=== PATIENT | male | born 1950 | race Caucasian/White ===

== ENCOUNTER 2023-05-30 13:32 | Emergency (ER) | payer MEDICARE, SELFPAY ==
[2023-05-30 14:25] VITALS: BP 114/72; PULSE 69; RESP 17; TEMP 35.6; O2SAT 95; BMI 29.4
--- NOTE | 2023-05-30 14:31 | ED_ITS ---
HPI - General Adult General Chief complaint: General Medical Stated complaint: unsafe at home Time Seen by Provider: 05/30/23 18:16 Source: patient and family (Patient's daughter who is present at bedside) Mode of arrival: ambulatory Limitations: no limitations History of Present Illness HPI narrative: Patient 72-year-old male who presents to the emergency department with his daughter for evaluation. Patient and daughter report a mechanical fall in [place] on 05/16/2023 was found to have a humeral neck fracture. He was evaluated at [facility] 05/17/2023 was given referral to [facility]. He was seen by EAGLE today, with recommendations for use of the sling for 6 weeks, he is taking morphine 15 mg IR every 8 hours as needed for pain, in addition to naproxen 500 mg twice daily as needed for pain. Patient and daughter expressed concerns about his safety at home since the fall. He has been unsteady on his feet, he typically uses either a cane in the right hand or a walker for ambulation. Both of which he has been unable to use successfully due to the fracture. He has been utilizing a cane in the left hand but did not feel this gives him stability. Otherwise he has no acute concerns at this time. Daughter is hoping for physical therapy evaluation and possible short-term rehab. Related Data Home Medications Medication Instructions Recorded Confirmed cetirizine 10 mg tablet (Zyrtec) 10 mg PO DAILY 05/30/23 05/30/23 citalopram 40 mg tablet 40 mg PO DAILY 05/30/23 05/30/23 gabapentin 100 mg capsule 100 mg PO TID 05/30/23 05/30/23 lisinopril 10 mg tablet 10 mg PO BID 05/30/23 05/30/23 melatonin 10 mg tablet 10 mg PO BEDTIME 05/30/23 05/30/23 morphine 15 mg immediate release 15 mg PO TID PRN Pain 05/30/23 05/30/23 tablet naproxen 500 mg tablet 500 mg PO BID 05/30/23 05/30/23 tamsulosin 0.4 mg capsule 0.8 mg PO DAILY 05/30/23 05/30/23 Allergies Allergy/AdvReac Type Severity Reaction Status Date / Time No Known Allergies Allergy Verified 05/30/23 14:40 Review of Systems Review of Systems: Yes all other systems are reviewed and are negative PMFSH Past Medical History Attestation statement: The following information was validated with the patient. Source: old records reviewed Social History Social History Alcohol intake: former Smoked in Last 30 Days: No Use of substances other than those prescribed or required for medical reasons: No Advance Directives: No Advance Directives Information Provided: Yes Physical Exam ED Vital Signs: Vital Signs - 24 hr 05/30/23 18:29 05/30/23 20:28 05/31/23 06:00 Temperature 97.5 F Pulse Rate 101 H 57 60 Respiratory Rate 18 14 17 Blood Pressure 122/75 136/91 H 138/75 Pulse Oximetry 97 95 95 Oxygen Delivery Method Room Air Room Air Room Air 05/31/23 08:00 05/31/23 11:18 Temperature 97.5 F 97.5 F Pulse Rate 66 58 Respiratory Rate 15 14 Blood Pressure 134/88 150/89 H Pulse Oximetry 97 98 Oxygen Delivery Method Room Air Room Air BMI result Body Mass Index 29.4 Appearance: Alert.?Oriented to person, place and time. No acute distress.?Normal affect. Eyes: Pupils equal, round and reactive to light.? ENT: Pharynx normal.?? Neck: Normal inspection.? Neck supple.?? CVS: Heart sounds normal. Normal heart rate and rhythm.? Pulses normal.?? Respiratory: No respiratory distress.? Lung sounds clear to auscultation bilaterally?? Abdomen: Soft and non-tender. Normoactive bowel sounds. Skin: Skin warm and dry.? Normal skin color.? Extremities: No lower extremity edema. 2+ radial pulse bilaterally. Right upper extremity in a sling, CMS intact distally Neuro: Moves all extremities spontaneously. Sensation intact bilaterally. CN II- XII intact. No focal neuro deficits. Ambulates with slow gait, use of assistive devices Course Course Course Narrative: This is an RME: Additional HPI, ROS, PE not included below will be deferred to primary provider. This is a [id number]-male, cervical spine fusion, chronic neuropathy, chronic urinary/bowel incontinence, sciatica, nerve weakness, HTN, here with family to report that patient is unsafe at home. Pt recently had a mechanical fell and broke his humeral neck on May 17. Family concerned given recent fracture and unsteadiness on his feet. These are all chronic problems. Looking for STR, OT/PT evaluation. Plan: basic labs, ua, likely PT/OT case management. Reevaluation(s) Reevaluation #1: 05/31/2023 0700: Physician observation continues. Patient being followed by CM. 05/31/2023 1552: Patient to be discharged to [facility]. Medications Administered Generic Name Dose Route Start Last Admin Trade Name Freq PRN Reason Stop Dose Admin Escitalopram Oxalate 20 mg 05/31/23 09:00 05/31/23 08:22 Escitalopram Oxalate 20 Mg Tablet PO 20 mg DAILY JAVED Administration Gabapentin 100 mg 05/31/23 09:00 05/31/23 08:22 Gabapentin 100 Mg Capsule PO 100 mg TID JAVED Administration Lisinopril 10 mg 05/31/23 09:00 05/31/23 10:00 Lisinopril 10 Mg Tablet PO 10 mg BID JAVED Administration Protocol Loratadine 10 mg 05/31/23 09:00 05/31/23 08:22 Loratadine 10 Mg Tablet PO 10 mg DAILY JAVED Administration Morphine Sulfate 15 mg 05/30/23 21:30 05/30/23 22:01 Morphine Sulfate Immed Release 15 Mg Tablet PO 15 mg TID PRN Administration Pain, Severe (Pain Scale 7-10) Naproxen 500 mg 05/31/23 09:00 05/31/23 08:22 Naproxen 500 Mg Tablet PO 500 mg BID JAVED Administration Tamsulosin HCl 0.8 mg 05/31/23 09:00 05/31/23 08:22 Tamsulosin Hcl 0.4 Mg Capsule PO 0.8 mg DAILY JAVED Administration Medical Decision Making Medical Decision Making MDM Narrative: Patient is a 72-year-old male with past medical history of recent humeral neck fracture, hypertension, BPH presenting to emergency department due to deconditioning, and concern for safety at home. Aside from pain to the right upper extremity with humeral neck fracture and generalized weakness he has no additional physical complaints. The right upper extremity is neurovascularly intact distally. He is overall well-appearing. Conscious alert and oriented x4. Obtain basic labs for medical clearance. Will refer patient to case management/physical therapy for determination as to whether he would be candidate for short-term rehab. He will be placed in physician observation so that physical therapy evaluation can ensue tomorrow. Patient's daughter was present at the time of examination who confirms history. Differential Diagnosis Differential Diagnoses: The differential diagnosis associated with the presentation includes Admission/Observation Consideration of admission/observation: Escalation of care including admission/observation considered (As noted above) Lab Data MDM Lab Attestation statement: I reviewed the patient's lab results. CBC and CMP are overall unremarkable. 05/30/23 14:45 05/30/23 14:45 Labs: Lab Results 05/30/23 05/30/23 05/30/23 Range/Units 14:45 14:45 14:51 WBC 7.5 (4.8-10.8) X10*3/uL RBC 4.80 (4.60-5.80) X10*6/uL Hgb 14.5 (14.0-18.0) g/dl Hct 43.5 (42.0-52.0) % MCV 90.6 (80.0-98.0) fL MCH 30.2 (27.0-33.0) pg MCHC 33.3 (31.0-36.0) g/dl RDW 13.3 (11.0-16.0) % Plt Count 258 (160-400) X10*3/uL MPV 9.7 (9.4-12.4) fL Immature Gran % (Auto) 0.4 (0.0-0.4) % Neut % (Auto) 74.9 H (45-73) % Lymph % (Auto) 12.6 L (20-40) % [place] % (Auto) 9.6 (2-11) % Eos % (Auto) 2.1 (0-4) % Baso % (Auto) 0.4 (0-2) % Lymph # (Auto) 1.0 L (1.2-4.9) X10*3/uL [place] # (Auto) 0.7 (0.1-1.2) X10*3/uL Eos # (Auto) 0.2 (0.0-0.4) X10*3/uL Baso # (Auto) 0.0 (0.0-0.2) X10*3/uL Abs Immat Gran (auto) 0.03 (0.00-0.03) X10*3/uL Absolute Neuts (auto) 5.6 (2.0-8.3) x10*3/uL Absolute Nucleated RBC 0.000 (0.0-0.012) X10*3/uL Nucleated RBC % (auto) 0.0 (0.0-0.2) /100WBC Sodium 138 (135-145) mmol/L Potassium 4.1 (3.3-5.1) mmol/L Chloride 106 (96-108) mmol/L Carbon Dioxide 23 (22-29) mmol/L Anion Gap 13 (12-20) BUN 17 H (9-16) mg/dL Creatinine 0.70 (0.5-1.4) mg/dL Estim Creat Clear Calc 117.6 Estimated GFR > 60 Random Glucose 119 H (60-115) mg/dL Calcium 9.2 (8.4-10.2) mg/dL Total Bilirubin 1.9 H (0.0-1.0) mg/dL Direct Bilirubin 0.6 H (0.0-0.5) mg/dL AST 18 (5-37) U/L ALT 15 (0-40) U/L Alkaline Phosphatase 89 (39-117) U/L Total Protein 6.6 (6.5-8.0) g/dL Albumin 3.6 (3.5-5.0) g/dL Urine Color Yellow Urine Appearance Clear Urine pH 5.5 (5.0-9.0) Ur Specific [place] 1.020 (1.005-1.025) Urine Protein Negative (Neg-Trace) mg/dL Urine Glucose (UA) Negative (Negative) mg/dL Urine Ketones Negative (Negative) mg/dL Urine Blood Small (1+) H (Negative) Urine Nitrite Negative (Negative) Ur Leukocyte Esterase Small (1+) H (Negative) Urine RBC >20 H (0-2) /HPF Urine WBC 11-20 H (0-5) /HPF Ur Squamous Epith Cells 0-2 (0-2) /HPF Urine Bacteria None Seen (None Seen) Hyaline Casts 0-2 (0-2) /LPF COVID-19 (KAMLA) (Negative) COVID-19 Clin Com 05/31/23 Range/Units 09:34 WBC (4.8-10.8) X10*3/uL RBC (4.60-5.80) X10*6/uL Hgb (14.0-18.0) g/dl Hct (42.0-52.0) % MCV (80.0-98.0) fL MCH (27.0-33.0) pg MCHC (31.0-36.0) g/dl RDW (11.0-16.0) % Plt Count (160-400) X10*3/uL MPV (9.4-12.4) fL Immature Gran % (Auto) (0.0-0.4) % Neut % (Auto) (45-73) % Lymph % (Auto) (20-40) % [place] % (Auto) (2-11) % Eos % (Auto) (0-4) % Baso % (Auto) (0-2) % Lymph # (Auto) (1.2-4.9) X10*3/uL [place] # (Auto) (0.1-1.2) X10*3/uL Eos # (Auto) (0.0-0.4) X10*3/uL Baso # (Auto) (0.0-0.2) X10*3/uL Abs Immat Gran (auto) (0.00-0.03) X10*3/uL Absolute Neuts (auto) (2.0-8.3) x10*3/uL Absolute Nucleated RBC (0.0-0.012) X10*3/uL Nucleated RBC % (auto) (0.0-0.2) /100WBC Sodium (135-145) mmol/L Potassium (3.3-5.1) mmol/L Chloride (96-108) mmol/L Carbon Dioxide (22-29) mmol/L Anion Gap (12-20) BUN (9-16) mg/dL Creatinine (0.5-1.4) mg/dL Estim Creat Clear Calc Estimated GFR Random Glucose (60-115) mg/dL Calcium (8.4-10.2) mg/dL Total Bilirubin (0.0-1.0) mg/dL Direct Bilirubin (0.0-0.5) mg/dL AST (5-37) U/L ALT (0-40) U/L Alkaline Phosphatase (39-117) U/L Total Protein (6.5-8.0) g/dL Albumin (3.5-5.0) g/dL Urine Color Urine Appearance Urine pH (5.0-9.0) Ur Specific [place] (1.005-1.025) Urine Protein (Neg-Trace) mg/dL Urine Glucose (UA) (Negative) mg/dL Urine Ketones (Negative) mg/dL Urine Blood (Negative) Urine Nitrite (Negative) Ur Leukocyte Esterase (Negative) Urine RBC (0-2) /HPF Urine WBC (0-5) /HPF Ur Squamous Epith Cells (0-2) /HPF Urine Bacteria (None Seen) Hyaline Casts (0-2) /LPF COVID-19 (KAMLA) Negative (Negative) COVID-19 Clin Com See Note Independent Historian Clinical information obtained from an independent historian. History obtained from or confirmed by: Other (Patient's daughter as noted above) Prescription Management I considered prescription management with: Pain Medication Discharge Plan Discharge Clinical Impression: Fracture, humerus Qualifiers: Encounter type: subsequent encounter Laterality: right Patient Disposition: Still a Patient Prescriptions: No Action citalopram 40 mg tablet 40 mg PO DAILY cetirizine [Zyrtec] 10 mg Tablet 10 mg PO DAILY tamsulosin 0.4 mg capsule 0.8 mg PO DAILY lisinopril 10 mg tablet 10 mg PO BID gabapentin 100 mg capsule 100 mg PO TID morphine 15 mg tablet 15 mg PO TID PRN (Reason: Pain) naproxen 500 mg tablet 500 mg PO BID melatonin 10 mg Tablet 10 mg PO BEDTIME
[2023-05-30 14:50] LABS: MANUAL DIFF FLAG NO
[2023-05-30 14:51] LABS: Basophils Percent Auto 0.4 % (0-2); Eosinophils Absolute Auto 0.2 X10*3/uL (0.0-0.4); Eosinophils Percent Auto 2.1 % (0-4); Hematocrit 43.5 % (42.0-52.0); Hemoglobin 14.5 g/dl (14.0-18.0); Imm Gran Abs Auto 0.03 X10*3/uL (0.00-0.03); Imm Gran Pct Auto 0.4 % (0.0-0.4); Lymphocytes Percent Auto 12.6 % (20-40); Mean Corpuscular HGB Conc 33.3 g/dl (31.0-36.0); Mean Corpuscular Hemoglobin 30.2 pg (27.0-33.0); Mean Corpuscular Volume 90.6 fL (80.0-98.0); Mean Platelet Volume 9.7 fL (9.4-12.4); Monocytes Absolute Auto 0.7 X10*3/uL (0.1-1.2); Monocytes Percent Auto 9.6 % (2-11); Neutrophils Absolute Auto 5.6 x10*3/uL (2.0-8.3); Neutrophils Percent Auto 74.9 % (45-73); Platelet Count 258 X10*3/uL (160-400); Red Cell Distribution Width 13.3 % (11.0-16.0); White Blood Count 7.5 X10*3/uL (4.8-10.8)
[2023-05-30 15:01] LABS: Appearance Urine Clear; Color Urine Yellow; Glucose Urine UA Negative (Negative); Leukocyte Esterase Urine Small (1+) (Negative); Nitrite Urine Negative (Negative); PH 5.5 (5.0-9.0); UMIC TRIGGER UACC YES; Urine Blood Small (1+) (Negative); Urine Ketones Negative (Negative); Urine Protein Negative (Neg-Trace)
[2023-05-30 15:04] LABS: Bacteria Urine None Seen (None Seen); Hyaline Casts Urine 0-2 /LPF (0-2); RBC Urine >20 /HPF (0-2); Squamous Epithelial Cell Urine 0-2 /HPF (0-2); UACC Culture Trigger YES
[2023-05-30 15:05] LABS: Alanine Aminotransferase 15 U/L (0-40); Albumin Level 3.6 g/dL (3.5-5.0); Alkaline Phosphatase 89 U/L (39-117); Anion Gap 13 (12-20); Aspartate Amino Transferase 18 U/L (5-37); Bilirubin Direct 0.6 mg/dL (0.0-0.5); Bilirubin Total 1.9 mg/dL (0.0-1.0); Blood Urea Nitrogen 17 mg/dL (9-16); Calcium 9.2 mg/dL (8.4-10.2); Carbon Dioxide 23 mmol/L (22-29); Chloride 106 mmol/L (96-108); Creatinine Clr Calc Pharmacy 117.6; Estimated Glomerular Filt Rate > 60; Glucose Random 119 mg/dL (60-115); Potassium 4.1 mmol/L (3.3-5.1); Sodium 138 mmol/L (135-145); Total Protein 6.6 g/dL (6.5-8.0)
[2023-05-30 18:29] VITALS: BP 122/75; PULSE 101; RESP 18; O2SAT 97
--- NOTE | 2023-05-30 18:33 | PC.NURSE ---
Alert and oriented, arrived from home stating that he is unsafe at home. Fell 2 weeks ago on may 16. right Humeral neck head fracture. Patient states he needs extensive help at home that his family is unable to provide for him at this time. States is weak and is unsafe at home and is requesting case managements help with finding finding rehab
--- NOTE | 2023-05-30 20:12 | PHA.MEDREC ---
Pharmacy Consult ? Medication Reconciliation Pharmacy has completed the medication reconciliation. Patient's daughter reported medications. Report naproxen is schedule and morphine is prn. Typically patient only wants morphine at night. Irma Espinal, KevinD
--- NOTE | 2023-05-30 20:14 | MHC.EDTECH ---
Patient pull up changed and given a new one
[2023-05-30 20:28] VITALS: BP 136/91; PULSE 57; RESP 14; O2SAT 95
--- NOTE | 2023-05-30 20:41 | PC.NURSE ---
REPORT GIVEN TO OVERFLOW RN
[2023-05-30] MEDS: Morphine Sulfate Immed Release 15 MG TABLET PO (22:01)
--- NOTE | 2023-05-30 22:16 | MHC.CM.ED ---
CM met with patient and daughter. Pt fell on 05/17 and sustained a right humeral head fx. Pt was at [facility] and returned home. PCP at [facility] ordered home PT from [facility]. PT came today and told daughter the patient in inpatient rehab and is not safe at home. Pt has a hx of cervical spine fusion, neuropathy, nerve weakness and incontinence. Pt cannot use his walker secondary to fracture and is very unsteady with his cane. He lives with his daughter and is alone while she works. She is concerned for his safety. PT is pending. HCP reviewed, completed and signed. Uploaded into [employer] and [facility] [employer]. Copies given. HCP/daughter Carolyn Cross ([phone]). Carolyn asked to be called with any discharge planning, as her father can be forgetful at times. Pt retired 3 years ago. He moved in with his daughter when his , Lizz 3 years ago. Pt was vaccinated with Moderna x2 and 2 boosters. Pt is in need of acute rehab. Pt is highly motivated to participate. PT is pending. Acute rehab referrals placed. Pt has Medicare and [employer]. CM following for discharge planning. Contact Card given.
[2023-05-31 06:00] VITALS: BP 138/75; PULSE 60; RESP 17; TEMP 36.4; O2SAT 95
[2023-05-31 08:00] VITALS: BP 134/88; PULSE 66; RESP 15; TEMP 36.4; O2SAT 97
[2023-05-31] MEDS: Gabapentin 100 MG CAPSULE PO ×2 (08:22→16:00)
[2023-05-31] MEDS: Escitalopram Oxalate 20 MG TABLET PO (08:22)
[2023-05-31] MEDS: NaPROXEN 500 MG TABLET PO (08:22)
[2023-05-31] MEDS: Loratadine 10 MG TABLET PO (08:22)
[2023-05-31] MEDS: Tamsulosin HCL 0.4 MG CAPSULE 0.8 MG PO (08:22)
[2023-05-31] MEDS: lisinopriL 10 MG TABLET PO (10:00)
[2023-05-31 10:31] LABS: COVID-19 Test Negative (Negative); IDNOW Serial# 08D9AD1C
[2023-05-31 11:18] VITALS: BP 150/89; PULSE 58; RESP 14; TEMP 36.4; O2SAT 98
--- NOTE | 2023-05-31 16:07 | MHC.CM.ED ---
Insurance auth obtained by [facility]. Nataliia IVY booked for 530pm. Med nec with chart. Patient, daughter Laurie Leon RN and Yary CHA aware. Continue to monitor for d/c needs.
--- NOTE | 2023-05-31 16:30 | PC.NURSE ---
Report given to AMINA Lockwood at [facility]
== END 2023-05-31 17:21 | disposition skilled nursing facility (03) ==
PROVIDERS: Physician Assistant Medical; Emergency Provider Emergency Medicine Emergency Medical Services
DX: S42.301A Unspecified fracture of shaft of humerus, right arm, initial encounter for closed fracture (principal); I10 Essential (primary) hypertension; R26.2 Difficulty in walking, not elsewhere classified; R32 Unspecified urinary incontinence; W01.0XXA Fall on same level from slipping, tripping and stumbling without subsequent striking against object, initial encounter; Y93.9 Activity, unspecified; Y92.9 Unspecified place or not applicable; Y99.9 Unspecified external cause status; Z20.822 Contact with and (suspected) exposure to COVID-19; Z20.828 Contact with and (suspected) exposure to other viral communicable diseases; Z79.899 Other long term (current) drug therapy
CPT/HCPCS: 36415; 80048; 80076; 81001; 81003; 85025; 87086; 87635; 97161; 99284; 99285

== ENCOUNTER 2023-06-11 08:43 | Outpatient (REF) | payer MEDICARE, OTHER, SELFPAY | END 2023-06-11 08:44 | disposition home or self-care (01) | LOC: HO.HOSX 08:43 | PROVIDERS: Visit Provider Physician Assistant | DX: Z13.89 Encounter for screening for other disorder (principal) ==

== ENCOUNTER 2023-06-19 13:19 | Outpatient (AMB) | payer OTHER, SELFPAY ==
--- NOTE | 2023-06-19 13:41 | HO.SPINEOV ---
Intake Intake Visit Reasons: est pt back pain Intake Note: Mr. Cross is here today for f/u back pain. Allergies No Known Allergies Allergy (Verified 05/30/23 14:40) Assessment & Plan Assessment & Plan (1) Lumbar stenosis with neurogenic claudication: Code(s): M48.062 - Spinal stenosis, lumbar region with neurogenic claudication (2) Spondylolisthesis, lumbar region: Code(s): M43.16 - Spondylolisthesis, lumbar region Plan: Prateek greer, On 06/19/2023, I saw for follow-up Micky Cross. We originally saw on for back pain and neurogenic claudications symptoms with the MRI showing an L4-5 spondylolisthesis and associated lumbar stenosis. However, he also displayed symptoms of cervical myelopathy and an MRI indeed confirmed spinal cord compression at C3-4 and to a lesser degree at C4-5. He underwent an anterior diskectomy fusion C3-C4, which improved his hand symptoms but he continues to complain of balance problems, spastic gait and incontinence on top of the low back pain with neurogenic symptoms. We ordered a new MRI of the cervical spine, which was done at [facility] on 01/08/2023, which shows ongoing C3-4 severe spinal stenosis due to a posterior compression and moderate C4-5 spinal cord compression. I reviewed the imaging with the patient and his niece in detail and advised him to undergo a posterior C3-C5 laminectomy. He Is scheduled for 08/07/2023. We we will address his lumbar spondylolisthesis and associated lumbar stenosis 3 weeks later on 08/27/2023 through an L4-5 oblique lumbar interbody fusion. I described procedure and expected postoperative course. I think there is a reasonable chance that he will need postoperative rehab. I discussed the plan by telephone with his daughter. I spent 35 minutes in this consult for preparation discussing plan of care. Cristhian Will MD, PhD Spine Fellowship Trained Neurosurgeon Director, [facility] (3) Cervical spondylosis with myelopathy: Code(s): M47.12 - Other spondylosis with myelopathy, cervical region Orders: Orders XR lumbar spine 4V min Today M43.16 - Spondylolisthesis, lumbar region, M48.062 - Spinal stenosis, lumbar region with neurogenic claudication Coding Level of Care Code Est Pt Level 4 (54383) Diagnoses Lumbar stenosis with neurogenic claudication M48.062 Spondylolisthesis, lumbar region M43.16 Cervical spondylosis with myelopathy M47.12
== END 2023-06-19 14:26 | disposition home or self-care (01) ==
PROVIDERS: Visit Provider Neurological Surgery
DX: M48.062 Spinal stenosis, lumbar region with neurogenic claudication (principal); M43.16 Spondylolisthesis, lumbar region; M47.12 Other spondylosis with myelopathy, cervical region
CPT/HCPCS: 99214

== ENCOUNTER 2023-06-19 13:19 | Outpatient (REF) | payer OTHER, SELFPAY ==
--- NOTE | ~2023-06-19 | XR_ITS ---
EXAMINATION: XR LUMBOSACRAL SPINE WITH FLEXION AND EXTENSION VIEWS CLINICAL INFORMATION: Spondylolisthesis lumbar region. COMPARISON: None available. TECHNIQUE: 4 views of the lumbar spine including lateral flexion and extension views. FINDINGS: The bones are diffusely demineralized. Facet arthritis in the [id number] lumbar spine. Degenerative changes in bilateral sacroiliac joints, moderate. Advanced multilevel lumbar spondylosis with loss of disc space height at L3-L4, L4-L5 and L5-S1. Grade 1 anterolisthesis of L4 on L5. Multiple rounded calcifications project over the left renal interpolar region, with grouped calcifications lower pole, largest 9 mm. Possible right calculi, largest lower pole 9 mm. XR/XR lumbar spine 4V min IMPRESSION: Advanced multilevel degenerative changes with grade 1 anterolisthesis of L4 on L5. Possible bilateral renal calculi. Ultrasound or CT scan recommended for further evaluation.
== END 2023-06-19 13:20 | disposition home or self-care (01) ==
LOC: HO.HOSX 13:19
PROVIDERS: Visit Provider Neurological Surgery
DX: M48.062 Spinal stenosis, lumbar region with neurogenic claudication (principal); M43.16 Spondylolisthesis, lumbar region; M47.12 Other spondylosis with myelopathy, cervical region
CPT/HCPCS: 72110; 99212

== ENCOUNTER 2023-06-25 05:35 | Outpatient (REF) | payer OTHER, SELFPAY | END 2023-06-25 05:36 | disposition home or self-care (01) | LOC: HO.HOSX 05:35 | PROVIDERS: Visit Provider Physician Assistant | DX: Z13.89 Encounter for screening for other disorder (principal) ==

== ENCOUNTER 2023-08-07 08:18 | Day surgery (SDC) | payer OTHER, SELFPAY ==
--- NOTE | 2023-07-24 | ECG_ITS ---
Test Reason : preop Blood Pressure : / mmHG Vent. Rate : 051 BPM Atrial Rate : 051 BPM P-R Int : 228 ms QRS Dur : 088 ms QT Int : 442 ms P-R-T Axes : 059 001 063 degrees QTc Int : 407 ms Sinus bradycardia with 1st degree A-V block Otherwise normal ECG No previous ECGs available Referred By: Carolyn Laguerre Electronically Signed By:MAYCO CASTILLO
[2023-07-24 13:44] VITALS: BP 107/64; PULSE 74; RESP 18; O2SAT 96; BMI 28.7
--- NOTE | 2023-07-24 13:56 | HO.ANESPROP2 ---
HPI - Anesthesia Eval Consult details Narrative: 72yo M for C3-4,C4-5 Ant Cerv Disc w/ Fusion Multi Right humerus fx 04/2023. Pt reports poor healing. F/u with [facility] 08/21/23. Per workload by SEMAJ Parra: No restrictions on arm movement in OR per [facility] documentation. No recent illness No CP/SOB with walking with cane/walker PMFSH Active Problems Active Problems: All Active Problems (Updated 07/24/23 @ 13:15 by Prema Brandon RN) Cervical spondylosis with myelopathy (Acute) Lumbar stenosis with neurogenic claudication (Acute) Spondylolisthesis, lumbar region (Acute) Past Medical History Medical History Elevated cholesterol Fracture of humeral head Urinary incontinence Calculus of kidney Insomnia HTN (hypertension) Anxiety Depression Obesity Internal hemorrhoid Erectile dysfunction BPH associated with nocturia Lumbar radiculopathy Umbilical hernia without obstruction or gangrene Rectus diastasis Ventral hernia without obstruction or gangrene Cervical myelopathy Family History Family history of problems with anesthesia: No Surgical History Surgical History Hx of cervical spine surgery Hx of lithotripsy H/O colonoscopy History of Problems with Anesthesia: No Social History Social History Are you a primary customer care representative to a significant other at home: No Do you presently have visiting nurse or other home services: Yes (PT) Alcohol intake: former Patient Tobacco Use Status: Never used Tobacco Meds Allergies Allergy/AdvReac Type Severity Reaction Status Date / Time Seasonal Allergies Allergy Unknown Verified 07/23/23 10:42 Home Medications Medication Instructions Recorded Confirmed Last Taken Type cetirizine 10 mg tablet (Zyrtec) 10 mg PO BID PRN Allergy Symptoms 05/30/23 07/24/23 05/30/23 History citalopram 40 mg tablet 40 mg PO DAILY 05/30/23 07/24/23 08/07/23 07:00 History gabapentin 100 mg capsule 100 mg PO TID 05/30/23 07/23/23 08/07/23 07:00 History lisinopril 10 mg tablet 10 mg PO BID 0807/24/23 05/30/23 History melatonin 10 mg tablet 10 mg PO BEDTIME PRN Insomnia 05/30/23 07/24/23 05/29/23 History naproxen 500 mg tablet 500 mg PO DAILY PRN Pain 05/30/23 07/24/23 05/30/23 History tamsulosin 0.4 mg capsule 0.4 mg PO BID 05/30/23 07/24/23 08/07/23 07:00 History fluticasone propionate 50 2 spray intranasal DAILY PRN 07/23/23 07/24/23 Unknown History mcg/actuation nasal Allergy Symptoms spray,suspension (Flonase Allergy Relief) Exam Exam Date and Time: July 24, 2023 1356 Height,Weight and Vital Signs: Height 6 ft Weight 96.162 kg Last Vital Signs Pulse 74 07/24/23 13:44 Resp 18 07/24/23 13:44 BP 107/64 07/24/23 13:44 Pulse Ox 96 07/24/23 13:44 O2 Del Method Room Air 07/24/23 13:44 Narrative Narrative: EKG 06/2023 Vent. Rate : 051 BPM Atrial Rate : 051 BPM P-R Int : 228 ms QRS Dur : 088 ms QT Int : 442 ms P-R-T Axes : 059 001 063 degrees QTc Int : 407 ms Sinus bradycardia with 1st degree A-V block Otherwise normal ECG No previous ECGs available Airway Mallampati Class: I TM Dist: >3cm Neck ROM: Limited Loose/Missing/Broken Teeth: Yes (Front left missing #10, molar right lower cap) Heart: RRR Lungs: CTAB Assessment and Plan Assessment Anesthesia Assessment: Anesthesia Plan Discussed and PAT Visit Final Anesthetic Review Family History of Problems with Anesthesia: No History of Problems with Anesthesia: No
[2023-08-07] VITALS (17 sets, daily range): BP systolic 94–129; BP diastolic 54–90; PULSE 62–93; RESP 12–18; TEMP 36.1–36.4; O2SAT 91–97
--- NOTE | ~2023-08-07 | FL_ITS ---
EXAMINATION: XR FLUOROSCOPY WITH IMAGES CLINICAL INFORMATION: C3-C4, C4-C5 laminectomy. COMPARISON: None available. TECHNIQUE: Fluoroscopy Supervised By: Dr. Cristhian Will. Fluoroscopy Time: 0.0 minutes. Cumulative Dose: 0.491 mGy. DAP: 0.134 Gycm2. Images: 1. FINDINGS: ACDF surgical hardware at C3-C4. Limited view inferiorly due to overlying soft tissues. Posterior surgical instrument. FL/FL guidance in OR IMPRESSION: ACDF surgical hardware at C3-C4.
--- NOTE | 2023-08-07 07:02 | MHC.SHP ---
Pre-Procedural Eval Section A Date of Service: 08/07/23 Section B Chief Complaint: Spinal stenosis, cervical region,disease of spinal Allergies: Allergies Allergy/AdvReac Type Severity Reaction Status Date / Time Seasonal Allergies Allergy Unknown Verified 07/23/23 10:42 Review of Systems Sugical H&P ROS: Negative: Constitution, Cardiovascular, Respiratory, Neurological, Psychiatric, Hem-Onc, Allergic/Immunologic, Gastrointestinal, Genitourinary, Musculoskeletal, Integumentary, Endocrine and Eyes/Ears/Nose/Throat Exam Surgical H&P Exam: Not Evaluated: HEENT, Not Evaluated: Heart, Not Evaluated: Lungs, Not Evaluated: Extremities, Not Evaluated: Abdomen, Not Evaluated: Skin and Not Evaluated: Neurological Plan Diagnosis/Plan: Unchanged I have reviewed the history and physical and performed a pertinent physical examination on my patient. No changes have occurred unless specified. Plan remains the same, C3-4 posterior laminectomy Time Spent With Patient Time: Total time managing care of this patient today _10___ minutes.
--- NOTE | 2023-08-07 08:42 | PC.NURSE ---
patient has a right humerus fracture. pain with movement. guarding right arm. md office aware per note
--- NOTE | 2023-08-07 09:11 | PC.NURSE ---
patient took 100mf gabapentin this am. 300mg gabapentin not given.
--- NOTE | 2023-08-07 09:36 | HO.ANESPROP2 ---
[facility] Active Problems Active Problems: All Active Problems (Updated 07/24/23 @ 13:15 by Prema Brandon RN) Cervical spondylosis with myelopathy (Acute) Lumbar stenosis with neurogenic claudication (Acute) Spondylolisthesis, lumbar region (Acute) Past Medical History Medical History Elevated cholesterol Fracture of humeral head Urinary incontinence Calculus of kidney Insomnia HTN (hypertension) Anxiety Depression Obesity Internal hemorrhoid Erectile dysfunction BPH associated with nocturia Lumbar radiculopathy Umbilical hernia without obstruction or gangrene Rectus diastasis Ventral hernia without obstruction or gangrene Cervical myelopathy Functional capacity: independent ambulation Family History Family history of problems with anesthesia: No Surgical History Surgical History Hx of cervical spine surgery Hx of lithotripsy H/O colonoscopy History of Problems with Anesthesia: No Social History Social History Are you a primary pediatric care coordinator to a significant other at home: No Do you presently have visiting nurse or other home services: Yes (PT) Alcohol intake: former Patient Tobacco Use Status: Never used Tobacco Use of substances other than those prescribed or required for medical reasons: No Have you been hit, kicked, punched, or otherwise hurt by someone within the past year? If so, by whom?: No Are you DNR?: No Advance Directives: No Advance Directives Information Provided: Yes Advance Directives on File: No Recently lost weight without trying: No Eating poorly because of decreased appetite: No Nutrition Risks: No Nutritional Risk Poor oral hygiene: No Meds Allergies Allergy/AdvReac Type Severity Reaction Status Date / Time Seasonal Allergies Allergy Unknown Verified 07/23/23 10:42 Active Medications: Current Medications Lactated Ringer's (Lr) 1,000 mls @ 100 mls/hr IVCONT .Q10H JAVED Last Admin: 08/07/23 09:13 Dose: 100 mls/hr Home Medications Medication Instructions Recorded Confirmed Last Taken Type cetirizine 10 mg tablet (Zyrtec) 10 mg PO BID PRN Allergy Symptoms 05/30/23 07/24/23 05/30/23 History citalopram 40 mg tablet 40 mg PO DAILY 05/30/23 07/24/23 08/07/23 07:00 History gabapentin 100 mg capsule 100 mg PO TID 05/30/23 07/23/23 08/07/23 07:00 History lisinopril 10 mg tablet 10 mg PO BID 05/30/23 07/24/23 05/30/23 History melatonin 10 mg tablet 10 mg PO BEDTIME PRN Insomnia 05/30/23 07/24/23 05/29/23 History naproxen 500 mg tablet 500 mg PO DAILY PRN Pain 05/30/23 07/24/23 05/30/23 History tamsulosin 0.4 mg capsule 0.4 mg PO BID 05/30/23 07/24/23 08/07/23 07:00 History fluticasone propionate 50 2 spray intranasal DAILY PRN 07/23/23 07/24/23 Unknown History mcg/actuation nasal Allergy Symptoms spray,suspension (Flonase Allergy Relief) Exam Exam Date and Time: August 07, 2023 0936 Height,Weight and Vital Signs: Height 6 ft Weight 96.162 kg Last Vital Signs Temp 97.5 F 08/07/23 08:59 Pulse 65 08/07/23 08:59 Resp 16 08/07/23 08:59 BP 112/67 08/07/23 08:59 Pulse Ox 96 08/07/23 08:59 O2 Del Method Room Air 08/07/23 08:59 Airway Mallampati Class: II TM Dist: >3cm Neck ROM: Full Heart: RRR Lungs: CTA Assessment and Plan Final Anesthetic Review Family History of Problems with Anesthesia: No History of Problems with Anesthesia: No NPO: Yes ASA Class: III Final Preanesthetic Review: Meds/Allgs Chart Reviewed, Consent Obtained/Reviewed and Anes Risks/Benef Reviewed Patient Risk: Intermediate Procedure Risk: Intermediate Anesthetic Plan Anesthetic Plan: GA Disposition: Standard PACU
--- NOTE | 2023-08-07 12:39 | PM.DS ---
DS: Providers Provider Date of Service: 08/07/23 Primary care physician: Unknown Physician DS: Summary Time Spent with Patient Time attestation: Total time managing care of this patient today ____ minutes. Discharge coordination time: Less than 30 minutes Quality: Safe Use of Opioids Does Pt have an Active Cancer Diagnosis on the Problem List?: No Quality: Stroke Does the patient have a stroke diagnosis?: No Physical Exam Vital Signs: Vital Signs: Last Vital Signs Temp 97.5 F 08/07/23 08:59 Pulse 65 08/07/23 08:59 Resp 16 08/07/23 08:59 BP 112/67 08/07/23 08:59 Pulse Ox 96 08/07/23 08:59 O2 Del Method Room Air 08/07/23 08:59 BMI result Body Mass Index 28.7 DS: Data Data Completed and Pending Labs on day of discharge: Laboratory Results - last 24 hr 08/07/23 09:11 Blood Type B Positive Antibody Screen NEGATIVE Discharge Plan Discharge Patient Disposition: Home, Self-Care Referrals: Physician,Unknown J [Primary Care Provider] - 1 Week Discharge Medications: New sulfamethoxazole-trimethoprim [Bactrim DS] 800-160 mg tablet 1 tab PO BID 3 Days Qty: 6 0RF oxycodone 5 mg tablet 5 mg PO TID PRN (Reason: severe pain (scale score 7-10)) Qty: 30 0RF Rx Instructions: Partial Fill upon patient request. acetaminophen 500 mg tablet 1,000 mg PO Q8H PRN (Reason: mild-moderate pain) Qty: 42 0RF docusate sodium 100 mg capsule 100 mg PO BID Qty: 20 0RF Continued citalopram 40 mg tablet 40 mg PO DAILY cetirizine [Zyrtec] 10 mg Tablet 10 mg PO BID PRN (Reason: Allergy Symptoms) tamsulosin 0.4 mg capsule 0.4 mg PO BID lisinopril 10 mg tablet 10 mg PO BID gabapentin 100 mg capsule 100 mg PO TID naproxen 500 mg tablet 500 mg PO DAILY PRN (Reason: Pain) melatonin 10 mg Tablet 10 mg PO BEDTIME PRN (Reason: Insomnia) fluticasone propionate [Flonase Allergy Relief] 50 mcg/actuation spray,suspension 2 spray intranasal DAILY PRN (Reason: Allergy Symptoms) Discharge Orders: Discharge Order (Routine); Ordered 08/07/23 Ordered By: Peter Guzman Diet: Advance to usual diet Activity on Discharge: As tolerated Activity Restrictions/Additional Instructions: After your spinal surgery we ask you to observe the following restrictions/guidelines: Activity: It is normal to feel some discomfort as you increase your activity, but that will improve with time. We ask you avoid heavy lifting or acitivities that cause pain. As a general rule, 8lbs is a safe limit for lifting right after surgery. Walk as much as you feel comfortable but not to exhaustion. You will feel extra tired the first few days after surgery. Stay well hydrated. It is OK to walk up and down stairs You may return to driving when you are off narcotics (such as vicodin, oxycodone, dilaudid, etc), and you are back to normal functional capacity. If you have any concerns please check with office before driving. Return to work is specific to each patient and each surgery, so please speak with your doctor/PA at first follow up. Please bring paperwork such as FMLA at that time if you need it filled out. Medications: We will give you a short supply of narcotics after surgery (usually one weeks worth). If you need more please call the office but do not use more than prescribed. You will need to give our office 48 hours notice if you need narcotics refilled and we do not fill narcotics on weekends or evenings. If you are on a narcotic, it is a good idea to take a stool softener such as colace or senna to avoid constipation If you take blood thinner such as aspirin, Plavix, Coumadin, Effient, Eliquis etc for conditions such as Afib, DVT, Pulmonary embolus, coronary disease, stents etc please speak with your surgeon about specific details as to when you can resume these medications. You can resume NSAIDs on post op day 1 (eg: Motrin, Naproxen, etc). Follow up: Please call the office, , after surgery to arrange a 3 week follow up for wound check, and to schedule 2 week staple removal. Wound Care: You may remove your dressing on the first day after surgery. You may leave open to air. Please do not remove the madhavi underneath. We will remove them in 2 weeks in our clinic. IT IS NORMAL FOR THE WOUND TO OOZE OR BE BLOODY FOR A FEW DAYS AFTER SURGERY. IF THIS HAPPENS JUST PLACE NEW DRESSING OVER IT TO AVOID STAINING CLOTHES. You may shower on post op day # 1 We ask that you do not let the water soak the wound. If it does get wet, just towel dry lightly. Please do not scrub your incision or place any type of chemical/ointment on the wound. No tub baths, pools or jacuzzis for one month. If you have any leaking or redness from your wound, or fevers, please call the office.
--- NOTE | 2023-08-07 12:42 | W.PM.OPN ---
Operative Note Operative Note Date of Service: 08/07/23 Narrative: Preoperative Diagnosis: cervical myelopathy Operation: C3-C5 laminectomy Consent Informed Consent was obtained for this operation. I have explained the nature, purpose and benefits of the operation. I have discussed the risks and benefit of the operation including possible complications or adverse events with patient/family. Alternative(s) were discussed with the patient with their relative benefits and risks as well as the consequences of not accepting the operation were included in obtaining consent. Surgeon: MEG MARTINEZ MD, PHD Procedure Assisted By: Frank Hoffman Description of Procedure this 72-year-old male with a previous C3-4 anterior diskectomy fusion for cervical myelopathy. He had significant recovery but reached a baseline and repeat MRI still shows some posterior compression at C3-4. He was offered a posterior C3 is [id number] laminectomy to make sure that the spinal cord has the most space for recover. The patient was offered a decompression. The procedure complications were explained. The patient was consented. The patient was brought to the operating room and endotracheally intubated. The patient was turned in prone position on the gel rolls with the head fixated in Mcgovern. Prep and drape was done followed by timeout. a midcervical incision was made. Dissection was carried down the midline to avoid blood loss. The paravertebral muscles were released to expose the C3-C5 laminae in preparation for the laminectomy. a Leksell was used to perform a partial of C3-C5. An x-ray confirmed the correct levels. And 2. And 3 Kerrison were used to complete a C3-C5 laminectomy. The laminectomy was extended laterally near flush with the pedicles. This resulted in good decompression of the spinal cord. Extensive hemostasis was done after which the physician emergency room physician assistant closed the fascia and subcutaneous layer with 2-0 Vicryl. Gala were used to approximate the incision. All sponge and needle counts were correct. The Mcgovern was removed. Patient was extubated and transported in a stable base to the recover room Anesthesia: General Estimated Blood Loss (ml): 30 mL Duration of Surgery: Under 60 Minutes Postoperative Plan: Discharge to home
== END 2023-08-07 15:46 | disposition home or self-care (01) ==
PROVIDERS: Visit Provider Neurological Surgery
PROC: (CPT 63045; principal; 2023-08-07 10:40)
DX: M48.02 Spinal stenosis, cervical region (principal); M47.12 Other spondylosis with myelopathy, cervical region; G95.9 Disease of spinal cord, unspecified; G95.20 Unspecified cord compression
CPT/HCPCS: 63045; 63048; 86850; 86900; 86901; 93005; J0131; J0690; J1100; J1170; J1885; J2250; J2371; J2405; J3010

== ENCOUNTER → 2023-08-07 08:18 | Outpatient (BNV) | payer OTHER, SELFPAY | PROVIDERS: Visit Provider Physician Assistant | DX: M48.02 Spinal stenosis, cervical region (principal); M47.12 Other spondylosis with myelopathy, cervical region | CPT/HCPCS: 63045; 63048; 99499 ==

== ENCOUNTER 2023-08-10 13:32 | Emergency (ER) | payer OTHER, SELFPAY ==
--- NOTE | ~2023-08-10 | XR_ITS ---
EXAMINATION: XR SHOULDER, RIGHT CLINICAL INFORMATION: Right shoulder pain COMPARISON: None available. TECHNIQUE: AP external rotation, Grashey, scapular Y, and axillary views of the right shoulder. FINDINGS: Proximal right humeral subcapital fracture with superior displacement of the proximal aspect of the distal fracture fragment. Humeral head remains in the glenoid. Demineralization and degenerative change acromioclavicular joint. Visualized ribs are intact. Vessel crowding. XR/XR shoulder RT min 2V IMPRESSION: Displaced proximal right humeral fracture.
[2023-08-10 13:52] VITALS: BP 104/67; BP 132/90; PULSE 65; PULSE 70; RESP 16; TEMP 36.7; O2SAT 96; O2SAT 97; BMI 34.0
--- NOTE | 2023-08-10 14:02 | ED.FALL ---
HPI - Fall General Chief Complaint: Fall Stated Complaint: FALL IN BATHTUB Time Seen by Provider: 08/10/23 13:37 Source: patient and EMS Mode of arrival: EMS Limitations: no limitations History of Present Illness HPI Narrative: 72-year-old male presents to emergency department after a fall patient is in the shower and he fell down he called EMS was brought here. Patient on arrival has no complaints he did fracture his humerus back in April he since has followed up at [facility] as well as doing with orthopedics. Patient has been in a sling for 6 weeks has been taking morphine for it as well as naproxen and does not healed well. He has been seen here back 2 months ago as his daughter was concerned for his safety. She is not here currently he typically what is the cane. Patient denies hitting his head denies loss consciousness denies any pain anywhere in his body he denies fevers chills cough or shortness of breath. Related Data Home Medications Medication Instructions Recorded Confirmed cetirizine 10 mg tablet (Zyrtec) 10 mg PO BID PRN Allergy Symptoms 05/30/23 07/24/23 citalopram 40 mg tablet 40 mg PO DAILY 05/30/23 07/24/23 gabapentin 100 mg capsule 100 mg PO TID 05/30/23 07/23/23 lisinopril 10 mg tablet 10 mg PO BID 05/30/23 07/24/23 melatonin 10 mg tablet 10 mg PO BEDTIME PRN Insomnia 05/30/23 07/24/23 naproxen 500 mg tablet 500 mg PO DAILY PRN Pain 05/30/23 07/24/23 tamsulosin 0.4 mg capsule 0.4 mg PO BID 05/30/23 07/24/23 fluticasone propionate 50 2 spray intranasal DAILY PRN 07/23/23 07/24/23 mcg/actuation nasal Allergy Symptoms spray,suspension (Flonase Allergy Relief) Previous Rx's Medication Instructions Recorded acetaminophen 500 mg tablet 1,000 mg (2 x 500 mg) PO Q8H PRN 08/07/23 mild-moderate pain #42 tabs docusate sodium 100 mg capsule 100 mg PO BID #20 caps 08/07/23 oxycodone 5 mg tablet 5 mg PO TID PRN severe pain (scale 08/07/23 score 7-10) #30 tabs sulfamethoxazole 800 1 tab PO BID SURGICAL PROPHYLAXIS 08/07/23 mg-trimethoprim 160 mg tablet 3 days #6 tabs (Bactrim DS) Allergies Allergy/AdvReac Type Severity Reaction Status Date / Time Seasonal Allergies Allergy Unknown Verified 07/23/23 10:42 Review of Systems Review of Systems: Review of systems: General: Patient falldenies any fever chills recent illness Musculoskeletal: Denies back pain or body aches or other injuries HEENT: denies headache, runny nose, ear pain Respiratory: denies shortness of breath, cough Cardiovascular: no chest pain or palpitations : denies dysuria, frequency Abdomen: no nausea vomiting denies abdominal pain Extremities: no swelling, no pain Skin: no diaphoresis Yes all other systems are reviewed and are negative PMFSH Past Medical History Medical History Elevated cholesterol Fracture of humeral head Urinary incontinence Calculus of kidney Insomnia HTN (hypertension) Anxiety Depression Obesity Internal hemorrhoid Erectile dysfunction BPH associated with nocturia Lumbar radiculopathy Umbilical hernia without obstruction or gangrene Rectus diastasis Ventral hernia without obstruction or gangrene Cervical myelopathy Surgical History Hx of cervical spine surgery Hx of lithotripsy H/O colonoscopy Social History Social History Are you a primary neonatal intensive care nurse to a significant other at home: No Do you presently have visiting nurse or other home services: Yes (PT) Alcohol intake: former Patient Tobacco Use Status: Never used Tobacco Advance Directives: Yes Advance Directives on File: Yes Advance Directives Date on File: 08/10/23 Physical Exam Vital Signs: Vital Signs: Last Vital Signs Temp 98.1 F 08/10/23 13:52 Pulse 70 08/10/23 13:52 Resp 16 08/10/23 13:52 BP 104/67 08/10/23 13:52 Pulse Ox 97 08/10/23 13:52 O2 Del Method Room Air 08/10/23 13:52 BMI result Body Mass Index 34.0 Neurological exam: CN II- XII tested. Patient is alert and oriented to person place and time. Patient has no dysphagia or dysarthia, denies good vision in all four vision clements no nystagmus on exam, good strength to upper and lower extremities with normal reflexes to brachioradialis, wrist, patella and achilles. Negative romberg, good finger to nose and heel to rowe. General: Well-appearing well-nourished in no signs of distress HEENT: Normocephalic atraumatic Neck: No signs of JVD, no masses no tenderness or lymphadenopathy Cardiovascular: Regular rate and rhythm Respiratory: Clear to auscultation bilaterally Abdomen: Soft nontender no masses Extremities: Normal pedal pulses no signs of edema Skin: Dry warm no rashes Back: No tenderness full ROM Course Course Course Narrative: XR and labs are all normal I will keep here for PT and case management evaluation. Medical Decision Making Medical Decision Making [facility] Narrative: patient has no signs or symptoms he is in no pain at this time I will hold off getting any labs until I talk with daughter he looks otherwise well see finger hold physical therapy and talk to case management. Differential Diagnosis Differential Diagnoses: The differential diagnosis associated with the presentation includes Fall head injury acute fracture dislocation dehydration dizziness Admission/Observation Consideration of admission/observation: Escalation of care including admission/observation considered Lab Data [facility] Lab Attestation statement: I reviewed the patient's lab results. 08/10/23 14:17 08/10/23 14:17 Labs: Lab Results 08/10/23 08/10/23 Range/Units 14:17 14:23 WBC 9.7 (4.8-10.8) X10*3/uL RBC 4.70 (4.60-5.80) X10*6/uL Hgb 14.4 (14.0-18.0) g/dl Hct 43.3 (42.0-52.0) % MCV 92.1 (80.0-98.0) fL MCH 30.6 (27.0-33.0) pg MCHC 33.3 (31.0-36.0) g/dl RDW 13.3 (11.0-16.0) % Plt Count 178 D (160-400) X10*3/uL MPV 11.5 (9.4-12.4) fL Immature Gran % (Auto) 0.3 (0.0-0.4) % Neut % (Auto) 75.3 H (45-73) % Lymph % (Auto) 10.5 L (20-40) % Woodruff % (Auto) 13.2 H (2-11) % Eos % (Auto) 0.4 (0-4) % Baso % (Auto) 0.3 (0-2) % Lymph # (Auto) 1.0 L (1.2-4.9) X10*3/uL Woodruff # (Auto) 1.3 H (0.1-1.2) X10*3/uL Eos # (Auto) 0.0 (0.0-0.4) X10*3/uL Baso # (Auto) 0.0 (0.0-0.2) X10*3/uL Abs Immat Gran (auto) 0.03 (0.00-0.03) X10*3/uL Absolute Neuts (auto) 7.3 (2.0-8.3) x10*3/uL Absolute Nucleated RBC 0.000 (0.0-0.012) X10*3/uL Nucleated RBC % (auto) 0.0 (0.0-0.2) /100WBC Sodium 135 (135-145) mmol/L Potassium 4.1 (3.3-5.1) mmol/L Chloride 106 (96-108) mmol/L Carbon Dioxide 18 L (22-29) mmol/L Anion Gap 15 (12-20) BUN 10 (9-16) mg/dL Creatinine 0.77 (0.5-1.4) mg/dL Estim Creat Clear Calc 95.2 Estimated GFR > 60 Random Glucose 85 (60-115) mg/dL Calcium 9.2 (8.4-10.2) mg/dL Total Bilirubin 1.9 H (0.0-1.0) mg/dL Direct Bilirubin 0.7 H (0.0-0.5) mg/dL AST 34 (5-37) U/L ALT 17 (0-40) U/L Alkaline Phosphatase 87 (39-117) U/L Total Protein 6.6 (6.5-8.0) g/dL Albumin 3.6 (3.5-5.0) g/dL Lipase 21 (8-78) U/L COVID-19 ([facility]) Negative (Negative) COVID-19 Clin Com See Note Independent Historian Clinical information obtained from an independent historian. History obtained from or confirmed by: Other His daughter did come to the ED she did show me a picture he was walking with his walker and ended up falling into the bathtub he did not hit his head he had no loss of consciousness. Patient is not complaining of any pain still this time she is concerned because he has had multiple falls does not feel like he is safe at home and wants the patient be evaluated by physical therapy. Discharge Plan Discharge Clinical Impression: Fall, Fracture of right shoulder Patient Disposition: Still a Patient Instructions: Arm Fracture in Adults (ED), Fall Prevention (ED) Additional Instructions: See your seen in the emergency department after a fall. Please call follow-up with Dr. If you have any other concerns please do not hesitate to come back to the emergency department. Prescriptions: No Action citalopram 40 mg tablet 40 mg PO DAILY cetirizine [Zyrtec] 10 mg Tablet 10 mg PO BID PRN (Reason: Allergy Symptoms) tamsulosin 0.4 mg capsule 0.4 mg PO BID lisinopril 10 mg tablet 10 mg PO BID gabapentin 100 mg capsule 100 mg PO TID naproxen 500 mg tablet 500 mg PO DAILY PRN (Reason: Pain) melatonin 10 mg Tablet 10 mg PO BEDTIME PRN (Reason: Insomnia) fluticasone propionate [Flonase Allergy Relief] 50 mcg/actuation spray,suspension 2 spray intranasal DAILY PRN (Reason: Allergy Symptoms) sulfamethoxazole-trimethoprim [Bactrim DS] 800-160 mg tablet 1 tab PO BID 3 Days Qty: 6 0RF oxycodone 5 mg tablet 5 mg PO TID PRN (Reason: severe pain (scale score 7-10)) Qty: 30 0RF Rx Instructions: Partial Fill upon patient request. acetaminophen 500 mg tablet 1,000 mg PO Q8H PRN (Reason: mild-moderate pain) Qty: 42 0RF docusate sodium 100 mg capsule 100 mg PO BID Qty: 20 0RF
[2023-08-10 14:27] LABS: MANUAL DIFF FLAG NO
[2023-08-10 14:33] LABS: Basophils Percent Auto 0.3 % (0-2); Eosinophils Percent Auto 0.4 % (0-4); Hematocrit 43.3 % (42.0-52.0); Hemoglobin 14.4 g/dl (14.0-18.0); Imm Gran Abs Auto 0.03 X10*3/uL (0.00-0.03); Imm Gran Pct Auto 0.3 % (0.0-0.4); Lymphocytes Percent Auto 10.5 % (20-40); Mean Corpuscular HGB Conc 33.3 g/dl (31.0-36.0); Mean Corpuscular Hemoglobin 30.6 pg (27.0-33.0); Mean Corpuscular Volume 92.1 fL (80.0-98.0); Mean Platelet Volume 11.5 fL (9.4-12.4); Monocytes Absolute Auto 1.3 X10*3/uL (0.1-1.2); Monocytes Percent Auto 13.2 % (2-11); Neutrophils Absolute Auto 7.3 x10*3/uL (2.0-8.3); Neutrophils Percent Auto 75.3 % (45-73); Platelet Count 178 X10*3/uL (160-400); Red Cell Distribution Width 13.3 % (11.0-16.0); White Blood Count 9.7 X10*3/uL (4.8-10.8)
[2023-08-10 14:44] LABS: COVID-19 Test Negative (Negative); IDNOW Serial# BCCEAD1C
[2023-08-10 15:27] LABS: Alanine Aminotransferase 17 U/L (0-40); Albumin Level 3.6 g/dL (3.5-5.0); Alkaline Phosphatase 87 U/L (39-117); Anion Gap 15 (12-20); Aspartate Amino Transferase 34 U/L (5-37); Bilirubin Direct 0.7 mg/dL (0.0-0.5); Bilirubin Total 1.9 mg/dL (0.0-1.0); Blood Urea Nitrogen 10 mg/dL (9-16); Calcium 9.2 mg/dL (8.4-10.2); Carbon Dioxide 18 mmol/L (22-29); Chloride 106 mmol/L (96-108); Creatinine Clr Calc Pharmacy 95.2; Estimated Glomerular Filt Rate > 60; Glucose Random 85 mg/dL (60-115); Lipase 21 U/L (8-78); Potassium 4.1 mmol/L (3.3-5.1); Sodium 135 mmol/L (135-145); Total Protein 6.6 g/dL (6.5-8.0)
[2023-08-10] MEDS: Acetaminophen 325 MG TABLET 975 MG PO (16:00)
[2023-08-10] MEDS: oxyCODONE HCl Immed Release 5 MG TABLET 10 MG PO (16:00)
--- NOTE | 2023-08-10 16:19 | MHC.CM.ED ---
Received case management consult from Dr Robb. Patient came to the ER after a fall. Patient had back surgery at [facility] on Sunday. Work up is still pending. Physical therapy eval is still pending. Met with patient and daughter, Carolyn. Patient lives with Carolyn. Fell while patient was at work. Both are aware work up and physical therapy eval are pending. Was at [facility] in the past. Requesting referral there if STR is recommended. Referral made via [facility]. Continue to monitor for d/c needs.
--- NOTE | 2023-08-10 16:59 | HO.NEURO.PN ---
Neurosurgery Operative Note Date of Service: 08/10/23 Narrative: Mr. Cross is a 72 y/o M who is known to our service and had a cervical laminectomy completed on 08/07/23. He presents to the ED today after a fall at home. He was found down by his daughter who advised he seek emergency medical services. We saw him in bed in the ED tonight. He reports that he feels neurologically the same as he did before surgery. He has some incisional pain but no new neck pain. No new weakness or numbness reported. He had a similar fall last night and has been falling for the last 6 months due to his spasticity. On exam He was sitting upright, talkative, A&OX4 in NAD. The patient continues to have mild hand and arm weakness as he did pre-operatively, and diffuse hyper-reflexia with a spastic gait which is his baseline. His upper extremity strength remains good, with 4/5 hand director of sports medicine and 5/5 biceps / triceps strength. His R sided shoulder abduction is un-testable due to a chronic R humerus fracture which is not of concern at this time per his [facility] orthopedic surgeon. Wound has some swelling but looks great. Mild ecchymosis, madhavi are in place, no signs of hematoma. 7/1 y/o M with a Hx of cervical myelopathy and a known Hx of frequent falls who is s/p cervical laminectomy that presents to the ED after he fells in his bathtub today. He is neurologically at his baseline. His wound looks fine. He has some incisional pain but that is appropriate for 3 days after surgery. Due to his chronic falls, recommend PT screen for rehab, emergency room is looking into the rest of his care. This was discussed with Dr. Will who understands this assessment and is in agreement with the plan outlined in this note. Plan also reviewed with the ED. Peter Will MD,PhD [facility]
--- NOTE | 2023-08-10 17:42 | PC.NURSE ---
Patient arrived from home accompanied by daughter. Per daughter and patient he has had multiple falls over the last few days. Patient had neck surgery 3 days ago. Patient reports that he ambulates safely however daughter states patient is unsafe at home. Case management notified and in to speak with patient. PT to see patient in AM. Medicated with good effect per mar. Patient incontinent of urine, changed and condom cath placed.
--- NOTE | 2023-08-10 20:18 | PC.NURSE ---
pt transfered from Main ED via [facility]
[2023-08-10 20:35] VITALS: BP 127/74; PULSE 74; RESP 16; TEMP 36.8; O2SAT 98
--- NOTE | 2023-08-10 20:37 | MHC.EDTECH ---
PATIENT JUST CAME TO OVERFLOW FROM MAIN ED ,PT WAS TRANSFER INTO HOSPITAL BED ,PT WAS INCONTINENT OF URINE ,CARE GIVEN ,VITALS TAKEN ,PT WAS HUNGRY ,ATE 2 TURKEY SANDWICHES ,,DRANK BHAKTI BATSHEVA AND HAD PUDDING FOR DISSERT ,PT WAS IN PAIN ON HIS SHOULDER ,ICE PACK APPLIED ,WARM BLANKET GIVEN .
--- NOTE | 2023-08-10 22:41 | MHC.EDTECH ---
PATIENT HAD A [place] CATHETHER ON ,RIP IT OFF ,THIS PCT OFFER PT URINAL ,BUT PATIENT REFUSED AND URINATED IN THE BED ,CARE GIVEN ,NEW [place] CATHETHER IN PLACE ,PT DOES NOT WANT TO DO ANYTHING FOR HIM SELF ,NOT EVEN WANT TO OPERATE TV CONTROL OR BED CONTROLS ,AMINA JUAN AWARE.
[2023-08-11] MEDS: oxyCODONE HCl Immed Release 5 MG TABLET 10 MG PO ×2 (03:16→16:00)
--- NOTE | 2023-08-11 03:18 | PC.NURSE ---
pt c/o severe neck pain, medicated with 10 mg of oxycodone po
--- NOTE | 2023-08-11 04:00 | MHC.EDTECH ---
PATIENT REMOVED [place] CATHETER ,AND HAD URINATED IN THE BED ,NEW [place] CATHETER IN PLACE .
--- NOTE | 2023-08-11 04:25 | PC.NURSE ---
Addendum entered by Traci Irving RN 08/11/23 05:56: pt reassessed for pain, pt sleeping, resting comfortable Original Note: pt posterior neck assessed, surgical incision intact, madhavi intact, no redness or observed or drainage
[2023-08-11 05:49] VITALS: BP 148/80; PULSE 66; RESP 16; TEMP 36.8; O2SAT 98
[2023-08-11] MEDS: oxyCODONE HCl Immed Release 5 MG TABLET PO (10:28)
--- NOTE | 2023-08-11 10:47 | PHA.MEDREC ---
Pharmacy Consult ? Medication Reconciliation Med Rec based on pharmacy claim history . Bactrim DS start date 08/07/23 # 6 tabs for a 3 day supply . Pharmacy has completed the medication reconciliation.
[2023-08-11 11:57] VITALS: BP 148/80; PULSE 66; O2SAT 98
--- NOTE | 2023-08-11 12:27 | MHC.CM.ED ---
Addendum entered by Itzel Cervantes 08/11/23 14:31: [facility] is able to offer a bed and is in the process of obtaining insurance auth. Patient, daughter Cassidy Leon AMINA and Shanthi CHA aware. Original Note: Patient remains in ER overflow. Physical therapy eval completed. Short term rehab is recommended. PT eval sent with additional clinicals to [facility]. Continue to monitor for d/c needs.
[2023-08-11 14:00] VITALS: BP 123/77; PULSE 75; RESP 18; TEMP 37.1; O2SAT 95
--- NOTE | 2023-08-11 18:20 | PC.NURSE ---
Assumed care of patient 0700 A+Ox4, calm and cooperative, alert/awake/eyes open evaluated by physical therapy, recommended STR. Pt awaiting placement 1 assist standby with walker. Pt provided teaching to ring for assistance getting OOB, reinforced. Pt does not always ring. Bed alarm on, high fall precautions in place. Pt ate 100% meals x3
--- NOTE | 2023-08-11 19:28 | PC.NURSE ---
I assumed care of the pt at 1900. Pt is resting comfortably in bed at this time. Pt ia A&Ox4, GCS 15, with warm, dry skin. Pt denies pain, requested water, water given. [facility] called asking if pt will be discharged today or tomorrow. I informed them that pt will likely be with us overnight.
[2023-08-11] MEDS: Gabapentin 100 MG CAPSULE PO (20:10)
[2023-08-11] MEDS: Tamsulosin HCL 0.4 MG CAPSULE PO (20:10)
[2023-08-11] MEDS: lisinopriL 10 MG TABLET PO (20:10)
[2023-08-11 20:34] VITALS: BP 127/73; PULSE 64; RESP 12; TEMP 36.9; O2SAT 95
--- NOTE | 2023-08-11 21:48 | PC.NURSE ---
Pt had an episode of incontinence, pt was cleaned and repositioned with pillows under the right side. Pt was given a glass of water, and comfort was ensured.
[2023-08-12 06:00] VITALS: BP 119/72; PULSE 58; RESP 16; TEMP 36.8; O2SAT 95
--- NOTE | 2023-08-12 09:05 | PC.NURSE ---
PT IS A/O X 4 NO SOB/SIDDHARTHA NOTED SPEAKS IN FULL SENTENCES. C/O R SHOULDER AND POST NECK PAIN. SHANON TO POST NECK ARE INTACT AND SLIGHT MALU AREA AT R SIDE OF SHANON. PT ATE 75% OF BREAKFAST . NO EDEMA NOTED.
[2023-08-12 09:30] VITALS: BP 105/60; PULSE 65; RESP 16; TEMP 36.7; O2SAT 97
[2023-08-12] MEDS: Escitalopram Oxalate 20 MG TABLET PO (09:45)
[2023-08-12] MEDS: Gabapentin 100 MG CAPSULE PO ×3 (09:45→21:25)
[2023-08-12] MEDS: Tamsulosin HCL 0.4 MG CAPSULE PO ×2 (09:45→21:25)
[2023-08-12] MEDS: lisinopriL 10 MG TABLET PO ×2 (09:46→21:25)
[2023-08-12] MEDS: oxyCODONE HCl Immed Release 5 MG TABLET PO (09:47)
--- NOTE | 2023-08-12 10:23 | MHC.EDTECH ---
tech offered to wash and change pt, pt adamantly refused and refused to change todd. PT was annoyed the sheet was changed. Recliner was provided for pt, sheet was placed on chair. tech transferred pt to chair, 2 minutes later pt states this chair sucks this is not what i wanted . Tech explained this is the recliners offered at the hospital, we can get a regular plastic chair, pt adamantly refused another chair. Tech offered once more to change todd, pt refused again.
[2023-08-12 14:23] VITALS: BP 121/68; PULSE 72; RESP 16; TEMP 36.7; O2SAT 98
--- NOTE | 2023-08-12 15:08 | MHC.CM.ED ---
Patient remains in ER. [facility] is in the process of obtaining insurance auth. Anticipate auth will not be able to be obtained until tomorrow, Sunday 08/12. Continue to monitor for d/c needs.
--- NOTE | 2023-08-12 16:35 | PC.NURSE ---
AWAITING MEDS FROM PHARMACY
[2023-08-12] MEDS: oxyCODONE HCl Immed Release 5 MG TABLET 10 MG PO (21:27)
[2023-08-12 22:00] VITALS: BP 107/71; PULSE 74; RESP 18; TEMP 36.3; O2SAT 96
--- NOTE | 2023-08-12 23:23 | PC.NURSE ---
this rn assumed care of pt @ 2300. pt moved to overflow from [facility]
[2023-08-13 06:00] VITALS: BP 112/64; PULSE 87; RESP 16; TEMP 36.6; O2SAT 99
[2023-08-13 07:29] VITALS: BP 105/61; PULSE 55; RESP 16; TEMP 36.7; O2SAT 96
[2023-08-13] MEDS: Tamsulosin HCL 0.4 MG CAPSULE PO ×2 (07:35→20:49)
[2023-08-13] MEDS: Escitalopram Oxalate 20 MG TABLET PO (07:35)
[2023-08-13] MEDS: oxyCODONE HCl Immed Release 5 MG TABLET 10 MG PO (07:35)
[2023-08-13] MEDS: Gabapentin 100 MG CAPSULE PO ×3 (07:36→20:49)
--- NOTE | 2023-08-13 08:58 | MHC.CM.PN ---
Addendum entered by Nimo Mayo 08/13/23 10:14: CM MET WITH PT WHO REPORTS HE IS NOT INTERESTED IN GOING TO AN ALTERNATE STR HE SAYS HE HAS BEEN TO [facility] IN THE PAST AND DID VERY WELL HE STATES HE WANTS TO WAIT UNTIL TOMORROW WHEN THE SNF CAN TAKE HIM CM CALLED PTS DAUGHTER/HCP JILL TO EXPLAIN THE DELAY SHE REPORTS SHE WAS INTERESTED IN [facility] (NOT CONTRACTED WITH [facility]) HOWEVER SINCE THEY ARE NOT AVAILABLE, SHE WOULD ALSO PREFER PT WAIT FOR [facility] HE DID WELL LAST TIME DCP: DC TO [facility] TOMORROW PENDING INSURANCE AUTH VIA BLS Original Note: PT WAS SUPPOSED TO BE DISCHARGING TO [facility] TODAY PENDING INSURANCE AUTH CM [facility], [facility] NO LONGER OWNS THIS BUILDING SO THEY WOULD NEED TO BE CONTACTED DIRECTLY CM CALLED [phone], WHICH IS NOW [facility], [facility] AND WAS INFORMED THERE IS NO ONE THERE TODAY TO MANAGE INTAKE/AUTH AND THIS WOULD NOT HAPPEN BEFORE TOMORROW CM WILL SPEAK TO PT ABOUT INTEREST IN AN ALTERNATE SNF
[2023-08-13 11:02] VITALS: BP 108/65
[2023-08-13] MEDS: lisinopriL 10 MG TABLET PO ×2 (11:05→20:49)
--- NOTE | 2023-08-13 17:38 | MHC.EDTECH ---
Brought patient a pitcher of ice water.
--- NOTE | 2023-08-13 20:01 | PC.NURSE ---
Assumed care at 07:00. Patient A&Ox4, requires assistance with setup for meals, has limited ROM to right arm/hand. Is incontinent of urine, and using tex[place] catheter with effect. Good appetite and fluids. Patient with pain to neck, was administered oxycodone this morning per emar with effect. No further complaints of pain today.
[2023-08-13] MEDS: oxyCODONE HCl Immed Release 5 MG TABLET PO (20:53)
[2023-08-13 21:56] VITALS: BP 115/58; PULSE 60; RESP 16; TEMP 36.9; O2SAT 94
--- NOTE | 2023-08-14 05:49 | PC.NURSE ---
Assumed care of patient at 1900. Patient A&Ox 4. Able to verbalize needs. PRN oxycodone administered for right shoulder and neck pain with good effect. [place] catheter intact for urinary incontinence. Patient rested overnight.
[2023-08-14 06:18] VITALS: BP 123/69; PULSE 71; RESP 16; TEMP 36.1; O2SAT 96
[2023-08-14] MEDS: lisinopriL 10 MG TABLET PO ×2 (07:59→21:05)
[2023-08-14] MEDS: Escitalopram Oxalate 20 MG TABLET PO (07:59)
[2023-08-14] MEDS: Gabapentin 100 MG CAPSULE PO ×3 (07:59→21:05)
[2023-08-14] MEDS: Tamsulosin HCL 0.4 MG CAPSULE PO ×2 (07:59→21:05)
[2023-08-14] MEDS: oxyCODONE HCl Immed Release 5 MG TABLET 10 MG PO ×3 (08:01→21:30)
--- NOTE | 2023-08-14 08:20 | MHC.EDTECH ---
Assisted patient with breakfast set up.
--- NOTE | 2023-08-14 10:15 | MHC.CM.ED ---
Addendum entered by Itzel Cervantes 08/14/23 14:12: Spoke with admissions at [facility]. Clinicals emailed to her at her request. Waiting to hear if they are able to offer a bed. Original Note: Patient remains in ER overflow. [facility] is 1st choice. Facility has new owners. T/W left a voicemail with admissions at [facility] to see if they are able to offer a bed. Continue to monitor for d/c needs.
--- NOTE | 2023-08-14 14:06 | PC.NURSE ---
Pt A/Ox4, pleasant. Reporting right shoulder pain, medicated with oxycodone with some effect. Awaiting rehab placement
--- NOTE | 2023-08-14 15:32 | PC.NURSE ---
this RN resumed care at this time. pt medicated per provider order. pt c/o 04/07 neck pain at this time - requesting pain medication at this time. will medicate PRN per DEC. pt resting in no apparent distress at this time. respirations even and unlabored at this time. call last placed within reach.
--- NOTE | 2023-08-14 15:38 | PC.NURSE ---
pt medicated per provider order. will reassess pain level shortly.
--- NOTE | 2023-08-14 16:02 | PC.NURSE ---
pt requesting information from case management. spoke to AMINA vega to see if there were any updates on [facility] - per case management - [facility] does not have bed available at this time. pt notified and aware.
[2023-08-14 16:05] VITALS: BP 97/60; PULSE 20; RESP 20; TEMP 36.7; O2SAT 96
--- NOTE | 2023-08-14 16:56 | PC.NURSE ---
pt's pain level reassessed - stating medication administration was somewhat effective and now rates pain at a 5/10. pt sitting up eating dinner at this. time.
[2023-08-14 19:38] VITALS: BP 91/51; PULSE 57; RESP 16; TEMP 36.4; O2SAT 96
[2023-08-14 21:00] VITALS: BP 117/62
[2023-08-15 05:55] VITALS: BP 122/74; PULSE 70; RESP 19; TEMP 36.3; O2SAT 96
--- NOTE | 2023-08-15 07:20 | PC.NURSE ---
Resumed care of patient this morning, he is a/ox4. hygiene care provided as texas catheter was leaking. Denies complaints of pain at this time. All neuros intact. Awaiting placement at this time
[2023-08-15] MEDS: Escitalopram Oxalate 20 MG TABLET PO (07:39)
[2023-08-15] MEDS: lisinopriL 10 MG TABLET PO (07:39)
[2023-08-15] MEDS: Gabapentin 100 MG CAPSULE PO (07:39)
[2023-08-15] MEDS: Tamsulosin HCL 0.4 MG CAPSULE PO (07:39)
[2023-08-15] MEDS: oxyCODONE HCl Immed Release 5 MG TABLET 10 MG PO (07:42)
--- NOTE | 2023-08-15 09:17 | MHC.CM.ED ---
Addendum entered by Itzel Cervantes 08/15/23 10:43: Insurance auth has been obtained. [facility] booked for 1pm. Med [facility] with chart. Patient, daughter Radha Leon RN and Sherri CHA aware. Original Note: Patient remains in ER overflow. [facility] is able to offer a bed and has already submitted for insurance auth. Left voicemail for patient's daughter/HCP, Carolyn with this information. Continue to monitor for d/c needs.
== END 2023-08-15 13:27 ==
PROVIDERS: Emergency Provider Student in an Organized Health Care Education/Training Program; PCP Internal Medicine
DX: S42.201A Unspecified fracture of upper end of right humerus, initial encounter for closed fracture (principal); W18.2XXA Fall in (into) shower or empty bathtub, initial encounter; Z11.52 Encounter for screening for COVID-19; Y93.E1 Activity, personal bathing and showering; Y92.002 Bathroom of unspecified non-institutional (private) residence as the place of occurrence of the external cause; Y99.9 Unspecified external cause status
CPT/HCPCS: 36415; 73030; 80048; 80076; 83690; 85025; 87635; 97162; 99285

== ENCOUNTER → 2023-08-10 14:04 | Outpatient (BNV) | payer OTHER, SELFPAY | PROVIDERS: Emergency Provider Student in an Organized Health Care Education/Training Program; PCP Internal Medicine; Visit Provider Physician Assistant | DX: Z48.89 Encounter for other specified surgical aftercare (principal) | CPT/HCPCS: 99024 ==

== ENCOUNTER 2023-08-17 11:08 | Outpatient (AMB) | payer OTHER, SELFPAY ==
--- NOTE | 2023-08-17 11:41 | A.SPINEOV_ITS ---
Intake Intake Visit Reasons: 1st post op/madhavi removal Intake Note: Mr. Cross is here today for his 1st post-vist. Internal Communications Intern Required: No Allergies Seasonal Allergies Allergy (Verified 07/23/23 10:42) Unknown Assessment & Plan Assessment & Plan (1) Cervical spondylosis with myelopathy: Code(s): M47.12 - Other spondylosis with myelopathy, cervical region Plan Procedure: C3-C5 laminectomy Micky comes in today for his 1st postoperative visit. His postoperative course was complicated due to a series of falls which he had both before and after surgery. He did end up in the emergency department as result of one of these falls after surgery which is better explained by the neurosurgery progress note that this conventional mortgage underwriter completed and can be found under provider notes. He reports that his neck now feels better than it did pre-operatively, and that he has no pain in his posterior neck at this time. The patient reports he is up walking around in completing the majority of his ADLs. Thankfully he has been admitted to a long-term facility/rehab center which he will be able to remain at until his back surgery. He reports that he will be able to readmit back to the facility after his back surgery for continued rehabilitation. He states that he has not fallen since we saw him in the emergency department which is great news. Micky ambulates with a cane and does have some difficulty rising from a seated position but is able to complete this task of assisted. Sensation is grossly intact. Posterior neck incision site is closed, well healing, with no signs of drainage. Posterior madhavi were removed. Micky was encouraged to reach back out to our office if he needs to see is again before his next surgery. If not we will see him pre-operatively, then again in the clinic after his back surgery. Peter Will MD,PhD [facility] Coding Level of Care Code Global (12117) Diagnoses Cervical spondylosis with myelopathy M47.12
== END 2023-08-17 12:55 | disposition home or self-care (01) ==
PROVIDERS: Visit Provider Physician Assistant
DX: M47.12 Other spondylosis with myelopathy, cervical region (principal)
CPT/HCPCS: 99024

== ENCOUNTER → 2023-08-17 11:08 | Outpatient (BNVA) | payer OTHER, SELFPAY | PROVIDERS: Visit Provider Physician Assistant ==

== ENCOUNTER 2023-08-27 06:19 | Inpatient (IN) | payer OTHER, SELFPAY ==
[2023-08-17 11:31] VITALS: BMI 28.7
[2023-08-27] VITALS (13 sets, daily range): BP systolic 75–151; BP diastolic 44–66; PULSE 73–87; RESP 15–18; TEMP 36.1–37; O2SAT 94–99
--- NOTE | ~2023-08-27 | FL_ITS ---
EXAMINATION: XR FLUOROSCOPY WITH IMAGES CLINICAL INFORMATION: L4-L5 OLIF. COMPARISON: None available. TECHNIQUE: Fluoroscopy Supervised By: Dr. Cristhian Will. Fluoroscopy Time: 1.4 minutes. Cumulative Dose: 121.1 mGy. DAP: 30.54 Gycm2. Images: 4. FINDINGS: Fluoroscopy guidance posterior hardware with rods and bilateral transpedicular screws and interbody fusion hardware at L4-L5. FL/FL guidance in OR IMPRESSION: Fluoroscopy guidance for lumbar spine surgery.
[2023-08-27] MEDS: methocarbamoL 750 MG TABLET PO (07:00)
--- NOTE | 2023-08-27 07:10 | MHC.SHP ---
Pre-Procedural Eval Section A Date of Service: 08/27/23 The patient is an INPATIENT: No Changes since office visit: No Cold of Flu in the past 2 weeks, No New Medical Problems, No Changes in Medication and No Patient answered all questions The History & Physical has been completed within 30 days and I have reviewed it.: No Section B Chief Complaint: S/P L4-5 OLIF Allergies: Allergies Allergy/AdvReac Type Severity Reaction Status Date / Time Seasonal Allergies Allergy Unknown Verified 07/23/23 10:42 Review of Systems Sugical H&P ROS: Negative: Constitution, Cardiovascular, Respiratory, Neurological, Psychiatric, Hem-Onc, Allergic/Immunologic, Gastrointestinal, Genitourinary, Musculoskeletal, Integumentary, Endocrine and Eyes/Ears/Nose/Throat Exam Surgical H&P Exam: Not Evaluated: HEENT, Not Evaluated: Heart, Not Evaluated: Lungs, Not Evaluated: Extremities, Not Evaluated: Abdomen, Not Evaluated: Skin and Not Evaluated: Neurological Plan Diagnosis/Plan: Unchanged I have reviewed the history and physical and performed a pertinent physical examination on my patient. No changes have occurred unless specified. L4-5 OLIF Time Spent With Patient Time: Total time managing care of this patient today _10___ minutes.
--- NOTE | 2023-08-27 07:16 | HO.ANESPROP2 ---
HPI - Anesthesia Eval Consult details Narrative: 72 M for L4 L5 oblique lumbar interbody fusion [facility] Active Problems Active Problems: All Active Problems (Updated 08/14/23 @ 00:01 by Giovanni Beatty) Cervical spondylosis with myelopathy (Acute) Lumbar stenosis with neurogenic claudication (Acute) Spondylolisthesis, lumbar region (Acute) Past Medical History Medical History Elevated cholesterol Fracture of humeral head Urinary incontinence Calculus of kidney Insomnia HTN (hypertension) Anxiety Depression Obesity Internal hemorrhoid Erectile dysfunction BPH associated with nocturia Lumbar radiculopathy Umbilical hernia without obstruction or gangrene Rectus diastasis Ventral hernia without obstruction or gangrene Cervical myelopathy Family History Family history of problems with anesthesia: No Surgical History Surgical History Hx of cervical spine surgery Hx of lithotripsy H/O colonoscopy History of Problems with Anesthesia: No Social History Household Members: Family Housing: House Are you a primary post acute care registered nurse to a significant other at home: No Do you presently have visiting nurse or other home services: Yes (therapy [employer]) Alcohol intake: former Patient Tobacco Use Status: Never used Tobacco Advance Directives Date on File: 08/10/23 service: No Meds Allergies Allergy/AdvReac Type Severity Reaction Status Date / Time Seasonal Allergies Allergy Unknown Verified 07/23/23 10:42 Home Medications Medication Instructions Recorded Confirmed Last Taken Type citalopram 40 mg tablet 40 mg PO DAILY 05/30/23 08/27/23 08/07/23 07:00 History gabapentin 100 mg capsule 100 mg PO TID 05/30/23 08/27/23 08/07/23 07:00 History tamsulosin 0.4 mg capsule 0.4 mg PO BID 05/30/23 08/27/23 08/07/23 07:00 History acetaminophen 325 mg tablet 650 mg PO Q4H PRN pain.fever 08/27/23 08/27/23 Unknown History bisacodyl 10 mg rectal suppository 10 mg OH DAILY PRN Constipation 08/27/23 08/27/23 Unknown History (Dulcolax (bisacodyl)) bisacodyl 5 mg tablet,delayed 10 mg PO BEDTIME PRN Constipation 08/27/23 08/27/23 Unknown History release docusate sodium 100 mg capsule 100 mg PO BID 08/27/23 08/27/23 Unknown History (Colace) fluticasone propionate 50 2 spray intranasal DAILY PRN 08/27/23 08/27/23 Unknown History mcg/actuation nasal Allergy Symptoms spray,suspension magnesium hydroxide 400 mg/5 mL 30 ml PO BEDTIME PRN Constipation 08/27/23 08/27/23 Unknown History oral suspension (Milk of Magnesia) melatonin 10 mg tablet 10 mg PO BEDTIME PRN Sleep 08/27/23 08/27/23 Unknown History sennosides 8.6 mg tablet (senna) 17.2 mg PO BEDTIME 08/27/23 08/27/23 Unknown History Exam Exam Date and Time: August 27, 2023 0716 Height,Weight and Vital Signs: Height 6 ft Weight 96.1 kg Last Vital Signs Temp 97.1 F 08/27/23 06:39 Pulse 73 08/27/23 06:39 Resp 18 08/27/23 06:39 BP 101/66 08/27/23 06:39 Pulse Ox 95 08/27/23 06:39 O2 Del Method Room Air 08/27/23 06:39 Pertinent Lab Results Pertinent Lab Results: Laboratory Tests 08/27/23 06:24 Blood Type B Positive Antibody Screen NEGATIVE Airway Mallampati Class: III Loose/Missing/Broken Teeth: Yes Assessment and Plan Assessment Anesthesia Assessment: Anesthesia Plan Discussed and Chart Reviewed Final Anesthetic Review Family History of Problems with Anesthesia: No History of Problems with Anesthesia: No NPO: Yes ASA Class: III Final Preanesthetic Review: Meds/Allgs Chart Reviewed, Consent Obtained/Reviewed and Anes Risks/Benef Reviewed Patient Risk: Intermediate Procedure Risk: Intermediate Anesthetic Plan Anesthetic Plan: GA and Agree w/ Assess. and Plan Disposition: Standard PACU
[2023-08-27] MEDS: ceFAZolin Sodium/Dextrose,Iso 2 GM/50 ML PIGGYBACK IV ×3 (08:04→19:52)
--- NOTE | 2023-08-27 09:23 | MHC.CM.PN ---
Attempted to meet with patient in regards to discharge planning. Patient is currently in pre-op. Spoke with patient's daughter/HCP, Carolyn, via telephone at [phone]. Patient typically lives with Carolyn. However, he has been at [facility] for STR. The hope is that patient will return to SNF when medically clear. Referral made via [facility]. HCP verified to be on file. Patient received 4 Covid vaccines. PCP verified. Patient will need BLS transport at d/c. Continue to monitor for d/c needs.
[2023-08-27] MEDS: Acetaminophen 1,000 MG/100 ML PIGGYBACK 400 MG IV ×3 (09:30→21:19)
[2023-08-27] MEDS: Ketorolac Tromethamine 15 MG/ML VIAL IVPUSH ×3 (10:15→21:19)
--- NOTE | 2023-08-27 10:50 | PHA.MEDREC ---
Pharmacy Consult ? Medication Reconciliation Pharmacy has completed the medication reconciliation.Patient from [facility] and Nursing.... med list obtained and entered.
[2023-08-27] MEDS: 0.9 % Sodium Chloride 1,000 ML 75 ML IVCONT (11:09)
[2023-08-27] MEDS: oxyCODONE HCl Immed Release 5 MG TABLET PO (11:17)
[2023-08-27] MEDS: HYDROmorphone HCl 0.5 MG/0.5 ML SYRINGE 0.25 MG IVPUSH ×2 (11:20→11:30)
--- NOTE | 2023-08-27 13:42 | P.OP_ITS ---
Operative Note Operative Note Date of Service: 08/27/23 Narrative: Preop Diagnosis: 1.) L4-5 lumbar spondylolisthesis 2.) neurogenic claudication Procedure: L4-5discectomy, arthrodesis and implantation cage through an anterolateral, retroperitoneal approach; posterior instrumented fusion L4-5; allograft Consent Informed Consent was obtained for this operation. I have explained the nature, purpose and benefits of the operation. I have discussed the risks and benefit of the operation including possible complications or adverse events with patient/family. Alternative(s) were discussed with the patient with their relative benefits and risks as well as the consequences of not accepting the operation were included in obtaining consent. Surgeon: MEG MARTINEZ MD, PHD Procedure Assisted By: Frank CHA Description of Procedure this 72-year-old male suffer from back pain and bilateral leg pain with walking and standing. Imaging reviews a grade 2 L4-5 spondylolisthesis causing spinal stenosis. The patient was offered an oblique lumbar interbody fusion L4-5. The procedure complications were explained. The patient was consented. The patient was brought to the operating room and endotracheally intubated. The patient was turned in a lateral position with the left side up. Prep and drape was done followed by timeout. A small incision was made in the left lower abdominal quadrant. The muscle fascia was opened after which the 3 muscle layer was split to enter the retroperitoneal space. Dilators were docked in the anterior one third of the L4-5 disc space followed by a retractor. The retractor was opened. The L4-5 disc space was exposed. An annulotomy was done after which an elevator Street was used to release the disc material from its endplates and to perforate the contralateral side. A partial discectomy was done. An 8 mm and 10 mm height trial implants were inserted. The discectomy was completed. The endplates were prepared. An 10 x 55 mm with 0 degree lordosis 4 web cage filled with allograft was inserted into the disc space under fluoroscopic guidance. This resulted in reduction of L4-5 spondylolisthesis. The retractor was removed. Hemostasis was done. The incision was closed in 2 layers. Steri- Strips were used to approximate the incision. An OpSite with Tegaderm was used to cover the incision. This marked first part of the procedure. The patient was turned prone on the Roland spine table. 2C arms were installed for fluoroscopy. Prep and drape was done followed by a second timeout. 2 paramedian incisions were made lateral from the L4-5 pedicle. The muscle fascia was opened after which the muscle layer was split bluntly to expose the posterolateral gutter. The following steps were taken. A pediguard tap was used to create a transpedicular trajectory into the vertebral body. A K wire was placed. A specially designed instrument was advanced over the K wire to decorticate the posterolateral gutter in preparation for the posterolateral fusion. A pedicle screw was advanced over the K wire and the K wire was removed. The steps were done for the bilateral L4 and L5 pedicles. A total of 4 screws were placed with a diameter of 6.5 x 45 mm. Pedicle screws were connected with 45 mm marshal bilaterally and locked down with locking caps. The extension towers were removed. The posterolateral gutter was filled with allograft to complete the posterolateral L4-5 fusion Hemostasis was done and the incision was closed in 2 layers. Steri-Strips were used to approximate the incision. An OpSite were taken and was used to cover the incision. All sponge and needle counts were correct. Patient was extubated and transferred in stable is to recovery room. Anesthesia: General Estimated Blood Loss (ml): 20 mL Duration of Surgery: 2 hours Complications: None Postoperative Plan: Admit to inpatient for observation
[2023-08-27] MEDS: Gabapentin 100 MG CAPSULE PO ×2 (14:57→19:52)
[2023-08-27] MEDS: oxyCODONE HCl Immed Release 5 MG TABLET 10 MG PO ×2 (16:08→21:19)
[2023-08-27] MEDS: Docusate Sodium 100 MG CAPSULE PO (19:52)
[2023-08-27] MEDS: Tamsulosin HCL 0.4 MG CAPSULE PO (19:52)
--- NOTE | 2023-08-27 21:32 | PC.NURSE ---
patient bladder scanned for 305ml, really does not want straight cath at this time and states he feels like he could void on his own if given a bit more time. Will pass on to the next shift to bladder scan upon shift start around 11pm.
[2023-08-28] MEDS: 0.9 % Sodium Chloride 1,000 ML 75 ML IVCONT ×2 (00:59→15:11)
[2023-08-28] MEDS: ceFAZolin Sodium/Dextrose,Iso 2 GM/50 ML PIGGYBACK IV (01:01)
[2023-08-28] MEDS: Acetaminophen 1,000 MG/100 ML PIGGYBACK 400 MG IV ×4 (01:57→22:34)
[2023-08-28] MEDS: Ketorolac Tromethamine 15 MG/ML VIAL IVPUSH ×4 (04:37→21:52)
--- NOTE | 2023-08-28 07:50 | HO.NEURO.PN ---
Neurosurgery Operative Note Date of Service: 08/28/23 Narrative: Postop day 1. L4-5 oblique lumbar interbody fusion patient reports he is feeling excellent, he has minimal back pain. He has been tolerating a diet okay. He did have to be straight cathed last night. He has baseline chronic incontinence. This is unchanged. He denies any new symptoms of tingling numbness, weakness etc.. Denies any chest pain shortness of breath, etc Afebrile, vital signs stable, blood pressure 150s over 80s this morning. Physical exam: The patient is lying in bed no acute distress. Bilateral lower extremities have full strength with the exception of some mild iliopsoas weakness. The patient is covered in urine on his Syd and his upper legs. His abdomen is soft nondistended nontender, back dressings of small amount of dry blood but no signs of hematoma. Impression: Postop day 1. L4-5 oblique lumbar interbody fusion, clinically doing well from the standpoint of pain control and strength in his lower extremities. He is tolerating a diet. He was up walking last night and felt pretty good. He is yet to work with physical therapy. He has chronic incontinence and had to be straight cathed last night. This morning when I saw him with Dr. Will, he was covered in urine with Syd and on his legs and back. He tells us that this is more less his baseline at home. I asked the nurses to put a [place] catheterization on him just to avoid chronic wetness of the wound with the urine on his back. Once he can set up and move around he can use the urinal. The plan will be to discharge him back to rehab today. Patient seen at bedside with Dr. Will.
--- NOTE | 2023-08-28 07:54 | PM.DS ---
DS: Providers Provider Date of Service: 08/27/23 Date of admission: 08/27/23 06:19 Date of discharge: 08/28/23 Primary care physician: Gonzalez Gaitan MD Admitting clinician: Cristhian Will DS: Diagnosis Discharge Diagnosis (1) Lumbar stenosis with neurogenic claudication: Status: Acute (2) Spondylolisthesis, lumbar region: Status: Acute DS: Summary Hospital Course Hospital Course: The patient was admitted to the hospital for elective L4-5 lumbar fusion surgery. The patient underwent his procedure without complication. He was brought to the PACU where he recovered from anesthesia. He did have some soft blood pressures in the recovery room down into the 80s. We continued to hold his lisinopril as they were doing at the rehab and his blood pressure rebounded very nicely. His 1st postoperative night was unremarkable. His back was feeling excellent. He was up moving around slowly with a walker. They did have to straight cath him once overnight for 500 cc. He has baseline incontinence which continued throughout the night. I requested the nurse to place a [place] catheterization on him so was wounds would not be covered in urine until he could get more into an upright position and have a better chance that using a urinal. He was tolerating a diet without issues. His pain was very well controlled on oxycodone, anti-inflammatories and Tylenol. The plan will be to discharge him out to rehab today. Patient was seen in the morning with Dr. Will the attending neurosurgeon. The patient's physical exam upon discharge, he is awake alert oriented, no acute distress. He has baseline myelopathic findings in the upper lower extremities including hand weakness and iliopsoas weakness. His distal lower extremity strength is full in the quadriceps, tibialis and gastrocnemius. He is diffusely hyperreflexic. His abdomen is nondistended nontender, he has a left lower quadrant sitting covered with dry sterile dressing. This can be removed as long as the patient's incontinence is not causing him to be wet on his abdomen. Similarly on his lower back there are 2 incisions covered with dry sterile dressing, this can be changed as needed and replaced if the patient continues with incontinence. We have been using a [place] catheterization here at the hospital to avoid chronic wetness as listed above in the discharge summary. Status at Discharge Functional status at discharge: uses cane/walker Overall status at discharge: patient is back to baseline Time Spent with Patient Time attestation: Total time managing care of this patient today __10__ minutes. Discharge coordination time: Less than 30 minutes Quality: Safe Use of Opioids Does Pt have an Active Cancer Diagnosis on the Problem List?: No Quality: Stroke Does the patient have a stroke diagnosis?: No Physical Exam Vital Signs: Vital Signs: Last Vital Signs Temp 96.9 F 08/27/23 20:00 Pulse 87 08/27/23 20:00 Resp 18 08/27/23 20:00 BP 151/64 H 08/27/23 20:00 Pulse Ox 99 08/27/23 20:00 O2 Del Method Room Air 08/27/23 20:00 O2 Flow Rate 2 08/27/23 12:19 BMI result Body Mass Index 30.0 Discharge Plan Discharge Anticipated Discharge Date/Time: 08/28/23 07:58 Patient Disposition: Xfer Inpatient Rehab Fac Discharge Diagnosis: L4-5 spondylolisthesis Referrals: Gonzalez Gaitan MD [Primary Care Provider] - 1 Week Discharge Medications: New oxycodone 5 mg tablet See Rx Instructions .ROUTE .COMPLEX PRN (Reason: pain) Qty: 40 0RF Rx Instructions: 1-2 tabs po q4 hours prn pain Partial Fill upon patient request. Continued citalopram 40 mg tablet 40 mg PO DAILY tamsulosin 0.4 mg capsule 0.4 mg PO BID gabapentin 100 mg capsule 100 mg PO TID sennosides [senna] 8.6 mg Tablet 17.2 mg PO BEDTIME acetaminophen 325 mg Tablet 650 mg PO Q4H PRN (Reason: pain.fever) magnesium hydroxide [Milk of Magnesia] 400 mg/5 mL Suspension 30 ml PO BEDTIME PRN (Reason: Constipation) bisacodyl [Dulcolax (bisacodyl)] 10 mg Suppository 10 mg [place] DAILY PRN (Reason: Constipation) bisacodyl 5 mg Tablet,Delayed Release (Dr/Ec) 10 mg PO BEDTIME PRN (Reason: Constipation) fluticasone propionate [Flonase] 50 mcg/actuation [place],Suspension 2 spray INTRANASAL DAILY PRN (Reason: Allergy Symptoms) Rx Instructions: administer into each nostril melatonin 10 mg Tablet 10 mg PO BEDTIME PRN (Reason: Sleep) Changed naproxen 500 mg Tablet 500 mg PO 2XD PRN (Reason: Pain (Scale Score 4-6)) Qty: 30 0RF Discontinued lisinopril 10 mg tablet 10 mg PO DAILY acetaminophen [Acetaminophen Extra Strength] 500 mg Tablet 1,000 mg PO Q8H PRN (Reason: Pain (Scale Score 4-6)) oxycodone 5 mg tablet 5 mg PO Q8H PRN (Reason: Pain (Scale Score 7-10)) Rx Instructions: Partial Fill upon patient request. No Action docusate sodium [Colace] 100 mg Capsule 100 mg PO BID Discharge Orders: Discharge Order (Routine); Ordered 08/28/23 Ordered By: Frank Hoffman Diet: Advance to usual diet Activity on Discharge: As tolerated Stand Alone Forms: Patient Portal Discharge page Activity Restrictions/Additional Instructions: After your spinal surgery we ask you to observe the following restrictions/guidelines: Activity: It is normal to feel some discomfort as you increase your activity, but that will improve with time. We ask you avoid heavy lifting or acitivities that cause pain. As a general rule, 8lbs is a safe limit for lifting right after surgery. Walk as much as you feel comfortable but not to exhaustion. You will feel extra tired the first few days after surgery. Stay well hydrated. It is OK to walk up and down stairs You may return to driving when you are off narcotics (such as vicodin, oxycodone, dilaudid, etc), and you are back to normal functional capacity. If you have any concerns please check with office before driving. Return to work is specific to each patient and each surgery, so please speak with your doctor/PA at first follow up. Please bring paperwork such as FMLA at that time if you need it filled out. Medications: For optimum pain control, it is best to start with a combination of 500 mg of Tylenol every 4 hours with 600 mg of Motrin every 8 hours, and use narcotics as needed in between for breakthrough pain. We will give you a short supply of narcotics after surgery (usually one weeks worth). If you need more please call the office but do not use more than prescribed. You will need to give our office 48 hours notice if you need narcotics refilled and we do not fill narcotics on weekends or evenings. If you are on a narcotic, it is a good idea to take a stool softener such as colace or senna to avoid constipation If you take blood thinner such as aspirin, Plavix, Coumadin, Effient, Eliquis etc for conditions such as Afib, DVT, Pulmonary embolus, coronary disease, stents etc please speak with your surgeon about specific details as to when you can resume these medications. You can resume NSAIDs on post op day 1 (eg: Motrin, Naproxen, etc). Follow up: Please call the office, , after surgery to arrange a 3 week follow up for wound check. Wound Care: You may remove your dressing on the first day after surgery. You may leave open to air. Please do not remove the steri strips underneath. they will fall off on their own in one week. IT IS NORMAL FOR THE WOUND TO OOZE OR BE BLOODY FOR A FEW DAYS AFTER SURGERY. IF THIS HAPPENS JUST PLACE NEW DRESSING OVER IT TO AVOID STAINING CLOTHES. You may shower on post op day # 1 We ask that you do not let the water soak the wound. If it does get wet, just towel dry lightly. Please do not scrub your incision or place any type of chemical/ointment on the wound. No tub baths, pools or jacuzzis for one month. If you have any leaking or redness from your wound, or fevers, please call office Care Plan Goals: discharge to rehab Health Concerns: none Plan of Treatment: discharge to rehab Assessment: stable
[2023-08-28 07:59] VITALS: BP 104/61; PULSE 66; RESP 17; TEMP 37; O2SAT 95
[2023-08-28] MEDS: Gabapentin 100 MG CAPSULE PO ×3 (08:06→21:50)
[2023-08-28] MEDS: oxyCODONE HCl Immed Release 5 MG TABLET 10 MG PO ×2 (08:06→21:58)
[2023-08-28] MEDS: Loratadine 10 MG TABLET PO (08:06)
[2023-08-28] MEDS: Escitalopram Oxalate 20 MG TABLET PO (08:06)
[2023-08-28] MEDS: Docusate Sodium 100 MG CAPSULE PO ×2 (08:06→21:50)
[2023-08-28] MEDS: Tamsulosin HCL 0.4 MG CAPSULE PO ×2 (08:06→21:50)
[2023-08-28 08:26] VITALS: BP 104/61; PULSE 66; O2SAT 95
[2023-08-28 10:31] VITALS: O2SAT 93
--- NOTE | 2023-08-28 13:30 | HO.POSTANES ---
Post Anesthesia Evaluation Post Anesthesia Evaluation Date of Service: 08/28/23 Vital Signs: Vital Signs Temp Pulse Resp BP Pulse Ox O2 Del Method 08/28/23 10:31 93 Room Air 08/28/23 08:26 66 104/61 95 08/28/23 07:59 98.6 F 66 17 104/61 95 Room Air Anesthesia: General Endotracheal-GETA Mental Status: Awake Pain Control: Satisfactory Nausea/Vomiting: None Hydration: Adequate Anesthesia-Related Issues: No Anes. Related Issues
[2023-08-28 15:21] VITALS: BP 108/56; PULSE 68; RESP 16; TEMP 37.1; O2SAT 94
[2023-08-28 19:28] VITALS: BP 126/65; PULSE 78; RESP 17; TEMP 37.1; O2SAT 95
[2023-08-29 00:01] VITALS: BP 111/59; PULSE 60; RESP 16; TEMP 36.1; O2SAT 93
[2023-08-29 04:00] VITALS: BP 95/56; PULSE 58; RESP 16; TEMP 36.3; O2SAT 93
[2023-08-29] MEDS: Acetaminophen 1,000 MG/100 ML PIGGYBACK 400 MG IV ×2 (04:36→08:25)
[2023-08-29] MEDS: Ketorolac Tromethamine 15 MG/ML VIAL IVPUSH ×2 (04:37→09:13)
[2023-08-29] MEDS: 0.9 % Sodium Chloride 1,000 ML 75 ML IVCONT (04:40)
[2023-08-29 07:48] VITALS: BP 120/71; PULSE 70; RESP 18; TEMP 36.5; O2SAT 94
[2023-08-29 08:03] VITALS: O2SAT 94
[2023-08-29] MEDS: oxyCODONE HCl Immed Release 5 MG TABLET 10 MG PO ×3 (08:24→16:21)
[2023-08-29] MEDS: Gabapentin 100 MG CAPSULE PO ×2 (08:24→14:12)
[2023-08-29] MEDS: Escitalopram Oxalate 20 MG TABLET PO (08:24)
[2023-08-29] MEDS: Tamsulosin HCL 0.4 MG CAPSULE PO (08:24)
[2023-08-29] MEDS: Docusate Sodium 100 MG CAPSULE PO (08:24)
--- NOTE | 2023-08-29 09:10 | HO.NEURO.PN ---
Neurosurgery Operative Note Date of Service: 08/29/23 Narrative: POD: 2 Procedure: L4-5 OLIF Mr. Cross was seen this morning in his room sitting upright in bed eating breakfast. He reports he is up walking around is otherwise doing well. He feels his symptoms are much better than pre-operatively. He still reports mild pain in his low back, with good relief with pain medication. He is voiding well, tolerating diet, and ambulating. He is still using a condom catheter, but reports this is only because he cannot use briefs while inpatient. He will not need to utilize this when he returns to his rehabilitation facility. Afebrile, vital signs stable. Full strength 5/5 UE / LE. Back dressings have some staining without signs of hematoma. No active sanguineous drainage. Area is dry. Plan: Patient meets criteria to be medically discharged to inpatient rehabilitation facility, as stated yesterday in SEMAJ Hoffman's DC summary. Dr. Will is in agreement with this plan. It is recommended he be discharged today.
--- NOTE | 2023-08-29 12:44 | MHC.CM.PN ---
pt being dcd to [facility] at 230 today
== END 2023-08-29 17:43 | DRG 460 ==
LOC: HO.EDOVER 06:23 → HO.S3 10:54
PROVIDERS: Admitting Provider Physician Assistant; PCP Internal Medicine; Visit Provider Neurological Surgery
PROC: 0SG00A0 Fusion of Lumbar Vertebral Joint with Interbody Fusion Device, Anterior Approach, Anterior Column, Open Approach (ICD-10-PCS; principal; 2023-08-27 07:30)
DX: M43.16 Spondylolisthesis, lumbar region (principal); M48.062 Spinal stenosis, lumbar region with neurogenic claudication; Z23 Encounter for immunization; Z79.899 Other long term (current) drug therapy
CPT/HCPCS: 86850; 86900; 86901; 90686; 97162; C1713; J0131; J0690; J1100; J1170; J1885; J2250; J2371; J2405; J3010; L8699

== ENCOUNTER → 2023-08-27 06:19 | Outpatient (BNV) | payer OTHER, SELFPAY | PROVIDERS: Admitting Provider Physician Assistant; PCP Internal Medicine; Visit Provider Neurological Surgery | DX: Z48.89 Encounter for other specified surgical aftercare (principal) | CPT/HCPCS: 20930; 22558; 22612; 22840; 22853; 99024; 99499 ==

== ENCOUNTER 2023-10-09 12:51 | Inpatient (IN) | payer OTHER, SELFPAY ==
[2023-10-09] VITALS (7 sets, daily range): BP systolic 90–125; BP diastolic 48–76; PULSE 73–97; RESP 16–20; TEMP 36.9–39.6; O2SAT 93–99; BMI 27.8
--- NOTE | ~2023-10-09 | FL_ITS ---
EXAMINATION: XR FLUOROSCOPY WITH IMAGES CLINICAL INFORMATION: Left ureteral stone. Left side cystoscopy. COMPARISON: CT of the abdomen and pelvis from the previous day TECHNIQUE: Fluoroscopy Supervised By: Dr. Del Rosario. Fluoroscopy Time: 20.4 seconds. Cumulative Dose: 11.43 mGy. DAP: Not available on this machine. Images: 4. FINDINGS: Images demonstrate a left internal ureteral stent in satisfactory position. There is a high attenuation in the left proximal ureter questionable for a stone. There is high attenuation in the lower pole calyces questionable for stones. There is faint contrast opacification of the left renal collecting system which is dilated. FL/FL guidance in OR IMPRESSION: Fluoroscopy guidance for left internal ureteral stent placement.
--- NOTE | ~2023-10-09 | XR_ITS ---
EXAMINATION: XR CHEST CLINICAL INFORMATION: Cough COMPARISON: None available. TECHNIQUE: Frontal view of the chest was obtained. FINDINGS: Bilateral low lung volumes. Accentuation of pulmonary vasculature. No pneumothorax. Trachea is midline. Cardiac mediastinal silhouette is not enlarged. No large pleural effusion. Degenerative changes thoracolumbar spine. Soft tissues are unremarkable. XR/XR chest 1V IMPRESSION: 1. Bilateral low lung volumes. 2. Accentuation of pulmonary vasculature.
--- NOTE | ~2023-10-09 | CT_ITS ---
EXAMINATION: CT ABDOMEN AND PELVIS WITH CONTRAST CLINICAL INFORMATION: pain, constipation COMPARISON: No pertinent prior studies available for comparison TECHNIQUE: Multidetector volumetric imaging was performed from the superior aspect of the liver through the pubic symphysis following administration of 85 mL Omnipaque 300 intravenous contrast. Sagittal and coronal reformatted images were obtained on the technologist workstation.. This CT examination was performed using dose optimization techniques as appropriate, variously including the following: *Automated exposure control *Adjustment of mA and/or kV according to patient size (this includes techniques or standardized protocols for targeted exams where dose is matched to indication/reason for exam; i.e. extremities or head) *Use of iterative reconstruction technique DLP: 809 mGy-cm FINDINGS: LUNG BASES: The visualized lung bases are unremarkable. Fluid seen within the distal esophagus suggesting a component of esophageal reflux or dysmotility. LIVER, GALLBLADDER, AND BILIARY TREE: The liver is normal in size, shape, and attenuation. No focal hepatic lesion or biliary ductal dilatation is present. The gallbladder is unremarkable with no evidence of radiopaque gallstones, gallbladder wall thickening, or obvious pericholecystic inflammatory changes. PANCREAS: Unremarkable. SPLEEN: Unremarkable. ADRENAL GLANDS: Unremarkable. KIDNEYS AND URETERS: There is left-sided hydronephrosis with significant asymmetric perinephric stranding. The left renal pelvis is dilated up to a 0.9 cm calcification at the ureteropelvic junction. There is a tiny bubble of air adjacent to this calcification. Additional nonobstructing intrarenal calculi are seen otherwise bilaterally. This includes nonobstructing calculi within the contralateral right renal pelvis. No distal ureteric calculi. BLADDER: Decompressed by Storm catheter. There does appear to be calcification along the Storm catheter balloon. GASTROINTESTINAL TRACT: Large amount of stool seen throughout the colon to the rectum. Rectum is distended with dense stool with rectal wall thickening and mild perirectal inflammatory change. Component of underlying stercoral colitis would be favored. No obvious obstructive change. Scattered diverticula. ABDOMINAL WALL: Fat-containing periumbilical hernia. LYMPHOVASCULAR STRUCTURES: Vascular calculation within the aorta iliac system PELVIC VISCERA: Unremarkable. OSSEOUS STRUCTURES: Degenerative and postoperative changes in the spine CT/CT abdomen pelvis w IV con IMPRESSION: 1. Left-sided hydronephrosis and perinephric stranding. There is a 0.9 cm calcification at the left ureteropelvic junction. There is a tiny bubble of air adjacent to this calcification at the left UPJ. Additional nonobstructing intrarenal calculi are seen otherwise. 2. Large amount of stool seen throughout the colon to the rectum. Rectum is distended with dense stool with rectal wall thickening and mild perirectal inflammatory change. Component of stercoral colitis would be favored.
--- NOTE | 2023-10-09 13:46 | PC.NURSE ---
Addendum entered by Ksaey Marte LPN 10/09/23 13:53: 18G Iv in place placed by ems SEWING MACHINIST Original Note: pt brought in by ambulance from home. per EMS/patient he has not had a BM since sunday. pt sts that he has taken OTC bowel medications without relief. pt endorces vomiting, and had an episode of emesis with nurse at bedside. pt was changed over into hospital attire. moderate amount of fecal matter in brief, padilla catheter in place with dark turbid urine draining into bag. pt temp 99.9 rectally, skin pale, warm and dry. call last within reach
--- NOTE | 2023-10-09 14:13 | PC.NURSE ---
pt padilla bag noted to have sediment throughout tubing. this nurse changed padilla bag, and placed stat-lock device on pt left leg. redness, scant amount of blood and white residue noted in in bilateral groin folds.
--- NOTE | 2023-10-09 14:42 | PC.NURSE ---
labs obtained, j-loop changed.
[2023-10-09 14:43] LABS: Basophils Percent Auto 0.1 % (0-2); Hemoglobin 13.8 g/dl (14.0-18.0); Imm Gran Abs Auto 0.07 X10*3/uL (0.00-0.03); Imm Gran Pct Auto 0.5 % (0.0-0.4); Lymphocytes Absolute Auto 0.5 X10*3/uL (1.2-4.9); MANUAL DIFF FLAG SCAN; Mean Corpuscular HGB Conc 32.9 g/dl (31.0-36.0); Mean Corpuscular Hemoglobin 29.6 pg (27.0-33.0); Mean Corpuscular Volume 89.9 fL (80.0-98.0); Mean Platelet Volume 9.6 fL (9.4-12.4); Monocytes Absolute Auto 1.6 X10*3/uL (0.1-1.2); Monocytes Percent Auto 10.6 % (2-11); Neutrophils Absolute Auto 13.2 x10*3/uL (2.0-8.3); Neutrophils Percent Auto 85.8 % (45-73); Platelet Count 290 X10*3/uL (160-400); Red Blood Count 4.67 X10*6/uL (4.60-5.80); Red Cell Distribution Width 13.9 % (11.0-16.0); SCAN SMEAR FLAG 1; White Blood Count 15.3 X10*3/uL (4.8-10.8)
[2023-10-09 14:58] LABS: Alanine Aminotransferase 17 U/L (0-40); Albumin Level 3.6 g/dL (3.5-5.0); Alkaline Phosphatase 145 U/L (39-117); Anion Gap 15 (12-20); Aspartate Amino Transferase 22 U/L (5-37); Bilirubin Direct 0.8 mg/dL (0.0-0.5); Bilirubin Total 1.9 mg/dL (0.0-1.0); Blood Urea Nitrogen 14 mg/dL (9-16); Calcium 9.6 mg/dL (8.4-10.2); Carbon Dioxide 25 mmol/L (22-29); Chloride 105 mmol/L (96-108); Creatinine Clr Calc Pharmacy 73.6; Estimated Glomerular Filt Rate > 60; Glucose Random 135 mg/dL (60-115); Potassium 4.2 mmol/L (3.3-5.1); Sodium 141 mmol/L (135-145); Total Protein 6.8 g/dL (6.5-8.0)
[2023-10-09 15:29] LABS: SLIDE REVIEW VERIFIED
[2023-10-09 16:03] LABS: Appearance Urine Cloudy; Color Urine Dark Yellow; Glucose Urine UA Negative (Negative); Leukocyte Esterase Urine Large (3+) (Negative); Nitrite Urine Positive (Negative); PH 7.5 (5.0-9.0); UMIC TRIGGER UACC YES; Urine Blood Negative (Negative); Urine Ketones Trace mg/dL (Negative); Urine Protein 30 (1+) mg/dL (Neg-Trace)
[2023-10-09 16:31] LABS: Bacteria Urine 4+ (None Seen); Hyaline Casts Urine 0-2 /LPF (0-2); Other Crystals Urine Present; Squamous Epithelial Cell Urine 0-2 /HPF (0-2); UACC Culture Trigger YES; WBC Urine >50 /HPF (0-5)
[2023-10-09] MEDS: iohexoL 350 MG/ML 100 ML INFUS..BTL 85 ML IV (16:32)
--- NOTE | 2023-10-09 16:45 | ED.ABDPAIN ---
HPI - Abdominal Pain General Chief Complaint: Abdominal Pain Stated Complaint: ABD PAIN, CONSTIPATION X1 DAY PER EMS Time Seen by Provider: 10/09/23 16:08 Source: patient and old records reviewed Mode of arrival: EMS Limitations: no limitations History of Present Illness HPI narrative: 72 yo male with PMH of lumbar stenosis, BPH with urinary retention s/p catheter 2 weeks ago here with c/o no bowel movement since Sunday but states he has not had abdominal surgery in the past though he did have abdominal incisions in left lower quadrant from recent back surgery in July with Dr. Will. He has known ventral hernia and diastasis rectii. He also reports starting with abdominal pain and n/v started this AM. He feels weak. MD elicited complaint: abdominal pain Pertinent past history: constipation and other (ventral hernia) Onset (ago): day(s) (2) Pain Consistency: constant Location: diffuse Severity: moderate Quality: aching and fullness Radiation: none Migration to: no migration Exacerbating factors: eating Relieving factors: nothing Context: other (s/p padilla 2 weeks ago) Associated symptoms: nausea, vomiting, chills and constipation Related Data Home Medications Medication Instructions Recorded Confirmed citalopram 40 mg tablet 40 mg PO DAILY 05/30/23 10/09/23 gabapentin 100 mg capsule 100 mg PO TID 05/30/23 10/09/23 tamsulosin 0.4 mg capsule 0.4 mg PO BID 05/30/23 10/09/23 acetaminophen 325 mg tablet 650 mg PO Q4H PRN pain.fever 08/27/23 10/09/23 docusate sodium 100 mg capsule 100 mg PO DAILY 08/27/23 10/09/23 (Colace) fluticasone propionate 50 2 spray intranasal DAILY PRN 08/27/23 10/09/23 mcg/actuation nasal Allergy Symptoms spray,suspension melatonin 10 mg tablet 10 mg PO BEDTIME PRN Sleep 08/27/23 10/09/23 sennosides 8.6 mg tablet (senna) 17.2 mg PO BEDTIME 08/27/23 10/09/23 lisinopril 10 mg tablet 10 mg PO DAILY 10/09/23 10/09/23 naproxen 500 mg tablet 500 mg PO BID PRN Pain (Scale 10/09/23 10/09/23 Score 4-6) Allergies Allergy/AdvReac Type Severity Reaction Status Date / Time Seasonal Allergies Allergy Unknown Verified 10/09/23 13:08 Review of Systems Review of Systems Constitutional : No Weight loss, No Fever, pos Chills ENT/Mouth : No sore throat, No Rhinorrhea Eyes: No Swelling, No Redness Cardiovascular : No Chest Pain, No SOB, NoEdema Respiratory : No Cough, No Sputum, No Wheezing Gastrointestinal : Positive Nausea, Positive Vomiting, positive Diarrhea, positive abdominal Pain, No Hematochezia, No Melena, pos constipation Genitourinary : No Dysuria, No Urinary Frequency, No Hematuria, No Urgency Musculoskeletal : No joint pain, No Myalgias, No Joint Swelling Skin : No Skin Lesions, No rash Neuro : No Weakness, No Numbness, No Dizziness, No Headache Psych : No Anxiety/Panic, No Depression Heme/Lymph: No Bruising, No Lymphadenopathy Endocrine : No Polyuria, No Polydipsia All other systems reviewed and are negative. [facility] Past Medical History Attestation statement: The following information was validated with the patient. Source: old records reviewed Medical History Elevated cholesterol Fracture of humeral head Urinary incontinence Calculus of kidney Insomnia HTN (hypertension) Anxiety Depression Obesity Internal hemorrhoid Erectile dysfunction BPH associated with nocturia Lumbar radiculopathy Umbilical hernia without obstruction or gangrene Rectus diastasis Ventral hernia without obstruction or gangrene Cervical myelopathy Surgical History Hx of cervical spine surgery Hx of lithotripsy H/O colonoscopy Social History Social History Household Members: Family Household Members Other:: daughter Housing: House Are you a primary healthcare corporate account director to a significant other at home: No Alcohol intake: former Patient Tobacco Use Status: Never used Tobacco Smoked in Last 30 Days: No Use of substances other than those prescribed or required for medical reasons: No Have you been hit, kicked, punched, or otherwise hurt by someone within the past year? If so, by whom?: No Do you feel safe in your current relationship?: Yes Is there a partner from a previous relationship who is making you feel unsafe now?: No Are you made to feel afraid or neglected: No Spiritual Healthcare Practices: none Jehovah'S Witness Healthcare Practices: none Cultural Healthcare Practices: none Advance Directives: Yes Advance Directives Information Provided: No Advance Directives on File: Yes Advance Directives Date on File: 08/10/23 Do you have thoughts of harming others: None Do you have a plan to hurt others: No Plan Recently lost weight without trying: No How much weight loss: Not applicable Eating poorly because of decreased appetite: No Nutrition screen score: 0 Nutrition Risks: No Nutritional Risk service: No Physical Exam ED Vital Signs: Vital Signs - 24 hr 10/09/23 13:01 10/09/23 14:12 10/09/23 17:27 Temperature 98.4 F 98.4 F 103.3 F H Pulse Rate 73 92 Respiratory Rate 20 16 Blood Pressure 122/65 123/76 Pulse Oximetry 98 95 Oxygen Delivery Method Room Air Room Air 10/09/23 17:27 Temperature Pulse Rate 85 Respiratory Rate Blood Pressure Pulse Oximetry Oxygen Delivery Method BMI result Body Mass Index 27.8 Appearance: Alert. Oriented X3. No acute distress. Active dry heaving Eyes: Pupils equal, round and reactive to light. ENT: Pharynx dry MM. Neck: Normal inspection. Neck supple. CVS: Normal heart rate and rhythm. Pulses normal. Respiratory: No respiratory distress. Breath sounds normal. Abdomen: Soft but there is some distention I can feel two hernias one umbilicus that is not discolored and soft - no pain with palpation and upper hernia along the midline no discoloration there is no tenderness but it is more distended. Skin: Skin warm and dry. pale skin color. Normal skin turgor. Extremities: No lower extremity edema. No calf ttp Neuro: Oriented X 3. No motor deficit. No sensory deficit. Course Course Course Narrative: added on levofloxacin given CT scan and no prior cultures Reevaluation(s) Reevaluation #1: Dr. Magallanes aware will consult and admit to hospitalists they can contact her with questions. Keep NPO. Medical Decision Making Medical Decision Making [facility] Narrative: 72 yo male with PMH of lumbar stenosis, BPH with urinary retention s/p catheter 2 weeks ago here with c/o abdominal pain n/v and constipation - has distended abdomen did have abdominal approach in recent lumbar procedure at this time will need labs, IVF, CT scan, check UA, IVF and zofran/morphine for pain. Possible UTI, obstruction, constipation. Differential Diagnosis Differential Diagnoses: The differential diagnosis associated with the presentation includes SBO, constipation, acute UTI Admission/Observation Consideration of admission/observation: Escalation of care including admission/observation considered Consult Healthcare Provider Management of the patient was discussed with: Hospitalist and Pool Manager (message sent to Urology ) Lab Data MDM Lab Attestation statement: I reviewed the patient's lab results. 10/09/23 14:38 10/09/23 14:38 Labs: Lab Results 10/09/23 10/09/23 10/09/23 Range/Units 14:38 15:52 16:48 WBC 15.3 H (4.8-10.8) X10*3/uL RBC 4.67 (4.60-5.80) X10*6/uL Hgb 13.8 L (14.0-18.0) g/dl Hct 42.0 (42.0-52.0) % MCV 89.9 (80.0-98.0) fL MCH 29.6 (27.0-33.0) pg MCHC 32.9 (31.0-36.0) g/dl RDW 13.9 (11.0-16.0) % Plt Count 290 D (160-400) X10*3/uL MPV 9.6 (9.4-12.4) fL Immature Gran % (Auto) 0.5 H (0.0-0.4) % Neut % (Auto) 85.8 H (45-73) % Lymph % (Auto) 3.0 L (20-40) % Banner % (Auto) 10.6 (2-11) % Eos % (Auto) 0.0 (0-4) % Baso % (Auto) 0.1 (0-2) % Lymph # (Auto) 0.5 L (1.2-4.9) X10*3/uL Banner # (Auto) 1.6 H (0.1-1.2) X10*3/uL Eos # (Auto) 0.0 (0.0-0.4) X10*3/uL Baso # (Auto) 0.0 (0.0-0.2) X10*3/uL Abs Immat Gran (auto) 0.07 H (0.00-0.03) X10*3/uL Absolute Neuts (auto) 13.2 H (2.0-8.3) x10*3/uL Absolute Nucleated RBC 0.000 (0.0-0.012) X10*3/uL Nucleated RBC % (auto) 0.0 (0.0-0.2) /100WBC Smear Tech's Comments VERIFIED Sodium 141 (135-145) mmol/L Potassium 4.2 (3.3-5.1) mmol/L Chloride 105 (96-108) mmol/L Carbon Dioxide 25 (22-29) mmol/L Anion Gap 15 (12-20) BUN 14 (9-16) mg/dL Creatinine 1.01 (0.5-1.4) mg/dL Estim Creat Clear Calc 73.6 Estimated GFR > 60 Random Glucose 135 H (60-115) mg/dL Lactic Acid 2.1 H* (0.5-2.0) mmol/L Calcium 9.6 (8.4-10.2) mg/dL Total Bilirubin 1.9 H (0.0-1.0) mg/dL Direct Bilirubin 0.8 H (0.0-0.5) mg/dL AST 22 (5-37) U/L ALT 17 (0-40) U/L Alkaline Phosphatase 145 H (39-117) U/L Total Protein 6.8 (6.5-8.0) g/dL Albumin 3.6 (3.5-5.0) g/dL Urine Color Dark Yellow Urine Appearance Cloudy Urine pH 7.5 (5.0-9.0) Ur Specific [place] 1.020 (1.005-1.025) Urine Protein 30 (1+) H (Neg-Trace) mg/dL Urine Glucose (UA) Negative (Negative) mg/dL Urine Ketones Trace (Negative) mg/dL Urine Blood Negative (Negative) Urine Nitrite Positive H (Negative) Ur Leukocyte Esterase Large (3+) H (Negative) Urine RBC 11-20 H (0-2) /HPF Urine WBC >50 H (0-5) /HPF Ur Squamous Epith Cells 0-2 (0-2) /HPF Other Crystals Present Urine Bacteria 4+ (None Seen) Hyaline Casts 0-2 (0-2) /LPF Independent Interpretation I performed an independent interpretation of an: CT Scan Radiology Impression Discussion of test interpretation with radiology: I have reviewed the radiologist's reading. Independent Historian Clinical information obtained from an independent historian. History obtained from or confirmed by: EMS External Record Review External record reviewed: Inpatient record and Office record Medications Administered Generic Name Dose Route Start Last Admin Trade Name Freq PRN Reason Stop Dose Admin Gabapentin 100 mg 10/09/23 21:00 10/09/23 20:54 Gabapentin 100 Mg Capsule PO 100 mg TID JAVED Administration Sodium Chloride 1,000 mls @ 100 mls/hr 10/09/23 18:15 10/09/23 22:40 Ns IVCONT 100 mls/hr .Q10H JAVED Administration Piperacillin Sod/Tazobactam 100 mls @ 200 mls/hr 10/09/23 20:00 10/10/23 02:22 Sod 4.5 gm/ Sodium Chloride IV 200 mls/hr Q6H JAVED Administration Ketorolac Tromethamine 15 mg 10/09/23 20:19 10/09/23 20:54 Ketorolac Tromethamine 15 Mg/Ml Vial IVPUSH 15 mg Q6H PRN Administration Pain, Moderate(Pain Scale 4-6) Melatonin 9 mg 10/09/23 19:08 10/09/23 22:40 Melatonin 3 Mg Tablet PO 9 mg BEDTIME PRN Administration Sleep Polyethylene Glycol 17 gm 10/09/23 19:15 10/09/23 20:54 Polyethylene Glycol 3350 17 Gm Powd.Pack PO 17 gm DAILY JAVED Administration Senna 17.2 mg 10/09/23 21:00 10/09/23 20:54 Sennosides 8.6 Mg Tablet PO 17.2 mg BEDTIME JAVED Administration Tamsulosin HCl 0.4 mg 10/09/23 21:00 10/09/23 20:54 Tamsulosin Hcl 0.4 Mg Capsule PO 0.4 mg BID JAVED Administration Discontinued Medications Generic Name Dose Route Start Last Admin Trade Name Freq PRN Reason Stop Dose Admin Acetaminophen 650 mg 10/09/23 17:29 10/09/23 17:36 Acetaminophen 325 Mg Tablet PO 10/09/23 17:30 650 mg ONCE ONE Administration Ceftriaxone Sodium 1 gm/ 50 mls @ 100 mls/hr 10/09/23 16:10 10/09/23 17:37 Sodium Chloride IV 10/09/23 16:39 Infused ONCE ONE Infusion Sodium Chloride 1,000 mls @ 999 mls/hr 10/09/23 16:30 10/09/23 19:44 Ns IV 10/09/23 17:30 Infused .Q1H1M JAVED Infusion Levofloxacin 750 mg in 150 mls @ 100 mls/hr 10/09/23 17:52 10/09/23 19:45 Levaquin IV 10/09/23 19:21 Infused ONCE ONE Infusion Sodium Chloride 1,000 mls @ 999 mls/hr 10/09/23 19:45 10/09/23 22:45 Ns IV 10/09/23 20:45 Infused .Q1H1M JAVED Infusion Iohexol 85 ml 10/09/23 16:31 10/09/23 16:32 Iohexol 350 Mg/Ml 100 Ml Infus..Btl IV 10/09/23 16:32 85 ml ONCE ONE Administration Morphine Sulfate 4 mg 10/09/23 16:28 10/09/23 17:31 Morphine Sulfate 4 Mg/Ml Cartridge IVPUSH 10/09/23 16:29 Not Given ONCE ONE Protocol Ondansetron HCl 4 mg 10/09/23 16:28 10/09/23 17:23 Ondansetron Hcl 4 Mg/2 Ml Vial IVPUSH 10/09/23 16:29 4 mg ONCE ONE Administration Sodium Biphosphate/Sodium Phosphate 133 ml 10/09/23 17:14 10/09/23 17:23 Sodium Phosphate,Banner-Dibasic 133 Ml Enema CO 10/09/23 17:15 133 ml ONCE ONE Administration Critical Care Time Critical Care Time Critical Care Time: Yes Total Critical Care Time: 60 Attestation: IVF x 2L, medical consult, admission to [facility] and review of records. I attest to this time spent taking care of the patient Discharge Plan Discharge Clinical Impression: Acidosis, lactic, Calculus, ureteral Catheter-associated urinary tract infection Qualifiers: Indwelling urinary catheter type: indwelling urethral catheter Encounter type: initial encounter Qualified Code(s): T83.511A - Infection and inflammatory reaction due to indwelling urethral catheter, initial encounter Elevated WBC count Qualifiers: Leukocytosis type: unspecified Qualified Code(s): D72.829 - Elevated white blood cell count, unspecified Constipation Qualifiers: Constipation type: drug induced constipation Qualified Code(s): K59.03 - Drug induced constipation Patient Disposition: Admitted As Inpatient Interventions: Admission Worksheet (ED) Last Done: 10/09/23 21:02 Discharge Date/Time: 10/09/23 21:30
[2023-10-09] MEDS: 0.9 % Sodium Chloride 1,000 ML 999 ML IV ×2 (17:01→20:55)
[2023-10-09] MEDS: cefTRIAXone sodium 1 GM in 0.9 % Sodium Chloride 50 ML IV (17:03)
[2023-10-09 17:05] LABS: Lactic Acid 2.1 mmol/L (0.5-2.0)
[2023-10-09] MEDS: ondansetron HCL 4 MG/2 ML VIAL IVPUSH (17:23)
[2023-10-09] MEDS: Sodium Phosphate,Mono-Dibasic 133 ML ENEMA PR (17:23)
[2023-10-09] MEDS: Acetaminophen 325 MG TABLET 650 MG PO (17:36)
[2023-10-09] MEDS: levoFLOXacin/D5W 750 MG/150 ML PIGGYBACK 100 MG IV (18:02)
--- NOTE | 2023-10-09 18:16 | PC.NURSE ---
Per MD Ruiz fluid orders adjust d/t pt not being hypotensive, and lactic 2.1 (less than 4). pt rec ceftiaxone , currently rec levofloxacin, and NS as ordered. call last within reach- imaging results pending
--- NOTE | 2023-10-09 18:22 | PHA.MEDREC ---
Pharmacy Consult ? Medication Reconciliation Pharmacy has completed the medication reconciliation. Patient confirmed medications. Lisinopril was recently dc'd on last admission but patient reports still taking it. Patient reported he ran out of gabapentin and needs more. Irma Espinal, PharmD
[2023-10-09 18:52] LABS: Reflex Lactate? Lactic Acid Added
--- NOTE | 2023-10-09 19:05 | P.HPHOSP_ITS ---
History of Present Illness Date of Service: 10/09/23 Attending physician on admission: Alexy Lizama Chief Complaint: abd pain 72-year-old male with history of hypertension, nephrolithiasis, BPH with obstructive uropathy with Storm catheter placement 2 weeks ago, unspecified mood disorder, hyperlipidemia, ventral hernia, cervical myelopathy, and lumbar radiculopathy earlier today for evaluation of left lower quadrant pain. He states that he has not had a bowel movement in over a week and has had a nausea and vomiting. He states he has been able to tolerate small amounts of clear liquids. He denies any fevers or chills. No diarrhea, melena, hematochezia, lightheadedness, headaches, shortness of breath, cough, chest pain. He denies any dysuria, hematuria, increased urinary frequency urgency. Follows in Neurology with Dr. Blackman. On arrival, vitals stable. However did develop fever of 103.3. He has leukocytosis of 15.3 with slight left shift. Renal function and electrolyte levels normal. Lactic acid 2.1. Hepatic function baseline. Urinalysis significant for 3+ leukocytes, positive nitrites, negative blood, positive urinary sediment, 4+ bacteria. CT abdomen/pelvis shows left-sided hydronephrosis with perinephric stranding as well as an obstructing 0.9 cm stone at the left ureteropelvic junction with tiny bubble of air adjacent to the calcification as well as additional nonobstructing intrarenal calculi. There is also noted to be a large amount of stool throughout the colon and rectum and rectum is noted to be distended with dense stool and rectal wall thickening with mild perirectal inflammatory change. In the ED, has been given 650 mg acetaminophen, 750 mg IV Levaquin, 1 L IV NS, 1 g ceftriaxone, and in D insert Dereck. Also given Fleet enema without any bowel movement. ED provider did recommend manual disimpaction but patient refused. Review of Systems 2 Review of Systems: General: No fevers, malaise, unintentional weight loss HEENT: No blurred vision, diplopia. No sore throat, nasal congestion, rhinorrhea, sinus pain, ear pain Cardiovascular: No chest pain, palpitations, or leg edema Respiratory: No shortness of breath, wheezing, cough GI: +abd pain, +constipation, +n/v. No diarrhea, constipation, melena, hematochezia : +urinary retention. No dysuria, hematuria, increased urinary frequency MSK: No myalgia, back pain Neuro: No headaches, weakness, paresthesias Skin: No rashes or lesions [facility] Medical History Elevated cholesterol Fracture of humeral head Urinary incontinence Calculus of kidney Insomnia HTN (hypertension) Anxiety Depression Obesity Internal hemorrhoid Erectile dysfunction BPH associated with nocturia Lumbar radiculopathy Umbilical hernia without obstruction or gangrene Rectus diastasis Ventral hernia without obstruction or gangrene Cervical myelopathy Surgical History Hx of cervical spine surgery Hx of lithotripsy H/O colonoscopy Social History Household Members: Family Household Members Other:: daughter Housing: House Are you a primary healthcare applications analyst to a significant other at home: No Alcohol intake: former Patient Tobacco Use Status: Never used Tobacco Smoked in Last 30 Days: No Use of substances other than those prescribed or required for medical reasons: No Currently Displaying Signs/Symptoms of Drug Intoxication Withdrawal: No Have you been hit, kicked, punched, or otherwise hurt by someone within the past year? If so, by whom?: No Do you feel safe in your current relationship?: Yes Is there a partner from a previous relationship who is making you feel unsafe now?: No Are you made to feel afraid or neglected: No Spiritual Healthcare Practices: none Pentecostalism Healthcare Practices: none Cultural Healthcare Practices: none Advance Directives: Yes Advance Directives Information Provided: No Advance Directives on File: Yes Advance Directives Date on File: 08/10/23 Do you have thoughts of harming others: None Do you have a plan to hurt others: No Plan Recently lost weight without trying: No How much weight loss: Not applicable Eating poorly because of decreased appetite: No Nutrition screen score: 0 Nutrition Risks: No Nutritional Risk service: Yes Meds Allergies Allergy/AdvReac Type Severity Reaction Status Date / Time Seasonal Allergies Allergy Unknown Verified 10/09/23 13:08 Active Medications: Current Medications Acetaminophen (Acetaminophen 325 Mg Tablet) 650 mg PO Q6H PRN PRN Reason: Pain, Mild (Pain Scale 1-3) Levofloxacin (Levaquin) 750 mg in 150 mls @ 100 mls/hr IV ONCE ONE Stop: 10/09/23 19:21 Last Admin: 10/09/23 18:02 Dose: 100 mls/hr Sodium Chloride (Ns) 1,000 mls @ 100 mls/hr IVCONT .Q10H JAVED Piperacillin Sod/Tazobactam (Sod 4.5 gm/ Sodium Chloride) 100 mls @ 200 mls/hr IV Q6H JAVED Ondansetron HCl (Ondansetron Hcl 4 Mg/2 Ml Vial) 4 mg IVPUSH Q8H PRN PRN Reason: Nausea and Vomiting Polyethylene Glycol (Polyethylene Glycol 3350 17 Gm Powd.Pack) 17 gm PO DAILY [facility] Senna (Sennosides 8.6 Mg Tablet) 17.2 mg PO BEDTIME [facility] Home Medications Medication Instructions Recorded Confirmed Last Taken Type citalopram 40 mg tablet 40 mg PO DAILY 05/30/23 10/09/23 10/09/23 History gabapentin 100 mg capsule 100 mg PO TID 05/30/23 10/09/23 10/09/23 History tamsulosin 0.4 mg capsule 0.4 mg PO BID 05/30/23 10/09/23 10/09/23 History acetaminophen 325 mg tablet 650 mg PO Q4H PRN pain.fever 08/27/23 10/09/23 Unknown History docusate sodium 100 mg capsule 100 mg PO DAILY 08/27/23 10/09/23 10/09/23 History (Colace) fluticasone propionate 50 2 spray intranasal DAILY PRN 08/27/23 10/09/23 Unknown History mcg/actuation nasal Allergy Symptoms spray,suspension melatonin 10 mg tablet 10 mg PO BEDTIME PRN Sleep 08/27/23 10/09/23 Unknown History sennosides 8.6 mg tablet (senna) 17.2 mg PO BEDTIME 08/27/23 10/09/23 10/08/23 History lisinopril 10 mg tablet 10 mg PO DAILY 10/09/23 10/09/23 10/09/23 History naproxen 500 mg tablet 500 mg PO BID PRN Pain (Scale 10/09/23 10/09/23 Unknown History Score 4-6) Physical Exam 2 Vital Signs and Narrative: Vital Signs: Last Vital Signs Temp 103.3 F H 10/09/23 17:27 Pulse 85 10/09/23 17:27 Resp 16 10/09/23 14:12 BP 123/76 10/09/23 14:12 Pulse Ox 95 10/09/23 14:12 O2 Del Method Room Air 10/09/23 14:12 BMI result Body Mass Index 27.8 Constitutional - Awake and Alert, No apparent distress Eyes - PERRLA, EOMI Cardiovascular - S1S2, RRR, No edema Respiratory - Normal lung expansion, Normal respiratory effort, No respiratory distress, CTA bilaterally Gastrointestinal - diffuse ttp, greatest in LLQ, ND; +BS; No rebound or guarding - No CVA tenderness Extremities - no calf tenderness bilaterally, no swelling Skin - Warm/Dry Neurological - Alert & oriented x3 Psychological - Appropriate affect Results Labs 10/10/23 07:07 10/10/23 07:07 Labs: Laboratory Results - last 24 hr 10/09/23 10/09/23 10/09/23 14:38 15:52 16:48 MCV 89.9 MCH 29.6 MCHC 32.9 RDW 13.9 Plt Count 290 D MPV 9.6 Immature Gran % (Auto) 0.5 H Neut % (Auto) 85.8 H Lymph % (Auto) 3.0 L [place] % (Auto) 10.6 Eos % (Auto) 0.0 Baso % (Auto) 0.1 Lymph # (Auto) 0.5 L [place] # (Auto) 1.6 H Eos # (Auto) 0.0 Baso # (Auto) 0.0 Abs Immat Gran (auto) 0.07 H Absolute Neuts (auto) 13.2 H Absolute Nucleated RBC 0.000 Nucleated RBC % (auto) 0.0 Smear Tech's Comments VERIFIED Anion Gap 15 Estim Creat Clear Calc 73.6 Estimated GFR > 60 Random Glucose 135 H Lactic Acid 2.1 H* Calcium 9.6 Total Bilirubin 1.9 H Direct Bilirubin 0.8 H AST 22 ALT 17 Alkaline Phosphatase 145 H Total Protein 6.8 Albumin 3.6 Urine Color Dark Yellow Urine Appearance Cloudy Urine pH 7.5 Ur Specific Martin 1.020 Urine Protein 30 (1+) H Urine Glucose (UA) Negative Urine Ketones Trace Urine Blood Negative Urine Nitrite Positive H Ur Leukocyte Esterase Large (3+) H Urine RBC 11-20 H Urine WBC >50 H Ur Squamous Epith Cells 0-2 Other Crystals Present Urine Bacteria 4+ Hyaline Casts 0-2 Imaging Radiologist's Impressions: Impressions Abdomen/Pelvis CT 10/09/23 16:43 IMPRESSION: 1. Left-sided hydronephrosis and perinephric stranding. There is a 0.9 cm calcification at the left ureteropelvic junction. There is a tiny bubble of air adjacent to this calcification at the left UPJ. Additional nonobstructing intrarenal calculi are seen otherwise. 2. Large amount of stool seen throughout the colon to the rectum. Rectum is distended with dense stool with rectal wall thickening and mild perirectal inflammatory change. Component of stercoral colitis would be favored. Assessment and Plan (1) Constipation: Qualifiers: Constipation type: drug induced constipation Qualified Code(s): K59.03 - Drug induced constipation Status: Acute (2) Calculus, ureteral: Status: Acute (3) Severe sepsis: Status: Acute (4) Pyelonephritis of left kidney: Status: Acute (5) Catheter-associated urinary tract infection: Qualifiers: Encounter type: initial encounter Indwelling urinary catheter type: i ndwelling urethral catheter Qualified Code(s): T83.511A - Infection and inflammatory reaction due to indwelling urethral catheter, initial encounter; N39.0 - Urinary tract infection, site not specified Status: Acute Plan 72-year-old male with history of hypertension, nephrolithiasis, BPH with obstructive uropathy with Storm catheter placement 2 weeks ago, unspecified mood disorder, hyperlipidemia, ventral hernia, cervical myelopathy, and lumbar radiculopathy admitted for obstructive uropathy with pyelonephritis and severe sepsis. # acute Storm catheter associated pyelonephritis with severe sepsis -leukocytosis 15.8, febrile to 103.3, acute lactic acidosis 2.1, repeat pending. No other end-organ damage or hypotension. -UA with 3+ leukocytes, positive nitrates, positive urinary sediment, 4+ bacteria -IV Zosyn (initiated 10/09) -urology consult -aggressive IVF -follow CBC, cultures # obstructive uropathy -0.9 cm obstructive calculus in the left UVJ with hydronephrosis -renal function normal -Storm catheter replaced -urology consult -continue Flomax # fecal impaction with stercoral colitis -Fleet enema administered in ED without bowel movement. Patient refused bedside manual disimpaction -senna, MiraLax, docusate -if patient agreeable to bedside manual disimpaction, consider General surgery consult #BPH with LUTS -replace Storm catheter, placed [address] Blackman -continue Flomax # hypertension -continue lisinopril # cervical myelopathy/lumbar radiculopathy -continue gabapentin, hold naproxen # mood disorder -continue home meds DVT prophylaxis-SCPs as pt will likely undergo urology procedure tomorrow Full code Patient with severe sepsis secondary to Storm catheter associated pyelonephritis with obstructive uropathy and hydronephrosis requires admission for at least 2 midnights for IV antibiotics, IV fluids, expert consultation with probable ureteral stent placement as well as very close monitoring of renal function and electrolyte levels and vital signs to monitor for and prevent decompensation 2 severe sepsis/shock. Quality Stroke Does the patient have a stroke diagnosis?: No VTE Prior VTE?: No VTE Risk Level:: Medical - moderate - high VTE Device Contraindication: Treatment Not Indicated VTE Drug Contraindication: N/A - Med Ordered
[2023-10-09 19:34] LABS: ~Lactic Acid-LAB USE ONLY 2.7 mmol/L (0.5-2.0)
[2023-10-09] MEDS: 0.9 % Sodium Chloride 1,000 ML 100 ML IVCONT ×3 (19:48→22:40)
--- NOTE | 2023-10-09 20:35 | MHC.EDTECH ---
Pt incontinent of large amount of stool., Complete bedding change done, pt cleaned, and changed into new gown. Repositioned in bed. RN aware
--- NOTE | 2023-10-09 20:37 | PC.NURSE ---
pt cleaned,linens changed, monitor car operator in place, IV levaquin and IVF infusing per orders
--- NOTE | 2023-10-09 20:40 | PC.NURSE ---
MD Ruiz and SEMAJ Huber aware pt was incontinent of moderate amount of stool
[2023-10-09] MEDS: Gabapentin 100 MG CAPSULE PO (20:54)
[2023-10-09] MEDS: Piperacillin Sodium/Tazobactam 4.5 GM in 0.9 % Sodium Chloride 100 ML IV (20:54)
[2023-10-09] MEDS: Sennosides 8.6 MG TABLET 17.2 MG PO (20:54)
[2023-10-09] MEDS: Tamsulosin HCL 0.4 MG CAPSULE PO (20:54)
[2023-10-09] MEDS: polyethylene glycoL 3350 17 GM POWD.PACK PO (20:54)
[2023-10-09] MEDS: Ketorolac Tromethamine 15 MG/ML VIAL IVPUSH (20:54)
[2023-10-09 21:18] LABS: Reflex Lactate? 2 Y
--- NOTE | 2023-10-09 21:23 | PC.NURSE ---
spoke with pt dtr Carolyn [phone] informed of room assignment. pt fidel carolyn: [phone] pt lacy Gallegos: [phone]
[2023-10-09 22:36] LABS: ~Lactic Acid-LAB USE ONLY 2.4 mmol/L (0.5-2.0)
[2023-10-09] MEDS: Melatonin 3 MG TABLET 9 MG PO (22:40)
[2023-10-10] VITALS (16 sets, daily range): BP systolic 85–114; BP diastolic 45–74; PULSE 74–133; RESP 14–22; TEMP 36.1–37.6; O2SAT 93–98
[2023-10-10] MEDS: Piperacillin Sodium/Tazobactam 4.5 GM in 0.9 % Sodium Chloride 100 ML IV ×4 (02:22→20:51)
[2023-10-10 02:34] LABS: Lactic Acid 0.9 mmol/L (0.5-2.0)
[2023-10-10 07:42] LABS: Basophils Percent Auto 0.2 % (0-2); Hematocrit 36.7 % (42.0-52.0); Hemoglobin 11.9 g/dl (14.0-18.0); Imm Gran Abs Auto 0.75 X10*3/uL (0.00-0.03); Imm Gran Pct Auto 3.1 % (0.0-0.4); Lymphocytes Percent Auto 4.3 % (20-40); MANUAL DIFF FLAG SCAN; Mean Corpuscular HGB Conc 32.4 g/dl (31.0-36.0); Mean Corpuscular Hemoglobin 29.4 pg (27.0-33.0); Mean Corpuscular Volume 90.6 fL (80.0-98.0); Mean Platelet Volume 10.2 fL (9.4-12.4); Monocytes Absolute Auto 1.5 X10*3/uL (0.1-1.2); Monocytes Percent Auto 6.3 % (2-11); Neutrophils Absolute Auto 20.7 x10*3/uL (2.0-8.3); Neutrophils Percent Auto 86.1 % (45-73); Platelet Count 215 X10*3/uL (160-400); Red Blood Count 4.05 X10*6/uL (4.60-5.80); Red Cell Distribution Width 14.1 % (11.0-16.0); SCAN SMEAR FLAG 1; White Blood Count 24.1 X10*3/uL (4.8-10.8)
[2023-10-10 07:56] LABS: Anion Gap 11 (12-20); Blood Urea Nitrogen 22 mg/dL (9-16); Calcium 8.4 mg/dL (8.4-10.2); Carbon Dioxide 21 mmol/L (22-29); Chloride 109 mmol/L (96-108); Creatinine Clr Calc Pharmacy 50.2; Estimated Glomerular Filt Rate 47; Glucose Random 100 mg/dL (60-115); Potassium 3.4 mmol/L (3.3-5.1); Sodium 138 mmol/L (135-145)
[2023-10-10 08:26] LABS: SLIDE REVIEW VERIFIED
--- NOTE | 2023-10-10 08:37 | P.CNUR_ITS ---
History of Present Illness Consult details Consult date: 10/10/23 Narrative: Micky is a 72 year old male who has a chonic padilla in place admitted due to fever and obstructing stone. He is followed by [facility] for BPH, h/o kidney stones. CTAP-KIDNEYS AND URETERS: There is left-sided hydronephrosis with significant asymmetric perinephric stranding. The left renal pelvis is dilated up to a 0.9 cm calcification at the ureteropelvic junction. There is a tiny bubble of air adjacent to this calcification. Additional nonobstructing intrarenal calculi are seen bilaterally. Review of Systems 2 Review of Systems: Yes all other systems are reviewed and are negative Constitutional: Constitutional: Reports no additional constitutional complaints Eyes: Eyes: Reports no additional eye complaints ENT: Reports system reviewed and no additional complaints, except as documented Cardiovascular: Cardiovascular: Denies dyspnea Respiratory: Respiratory: Denies cough and Denies dyspnea Gastrointestinal: Gastrointestinal: Reports no additional gastrointestinal complaints Musculoskeletal: Musculoskeletal: Reports no additional musculoskeletal complaints Integumentary/Breasts: Skin/Breast: Denies rash and Denies unusual bruising Neurologic: Reports system reviewed and no additional complaints, except as documented Psychiatric: Psychiatric: Reports no additional psychiatric complaints Endocrine: Endocrine: Reports no additional endocrine complaints Hematologic/Lymphatic: Hematologic/Lymphatic: Reports no additional hematologic/lymphatic complaints Allergic/Immunologic: Allergic/Immunologic: Reports no additional allergic/immunologic complaints [facility] Past Medical History Medical History Elevated cholesterol Fracture of humeral head Urinary incontinence Calculus of kidney Insomnia HTN (hypertension) Anxiety Depression Obesity Internal hemorrhoid Erectile dysfunction BPH associated with nocturia Lumbar radiculopathy Umbilical hernia without obstruction or gangrene Rectus diastasis Ventral hernia without obstruction or gangrene Cervical myelopathy Surgical History Surgical History Hx of cervical spine surgery Hx of lithotripsy H/O colonoscopy Social History Social History Household Members: Family Household Members Other:: daughter Housing: House Are you a primary inpatient care manager rn to a significant other at home: No Alcohol intake: former Patient Tobacco Use Status: Never used Tobacco Smoked in Last 30 Days: No Use of substances other than those prescribed or required for medical reasons: No Currently Displaying Signs/Symptoms of Drug Intoxication Withdrawal: No Have you been hit, kicked, punched, or otherwise hurt by someone within the past year? If so, by whom?: No Do you feel safe in your current relationship?: Yes Is there a partner from a previous relationship who is making you feel unsafe now?: No Are you made to feel afraid or neglected: No Spiritual Healthcare Practices: none Rastafarian Healthcare Practices: none Cultural Healthcare Practices: none Advance Directives: Yes Advance Directives Information Provided: No Advance Directives on File: Yes Advance Directives Date on File: 08/10/23 Do you have thoughts of harming others: None Do you have a plan to hurt others: No Plan Recently lost weight without trying: No How much weight loss: Not applicable Eating poorly because of decreased appetite: No Nutrition screen score: 0 Nutrition Risks: No Nutritional Risk service: Yes Meds Allergies Allergy/AdvReac Type Severity Reaction Status Date / Time Seasonal Allergies Allergy Unknown Verified 10/09/23 13:08 Active Medications: Current Medications Acetaminophen (Acetaminophen 325 Mg Tablet) 650 mg PO Q6H PRN PRN Reason: Pain, Mild (Pain Scale 1-3) Docusate Sodium (Docusate Sodium 100 Mg Capsule) 100 mg PO DAILY [facility] Escitalopram Oxalate (Escitalopram Oxalate 20 Mg Tablet) 20 mg PO DAILY [facility] Fluticasone Propionate (Fluticasone Propionate Nasal 16 Gm [place]) 2 spray NOSTRIL-B DAILY PRN PRN Reason: Allergy Symptoms Gabapentin (Gabapentin 100 Mg Capsule) 100 mg PO TID [facility] Last Admin: 10/09/23 20:54 Dose: 100 mg Sodium Chloride (Ns) 1,000 mls @ 100 mls/hr IVCONT .Q10H [facility] Last Admin: 10/09/23 22:40 Dose: 100 mls/hr Piperacillin Sod/Tazobactam (Sod 4.5 gm/ Sodium Chloride) 100 mls @ 200 mls/hr IV Q6H [facility] Last Infusion: 10/10/23 03:10 Dose: Infused Melatonin (Melatonin 3 Mg Tablet) 9 mg PO BEDTIME PRN PRN Reason: Sleep Last Admin: 10/09/23 22:40 Dose: 9 mg Ondansetron HCl (Ondansetron Hcl 4 Mg/2 Ml Vial) 4 mg IVPUSH Q8H PRN PRN Reason: Nausea and Vomiting Oxycodone HCl (Oxycodone Hcl Immed Release 5 Mg Tablet) 5 mg PO Q4H PRN PRN Reason: Pain, Mild (Pain Scale 1-3) Polyethylene Glycol (Polyethylene Glycol 3350 17 Gm Powd.Pack) 17 gm PO DAILY [facility] Last Admin: 10/09/23 20:54 Dose: 17 gm Senna (Sennosides 8.6 Mg Tablet) 17.2 mg PO BEDTIME [facility] Last Admin: 10/09/23 20:54 Dose: 17.2 mg Tamsulosin HCl (Tamsulosin Hcl 0.4 Mg Capsule) 0.4 mg PO BID [facility] Last Admin: 10/09/23 20:54 Dose: 0.4 mg Home Medications Medication Instructions Recorded Confirmed Last Taken Type citalopram 40 mg tablet 40 mg PO DAILY 05/30/23 10/09/23 10/09/23 History gabapentin 100 mg capsule 100 mg PO TID 05/30/23 10/09/23 10/09/23 History tamsulosin 0.4 mg capsule 0.4 mg PO BID 05/30/23 10/09/23 10/09/23 History acetaminophen 325 mg tablet 650 mg PO Q4H PRN pain.fever 08/27/23 10/09/23 Unknown History docusate sodium 100 mg capsule 100 mg PO DAILY 08/27/23 10/09/23 10/09/23 History (Colace) fluticasone propionate 50 2 spray intranasal DAILY PRN 08/27/23 10/09/23 Unknown History mcg/actuation nasal Allergy Symptoms spray,suspension melatonin 10 mg tablet 10 mg PO BEDTIME PRN Sleep 08/27/23 10/09/23 Unknown History sennosides 8.6 mg tablet (senna) 17.2 mg PO BEDTIME 08/27/23 10/09/23 10/08/23 History lisinopril 10 mg tablet 10 mg PO DAILY 10/09/23 10/09/23 10/09/23 History naproxen 500 mg tablet 500 mg PO BID PRN Pain (Scale 10/09/23 10/09/23 Unknown History Score 4-6) Physical Exam 2 Vital Signs: Vital Signs: Last Vital Signs Temp 98.0 F 10/10/23 07:26 Pulse 86 10/10/23 07:26 Resp 16 12/13/23 07:26 BP 106/58 L 10/10/23 07:26 Pulse Ox 94 10/10/23 07:26 O2 Del Method Room Air 10/10/23 07:26 BMI result Body Mass Index 27.8 Const: General: no acute distress and well developed O rientation/consciousness: patient oriented x3 HEENT: Head: Yes normocephalic and Yes atraumatic Eyes: Conjunctivae: conjunctivae normal Neck: Neck: Yes normal visual inspection Chest: Chest palpation & inspection: normal inspection of the chest Resp: Effort & Inspection: normal respiratory effort Cardio: Rate: regular rate GI: Inspection: Yes normal to inspection Palpation (GI): Soft to palpation : Other: padilla in place Scrotum: scrotum normal Skin: General skin exam: no rashes or lesions noted Neuro: General: patient oriented x3 Extrem: General: No pedal edema Psych: Appearance: grossly normal Affect: normal affect Results Labs 10/10/23 07:07 10/10/23 07:07 Labs: Abnormal lab results 10/09/23 10/09/23 10/09/23 Range/Units 14:38 15:52 16:48 WBC 15.3 H (4.8-10.8) X10*3/uL RBC (4.60-5.80) X10*6/uL Hgb 13.8 L (14.0-18.0) g/dl Hct (42.0-52.0) % Immature Gran % (Auto) 0.5 H (0.0-0.4) % Neut % (Auto) 85.8 H (45-73) % Lymph % (Auto) 3.0 L (20-40) % Lymph # (Auto) 0.5 L (1.2-4.9) X10*3/uL [place] # (Auto) 1.6 H (0.1-1.2) X10*3/uL Abs Immat Gran (auto) 0.07 H (0.00-0.03) X10*3/uL Absolute Neuts (auto) 13.2 H (2.0-8.3) x10*3/uL Chloride (96-108) mmol/L Carbon Dioxide (22-29) mmol/L Anion Gap (12-20) BUN (9-16) mg/dL Creatinine (0.5-1.4) mg/dL Random Glucose 135 H (60-115) mg/dL Lactic Acid 2.1 H* (0.5-2.0) mmol/L Lactic Acid F/U @ 2Hr (0.5-2.0) mmol/L Lactic Acid F/U @ 4Hr (0.5-2.0) mmol/L Total Bilirubin 1.9 H (0.0-1.0) mg/dL Direct Bilirubin 0.8 H (0.0-0.5) mg/dL Alkaline Phosphatase 145 H (39-117) U/L Urine Protein 30 (1+) H (Neg-Trace) mg/dL Urine Nitrite Positive H (Negative) Ur Leukocyte Esterase Large (3+) H (Negative) Urine RBC 11-20 H (0-2) /HPF Urine WBC >50 H (0-5) /HPF 10/09/23 10/09/23 10/10/23 Range/Units 19:16 22:10 07:07 WBC 24.1 H (4.8-10.8) X10*3/uL RBC 4.05 L (4.60-5.80) X10*6/uL Hgb 11.9 L (14.0-18.0) g/dl Hct 36.7 L (42.0-52.0) % Immature Gran % (Auto) 3.1 H (0.0-0.4) % Neut % (Auto) 86.1 H (45-73) % Lymph % (Auto) 4.3 L (20-40) % Lymph # (Auto) 1.0 L (1.2-4.9) X10*3/uL [place] # (Auto) 1.5 H (0.1-1.2) X10*3/uL Abs Immat Gran (auto) 0.75 H (0.00-0.03) X10*3/uL Absolute Neuts (auto) 20.7 H (2.0-8.3) x10*3/uL Chloride 109 H (96-108) mmol/L Carbon Dioxide 21 L (22-29) mmol/L Anion Gap 11 L (12-20) BUN 22 H (9-16) mg/dL Creatinine 1.48 H (0.5-1.4) mg/dL Random Glucose (60-115) mg/dL Lactic Acid (0.5-2.0) mmol/L Lactic Acid F/U @ 2Hr 2.7 H* (0.5-2.0) mmol/L Lactic Acid F/U @ 4Hr 2.4 H* (0.5-2.0) mmol/L Total Bilirubin (0.0-1.0) mg/dL Direct Bilirubin (0.0-0.5) mg/dL Alkaline Phosphatase (39-117) U/L Urine Protein (Neg-Trace) mg/dL Urine Nitrite (Negative) Ur Leukocyte Esterase (Negative) Urine RBC (0-2) /HPF Urine WBC (0-5) /HPF Short CBC 10/09/23 10/10/23 Range/Units 14:38 07:07 WBC 15.3 H 24.1 H (4.8-10.8) X10*3/uL Hgb 13.8 L 11.9 L (14.0-18.0) g/dl Hct 42.0 36.7 L (42.0-52.0) % Plt Count 290 D 215 D (160-400) X10*3/uL BMP 10/09/23 10/10/23 14:38 07:07 Sodium 141 138 Potassium 4.2 3.4 Chloride 105 109 H Carbon Dioxide 25 21 L BUN 14 22 H Creatinine 1.01 1.48 H Calcium 9.6 8.4 D Liver Function 10/09/23 Range/Units 14:38 Total Bilirubin 1.9 H (0.0-1.0) mg/dL Direct Bilirubin 0.8 H (0.0-0.5) mg/dL AST 22 (5-37) U/L ALT 17 (0-40) U/L Alkaline Phosphatase 145 H (39-117) U/L Albumin 3.6 (3.5-5.0) g/dL Urine 10/09/23 Range/Units 15:52 Urine Color Dark Yellow Urine Appearance Cloudy Urine pH 7.5 (5.0-9.0) Ur Specific [place] 1.020 (1.005-1.025) Urine Protein 30 (1+) H (Neg-Trace) mg/dL Urine Glucose (UA) Negative (Negative) mg/dL Imaging Additional studies: Date of Service: 10/09/23 EXAMINATION: CT ABDOMEN AND PELVIS WITH CONTRAST CLINICAL INFORMATION: pain, constipation COMPARISON: No pertinent prior studies available for comparison TECHNIQUE: Multidetector volumetric imaging was performed from the superior aspect of the liver through the pubic symphysis following administration of 85 mL Omnipaque 300 intravenous contrast. Sagittal and coronal reformatted images were obtained on the technologist workstation.. This CT examination was performed using dose optimization techniques as appropriate, variously including the following: *Automated exposure control *Adjustment of mA and/or kV according to patient size (this includes techniques or standardized protocols for targeted exams where dose is matched to indication/reason for exam; i.e. extremities or head) *Use of iterative reconstruction technique DLP: 809 mGy-cm FINDINGS: LUNG BASES: The visualized lung bases are unremarkable. Fluid seen within the distal esophagus suggesting a component of esophageal reflux or dysmotility. LIVER, GALLBLADDER, AND BILIARY TREE: The liver is normal in size, shape, and attenuation. No focal hepatic lesion or biliary ductal dilatation is present. The gallbladder is unremarkable with no evidence of radiopaque gallstones, gallbladder wall thickening, or obvious pericholecystic inflammatory changes. PANCREAS: Unremarkable. SPLEEN: Unremarkable. ADRENAL GLANDS: Unremarkable. KIDNEYS AND URETERS: There is left-sided hydronephrosis with significant asymmetric perinephric stranding. The left renal pelvis is dilated up to a 0.9 cm calcification at the ureteropelvic junction. There is a tiny bubble of air adjacent to this calcification. Additional nonobstructing intrarenal calculi are seen otherwise bilaterally. This includes nonobstructing calculi within the contralateral right renal pelvis. No distal ureteric calculi. BLADDER: Decompressed by Padilla catheter. There does appear to be calcification along the Padilla catheter balloon. GASTROINTESTINAL TRACT: Large amount of stool seen throughout the colon to the rectum. Rectum is distended with dense stool with rectal wall thickening and mild perirectal inflammatory change. Component of underlying stercoral colitis would be favored. No obvious obstructive change. Scattered diverticula. ABDOMINAL WALL: Fat-containing periumbilical hernia. LYMPHOVASCULAR STRUCTURES: Vascular calculation within the aorta iliac system PELVIC VISCERA: Unremarkable. OSSEOUS STRUCTURES: Degenerative and postoperative changes in the spine IMPRESSION: 1. Left-sided hydronephrosis and perinephric stranding. There is a 0.9 cm calcification at the left ureteropelvic junction. There is a tiny bubble of air adjacent to this calcification at the left UPJ. Additional nonobstructing intrarenal calculi are seen otherwise. 2. Large amount of stool seen throughout the colon to the rectum. Rectum is distended with dense stool with rectal wall thickening and mild perirectal inflammatory change. Component of stercoral colitis would be favored. Assessment and Plan (1) Pyelonephritis of left kidney: Status: Acute (2) Calculus, ureteral: Status: Acute (3) Severe sepsis: Status: Acute Plan Cont NPO Pt added on to OR schedule for cysto left ureteral stent Procedures Date of Service Date of Service: 10/10/23
[2023-10-10] MEDS: Tamsulosin HCL 0.4 MG CAPSULE PO ×2 (08:45→22:26)
[2023-10-10] MEDS: Gabapentin 100 MG CAPSULE PO ×2 (08:45→22:26)
[2023-10-10] MEDS: Docusate Sodium 100 MG CAPSULE PO (08:45)
[2023-10-10] MEDS: Escitalopram Oxalate 20 MG TABLET PO (08:45)
[2023-10-10] MEDS: polyethylene glycoL 3350 17 GM POWD.PACK PO (08:45)
[2023-10-10] MEDS: ondansetron HCL 4 MG/2 ML VIAL IVPUSH (09:34)
[2023-10-10] MEDS: 0.9 % Sodium Chloride 1,000 ML 100 ML IVCONT ×2 (11:03→22:41)
--- NOTE | 2023-10-10 11:46 | MHC.CM.PN ---
Message from form given to Pt, copy signed and in chart. 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 He has med equip in the home of: rollator, walker, cane, raised toilet seat, bed rail, shower chair. He has been to STR in the past at [facility] (now [facility]) and he said he would go back there if needed. He said that he is looking to change to an [facility] in [place], CM gave him brochure with PCP info on it. He has transport home when DC. CM will follow and assist with DC planning.
--- NOTE | 2023-10-10 12:09 | MHC.CM.PN ---
HCP on file,pt.'s Carolyn montero.
--- NOTE | 2023-10-10 16:06 | P.PNIM_ITS ---
Subjective Subjective Date of Service: 10/10/23 Interval History: pyelonephritis with severe sepsis,obstructive uropathy Review of Systems abd pain somewhat improving ,has cough passed 2 bm's no nausea or vomiting Physical Exam 2 Vital Signs: Vital Signs: Last Vital Signs Temp 98.9 F 10/10/23 15:55 Pulse 122 H 10/10/23 15:55 Resp 20 10/10/23 15:55 BP 108/74 10/10/23 15:55 Pulse Ox 93 10/10/23 15:55 O2 Del Method Room Air 10/10/23 15:55 BMI result Body Mass Index 27.8 Constitutional - Awake and Alert, No apparent distress Cardiovascular - S1S2, rrr. Respiratory - air entry fair , no rales or wheezing. Gastrointestinal -soft ,some soarness LLQ, ND; +BS; No rebound or guarding Extremities - no calf tenderness bilaterally, no swelling Skin - Warm/Dry Neurological - Alert & oriented x3 Psychological - Appropriate affect Objective Data Active Medications Acetaminophen (Acetaminophen 325 Mg Tablet) 650 mg PO Q6H PRN PRN Reason: Pain, Mild (Pain Scale 1-3) Docusate Sodium (Docusate Sodium 100 Mg Capsule) 100 mg PO DAILY [facility] Last Admin: 10/10/23 08:45 Dose: 100 mg Documented By: CRISTINO Escitalopram Oxalate (Escitalopram Oxalate 20 Mg Tablet) 20 mg PO DAILY [facility] Last Admin: 10/10/23 08:45 Dose: 20 mg Documented By: CRISTINO Fluticasone Propionate (Fluticasone Propionate Nasal 16 Gm [place]) 2 spray NOSTRIL-B DAILY PRN PRN Reason: Allergy Symptoms Gabapentin (Gabapentin 100 Mg Capsule) 100 mg PO TID [facility] Last Admin: 10/10/23 14:27 Dose: Not Given Documented By: CRISTINO Non-Admin Reason: NPO Sodium Chloride (Ns) 1,000 mls @ 100 mls/hr IVCONT .Q10H [facility] Last Admin: 10/10/23 11:03 Dose: 100 mls/hr Documented By: CRISTINO Piperacillin Sod/Tazobactam (Sod 4.5 gm/ Sodium Chloride) 100 mls @ 200 mls/hr IV Q6H [facility] Last Infusion: 10/10/23 15:50 Dose: Infused Documented By: CRISITNO Melatonin (Melatonin 3 Mg Tablet) 9 mg PO BEDTIME PRN PRN Reason: Sleep Last Admin: 10/09/23 22:40 Dose: 9 mg Documented By: BIJU Ondansetron HCl (Ondansetron Hcl 4 Mg/2 Ml Vial) 4 mg IVPUSH Q8H PRN PRN Reason: Nausea and Vomiting Last Admin: 10/10/23 09:34 Dose: 4 mg Documented By: CRISTINO Oxycodone HCl (Oxycodone Hcl Immed Release 5 Mg Tablet) 5 mg PO Q4H PRN PRN Reason: Pain, Mild (Pain Scale 1-3) Polyethylene Glycol (Polyethylene Glycol 3350 17 Gm Powd.Pack) 17 gm PO DAILY [facility] Last Admin: 10/10/23 08:45 Dose: 17 gm Documented By: CRISTINO Senna (Sennosides 8.6 Mg Tablet) 17.2 mg PO BEDTIME [facility] Last Admin: 10/09/23 20:54 Dose: 17.2 mg Documented By: BEST Tamsulosin HCl (Tamsulosin Hcl 0.4 Mg Capsule) 0.4 mg PO BID [facility] Last Admin: 10/10/23 08:45 Dose: 0.4 mg Documented By: CRISTINO Labs 10/10/23 07:07 10/10/23 07:07 Labs: Laboratory Results - last 24 hr 10/09/23 10/09/23 10/09/23 14:38 15:52 16:48 MCV MCH MCHC RDW Plt Count MPV Immature Gran % (Auto) Neut % (Auto) Lymph % (Auto) [place] % (Auto) Eos % (Auto) Baso % (Auto) Lymph # (Auto) [place] # (Auto) Eos # (Auto) Baso # (Auto) Abs Immat Gran (auto) Absolute Neuts (auto) Absolute Nucleated RBC Nucleated RBC % (auto) Smear Tech's Comments VERIFIED Anion Gap Estim Creat Clear Calc Estimated GFR Random Glucose Lactic Acid 2.1 H* Lactic Acid F/U @ 2Hr Lactic Acid F/U @ 4Hr Calcium Urine Color Dark Yellow Urine Appearance Cloudy Urine pH 7.5 Ur Specific [place] 1.020 Urine Protein 30 (1+) H Urine Glucose (UA) Negative Urine Ketones Trace Urine Blood Negative Urine Nitrite Positive H Ur Leukocyte Esterase Large (3+) H Urine RBC 11-20 H Urine WBC >50 H Ur Squamous Epith Cells 0-2 Other Crystals Present Urine Bacteria 4+ Hyaline Casts 0-2 10/09/23 10/09/23 10/10/23 19:16 22:10 02:18 MCV MCH MCHC RDW Plt Count MPV Immature Gran % (Auto) Neut % (Auto) Lymph % (Auto) [place] % (Auto) Eos % (Auto) Baso % (Auto) Lymph # (Auto) [place] # (Auto) Eos # (Auto) Baso # (Auto) Abs Immat Gran (auto) Absolute Neuts (auto) Absolute Nucleated RBC Nucleated RBC % (auto) Smear Tech's Comments Anion Gap Estim Creat Clear Calc Estimated GFR Random Glucose Lactic Acid 0.9 Lactic Acid F/U @ 2Hr 2.7 H* Lactic Acid F/U @ 4Hr 2.4 H* Calcium Urine Color Urine Appearance Urine pH Ur Specific [place] Urine Protein Urine Glucose (UA) Urine Ketones Urine Blood Urine Nitrite Ur Leukocyte Esterase Urine RBC Urine WBC Ur Squamous Epith Cells Other Crystals Urine Bacteria Hyaline Casts 10/10/23 07:07 MCV 90.6 MCH 29.4 MCHC 32.4 RDW 14.1 Plt Count 215 D MPV 10.2 Immature Gran % (Auto) 3.1 H Neut % (Auto) 86.1 H Lymph % (Auto) 4.3 L [place] % (Auto) 6.3 Eos % (Auto) 0.0 Baso % (Auto) 0.2 Lymph # (Auto) 1.0 L [place] # (Auto) 1.5 H Eos # (Auto) 0.0 Baso # (Auto) 0.0 Abs Immat Gran (auto) 0.75 H Absolute Neuts (auto) 20.7 H Absolute Nucleated RBC 0.000 Nucleated RBC % (auto) 0.0 Smear Tech's Comments VERIFIED Anion Gap 11 L Estim Creat Clear Calc 50.2 Estimated GFR 47 Random Glucose 100 Lactic Acid Lactic Acid F/U @ 2Hr Lactic Acid F/U @ 4Hr Calcium 8.4 D Urine Color Urine Appearance Urine pH Ur Specific [place] Urine Protein Urine Glucose (UA) Urine Ketones Urine Blood Urine Nitrite Ur Leukocyte Esterase Urine RBC Urine WBC Ur Squamous Epith Cells Other Crystals Urine Bacteria Hyaline Casts Microbiology Microbiology Results: Microbiology 10/09/23 Unknown Urine Culture - Preliminary Urine clean catch - Urine boone top Gram negative marshal 10/09/23 16:48 Blood Culture - Preliminary Blood - Venous Prelim: GNR Gram Stain only 10/09/23 16:48 Blood Culture - Preliminary Blood - Venous Prelim: GNR Gram Stain only Assessment and Plan (1) Pyelonephritis of left kidney: Status: Acute (2) Severe sepsis: Status: Acute (3) Constipation: Status: Acute Plan 72-year-old male with history of hypertension, nephrolithiasis, BPH with obstructive uropathy with Storm catheter placement 2 weeks ago, unspecified mood disorder, hyperlipidemia, ventral hernia, cervical myelopathy, and lumbar radiculopathy admitted for obstructive uropathy with pyelonephritis and sepsis. acute Storm catheter associated pyelonephritis with sepsis -leukocytosis 15.8, febrile to 103.3, acute lactic acidosis 2.1, repeat pending. No other end-organ damage or hypotension. -UA with 3+ leukocytes, positive nitrates, positive urinary sediment, 4+ bacteria blood /urine culture -gram neg rods. -IV Zosyn (initiated 10/09),aggressive IVF urology consult-possible urology procedure today,keep npo. obstructive uropathy has rell -0.9 cm obstructive calculus in the left UVJ with hydronephrosis -renal function normal -Storm catheter replaced,continue Flomax,ivf. fecal impaction with stercoral colitis -Fleet enema administered in ED without bowel movement. Patient refused bedside manual disimpaction -senna, MiraLax, docusate Patient passed 2 BMs , continue bowel regimen BPH with LUTS -replace Storm catheter, placed [address] Blackman -continue Flomax cough: added robitussin/cxr added hypertension hold lisinopril due to rell/boderline bp. cervical myelopathy/lumbar radiculopathy -continue gabapentin, hold naproxen mood disorder -continue home meds DVT prophylaxis-SCPs as pt will likely undergo urology procedure tomorrow Full code Ongoing hospitalization need: Obstructive uropathy, sepsis secondary to pyelonephritis, RELL-continue IV hydration, and IV antibiotics, urology expert input and possible urological procedure for consideration of obstructive uropathy and left obstructive calculus with hydronephrosis. Quality Stroke Does the patient have a stroke diagnosis?: No VTE Prior VTE?: No VTE Risk Level:: Medical - moderate - high VTE Device Contraindication: Treatment Not Indicated VTE Drug Contraindication: N/A - Med Ordered
--- NOTE | 2023-10-10 16:20 | HO.ANESPROP2 ---
HPI - Anesthesia Eval Consult details Narrative: 72 yo M admitted with sepsis and left obstructive ureteral stone. [facility] Active Problems Active Problems: All Active Problems (Updated 10/09/23 @ 19:31 by SEMAJ Fong) Pyelonephritis of left kidney (Acute) Severe sepsis (Acute) Constipation (Acute) Calculus, ureteral (Acute) Acidosis, lactic (Acute) Elevated WBC count (Acute) Catheter-associated urinary tract infection (Acute) Cervical spondylosis with myelopathy (Acute) Lumbar stenosis with neurogenic claudication (Acute) Spondylolisthesis, lumbar region (Acute) Past Medical History Medical History Elevated cholesterol Fracture of humeral head Urinary incontinence Calculus of kidney Insomnia HTN (hypertension) Anxiety Depression Obesity Internal hemorrhoid Erectile dysfunction BPH associated with nocturia Lumbar radiculopathy Umbilical hernia without obstruction or gangrene Rectus diastasis Ventral hernia without obstruction or gangrene Cervical myelopathy Family History Family history of problems with anesthesia: No Surgical History Surgical History Hx of cervical spine surgery Hx of lithotripsy H/O colonoscopy History of Problems with Anesthesia: No Social History Social History Household Members: Family Household Members Other:: daughter Housing: House Are you a primary adult care provider to a significant other at home: No Alcohol intake: former Patient Tobacco Use Status: Never used Tobacco Smoked in Last 30 Days: No Use of substances other than those prescribed or required for medical reasons: No Currently Displaying Signs/Symptoms of Drug Intoxication Withdrawal: No Have you been hit, kicked, punched, or otherwise hurt by someone within the past year? If so, by whom?: No Do you feel safe in your current relationship?: Yes Is there a partner from a previous relationship who is making you feel unsafe now?: No Are you made to feel afraid or neglected: No Spiritual Healthcare Practices: none Confucianism Healthcare Practices: none Cultural Healthcare Practices: none Advance Directives: Yes Advance Directives Information Provided: No Advance Directives on File: Yes Advance Directives Date on File: 08/10/23 Do you have thoughts of harming others: None Do you have a plan to hurt others: No Plan Recently lost weight without trying: No How much weight loss: Not applicable Eating poorly because of decreased appetite: No Nutrition screen score: 0 Nutrition Risks: No Nutritional Risk service: Yes Meds Allergies Allergy/AdvReac Type Severity Reaction Status Date / Time Seasonal Allergies Allergy Unknown Verified 10/09/23 13:08 Active Medications: Current Medications Acetaminophen (Acetaminophen 325 Mg Tablet) 650 mg PO Q6H PRN PRN Reason: Pain, Mild (Pain Scale 1-3) Docusate Sodium (Docusate Sodium 100 Mg Capsule) 100 mg PO DAILY [facility] Last Admin: 10/10/23 08:45 Dose: 100 mg Escitalopram Oxalate (Escitalopram Oxalate 20 Mg Tablet) 20 mg PO DAILY [facility] Last Admin: 10/10/23 08:45 Dose: 20 mg Fluticasone Propionate (Fluticasone Propionate Nasal 16 Gm [place]) 2 spray NOSTRIL-B DAILY PRN PRN Reason: Allergy Symptoms Gabapentin (Gabapentin 100 Mg Capsule) 100 mg PO TID [facility] Last Admin: 10/10/23 14:27 Dose: Not Given Guaifenesin (Guaifenesin 100 Mg/5 Ml Liquid) 5 ml PO Q6H PRN PRN Reason: Cough Sodium Chloride (Ns) 1,000 mls @ 100 mls/hr IVCONT .Q10H [facility] Last Admin: 10/10/23 11:03 Dose: 100 mls/hr Piperacillin Sod/Tazobactam (Sod 4.5 gm/ Sodium Chloride) 100 mls @ 200 mls/hr IV Q6H [facility] Last Infusion: 10/10/23 15:50 Dose: Infused Melatonin (Melatonin 3 Mg Tablet) 9 mg PO BEDTIME PRN PRN Reason: Sleep Last Admin: 10/09/23 22:40 Dose: 9 mg Ondansetron HCl (Ondansetron Hcl 4 Mg/2 Ml Vial) 4 mg IVPUSH Q8H PRN PRN Reason: Nausea and Vomiting Last Admin: 10/10/23 09:34 Dose: 4 mg Oxycodone HCl (Oxycodone Hcl Immed Release 5 Mg Tablet) 5 mg PO Q4H PRN PRN Reason: Pain, Mild (Pain Scale 1-3) Polyethylene Glycol (Polyethylene Glycol 3350 17 Gm Powd.Pack) 17 gm PO DAILY [facility] Last Admin: 10/10/23 08:45 Dose: 17 gm Senna (Sennosides 8.6 Mg Tablet) 17.2 mg PO BEDTIME [facility] Last Admin: 10/09/23 20:54 Dose: 17.2 mg Tamsulosin HCl (Tamsulosin Hcl 0.4 Mg Capsule) 0.4 mg PO BID [facility] Last Admin: 10/10/23 08:45 Dose: 0.4 mg Home Medications Medication Instructions Recorded Confirmed Last Taken Type citalopram 40 mg tablet 40 mg PO DAILY 05/30/23 10/09/23 10/09/23 History gabapentin 100 mg capsule 100 mg PO TID 05/30/23 10/09/23 10/09/23 History tamsulosin 0.4 mg capsule 0.4 mg PO BID 05/30/23 10/09/23 10/09/23 History acetaminophen 325 mg tablet 650 mg PO Q4H PRN pain.fever 08/27/23 10/09/23 Unknown History docusate sodium 100 mg capsule 100 mg PO DAILY 08/27/23 10/09/23 10/09/23 History (Colace) fluticasone propionate 50 2 spray intranasal DAILY PRN 08/27/23 10/09/23 Unknown History mcg/actuation nasal Allergy Symptoms spray,suspension melatonin 10 mg tablet 10 mg PO BEDTIME PRN Sleep 08/27/23 10/09/23 Unknown History sennosides 8.6 mg tablet (senna) 17.2 mg PO BEDTIME 08/27/23 10/09/23 10/08/23 History lisinopril 10 mg tablet 10 mg PO DAILY 10/09/23 10/09/23 10/09/23 History naproxen 500 mg tablet 500 mg PO BID PRN Pain (Scale 10/09/23 10/09/23 Unknown History Score 4-6) Exam Exam Date and Time: October 10, 2023 1620 Height,Weight and Vital Signs: Height 6 ft Weight 93 kg Last Vital Signs Temp 98.9 F 10/10/23 15:55 Pulse 82 10/10/23 16:07 Resp 22 H 10/10/23 16:07 BP 108/74 10/10/23 15:55 Pulse Ox 97 10/10/23 16:07 O2 Del Method Nasal Cannula 10/10/23 16:07 O2 Flow Rate 2 10/10/23 16:07 Pertinent Lab Results Pertinent Lab Results: Laboratory Tests 10/09/23 10/09/23 10/09/23 14:38 15:52 16:48 WBC 15.3 H RBC 4.67 Hgb 13.8 L Hct 42.0 MCV 89.9 MCH 29.6 MCHC 32.9 RDW 13.9 Plt Count 290 D MPV 9.6 Immature Gran % (Auto) 0.5 H Neut % (Auto) 85.8 H Lymph % (Auto) 3.0 L [place] % (Auto) 10.6 Eos % (Auto) 0.0 Baso % (Auto) 0.1 Lymph # (Auto) 0.5 L [place] # (Auto) 1.6 H Eos # (Auto) 0.0 Baso # (Auto) 0.0 Abs Immat Gran (auto) 0.07 H Absolute Neuts (auto) 13.2 H Absolute Nucleated RBC 0.000 Nucleated RBC % (auto) 0.0 Smear Tech's Comments VERIFIED Sodium 141 Potassium 4.2 Chloride 105 Carbon Dioxide 25 Anion Gap 15 BUN 14 Creatinine 1.01 Estim Creat Clear Calc 73.6 Estimated GFR > 60 Random Glucose 135 H Lactic Acid 2.1 H* Lactic Acid F/U @ 2Hr Lactic Acid F/U @ 4Hr Calcium 9.6 Total Bilirubin 1.9 H Direct Bilirubin 0.8 H AST 22 ALT 17 Alkaline Phosphatase 145 H Total Protein 6.8 Albumin 3.6 Urine Color Dark Yellow Urine Appearance Cloudy Urine pH 7.5 Ur Specific [place] 1.020 Urine Protein 30 (1+) H Urine Glucose (UA) Negative Urine Ketones Trace Urine Blood Negative Urine Nitrite Positive H Ur Leukocyte Esterase Large (3+) H Urine RBC 11-20 H Urine WBC >50 H Ur Squamous Epith Cells 0-2 Other Crystals Present Urine Bacteria 4+ Hyaline Casts 0-2 10/09/23 10/09/23 10/10/23 19:16 22:10 02:18 WBC RBC Hgb Hct MCV MCH MCHC RDW Plt Count MPV Immature Gran % (Auto) Neut % (Auto) Lymph % (Auto) [place] % (Auto) Eos % (Auto) Baso % (Auto) Lymph # (Auto) [place] # (Auto) Eos # (Auto) Baso # (Auto) Abs Immat Gran (auto) Absolute Neuts (auto) Absolute Nucleated RBC Nucleated RBC % (auto) Smear Tech's Comments Sodium Potassium Chloride Carbon Dioxide Anion Gap BUN Creatinine Estim Creat Clear Calc Estimated GFR Random Glucose Lactic Acid 0.9 Lactic Acid F/U @ 2Hr 2.7 H* Lactic Acid F/U @ 4Hr 2.4 H* Calcium Total Bilirubin Direct Bilirubin AST ALT Alkaline Phosphatase Total Protein Albumin Urine Color Urine Appearance Urine pH Ur Specific [place] Urine Protein Urine Glucose (UA) Urine Ketones Urine Blood Urine Nitrite Ur Leukocyte Esterase Urine RBC Urine WBC Ur Squamous Epith Cells Other Crystals Urine Bacteria Hyaline Casts 10/10/23 07:07 WBC 24.1 H RBC 4.05 L Hgb 11.9 L Hct 36.7 L MCV 90.6 MCH 29.4 MCHC 32.4 RDW 14.1 Plt Count 215 D MPV 10.2 Immature Gran % (Auto) 3.1 H Neut % (Auto) 86.1 H Lymph % (Auto) 4.3 L [place] % (Auto) 6.3 Eos % (Auto) 0.0 Baso % (Auto) 0.2 Lymph # (Auto) 1.0 L [place] # (Auto) 1.5 H Eos # (Auto) 0.0 Baso # (Auto) 0.0 Abs Immat Gran (auto) 0.75 H Absolute Neuts (auto) 20.7 H Absolute Nucleated RBC 0.000 Nucleated RBC % (auto) 0.0 Smear Tech's Comments VERIFIED Sodium 138 Potassium 3.4 Chloride 109 H Carbon Dioxide 21 L Anion Gap 11 L BUN 22 H Creatinine 1.48 H Estim Creat Clear Calc 50.2 Estimated GFR 47 Random Glucose 100 Lactic Acid Lactic Acid F/U @ 2Hr Lactic Acid F/U @ 4Hr Calcium 8.4 D Total Bilirubin Direct Bilirubin AST ALT Alkaline Phosphatase Total Protein Albumin Urine Color Urine Appearance Urine pH Ur Specific [place] Urine Protein Urine Glucose (UA) Urine Ketones Urine Blood Urine Nitrite Ur Leukocyte Esterase Urine RBC Urine WBC Ur Squamous Epith Cells Other Crystals Urine Bacteria Hyaline Casts Airway Mallampati Class: II TM Dist: <=3cm Neck ROM: Limited Loose/Missing/Broken Teeth: Yes (multiple missing teeth) Heart: S1S2 Lungs: CTAB Assessment and Plan Assessment Anesthesia Assessment: Anesthesia Plan Discussed and Chart Reviewed Final Anesthetic Review Family History of Problems with Anesthesia: No History of Problems with Anesthesia: No NPO: Yes ASA Class: III and Emergency Final Preanesthetic Review: No Changes in Pt Med Stat, Meds/Allgs Chart Reviewed, Consent Obtained/Reviewed and Anes Risks/Benef Reviewed Patient Risk: Intermediate Procedure Risk: Low Anesthetic Plan Anesthetic Plan: GA and Agree w/ Assess. and Plan Disposition: Standard PACU
--- NOTE | 2023-10-10 16:33 | P.CNUR_ITS ---
History of Present Illness Consult details Consult date: 10/10/23 Narrative: Continue antibiotics Will review in morning for possible stent placement Keep NPO after midnight Review of Systems 2 Constitutional: Constitutional: Reports as per HPI and Reports no additional constitutional complaints Cardiovascular: Cardiovascular: Reports as per HPI and Reports no additional cardiovascular complaints Respiratory: Respiratory: Reports as per HPI and Reports no additional respiratory complaints Gastrointestinal: Gastrointestinal: Reports as per HPI and Reports no additional gastrointestinal complaints Genitourinary: Genitourinary: Reports as per HPI Musculoskeletal: Musculoskeletal: Reports no additional musculoskeletal complaints and Reports as per HPI Neurologic: Reports system reviewed and no additional complaints, except as documented and Reports as per HPI PMF Past Medical History Medical History (Updated 11/19/23 @ 16:09 by Hermilo Charles LPN) Atrial tachycardia Constipation Elevated cholesterol Fracture of humeral head Urinary incontinence Calculus of kidney Insomnia HTN (hypertension) Anxiety Depression Obesity Internal hemorrhoid Erectile dysfunction BPH associated with nocturia Lumbar radiculopathy Umbilical hernia without obstruction or gangrene Rectus diastasis Ventral hernia without obstruction or gangrene Cervical myelopathy Surgical History Surgical History Hx of cervical spine surgery Hx of lithotripsy H/O colonoscopy Social History Social History Household Members: Family Household Members Other:: daughter Housing: House Are you a primary childcare attendant to a significant other at home: No Alcohol intake: former Patient Tobacco Use Status: Never used Tobacco Smoked in Last 30 Days: No Use of substances other than those prescribed or required for medical reasons: No Advance Directives: Yes Advance Directives on File: Yes Advance Directives Date on File: 08/10/23 service: Yes Meds Allergies Allergy/AdvReac Type Severity Reaction Status Date / Time Seasonal Allergies Allergy Unknown Verified 11/12/23 19:57 Active Medications: Current Medications Acetaminophen (Acetaminophen 325 Mg Tablet) 650 mg PO Q6H PRN PRN Reason: Pain, Mild (Pain Scale 1-3) Docusate Sodium (Docusate Sodium 100 Mg Capsule) 100 mg PO DAILY [facility] Last Admin: 10/10/23 08:45 Dose: 100 mg Escitalopram Oxalate (Escitalopram Oxalate 20 Mg Tablet) 20 mg PO DAILY [facility] Last Admin: 10/10/23 08:45 Dose: 20 mg Fentanyl (Fentanyl Citrate/Pf 100 Mcg/2 Ml Vial) 50 mcg IVPUSH Q5M PRN; Protocol PRN Reason: Pain, Severe (Pain Scale 7-10) Fluticasone Propionate (Fluticasone Propionate Nasal 16 Gm [place]) 2 spray NOSTRIL-B DAILY PRN PRN Reason: Allergy Symptoms Gabapentin (Gabapentin 100 Mg Capsule) 100 mg PO TID [facility] Last Admin: 10/10/23 14:27 Dose: Not Given Guaifenesin (Guaifenesin 100 Mg/5 Ml Liquid) 5 ml PO Q6H PRN PRN Reason: Cough Sodium Chloride (Ns) 1,000 mls @ 100 mls/hr IVCONT .Q10H [facility] Last Admin: 10/10/23 11:03 Dose: 100 mls/hr Piperacillin Sod/Tazobactam (Sod 4.5 gm/ Sodium Chloride) 100 mls @ 200 mls/hr IV Q6H [facility] Last Infusion: 10/10/23 15:50 Dose: Infused Promethazine HCl 12.5 mg/ (Sodium Chloride) 50.5 mls @ 202 mls/hr IV ONCE PRN PRN Reason: Nausea and Vomiting Melatonin (Melatonin 3 Mg Tablet) 9 mg PO BEDTIME PRN PRN Reason: Sleep Last Admin: 10/09/23 22:40 Dose: 9 mg Ondansetron HCl (Ondansetron Hcl 4 Mg/2 Ml Vial) 4 mg IVPUSH Q8H PRN PRN Reason: Nausea and Vomiting Last Admin: 10/10/23 09:34 Dose: 4 mg Oxycodone HCl (Oxycodone Hcl Immed Release 5 Mg Tablet) 5 mg PO Q4H PRN PRN Reason: Pain, Mild (Pain Scale 1-3) Oxycodone HCl (Oxycodone Hcl Immed Release 5 Mg Tablet) 10 mg PO ONCE PRN PRN Reason: Pain, Severe (Pain Scale 7-10) Polyethylene Glycol (Polyethylene Glycol 3350 17 Gm Powd.Pack) 17 gm PO DAILY [facility] Last Admin: 10/10/23 08:45 Dose: 17 gm Senna (Sennosides 8.6 Mg Tablet) 17.2 mg PO BEDTIME [facility] Last Admin: 10/09/23 20:54 Dose: 17.2 mg Tamsulosin HCl (Tamsulosin Hcl 0.4 Mg Capsule) 0.4 mg PO BID [facility] Last Admin: 10/10/23 08:45 Dose: 0.4 mg Home Medications Medication Instructions Recorded Confirmed Last Taken Type citalopram 40 mg tablet 40 mg PO DAILY 05/30/23 10/09/23 10/09/23 History gabapentin 100 mg capsule 100 mg PO TID 05/30/23 10/09/23 10/09/23 History tamsulosin 0.4 mg capsule 0.4 mg PO BID 05/30/23 10/09/23 10/09/23 History acetaminophen 325 mg tablet 650 mg PO Q4H PRN pain.fever 08/27/23 10/09/23 Unknown History docusate sodium 100 mg capsule 100 mg PO DAILY 08/27/23 10/09/23 10/09/23 History (Colace) fluticasone propionate 50 2 spray intranasal DAILY PRN 08/27/23 10/09/23 Unknown History mcg/actuation nasal Allergy Symptoms spray,suspension melatonin 10 mg tablet 10 mg PO BEDTIME PRN Sleep 08/27/23 10/09/23 Unknown History sennosides 8.6 mg tablet (senna) 17.2 mg PO BEDTIME 08/27/23 10/09/23 10/08/23 History lisinopril 10 mg tablet 10 mg PO DAILY 10/09/23 10/09/23 10/09/23 History Physical Exam 2 Vital Signs: Vital Signs: Last Vital Signs Temp 98.9 F 10/10/23 15:55 Pulse 82 10/10/23 16:07 Resp 22 H 10/10/23 16:07 BP 108/74 10/10/23 15:55 Pulse Ox 97 10/10/23 16:07 O2 Del Method Nasal Cannula 10/10/23 16:07 O2 Flow Rate 2 10/10/23 16:07 BMI result Body Mass Index 27.8 Const: General: cooperative, healthy appearing, comfortable and no acute distress Orientation/consciousness: patient oriented x3 HEENT: Face and sinus: Yes normal facial exam Mouth: moist mucous membranes Neck: Neck: Yes normal visual inspection, Yes full ROM and Yes trachea midline Chest: Chest palpation & inspection: normal inspection of the chest Resp: Effort & Inspection: normal respiratory effort, able to speak in complete sentences and no respiratory distress GI: Inspection: Yes normal to inspection Back/Spine/Pelvis: Cervical Spine: normal cervical lordosis Thoracic/Lumbar Spine: thoracic and lumbar spine normal to inspection Skin: General skin exam: no rashes or lesions noted Neuro: General: patient oriented x3, tone normal and moves all extremities Extrem: General: Yes normal to inspection and Yes capillary refill normal Results Labs 10/18/23 16:35 10/18/23 16:35 Labs: Abnormal lab results 10/09/23 10/09/23 10/09/23 Range/Units 15:52 16:48 19:16 WBC (4.8-10.8) X10*3/uL RBC (4.60-5.80) X10*6/uL Hgb (14.0-18.0) g/dl Hct (42.0-52.0) % Immature Gran % (Auto) (0.0-0.4) % Neut % (Auto) (45-73) % Lymph % (Auto) (20-40) % Lymph # (Auto) (1.2-4.9) X10*3/uL [place] # (Auto) (0.1-1.2) X10*3/uL Abs Immat Gran (auto) (0.00-0.03) X10*3/uL Absolute Neuts (auto) (2.0-8.3) x10*3/uL Chloride (96-108) mmol/L Carbon Dioxide (22-29) mmol/L Anion Gap (12-20) BUN (9-16) mg/dL Creatinine (0.5-1.4) mg/dL Lactic Acid 2.1 H* (0.5-2.0) mmol/L Lactic Acid F/U @ 2Hr 2.7 H* (0.5-2.0) mmol/L Lactic Acid F/U @ 4Hr (0.5-2.0) mmol/L Urine Protein 30 (1+) H (Neg-Trace) mg/dL Urine Nitrite Positive H (Negative) Ur Leukocyte Esterase Large (3+) H (Negative) Urine RBC 11-20 H (0-2) /HPF Urine WBC >50 H (0-5) /HPF 10/09/23 10/10/23 Range/Units 22:10 07:07 WBC 24.1 H (4.8-10.8) X10*3/uL RBC 4.05 L (4.60-5.80) X10*6/uL Hgb 11.9 L (14.0-18.0) g/dl Hct 36.7 L (42.0-52.0) % Immature Gran % (Auto) 3.1 H (0.0-0.4) % Neut % (Auto) 86.1 H (45-73) % Lymph % (Auto) 4.3 L (20-40) % Lymph # (Auto) 1.0 L (1.2-4.9) X10*3/uL [place] # (Auto) 1.5 H (0.1-1.2) X10*3/uL Abs Immat Gran (auto) 0.75 H (0.00-0.03) X10*3/uL Absolute Neuts (auto) 20.7 H (2.0-8.3) x10*3/uL Chloride 109 H (96-108) mmol/L Carbon Dioxide 21 L (22-29) mmol/L Anion Gap 11 L (12-20) BUN 22 H (9-16) mg/dL Creatinine 1.48 H (0.5-1.4) mg/dL Lactic Acid (0.5-2.0) mmol/L Lactic Acid F/U @ 2Hr (0.5-2.0) mmol/L Lactic Acid F/U @ 4Hr 2.4 H* (0.5-2.0) mmol/L Urine Protein (Neg-Trace) mg/dL Urine Nitrite (Negative) Ur Leukocyte Esterase (Negative) Urine RBC (0-2) /HPF Urine WBC (0-5) /HPF Short CBC 10/10/23 Range/Units 07:07 WBC 24.1 H (4.8-10.8) X10*3/uL Hgb 11.9 L (14.0-18.0) g/dl Hct 36.7 L (42.0-52.0) % Plt Count 215 D (160-400) X10*3/uL BMP 10/10/23 07:07 Sodium 138 Potassium 3.4 Chloride 109 H Carbon Dioxide 21 L BUN 22 H Creatinine 1.48 H Calcium 8.4 D Urine 10/09/23 Range/Units 15:52 Urine Color Dark Yellow Urine Appearance Cloudy Urine pH 7.5 (5.0-9.0) Ur Specific [place] 1.020 (1.005-1.025) Urine Protein 30 (1+) H (Neg-Trace) mg/dL Urine Glucose (UA) Negative (Negative) mg/dL All other labs normal. Assessment and Plan (1) Calculus of kidney: Status: Acute (2) Pyelonephritis of left kidney: Status: Acute Plan possible stent tomorrow if fails to improve Procedures Date of Service Date of Service: 11/25/23
--- NOTE | 2023-10-10 16:42 | MHC.SHP ---
Pre-Procedural Eval Section A Date of Service: 10/10/23 The patient is an INPATIENT: Yes Section B Chief Complaint: Acute pyelonephritis,sepsis,obstructive uropathy Allergies: Allergies Allergy/AdvReac Type Severity Reaction Status Date / Time Seasonal Allergies Allergy Unknown Verified 10/09/23 13:08 Plan Diagnosis/Plan: Unchanged I have reviewed the history and physical and performed a pertinent physical examination on my patient. No changes have occurred unless specified. Cystoscopy, left ureteral stent, retrograde Time Spent With Patient Time: Total time managing care of this patient today ____ minutes.
--- NOTE | 2023-10-10 17:29 | P.OP_ITS ---
Operative Note Operative Note Date of Service: 10/10/23 Narrative: PreOperative Diagnosis:?? Left pyelonephritis, Hydronephrosis, UPJ stone Post Operative Diagnosis:?? ?Left pyelonephritis, Hydronephrosis, UPJ stone, Coronal hypospadias Procedure: - cystoscopy, - left stent insertion, size 6fr by multi-length Surgeon:?Dr Matt Del Rosario Anesthesia:? General Indications for procedure: UTI sepsis, obstructive uropathy Procedure: After informed consent was verified the patient was brought to the operating pl aced on the OR table in supine position.? General Anesthesia was administered per protocol.? The patient was placed in lithotomy position, padilla catheter removed. Coronal Hypospadias noted. The patient was prepped and draped in the usual sterile fashion.? Safety pause time-out and side of surgery confirmed.? Antibiotics confirmed. A 22 [place] cystoscope was inserted transurethrally, the bulbous urethra was within normal limits. The prostatic urethra was obstructive. The bladder was visualized.? There was calcifed debris in the bladder. Both ureteric orifices were in normal position. The? left ureteric orifice was cannulated? and A hydrophilic guidewire was placed up to the level of the renal pelvis under fluoroscopy. The ureteric catheter was passed into the renal pelvis, causing the UPJ stone to migrate into the kidney, urine was sent for culture. The guide wire was replaced into the renal pelvis and a 6 fr by multilength cm ureteral stent was passed over the guide wire under fluoroscopic guidance. The guide wire was removed. The bladder was emptied.? The rigid cystoscope was removed. ?A 16 fr coude padilla was placed. The patient tolerated the procedure well and was brought to the recovery room in stable condition. Complications: None Drains: Ureteral stent as dictated above, 16 fr coude catheter
--- NOTE | 2023-10-10 18:12 | ECG_ITS ---
Test Reason : Change in HR/ Tachycardia Blood Pressure : / mmHG Vent. Rate : 126 BPM Atrial Rate : 000 BPM P-R Int : 000 ms QRS Dur : 096 ms QT Int : 338 ms P-R-T Axes : 000 -36 025 degrees QTc Int : 489 ms Atrial tachycardia Left axis deviation Nonspecific ST and T wave abnormality Abnormal ECG When compared to the previous EKG of Atrial tachycardia Present Referred By: Franky Lee Electronically Signed By:Baljinder Ascencio
--- NOTE | 2023-10-10 18:26 | PC.NURSE ---
PATIENT WITH NOTED RHYTHM CHANGE, DR. SHAH CALLED TO BEDSIDE STAT EKG COMPLETED SHOWING ACCELERATED JUNCTIONAL RHYTHM. M.D. ATTEMPT CAROTID MASSAGE WITH LITTLE AFFECT. PATIENT PRESENTS ASYMPTOMATIC, NO DIZZINESS, SOB, CP. DR. TOLBERT NOTIFIED OF RHYTHYM CHANGE AND ACCELERATED HR UP TO 130S. EKG MESSAGED TO HOSPITALIST SERVICE. ? CARDIOLOGY CONSULT. PER M.D. TO GIVE IVF AND M.D. [place] [facility] [place] [facility].
--- NOTE | 2023-10-10 18:54 | PM.EVENT ---
Event Note Date of Service: 10/10/23 Event Note: I was contacted by PACU as the patient was noticed to have low BP along with junctional rhythm on EKG. I went to evaluate the patient. he was resting comfortable with HR 115-125, junctional on monitor with BP of 90s/60s and dark colored urine. Started on IV fluid bolus, check electrolytes as vagal maneuvers did not affect the heart rate. Follow labs, monitor BP and give extra fluids if needed will hold on BB or CCB given low BP Time Spent With Patient Time: Total time managing care of this patient today ____ minutes.
[2023-10-10 19:46] LABS: Anion Gap 12 (12-20); Blood Urea Nitrogen 24 mg/dL (9-16); Calcium 8.2 mg/dL (8.4-10.2); Carbon Dioxide 19 mmol/L (22-29); Chloride 110 mmol/L (96-108); Creatinine Clr Calc Pharmacy 51.2; Estimated Glomerular Filt Rate 48; Glucose Random 117 mg/dL (60-115); Magnesium 1.7 mg/dL (1.6-2.6); Potassium 2.9 mmol/L (3.3-5.1); Sodium 138 mmol/L (135-145)
[2023-10-10 20:39] LABS: Glucose, Whole Blood 140 mg/dL (60-115)
[2023-10-10] MEDS: 0.9 % Sodium Chloride 1,000 ML 999 ML IV (21:30)
[2023-10-10] MEDS: Acetaminophen 325 MG TABLET 650 MG PO (22:25)
[2023-10-10] MEDS: Melatonin 3 MG TABLET 9 MG PO (22:26)
[2023-10-11] VITALS (8 sets, daily range): BP systolic 91–129; BP diastolic 50–63; PULSE 58–89; RESP 17–20; TEMP 36.1–37.2; O2SAT 92–97
--- NOTE | 2023-10-11 | ECG_ITS ---
Test Reason : junctional rhythm Blood Pressure : / mmHG Vent. Rate : 069 BPM Atrial Rate : 069 BPM P-R Int : 194 ms QRS Dur : 094 ms QT Int : 416 ms P-R-T Axes : 048 -03 047 degrees QTc Int : 445 ms Sinus rhythm with Premature atrial complexes Otherwise normal ECG When compared with ECG of 10-OCT-2023 18:10, Sinus rhythm has replaced atrial tachycardia Vent. rate has decreased BY [address] no longer depressed in Inferior leads ST no longer depressed in Anterolateral leads Referred By: Alexy Lizama Electronically Signed By:Baljinder Ascencio
[2023-10-11] MEDS: Piperacillin Sodium/Tazobactam 4.5 GM in 0.9 % Sodium Chloride 100 ML IV ×2 (01:33→08:36)
[2023-10-11] MEDS: Escitalopram Oxalate 20 MG TABLET PO (08:30)
[2023-10-11] MEDS: Gabapentin 100 MG CAPSULE PO ×3 (08:30→21:46)
[2023-10-11] MEDS: Tamsulosin HCL 0.4 MG CAPSULE PO ×2 (08:31→21:47)
[2023-10-11] MEDS: Potassium Chloride Packet 20 MEQ PACKET 40 MEQ PO (08:42)
[2023-10-11] MEDS: 0.9 % Sodium Chloride 1,000 ML 100 ML IVCONT (08:46)
--- NOTE | 2023-10-11 10:37 | PM.CNCAR ---
History of Present Illness History of Present Illness Date of Service: 10/11/23 Requesting physician: Alexy Lizama Chief complaint: Acute pyelonephritis,sepsis, Atrial tachycardia Narrative: 72-year-old gentleman who is admitted the hospital with severe sepsis due to pyelonephritis. He has a chronic Storm catheter in place due to fever and obstructing stone. He had left kidney hydronephrosis. He had cystoscopy and left ureteral stent was placed. Apparently was tachycardic in the PACU and EKG was performed which showed supraventricular tachycardia which I think is either atrial tachycardia or junctional tachycardia. He was given IV fluids and over time he broke out of it and is in sinus rhythm. He did not have any symptoms at that time and is denying any palpitations. He said he was feeling quite sick but overall is feeling better today. Blood pressures are borderline. [facility] Past Medical History Medical History Elevated cholesterol Fracture of humeral head Urinary incontinence Calculus of kidney Insomnia HTN (hypertension) Anxiety Depression Obesity Internal hemorrhoid Erectile dysfunction BPH associated with nocturia Lumbar radiculopathy Umbilical hernia without obstruction or gangrene Rectus diastasis Ventral hernia without obstruction or gangrene Cervical myelopathy Surgical History Surgical History Hx of cervical spine surgery Hx of lithotripsy H/O colonoscopy Social History Social History Household Members: Family Household Members Other:: daughter Housing: House Are you a primary housekeeper caregiver to a significant other at home: No Alcohol intake: former Patient Tobacco Use Status: Never used Tobacco Smoked in Last 30 Days: No Use of substances other than those prescribed or required for medical reasons: No Currently Displaying Signs/Symptoms of Drug Intoxication Withdrawal: No Have you been hit, kicked, punched, or otherwise hurt by someone within the past year? If so, by whom?: No Do you feel safe in your current relationship?: Yes Is there a partner from a previous relationship who is making you feel unsafe now?: No Are you made to feel afraid or neglected: No Spiritual Healthcare Practices: none Yazidi Healthcare Practices: none Cultural Healthcare Practices: none Advance Directives: Yes Advance Directives Information Provided: No Advance Directives on File: Yes Advance Directives Date on File: 08/10/23 Do you have thoughts of harming others: None Do you have a plan to hurt others: No Plan Recently lost weight without trying: No How much weight loss: Not applicable Eating poorly because of decreased appetite: No Nutrition screen score: 0 Nutrition Risks: No Nutritional Risk service: Yes Meds Allergies Allergy/AdvReac Type Severity Reaction Status Date / Time Seasonal Allergies Allergy Unknown Verified 10/09/23 13:08 Active Medications: Current Medications Acetaminophen (Acetaminophen 325 Mg Tablet) 650 mg PO Q6H PRN PRN Reason: Pain, Mild (Pain Scale 1-3) Last Admin: 10/10/23 22:25 Dose: 650 mg Docusate Sodium (Docusate Sodium 100 Mg Capsule) 100 mg PO DAILY [facility] Last Admin: 10/11/23 08:33 Dose: Not Given Escitalopram Oxalate (Escitalopram Oxalate 20 Mg Tablet) 20 mg PO DAILY [facility] Last Admin: 10/11/23 08:30 Dose: 20 mg Fentanyl (Fentanyl Citrate/Pf 100 Mcg/2 Ml Vial) 50 mcg IVPUSH Q5M PRN; Protocol PRN Reason: Pain, Severe (Pain Scale 7-10) Fluticasone Propionate (Fluticasone Propionate Nasal 16 Gm [place]) 2 spray NOSTRIL-B DAILY PRN PRN Reason: Allergy Symptoms Gabapentin (Gabapentin 100 Mg Capsule) 100 mg PO TID [facility] Last Admin: 10/11/23 08:30 Dose: 100 mg Guaifenesin (Guaifenesin 100 Mg/5 Ml Liquid) 5 ml PO Q6H PRN PRN Reason: Cough Sodium Chloride (Ns) 1,000 mls @ 100 mls/hr IVCONT .Q10H [facility] Last Admin: 10/11/23 08:46 Dose: 100 mls/hr Promethazine HCl 12.5 mg/ (Sodium Chloride) 50.5 mls @ 202 mls/hr IV ONCE PRN PRN Reason: Nausea and Vomiting Meropenem 1 gm/ Sodium (Chloride) 100 mls @ 200 mls/hr IV Q8H [facility] Last Infusion: 10/11/23 10:31 Dose: Infused Melatonin (Melatonin 3 Mg Tablet) 9 mg PO BEDTIME PRN PRN Reason: Sleep Last Admin: 10/10/23 22:26 Dose: 9 mg Ondansetron HCl (Ondansetron Hcl 4 Mg/2 Ml Vial) 4 mg IVPUSH Q8H PRN PRN Reason: Nausea and Vomiting Last Admin: 10/10/23 09:34 Dose: 4 mg Oxycodone HCl (Oxycodone Hcl Immed Release 5 Mg Tablet) 5 mg PO Q4H PRN PRN Reason: Pain, Mild (Pain Scale 1-3) Oxycodone HCl (Oxycodone Hcl Immed Release 5 Mg Tablet) 10 mg PO ONCE PRN PRN Reason: Pain, Severe (Pain Scale 7-10) Polyethylene Glycol (Polyethylene Glycol 3350 17 Gm Powd.Pack) 17 gm PO DAILY [facility] Last Admin: 10/11/23 08:33 Dose: Not Given Senna (Sennosides 8.6 Mg Tablet) 17.2 mg PO BEDTIME [facility] Last Admin: 10/10/23 22:22 Dose: Not Given Tamsulosin HCl (Tamsulosin Hcl 0.4 Mg Capsule) 0.4 mg PO BID [facility] Last Admin: 10/11/23 08:31 Dose: 0.4 mg Home Medications Medication Instructions Recorded Confirmed Last Taken Type citalopram 40 mg tablet 40 mg PO DAILY 05/30/23 10/09/23 10/09/23 History gabapentin 100 mg capsule 100 mg PO TID 05/30/23 10/09/23 10/09/23 History tamsulosin 0.4 mg capsule 0.4 mg PO BID 05/30/23 10/09/23 10/09/23 History acetaminophen 325 mg tablet 650 mg PO Q4H PRN pain.fever 08/27/23 10/09/23 Unknown History docusate sodium 100 mg capsule 100 mg PO DAILY 08/27/23 10/09/23 10/09/23 History (Colace) fluticasone propionate 50 2 spray intranasal DAILY PRN 08/27/23 10/09/23 Unknown History mcg/actuation nasal Allergy Symptoms spray,suspension melatonin 10 mg tablet 10 mg PO BEDTIME PRN Sleep 08/27/23 10/09/23 Unknown History sennosides 8.6 mg tablet (senna) 17.2 mg PO BEDTIME 08/27/23 10/09/23 10/08/23 History lisinopril 10 mg tablet 10 mg PO DAILY 12/10/2010/09/23 10/09/23 History naproxen 500 mg tablet 500 mg PO BID PRN Pain (Scale 10/09/23 10/09/23 Unknown History Score 4-6) Physical Exam Vital Signs: Vital Signs: Last Vital Signs Temp 97.8 F 10/11/23 07:21 Pulse 58 10/11/23 07:21 Resp 18 10/11/23 07:21 BP 101/56 L 10/11/23 07:21 Pulse Ox 94 10/11/23 07:21 O2 Del Method Room Air 10/11/23 07:21 O2 Flow Rate 3 10/10/23 18:05 BMI result Body Mass Index 27.8 GENERAL APPEARANCE: in no acute distress, pleasant. NECK: no carotid bruit, no jugular venous distention. SKIN: no suspicious lesions, warm and dry. HEART: no murmurs, regular rate and rhythm. LUNGS: clear to auscultation bilaterally. ABDOMEN: soft, nontender. EXTREMITIES: no edema. PERIPHERAL PULSES: equal. NEUROLOGIC: No gross deficits, AAO X 3 Objective Labs and Meds 10/10/23 07:07 10/10/23 19:15 Lab results: Laboratory Results - last 24 hr 10/10/23 10/10/23 19:15 20:36 Sodium 138 Potassium 2.9 L Chloride 110 H Carbon Dioxide 19 L Anion Gap 12 BUN 24 H Creatinine 1.45 H Estim Creat Clear Calc 51.2 Estimated GFR 48 POC Glucose 140 H Random Glucose 117 H Calcium 8.2 L Magnesium 1.7 Imaging Radiologist's impression: Impressions Chest X-Ray 10/10/23 19:30 IMPRESSION: 1. Bilateral low lung volumes. 2. Accentuation of pulmonary vasculature. Assessment and Plan (1) Atrial tachycardia: Status: Acute (2) Pyelonephritis of left kidney: Status: Acute Plan 72-year-old gentleman with sepsis due to obstructive uropathy and left pyelonephritis. He had urological procedure with left ureteral stent placement yesterday. He was noticed to be tachycardic afterwards and it appears he had atrial tachycardia. I reviewed his telemetry and tachycardia starts with a premature atrial complex and ends with P-waves. He has been hypokalemic and is getting potassium supplements. Currently blood pressure is too low to add beta-ayala but as he improves and blood pressure has some room I would consider giving low-dose metoprolol. Supportive care for now. Thank you for allowing me to participate in the care of your patient. Please feel free to contact me if you have any questions. Procedures Date of Service Date of Service: 10/11/23
[2023-10-11] MEDS: Magnesium Sulfate/D5W 1 GM/100 ML PIGGYBACK IV (11:01)
--- NOTE | 2023-10-11 14:37 | P.CDIM_ITS ---
PROVIDER RESPONSE TEXT: To clarify, the appropriate diagnosis supported by the clinical indicators: Hypokalemia QUERY TEXT: PHYSICIAN'S DOCUMENTATION REQUEST Date of Query: 10/11/2023 07:42 AM EST Patient Name: Micky Cross Admit Date: 10/09/2023 Dear Alexy Lizama, A review of the medical record indicates additional documentation may be needed. Please review below and update the documentation accordingly. Clinical Indicators: LAB FINDINGS: potassium 2.9 L Based on the above, is there a diagnosis that correlates with these lab findings: Hypokalemia Labs indicate a diagnosis of (please specify) Other (explain) Clinically unable to determine (explain) Thank you, Vane Ramsay, CCS, CDIS Use of terms such as suspected, likely, concern for, or probable (associated with a specific diagnosi s that is being evaluated, monitored, or treated as if it exists) are acceptable and can be coded in the inpatient se tting, when documented at the time of discharge. Please use your independent medical judgment in providing your response. THIS QUERY IS PART OF THE PERMANENT MEDICAL RECORD
--- NOTE | 2023-10-11 14:50 | HO.POSTANES ---
Post Anesthesia Evaluation Post Anesthesia Evaluation Date of Service: 10/11/23 Vital Signs: Vital Signs Temp Pulse Resp BP Pulse Ox O2 Del Method 10/11/23 11:25 98.6 F 75 18 91/54 L 97 Room Air 10/11/23 07:21 97.8 F 58 18 101/56 L 94 Room Air 10/11/23 03:25 97.3 F 60 18 100/55 L 93 Room Air Anesthesia: General Mental Status: Awake Pain Control: Satisfactory Nausea/Vomiting: None Hydration: Adequate Anesthesia-Related Issues: No Anes. Related Issues
--- NOTE | 2023-10-11 16:15 | HO.PM.IMPN ---
Subjective Subjective Date of Service: 10/11/23 Interval History: RELL, nephrolithiasis Review of Systems Abdominal pain seems to be improved significantly, Denies any shortness of breath or chest pain or fever or chills. Has dry cough. Physical Exam Vital Signs: Vital Signs: Last Vital Signs Temp 98.5 F 10/11/23 15:08 Pulse 81 10/11/23 15:08 Resp 17 10/11/23 15:08 BP 102/50 L 10/11/23 15:08 Pulse Ox 94 10/11/23 15:08 O2 Del Method Room Air 10/11/23 15:08 O2 Flow Rate 3 10/10/23 18:05 BMI result Body Mass Index 27.8 Appearance: Alert.? Oriented X3.? . cvs: rrr, [id number] , no murmur res: clear to auscultation ,no rhonchii or wheezing abd: no rebound or guarding ,left flank soarness , bs present. ext pulses present , no cyanosis ,. neuro: axo3 , nonfocal. Objective Data Active Medications Acetaminophen (Acetaminophen 325 Mg Tablet) 650 mg PO Q6H PRN PRN Reason: Pain, Mild (Pain Scale 1-3) Last Admin: 10/10/23 22:25 Dose: 650 mg Documented By: ROHINI Docusate Sodium (Docusate Sodium 100 Mg Capsule) 100 mg PO DAILY [facility] Last Admin: 10/11/23 08:33 Dose: Not Given Documented By: GEOFFREY Non-Admin Reason: Patient Refused Escitalopram Oxalate (Escitalopram Oxalate 20 Mg Tablet) 20 mg PO DAILY [facility] Last Admin: 10/11/23 08:30 Dose: 20 mg Documented By: GEOFFREY Fentanyl (Fentanyl Citrate/Pf 100 Mcg/2 Ml Vial) 50 mcg IVPUSH Q5M PRN; Protocol PRN Reason: Pain, Severe (Pain Scale 7-10) Fluticasone Propionate (Fluticasone Propionate Nasal 16 Gm [place]) 2 spray NOSTRIL-B DAILY PRN PRN Reason: Allergy Symptoms Gabapentin (Gabapentin 100 Mg Capsule) 100 mg PO TID [facility] Last Admin: 10/11/23 15:08 Dose: 100 mg Documented By: GEOFFREY Guaifenesin (Guaifenesin 100 Mg/5 Ml Liquid) 5 ml PO Q6H PRN PRN Reason: Cough Sodium Chloride (Ns) 1,000 mls @ 100 mls/hr IVCONT .Q10H [facility] Last Admin: 10/11/23 08:46 Dose: 100 mls/hr Documented By: GEOFFREY Promethazine HCl 12.5 mg/ (Sodium Chloride) 50.5 mls @ 202 mls/hr IV ONCE PRN PRN Reason: Nausea and Vomiting Meropenem 1 gm/ Sodium (Chloride) 100 mls @ 200 mls/hr IV Q8H [facility] Last Infusion: 10/11/23 10:31 Dose: Infused Documented By: GEOFFREY Melatonin (Melatonin 3 Mg Tablet) 9 mg PO BEDTIME PRN PRN Reason: Sleep Last Admin: 10/10/23 22:26 Dose: 9 mg Documented By: ROHINI Ondansetron HCl (Ondansetron Hcl 4 Mg/2 Ml Vial) 4 mg IVPUSH Q8H PRN PRN Reason: Nausea and Vomiting Last Admin: 10/10/23 09:34 Dose: 4 mg Documented By: CRISTINO Oxycodone HCl (Oxycodone Hcl Immed Release 5 Mg Tablet) 5 mg PO Q4H PRN PRN Reason: Pain, Mild (Pain Scale 1-3) Oxycodone HCl (Oxycodone Hcl Immed Release 5 Mg Tablet) 10 mg PO ONCE PRN PRN Reason: Pain, Severe (Pain Scale 7-10) Polyethylene Glycol (Polyethylene Glycol 3350 17 Gm Powd.Pack) 17 gm PO DAILY [facility] Last Admin: 10/11/23 08:33 Dose: Not Given Documented By: GEOFFREY Non-Admin Reason: Patient Refused Senna (Sennosides 8.6 Mg Tablet) 17.2 mg PO BEDTIME [facility] Last Admin: 10/10/23 22:22 Dose: Not Given Documented By: ROHINI Non-Admin Reason: Patient Refused Tamsulosin HCl (Tamsulosin Hcl 0.4 Mg Capsule) 0.4 mg PO BID [facility] Last Admin: 10/11/23 08:31 Dose: 0.4 mg Documented By: GEOFFREY Labs 10/10/23 07:07 10/10/23 19:15 Labs: Laboratory Results - last 24 hr 10/10/23 10/10/23 19:15 20:36 Anion Gap 12 Estim Creat Clear Calc 51.2 Estimated GFR 48 POC Glucose 140 H Random Glucose 117 H Calcium 8.2 L Magnesium 1.7 Microbiology Microbiology Results: Microbiology 10/10/23 17:13 Urine Culture - Preliminary Urine Other - Kidney Left Culture in progress. 10/09/23 16:48 Blood Culture - Preliminary Blood - Venous Gram negative marshal 10/09/23 16:48 Blood Culture - Preliminary Blood - Venous Gram negative marshal 10/09/23 Unknown Urine Culture - Preliminary Urine clean catch - Urine boone top Klebsiella pneumoniae Assessment and Plan (1) Pyelonephritis of left kidney: Status: Acute (2) Severe sepsis: Status: Acute (3) Constipation: Status: Acute Plan 72-year-old male with history of hypertension, nephrolithiasis, BPH with obstructive uropathy with Storm catheter placement 2 weeks ago, unspecified mood disorder, hyperlipidemia, ventral hernia, cervical myelopathy, and lumbar radiculopathy admitted for obstructive uropathy with pyelonephritis and sepsis. acute Storm catheter associated pyelonephritis with sepsis -leukocytosis 15.8, febrile to 103.3, acute lactic acidosis 2.1, repeat pending. No other end-organ damage or hypotension. -UA with 3+ leukocytes, positive nitrates, positive urinary sediment, 4+ bacteria urine culture(klebseilla) blood culture-gram neg rods. Antibiotic changed to meropenem according to Klebsiella sensitivity, blood culture still pending, continue IV hydration urology consult-status post cystoscopy and stent placement. obstructive uropathy has rell -0.9 cm obstructive calculus in the left UVJ with hydronephrosis -renal function normal -Storm catheter replaced,continue Flomax,ivf. fecal impaction with stercoral colitis -senna, MiraLax, docusate Passing bowels. BPH with LUTS -replace Strom catheter, placed [address] Blackman -continue Flomax cough: added robitussin/cxr noted seems fine. hypertension hold lisinopril due to rell/boderline bp. cervical myelopathy/lumbar radiculopathy -continue gabapentin, hold naproxen mood disorder -continue home meds DVT prophylaxis-SCPs as pt will likely undergo urology procedure tomorrow Full code Ongoing hospitalization need: Obstructive uropathy, sepsis secondary to pyelonephritis, RELL-continue IV hydration, and IV antibiotics, urology expert input and possible urological procedure for consideration of obstructive uropathy and left obstructive calculus with hydronephrosis. Quality Stroke Does the patient have a stroke diagnosis?: No VTE Prior VTE?: No VTE Risk Level:: Medical - moderate - high VTE Device Contraindication: Treatment Not Indicated VTE Drug Contraindication: N/A - Med Ordered
[2023-10-11] MEDS: Melatonin 3 MG TABLET 9 MG PO (21:46)
--- NOTE | 2023-10-11 22:35 | W.PM.IDCN ---
History of Present Illness Data of Consult Service Date: 10/11/23 Requesting physician: Alexy Lizama Primary Care Provider: Gonzalez Gaitan MD HPI Reason for consult: Klebsiella urine,likely bacteremia as well He presents with nausea and vomiting for a day. He has BPH with retention cath two weeks ago. He sees Dr Blackman Review of Systems Review of Systems: Yes all other systems are reviewed and are negative PMFSH Past Medical History Medical History Elevated cholesterol Fracture of humeral head Urinary incontinence Calculus of kidney Insomnia HTN (hypertension) Anxiety Depression Obesity Internal hemorrhoid Erectile dysfunction BPH associated with nocturia Lumbar radiculopathy Umbilical hernia without obstruction or gangrene Rectus diastasis Ventral hernia without obstruction or gangrene Cervical myelopathy Family History Family history: reviewed and not pertinent Surgical History Surgical History Hx of cervical spine surgery Hx of lithotripsy H/O colonoscopy Social History Social History Household Members: Family Household Members Other:: daughter Housing: House Are you a primary youth career specialist to a significant other at home: No Alcohol intake: former Patient Tobacco Use Status: Never used Tobacco Smoked in Last 30 Days: No Use of substances other than those prescribed or required for medical reasons: No Currently Displaying Signs/Symptoms of Drug Intoxication Withdrawal: No Have you been hit, kicked, punched, or otherwise hurt by someone within the past year? If so, by whom?: No Do you feel safe in your current relationship?: Yes Is there a partner from a previous relationship who is making you feel unsafe now?: No Are you made to feel afraid or neglected: No Spiritual Healthcare Practices: none Orthodoxy Healthcare Practices: none Cultural Healthcare Practices: none Advance Directives: Yes Advance Directives Information Provided: No Advance Directives on File: Yes Advance Directives Date on File: 08/10/23 Do you have thoughts of harming others: None Do you have a plan to hurt others: No Plan Recently lost weight without trying: No How much weight loss: Not applicable Eating poorly because of decreased appetite: No Nutrition screen score: 0 Nutrition Risks: No Nutritional Risk service: Yes Meds Allergies Allergy/AdvReac Type Severity Reaction Status Date / Time Seasonal Allergies Allergy Unknown Verified 10/09/23 13:08 Active Medications: Current Medications Acetaminophen (Acetaminophen 325 Mg Tablet) 650 mg PO Q6H PRN PRN Reason: Pain, Mild (Pain Scale 1-3) Last Admin: 10/10/23 22:25 Dose: 650 mg Docusate Sodium (Docusate Sodium 100 Mg Capsule) 100 mg PO DAILY [facility] Last Admin: 10/11/23 08:33 Dose: Not Given Escitalopram Oxalate (Escitalopram Oxalate 20 Mg Tablet) 20 mg PO DAILY [facility] Last Admin: 10/11/23 08:30 Dose: 20 mg Fentanyl (Fentanyl Citrate/Pf 100 Mcg/2 Ml Vial) 50 mcg IVPUSH Q5M PRN; Protocol PRN Reason: Pain, Severe (Pain Scale 7-10) Fluticasone Propionate (Fluticasone Propionate Nasal 16 Gm [place]) 2 spray NOSTRIL-B DAILY PRN PRN Reason: Allergy Symptoms Gabapentin (Gabapentin 100 Mg Capsule) 100 mg PO TID [facility] Last Admin: 10/11/23 21:46 Dose: 100 mg Guaifenesin (Guaifenesin 100 Mg/5 Ml Liquid) 5 ml PO Q6H PRN PRN Reason: Cough Sodium Chloride (Ns) 1,000 mls @ 100 mls/hr IVCONT .Q10H [facility] Last Admin: 10/11/23 08:46 Dose: 100 mls/hr Promethazine HCl 12.5 mg/ (Sodium Chloride) 50.5 mls @ 202 mls/hr IV ONCE PRN PRN Reason: Nausea and Vomiting Meropenem 1 gm/ Sodium (Chloride) 100 mls @ 200 mls/hr IV Q8H [facility] Last Infusion: 10/11/23 17:18 Dose: Infused Melatonin (Melatonin 3 Mg Tablet) 9 mg PO BEDTIME PRN PRN Reason: Sleep Last Admin: 10/11/23 21:46 Dose: 9 mg Ondansetron HCl (Ondansetron Hcl 4 Mg/2 Ml Vial) 4 mg IVPUSH Q8H PRN PRN Reason: Nausea and Vomiting Last Admin: 10/10/23 09:34 Dose: 4 mg Oxycodone HCl (Oxycodone Hcl Immed Release 5 Mg Tablet) 5 mg PO Q4H PRN PRN Reason: Pain, Mild (Pain Scale 1-3) Oxycodone HCl (Oxycodone Hcl Immed Release 5 Mg Tablet) 10 mg PO ONCE PRN PRN Reason: Pain, Severe (Pain Scale 7-10) Polyethylene Glycol (Polyethylene Glycol 3350 17 Gm Powd.Pack) 17 gm PO DAILY [facility] Last Admin: 10/11/23 08:33 Dose: Not Given Senna (Sennosides 8.6 Mg Tablet) 17.2 mg PO BEDTIME [facility] Last Admin: 10/10/23 22:22 Dose: Not Given Tamsulosin HCl (Tamsulosin Hcl 0.4 Mg Capsule) 0.4 mg PO BID [facility] Last Admin: 10/11/23 21:47 Dose: 0.4 mg Home Medications Medication Instructions Recorded Confirmed Last Taken Type citalopram 40 mg tablet 40 mg PO DAILY 05/30/23 10/09/23 10/09/23 History gabapentin 100 mg capsule 100 mg PO TID 05/30/23 10/09/23 10/09/23 History tamsulosin 0.4 mg capsule 0.4 mg PO BID 05/30/23 10/09/23 10/09/23 History acetaminophen 325 mg tablet 650 mg PO Q4H PRN pain.fever 08/27/23 10/09/23 Unknown History docusate sodium 100 mg capsule 100 mg PO DAILY 08/27/23 10/09/23 10/09/23 History (Colace) fluticasone propionate 50 2 spray intranasal DAILY PRN 08/27/23 10/09/23 Unknown History mcg/actuation nasal Allergy Symptoms spray,suspension melatonin 10 mg tablet 10 mg PO BEDTIME PRN Sleep 08/27/23 10/09/23 Unknown History sennosides 8.6 mg tablet (senna) 17.2 mg PO BEDTIME 08/27/23 10/09/23 10/08/23 History lisinopril 10 mg tablet 10 mg PO DAILY 10/09/23 10/09/23 10/09/23 History naproxen 500 mg tablet 500 mg PO BID PRN Pain (Scale 10/09/23 10/09/23 Unknown History Score 4-6) Physical Exam Vital Signs: Vital Signs: Last Vital Signs Temp 98.5 F 10/11/23 19:02 Pulse 89 10/11/23 19:02 Resp 17 10/11/23 19:02 BP 129/63 10/11/23 19:02 Pulse Ox 95 10/11/23 19:02 O2 Del Method Room Air 10/11/23 19:02 O2 Flow Rate 3 10/10/23 18:05 BMI result Body Mass Index 27.8 Const: General: cooperative HEENT: Head: Yes normal to inspection Face and sinus: Yes normal facial exam Mouth: Normal oral and palatal mucosa present Teeth and gingiva: dentition normal Eyes: General: appearance normal, both eyes and all related structures Pupils: Equal, round and reactive pupils present Resp: Effort & Inspection: normal respiratory effort Cardio: Rate: regular rate Rhythm: regular rhythm GI: Palpation (GI): Soft to palpation and nontender : General: Yes no CVA tenderness Back/Spine/Pelvis: Back: no CVA tenderness Skin: General skin exam: no rashes or lesions noted Neuro: General: moves all extremities Cranial nerves: Yes Equal, round and reactive pupils present Extrem: General: Yes normal to inspection Psych: Appearance: grossly normal Results Labs 10/10/23 07:07 10/10/23 19:15 Microbiology Microbiology Results: Microbiology 10/10/23 17:13 Urine Other - Kidney Left Urine Culture - Preliminary Culture in progress. 10/09/23 16:48 Blood - Venous Blood Culture - Preliminary Gram negative marshal 10/09/23 16:48 Blood - Venous Blood Culture - Preliminary Gram negative marshal 10/09/23 Unknown Urine clean catch - Urine boone top Urine Culture - Preliminary Klebsiella pneumoniae Assessment and Plan (1) Pyelonephritis of left kidney: Status: Acute (2) Severe sepsis: Status: Acute Plan He has Klebsiella ,may be ESBL Await urine culture Continue Merem for now See Dr Blackman Probable two weeks IV Ertapenem. Repeat blood cultures.
[2023-10-12] VITALS (7 sets, daily range): BP systolic 105–134; BP diastolic 56–76; PULSE 68–94; RESP 18–20; TEMP 36.2–37.9; O2SAT 92–97
[2023-10-12] MEDS: 0.9 % Sodium Chloride 1,000 ML 100 ML IVCONT (01:55)
[2023-10-12] MEDS: Acetaminophen 325 MG TABLET 650 MG PO ×2 (03:14→22:43)
[2023-10-12 07:53] LABS: Anion Gap 9 (12-20); Blood Urea Nitrogen 22 mg/dL (9-16); Calcium 8.1 mg/dL (8.4-10.2); Carbon Dioxide 21 mmol/L (22-29); Chloride 109 mmol/L (96-108); Creatinine Clr Calc Pharmacy 73.6; Estimated Glomerular Filt Rate > 60; Glucose Random 84 mg/dL (60-115); Potassium 3.6 mmol/L (3.3-5.1); Sodium 135 mmol/L (135-145)
[2023-10-12] MEDS: Escitalopram Oxalate 20 MG TABLET PO (08:50)
[2023-10-12] MEDS: Gabapentin 100 MG CAPSULE PO ×3 (08:50→22:33)
[2023-10-12] MEDS: Tamsulosin HCL 0.4 MG CAPSULE PO ×2 (08:50→22:33)
--- NOTE | 2023-10-12 09:47 | PC.NURSE ---
Attempted to contact daughter for an update. Pt stated it is ok to give info to daughter Carolyn. Informed md pt's padilla was leaking and pt has severe incont dermatitis to groin. Padilla was only inflated by 12cc. padilla stated 30cc. 30cc was placed
[2023-10-12 10:03] LABS: Hematocrit 35.5 % (42.0-52.0); Hemoglobin 11.8 g/dl (14.0-18.0); Mean Corpuscular HGB Conc 33.2 g/dl (31.0-36.0); Mean Corpuscular Volume 90.3 fL (80.0-98.0); Mean Platelet Volume 10.9 fL (9.4-12.4); Platelet Count 155 X10*3/uL (160-400); Red Blood Count 3.93 X10*6/uL (4.60-5.80); Red Cell Distribution Width 14.5 % (11.0-16.0)
[2023-10-12] MEDS: Nystatin Powder 15 GM BOTTLE 1 APPL TOPICAL ×3 (11:12→22:44)
--- NOTE | 2023-10-12 12:41 | MHC.CM.PN ---
PT rec pt go to [facility], pt and family in agreement and requested referral put into [facility], referral was submitted. Pt will be receiving IV ABX. CM will follow and continue to assist with DC planning.
--- NOTE | 2023-10-12 14:25 | HO.PM.IMPN ---
Subjective Subjective Date of Service: 10/12/23 Interval History: RELL, nephrolithiasis Review of Systems Abdominal pain seems to be improved, dry cough. Denies any shortness of breath or chest pain or fever or chills. Physical Exam Vital Signs: Vital Signs: Last Vital Signs Temp 97.1 F 10/12/23 12:00 Pulse 68 10/12/23 12:00 Resp 18 10/12/23 12:00 BP 119/76 10/12/23 12:00 Pulse Ox 96 10/12/23 12:00 O2 Del Method Room Air 10/12/23 12:00 O2 Flow Rate 1 10/12/23 08:00 BMI result Body Mass Index 27.8 Appearance: Alert.? Oriented X3.? . cvs: [id number], [id number] , no murmur res: clear to auscultation ,no rhonchii or wheezing abd: no rebound or guarding ,left flank soarness , bs present. ext pulses present , no cyanosis ,. neuro: axo3 , nonfocal. Objective Data Active Medications Acetaminophen (Acetaminophen 325 Mg Tablet) 650 mg PO Q6H PRN PRN Reason: Pain, Mild (Pain Scale 1-3) Last Admin: 10/12/23 03:14 Dose: 650 mg Documented By: ROHINI Docusate Sodium (Docusate Sodium 100 Mg Capsule) 100 mg PO DAILY [facility] Last Admin: 10/12/23 08:50 Dose: Not Given Documented By: SHAJI Non-Admin Reason: Patient Refused Escitalopram Oxalate (Escitalopram Oxalate 20 Mg Tablet) 20 mg PO DAILY [facility] Last Admin: 10/12/23 08:50 Dose: 20 mg Documented By: SHAJI Fentanyl (Fentanyl Citrate/Pf 100 Mcg/2 Ml Vial) 50 mcg IVPUSH Q5M PRN; Protocol PRN Reason: Pain, Severe (Pain Scale 7-10) Fluticasone Propionate (Fluticasone Propionate Nasal 16 Gm [place]) 2 spray NOSTRIL-B DAILY PRN PRN Reason: Allergy Symptoms Gabapentin (Gabapentin 100 Mg Capsule) 100 mg PO TID [facility] Last Admin: 10/12/23 14:23 Dose: 100 mg Documented By: SHAJI Guaifenesin (Guaifenesin 100 Mg/5 Ml Liquid) 5 ml PO Q6H PRN PRN Reason: Cough Promethazine HCl 12.5 mg/ (Sodium Chloride) 50.5 mls @ 202 mls/hr IV ONCE PRN PRN Reason: Nausea and Vomiting Meropenem 1 gm/ Sodium (Chloride) 100 mls @ 200 mls/hr IV Q8H [facility] Last Infusion: 10/12/23 09:27 Dose: Infused Documented By: SHAJI Melatonin (Melatonin 3 Mg Tablet) 9 mg PO BEDTIME PRN PRN Reason: Sleep Last Admin: 10/11/23 21:46 Dose: 9 mg Documented By: ROHINI Nystatin (Nystatin Powder 15 Gm Bottle) 1 appl TOPICAL TID [facility]; Protocol Last Admin: 10/12/23 14:24 Dose: 1 appl Documented By: SHAJI Ondansetron HCl (Ondansetron Hcl 4 Mg/2 Ml Vial) 4 mg IVPUSH Q8H PRN PRN Reason: Nausea and Vomiting Last Admin: 10/10/23 09:34 Dose: 4 mg Documented By: CRISTINO Oxycodone HCl (Oxycodone Hcl Immed Release 5 Mg Tablet) 5 mg PO Q4H PRN PRN Reason: Pain, Mild (Pain Scale 1-3) Oxycodone HCl (Oxycodone Hcl Immed Release 5 Mg Tablet) 10 mg PO ONCE PRN PRN Reason: Pain, Severe (Pain Scale 7-10) Polyethylene Glycol (Polyethylene Glycol 3350 17 Gm Powd.Pack) 17 gm PO DAILY [facility] Last Admin: 10/12/23 08:50 Dose: Not Given Documented By: SHAJI Non-Admin Reason: Patient Refused Senna (Sennosides 8.6 Mg Tablet) 17.2 mg PO BEDTIME [facility] Last Admin: 10/11/23 21:03 Dose: Not Given Documented By: ROHINI Non-Admin Reason: Patient Refused Tamsulosin HCl (Tamsulosin Hcl 0.4 Mg Capsule) 0.4 mg PO BID [facility] Last Admin: 10/12/23 08:50 Dose: 0.4 mg Documented By: SHAJI Labs 10/12/23 09:46 10/12/23 06:28 Labs: Laboratory Results - last 24 hr 10/12/23 10/12/23 06:28 09:46 MCV 90.3 MCH 30.0 MCHC 33.2 RDW 14.5 Plt Count 155 L D MPV 10.9 Absolute Nucleated RBC 0.000 Nucleated RBC % (auto) 0.0 Hold Purple Top SEE NOTE Anion Gap 9 L Estim Creat Clear Calc 73.6 Estimated GFR > 60 Random Glucose 84 Calcium 8.1 L Microbiology Microbiology Results: Microbiology 10/10/23 17:13 Urine Culture - Preliminary Urine Other - Kidney Left Gram negative marshal 10/09/23 16:48 Blood Culture - Final Blood - Venous Klebsiella pneumoniae 10/09/23 16:48 Blood Culture - Final Blood - Venous Klebsiella pneumoniae 10/09/23 Unknown Urine Culture - Final Urine clean catch - Urine boone top Klebsiella pneumoniae Assessment and Plan (1) Pyelonephritis of left kidney: Status: Acute (2) Severe sepsis: Status: Acute (3) Constipation: Status: Acute Plan 72-year-old male with history of hypertension, nephrolithiasis, BPH with obstructive uropathy with Storm catheter placement 2 weeks ago, unspecified mood disorder, hyperlipidemia, ventral hernia, cervical myelopathy, and lumbar radiculopathy admitted for obstructive uropathy with pyelonephritis and sepsis. acute Storm catheter associated pyelonephritis with sepsis -leukocytosis 15.8, febrile to 103.3, acute lactic acidosis 2.1, repeat pending. No other end-organ damage or hypotension. -UA with 3+ leukocytes, positive nitrates, positive urinary sediment, 4+ bacteria urine culture(klebseilla) blood culture-gram neg rods. Antibiotic changed to meropenem according to Klebsiella sensitivity, blood culture still pending, continue IV hydration urology consult-status post cystoscopy and stent placement. obstructive uropathy has rell -0.9 cm obstructive calculus in the left UVJ with hydronephrosis -renal function normal -Storm catheter replaced,continue Flomax,ivf. fecal impaction with stercoral colitis -senna, MiraLax, docusate Passing bowels. BPH with LUTS -replace Storm catheter, placed [address] Blackman -continue Flomax cough: added robitussin/cxr noted seems fine. hypertension hold lisinopril due to rell/boderline bp. cervical myelopathy/lumbar radiculopathy -continue gabapentin, hold naproxen mood disorder -continue home meds DVT prophylaxis-SCPs as pt will likely undergo urology procedure tomorrow Full code Ongoing hospitalization need: Obstructive uropathy, sepsis secondary to pyelonephritis, RELL-continue IV hydration, and IV antibiotics, urology expert input and possible urological procedure for consideration of obstructive uropathy and left obstructive calculus with hydronephrosis. Quality Stroke Does the patient have a stroke diagnosis?: No VTE Prior VTE?: No VTE Risk Level:: Medical - moderate - high VTE Device Contraindication: Treatment Not Indicated VTE Drug Contraindication: N/A - Med Ordered
--- NOTE | 2023-10-12 16:20 | HO.MIDLINE ---
Midline Insertion MIDLINE INSERTION Diagnosis: Bacteremia, Pyelonephritis Indication: penitentiary antibiotics needed Pertinent Labs: reviewed Technique: Using sterile technique including cap and mask, glove and drape, the left arm was prepped and draped in the usual sterile fashion of full barrier technique with CHG. Using ultrasound guidance, left basilic vein access was obtained on first attempt. A 20 G X 8 CM non-PASV Midline catheter was positioned. The procedure was performed in S272. Ultrasound was used to document vein patency and for needle entry. A formal ultrasound picture was recorded. Vascular Clinical Resource Coordinator has released the line for use and it is currently dressed with a StatLock, Tegaderm, and CHG disc. Verification has been performed for blood return and line patency. Arm Circumference: 28.5 CM Equipment: BARD PowerGlide ST Midline catheter Catheter Type: 20G X 8CM non-PASV Midline Lot #: [id number]
[2023-10-12] MEDS: Melatonin 3 MG TABLET 9 MG PO (22:43)
[2023-10-12] MEDS: guaiFENesin 100 MG/5 ML LIQUID PO (22:43)
[2023-10-13] VITALS (8 sets, daily range): BP systolic 113–157; BP diastolic 67–90; PULSE 66–84; RESP 17–20; TEMP 36.4–37.6; O2SAT 93–97
[2023-10-13] MEDS: guaiFENesin 100 MG/5 ML LIQUID PO ×2 (05:43→22:53)
[2023-10-13] MEDS: polyethylene glycoL 3350 17 GM POWD.PACK PO (10:14)
[2023-10-13] MEDS: Metoprolol Tartrate 12.5 MG HALFTAB PO ×2 (10:14→22:52)
[2023-10-13] MEDS: Escitalopram Oxalate 20 MG TABLET PO (10:15)
[2023-10-13] MEDS: Tamsulosin HCL 0.4 MG CAPSULE PO ×2 (10:15→22:54)
[2023-10-13] MEDS: Acetaminophen 325 MG TABLET 650 MG PO ×2 (10:15→22:53)
[2023-10-13] MEDS: Docusate Sodium 100 MG CAPSULE PO (10:15)
[2023-10-13] MEDS: Gabapentin 100 MG CAPSULE PO ×3 (10:15→22:52)
[2023-10-13] MEDS: Nystatin Powder 15 GM BOTTLE 1 APPL TOPICAL ×2 (10:30→16:41)
[2023-10-13 10:41] LABS: Anion Gap 11 (12-20); Blood Urea Nitrogen 17 mg/dL (9-16); Calcium 8.6 mg/dL (8.4-10.2); Carbon Dioxide 24 mmol/L (22-29); Chloride 108 mmol/L (96-108); Creatinine Clr Calc Pharmacy 90.6; Estimated Glomerular Filt Rate > 60; Glucose Random 132 mg/dL (60-115); Potassium 3.7 mmol/L (3.3-5.1); Sodium 139 mmol/L (135-145)
--- NOTE | 2023-10-13 15:52 | P.PNIM_ITS ---
Subjective Subjective Date of Service: 10/13/23 Interval History: RELL, nephrolithiasis, uti ,bacteremia, 9 beat nsvt Review of Systems Abdominal pain seems to be improved, dry cough. Denies any shortness of breath or chest pain or fever or chills Physical Exam 2 Vital Signs: Vital Signs: Last Vital Signs Temp 97.9 F 10/13/23 15:46 Pulse 66 10/13/23 15:46 Resp 18 10/13/23 15:46 BP 125/71 10/13/23 15:46 Pulse Ox 94 10/13/23 15:46 O2 Del Method Room Air 10/13/23 15:46 O2 Flow Rate 1 10/12/23 08:00 BMI result Body Mass Index 27.8 Appearance: Alert.? Oriented X3.? . cvs: rrr, [id number] , no murmur res: clear to auscultation ,no rhonchii or wheezing abd: no rebound or guarding ,left flank soarness , bs present. ext pulses present , no cyanosis ,. neuro: axo3 , nonfocal. Objective Data Active Medications Acetaminophen (Acetaminophen 325 Mg Tablet) 650 mg PO Q6H PRN PRN Reason: Pain, Mild (Pain Scale 1-3) Last Admin: 10/13/23 10:15 Dose: 650 mg Documented By: RADHA Heparin Sodium (Porcine) 50 (units/ Sodium Chloride 5 ml) 0 units IVFLUSH TID [facility] Docusate Sodium (Docusate Sodium 100 Mg Capsule) 100 mg PO DAILY [facility] Last Admin: 10/13/23 10:15 Dose: 100 mg Documented By: RADHA Escitalopram Oxalate (Escitalopram Oxalate 20 Mg Tablet) 20 mg PO DAILY [facility] Last Admin: 10/13/23 10:15 Dose: 20 mg Documented By: RADHA Fentanyl (Fentanyl Citrate/Pf 100 Mcg/2 Ml Vial) 50 mcg IVPUSH Q5M PRN; Protocol PRN Reason: Pain, Severe (Pain Scale 7-10) Fluticasone Propionate (Fluticasone Propionate Nasal 16 Gm [place]) 2 spray NOSTRIL-B DAILY PRN PRN Reason: Allergy Symptoms Gabapentin (Gabapentin 100 Mg Capsule) 100 mg PO TID [facility] Last Admin: 10/13/23 10:15 Dose: 100 mg Documented By: RADHA Guaifenesin (Guaifenesin 100 Mg/5 Ml Liquid) 5 ml PO Q6H PRN PRN Reason: Cough Last Admin: 10/13/23 05:43 Dose: 5 ml Documented By: JYOTI Promethazine HCl 12.5 mg/ (Sodium Chloride) 50.5 mls @ 202 mls/hr IV ONCE PRN PRN Reason: Nausea and Vomiting Meropenem 1 gm/ Sodium (Chloride) 100 mls @ 200 mls/hr IV Q8H [facility] Last Infusion: 10/13/23 10:44 Dose: Infused Documented By: RADHA Melatonin (Melatonin 3 Mg Tablet) 9 mg PO BEDTIME PRN PRN Reason: Sleep Last Admin: 10/12/23 22:43 Dose: 9 mg Documented By: JYOTI Metoprolol Tartrate (Metoprolol Tartrate 12.5 Mg Halftab) 12.5 mg PO BID [facility]; Protocol Last Admin: 10/13/23 10:14 Dose: 12.5 mg Documented By: RADHA Nystatin (Nystatin Powder 15 Gm Bottle) 1 appl TOPICAL TID [facility]; Protocol Last Admin: 10/13/23 10:30 Dose: 1 appl Documented By: RADHA Ondansetron HCl (Ondansetron Hcl 4 Mg/2 Ml Vial) 4 mg IVPUSH Q8H PRN PRN Reason: Nausea and Vomiting Last Admin: 10/10/23 09:34 Dose: 4 mg Documented By: CRISTINO Oxycodone HCl (Oxycodone Hcl Immed Release 5 Mg Tablet) 5 mg PO Q4H PRN PRN Reason: Pain, Mild (Pain Scale 1-3) Oxycodone HCl (Oxycodone Hcl Immed Release 5 Mg Tablet) 10 mg PO ONCE PRN PRN Reason: Pain, Severe (Pain Scale 7-10) Polyethylene Glycol (Polyethylene Glycol 3350 17 Gm Powd.Pack) 17 gm PO DAILY [facility] Last Admin: 10/13/23 10:14 Dose: 17 gm Documented By: RADHA Senna (Sennosides 8.6 Mg Tablet) 17.2 mg PO BEDTIME [facility] Last Admin: 10/12/23 22:44 Dose: Not Given Documented By: JYOTI Non-Admin Reason: Patient Refused Tamsulosin HCl (Tamsulosin Hcl 0.4 Mg Capsule) 0.4 mg PO BID [facility] Last Admin: 10/13/23 10:15 Dose: 0.4 mg Documented By: RADHA Labs 10/12/23 09:46 10/13/23 10:18 Labs: Laboratory Results - last 24 hr 10/13/23 10:18 Hold Purple Top SEE NOTE Anion Gap 11 L Estim Creat Clear Calc 90.6 Estimated GFR > 60 Random Glucose 132 H Calcium 8.6 D Microbiology Microbiology Results: Microbiology 10/10/23 17:13 Urine Culture - Final Urine Other - Kidney Left Klebsiella pneumoniae Assessment and Plan (1) Pyelonephritis of left kidney: Status: Acute (2) Severe sepsis: Status: Acute (3) Constipation: Status: Acute Plan 72-year-old male with history of hypertension, nephrolithiasis, BPH with obstructive uropathy with Storm catheter placement 2 weeks ago, unspecified mood disorder, hyperlipidemia, ventral hernia, cervical myelopathy, and lumbar radiculopathy admitted for obstructive uropathy with pyelonephritis and sepsis. acute Storm catheter associated pyelonephritis with sepsis -leukocytosis 15.8, febrile to 103.3, acute lactic acidosis 2.1, repeat pending. No other end-organ damage or hypotension. -UA with 3+ leukocytes, positive nitrates, positive urinary sediment, 4+ bacteria urine culture blood culture-Klebsiella -esbl Antibiotic changed to meropenem ,midline placed. urology consult-status post cystoscopy and stent placement. obstructive uropathy has rell -0.9 cm obstructive calculus in the left UVJ with hydronephrosis -renal function normal -Storm catheter replaced,continue Flomax,ivf. fecal impaction with stercoral colitis -senna, MiraLax, docusate Passing bowels. BPH with LUTS -replace Storm catheter, placed [address] Blackman -continue Flomax cough: added robitussin/cxr noted seems fine. hypertension hold lisinopril due to rell/boderline bp. cervical myelopathy/lumbar radiculopathy -continue gabapentin, hold naproxen nsvt episode: bmp reviewed -electrolytes seems fine Discussed with Cardiology added metoprolol. mood disorder -continue home meds DVT prophylaxis- Full code Ongoing hospitalization need: Obstructive uropathy, sepsis secondary to pyelonephritis, RELL-continue IV hydration, and IV antibiotics, urology expert input and possible urological procedure for consideration of obstructive uropathy and left obstructive calculus with hydronephrosis. Quality Stroke Does the patient have a stroke diagnosis?: No VTE Prior VTE?: No VTE Risk Level:: Medical - moderate - high VTE Device Contraindication: Treatment Not Indicated VTE Drug Contraindication: N/A - Med Ordered
[2023-10-13] MEDS: Heparin Sodium,Porcine Flush 50 UNITS, 0.9 % Sodium Chloride Flush 5 ML IVFLUSH ×2 (16:39→22:54)
[2023-10-13] MEDS: Enoxaparin Sodium 40 MG/0.4 ML SYRINGE SUBCUT (16:40)
[2023-10-13] MEDS: Potassium Chloride Packet 20 MEQ PACKET PO (16:40)
[2023-10-13] MEDS: Melatonin 3 MG TABLET 9 MG PO (22:52)
[2023-10-14] VITALS (7 sets, daily range): BP systolic 108–157; BP diastolic 59–79; PULSE 57–87; RESP 18–20; TEMP 36.2–37.7; O2SAT 92–98
[2023-10-14] MEDS: Nystatin Powder 15 GM BOTTLE 1 APPL TOPICAL ×4 (01:00→21:18)
[2023-10-14] MEDS: Metoprolol Tartrate 12.5 MG HALFTAB PO ×2 (10:12→21:14)
[2023-10-14] MEDS: Heparin Sodium,Porcine Flush 50 UNITS, 0.9 % Sodium Chloride Flush 5 ML IVFLUSH ×3 (10:12→21:14)
[2023-10-14] MEDS: Magnesium Oxide 400 MG TABLET PO ×2 (10:12→16:31)
[2023-10-14] MEDS: Gabapentin 100 MG CAPSULE PO ×3 (10:12→21:14)
[2023-10-14] MEDS: Tamsulosin HCL 0.4 MG CAPSULE PO ×2 (10:12→21:14)
[2023-10-14] MEDS: Escitalopram Oxalate 20 MG TABLET PO (10:12)
--- NOTE | 2023-10-14 11:51 | P.PNIM_ITS ---
Subjective Subjective Date of Service: 10/15/23 Interval History: RELL, nephrolithiasis, uti ,bacteremia, Review of Systems no new c/o seems improving Physical Exam 2 Vital Signs: Vital Signs: Last Vital Signs Temp 97.2 F 10/14/23 11:02 Pulse 57 10/14/23 11:02 Resp 18 10/14/23 11:02 BP 130/75 10/14/23 11:02 Pulse Ox 95 10/14/23 11:02 O2 Del Method Room Air 10/14/23 11:02 O2 Flow Rate 1 10/12/23 08:00 BMI result Body Mass Index 27.8 Appearance: Alert.? Oriented X3.? . cvs: rrr, [id number] , no murmur res: clear to auscultation ,no rhonchii or wheezing abd: no rebound or guarding ,left flank soarness , bs present. ext pulses present , no cyanosis ,. neuro: axo3 , nonfocal. Objective Data Active Medications Acetaminophen (Acetaminophen 325 Mg Tablet) 650 mg PO Q6H PRN PRN Reason: Pain, Mild (Pain Scale 1-3) Last Admin: 10/13/23 22:53 Dose: 650 mg Documented By: ISAAC Heparin Sodium (Porcine) 50 (units/ Sodium Chloride 5 ml) 0 units IVFLUSH TID [facility] Last Admin: 10/14/23 10:12 Dose: 50 unit Documented By: RADHA Docusate Sodium (Docusate Sodium 100 Mg Capsule) 100 mg PO DAILY [facility] Last Admin: 10/14/23 10:06 Dose: Not Given Documented By: RADHA Non-Admin Reason: Hold dose per Dr Lizama Enoxaparin Sodium (Enoxaparin Sodium 40 Mg/0.4 Ml Syringe) 40 mg SUBCUT Q24H [facility] Last Admin: 10/13/23 16:40 Dose: 40 mg Documented By: RADHA Escitalopram Oxalate (Escitalopram Oxalate 20 Mg Tablet) 20 mg PO DAILY [facility] Last Admin: 10/14/23 10:12 Dose: 20 mg Documented By: RADHA Fentanyl (Fentanyl Citrate/Pf 100 Mcg/2 Ml Vial) 50 mcg IVPUSH Q5M PRN; Protocol PRN Reason: Pain, Severe (Pain Scale 7-10) Fluticasone Propionate (Fluticasone Propionate Nasal 16 Gm [place]) 2 spray NOSTRIL-B DAILY PRN PRN Reason: Allergy Symptoms Gabapentin (Gabapentin 100 Mg Capsule) 100 mg PO TID [facility] Last Admin: 10/14/23 10:12 Dose: 100 mg Documented By: RADHA Guaifenesin (Guaifenesin 100 Mg/5 Ml Liquid) 5 ml PO Q6H PRN PRN Reason: Cough Last Admin: 10/13/23 22:53 Dose: 5 ml Documented By: ISAAC Promethazine HCl 12.5 mg/ (Sodium Chloride) 50.5 mls @ 202 mls/hr IV ONCE PRN PRN Reason: Nausea and Vomiting Meropenem 1 gm/ Sodium (Chloride) 100 mls @ 200 mls/hr IV Q8H [facility] Last Infusion: 10/14/23 10:41 Dose: Infused Documented By: RADHA [facility] Last Admin: 10/14/23 10:12 Dose: 400 mg Documented By: RADHA Melatonin (Melatonin 3 Mg Tablet) 9 mg PO BEDTIME PRN PRN Reason: Sleep Last Admin: 10/13/23 22:52 Dose: 9 mg Documented By: ISAAC Metoprolol Tartrate (Metoprolol Tartrate 12.5 Mg Halftab) 12.5 mg PO BID [facility]; Protocol Last Admin: 10/14/23 10:12 Dose: 12.5 mg Documented By: RADHA Nystatin (Nystatin Powder 15 Gm Bottle) 1 appl TOPICAL TID [facility]; Protocol Last Admin: 10/14/23 10:13 Dose: 1 appl Documented By: RADHA Ondansetron HCl (Ondansetron Hcl 4 Mg/2 Ml Vial) 4 mg IVPUSH Q8H PRN PRN Reason: Nausea and Vomiting Last Admin: 10/10/23 09:34 Dose: 4 mg Documented By: CRISTINO Oxycodone HCl (Oxycodone Hcl Immed Release 5 Mg Tablet) 5 mg PO Q4H PRN PRN Reason: Pain, Mild (Pain Scale 1-3) Oxycodone HCl (Oxycodone Hcl Immed Release 5 Mg Tablet) 10 mg PO ONCE PRN PRN Reason: Pain, Severe (Pain Scale 7-10) Polyethylene Glycol (Polyethylene Glycol 3350 17 Gm Powd.Pack) 17 gm PO DAILY [facility] Last Admin: 10/14/23 10:07 Dose: Not Given Documented By: RADHA Non-Admin Reason: Hold dose per Dr. Dl Keller (Sennosides 8.6 Mg Tablet) 17.2 mg PO BEDTIME [facility] Last Admin: 10/13/23 22:55 Dose: Not Given Documented By: ISAAC Non-Admin Reason: Patient Refused Tamsulosin HCl (Tamsulosin Hcl 0.4 Mg Capsule) 0.4 mg PO BID [facility] Last Admin: 10/14/23 10:12 Dose: 0.4 mg Documented By: RADHA Labs 10/12/23 09:46 10/13/23 10:18 Microbiology Microbiology Results: Microbiology 10/10/23 17:13 Urine Culture - Final Urine Other - Kidney Left Klebsiella pneumoniae Assessment and Plan (1) Atrial tachycardia: Status: Acute (2) Pyelonephritis of left kidney: Status: Acute (3) Severe sepsis: Status: Acute Plan 72-year-old male with history of hypertension, nephrolithiasis, BPH with obstructive uropathy with Storm catheter placement 2 weeks ago, unspecified mood disorder, hyperlipidemia, ventral hernia, cervical myelopathy, and lumbar radiculopathy admitted for obstructive uropathy with pyelonephritis and sepsis. acute Storm catheter associated pyelonephritis with sepsis -leukocytosis 15.8, febrile to 103.3, acute lactic acidosis -UA with 3+ leukocytes, positive nitrates, positive urinary sediment, 4+ bacteria urine culture blood culture-Klebsiella -esbl Antibiotic changed to meropenem ,midline placed. urology consult-status post cystoscopy and stent placement. obstructive uropathy has rell -0.9 cm obstructive calculus in the left UVJ with hydronephrosis -renal function normal -Storm catheter replaced,continue Flomax. fecal impaction with stercoral colitis -senna, MiraLax, docusate Passing bowels. BPH with LUTS -replace Storm catheter, placed [address] Blackman -continue Flomax cough: added robitussin/cxr noted seems fine. hypertension hold lisinopril due to rell/boderline bp. cervical myelopathy/lumbar radiculopathy -continue gabapentin, hold naproxen nsvt episode: bmp reviewed -electrolytes seems fine Discussed with Cardiology added metoprolol. mood disorder -continue home meds DVT prophylaxis- Full code Ongoing hospitalization need: Obstructive uropathy, sepsis secondary to pyelonephritis, RELL-continue IV hydration, and IV antibiotics, urology expert input and possible urological procedure for consideration of obstructive uropathy and left obstructive calculus with hydronephrosis. Quality Stroke Does the patient have a stroke diagnosis?: No VTE Prior VTE?: No VTE Risk Level:: Medical - moderate - high VTE Device Contraindication: Treatment Not Indicated VTE Drug Contraindication: N/A - Med Ordered
[2023-10-14] MEDS: Enoxaparin Sodium 40 MG/0.4 ML SYRINGE SUBCUT (16:31)
[2023-10-14] MEDS: Melatonin 3 MG TABLET 9 MG PO (21:26)
[2023-10-15] VITALS: BP 137/67; PULSE 88; RESP 20; TEMP 36.7; O2SAT 94
[2023-10-15 04:00] VITALS: BP 146/70; PULSE 63; RESP 20; TEMP 37.1; O2SAT 93
[2023-10-15 07:10] VITALS: BP 151/73; PULSE 62; RESP 20; TEMP 36.8; O2SAT 94
[2023-10-15] MEDS: Escitalopram Oxalate 20 MG TABLET PO (07:59)
[2023-10-15] MEDS: Tamsulosin HCL 0.4 MG CAPSULE PO ×2 (07:59→20:51)
[2023-10-15] MEDS: Gabapentin 100 MG CAPSULE PO ×3 (07:59→20:50)
[2023-10-15] MEDS: Metoprolol Tartrate 12.5 MG HALFTAB PO ×2 (07:59→20:51)
[2023-10-15] MEDS: Heparin Sodium,Porcine Flush 50 UNITS, 0.9 % Sodium Chloride Flush 5 ML IVFLUSH ×3 (08:01→20:51)
[2023-10-15] MEDS: Magnesium Oxide 400 MG TABLET PO ×2 (08:01→16:04)
[2023-10-15] MEDS: Nystatin Powder 15 GM BOTTLE 1 APPL TOPICAL ×3 (08:02→20:52)
[2023-10-15] MEDS: Loperamide HCl 2 MG CAPSULE PO (10:45)
[2023-10-15] MEDS: lisinopriL 10 MG TABLET PO (12:31)
[2023-10-15] MEDS: LORazepam 1 MG TABLET PO (12:31)
[2023-10-15 12:32] VITALS: BP 134/64; PULSE 66
--- NOTE | 2023-10-15 13:56 | MHC.CM.PN ---
Pt has been accepted at [facility] for STR, and is awaiting insurance auth. CM spoke with him and his DTR today (she was at bedside). They were both anxious about his expected DC. CM discussed their concerns, and let provider know. Anticipate DC on 10/11/23 to [facility]. CM to follow and assist with DC plan.
[2023-10-15 14:04] LABS: Adenovirus F 40/41 Not Detected (Not Detect.); Astrovirus Not Detected (Not Detect.); Campylobacter Not Detected (Not Detect.); Cryptosporidium Not Detected (Not Detect.); Cyclospora cayetanensis Not Detected (Not Detect.); E. coli EAEC Not Detected (Not Detect.); E. coli EPEC Not Detected (Not Detect.); E. coli ETEC Not Detected (Not Detect.); E. coli STEC Not Detected (Not Detect.); Entamoeba histolytica Not Detected (Not Detect.); Giardia lamblia Not Detected (Not Detect.); Norovirus GI/GII Not Detected (Not Detect.); Plesiomonas shigelloides Not Detected (Not Detect.); Rotavirus A Not Detected (Not Detect.); Salmonella Not Detected (Not Detect.); Sapovirus Not Detected (Not Detect.); Shigella sp./EIEC Not Detected (Not Detect.); Vibrio Not Detected (Not Detect.); Vibrio Cholerae Not Detected (Not Detect.); Yersinia enterocolitica Not Detected (Not Detect.)
[2023-10-15 15:19] VITALS: BP 135/68; PULSE 75; RESP 20; TEMP 36.7; O2SAT 95
[2023-10-15] MEDS: Enoxaparin Sodium 40 MG/0.4 ML SYRINGE SUBCUT (16:04)
--- NOTE | 2023-10-15 16:09 | HO.WOUND ---
Wound Consult: Initial 72yr old male admitted to [facility] on?10/09/23 18:58 - See progress notes and H&P for detailed history. Wound consult placed for buttocks, and scrotum assessment - Arrival to bedside pt was agreeable to assessment. he reports baseline incontinence and reports he is not aware when he goes to the bathroom do is often soiled. Todays assessment revealed incontinence of soft paste stool - adherent to buttocks and posterior thighs. Gently cleansing completed but pt reports significant tenderness pain and itching while cleanings. Of note there does not appear to be fungal dermatitis at this time in addition to MASD -IAD (Moisture Associated Skin Damage -Incontinence Associated Dermatitis) Buttock, scrotum and perineal tissue Etiology: MASD -IAD (Moisture Associated Skin Damage -Incontinence Associated Dermatitis) Wound Bed: Red pink pigmented tissue intact - no open wounds noted - tissue remains blanchable throughout Drainage / Odor: None Edges: ? Mirrored Zita wound: No Induration, Fluctuance noted Pain: Extreme tenderness noted when attempting to clean - cleansing pasty stool took a great deal of time and effort as the patient had difficulty tolerating. Pt educated to benefits of allowing complete incontinence care. Goals of Treatment: ? Barrier cream to protect from moisture and friction Recommendations: 1. Turn and Reposition every 2 hours and as needed for patient comfort. 2. Off Load all bony prominences with use of pillows and heel boots if needed.? Apply Preventative foams where needed. ? 3. Monitor for incontinence and moisture control, use barrier creams when needed for prevention and treatment. 4. Provide adequate and supplemental nutrition. 5. Order or Continue low air loss mattress. 6. Maintain blood glucose levels per Providers orders. 7. Buttocks, Scrotum and Perineal - Cleanse with PH balance spray or wipes, pat dry. ?Apply thin layer of Triad to wound bed - only pat and dab no scrub and rub when soiling occurs. Reapply thin layer PRN after each episode of incontinence. Re-consult wound care Nurse for wound deterioration or wound changes.
--- NOTE | 2023-10-15 16:32 | HO.PM.IMPN ---
Subjective Subjective Date of Service: 10/15/23 Interval History: uti Review of Systems somewhat anxious no new c/o diarrahe improivng Physical Exam Vital Signs: Vital Signs: Last Vital Signs Temp 98.0 F 10/15/23 15:19 Pulse 75 10/15/23 15:19 Resp 20 10/15/23 15:19 BP 135/68 10/15/23 15:19 Pulse Ox 95 10/15/23 15:19 O2 Del Method Room Air 10/15/23 15:19 O2 Flow Rate 1 10/12/23 08:00 BMI result Body Mass Index 27.8 Appearance: Alert.? Oriented X3.? . cvs: rrr, [id number] , no murmur res: clear to auscultation ,no rhonchii or wheezing abd: no rebound or guarding ,left flank soarness , bs present. ext pulses present , no cyanosis ,. neuro: axo3 , nonfocal. Objective Data Active Medications Acetaminophen (Acetaminophen 325 Mg Tablet) 650 mg PO Q6H PRN PRN Reason: Pain, Mild (Pain Scale 1-3) Last Admin: 10/13/23 22:53 Dose: 650 mg Documented By: ISAAC Heparin Sodium (Porcine) 50 (units/ Sodium Chloride 5 ml) 0 units IVFLUSH TID [facility] Last Admin: 10/15/23 16:04 Dose: 50 unit Documented By: NICHOLE Enoxaparin Sodium (Enoxaparin Sodium 40 Mg/0.4 Ml Syringe) 40 mg SUBCUT Q24H [facility] Last Admin: 10/15/23 16:04 Dose: 40 mg Documented By: NICHOLE Escitalopram Oxalate (Escitalopram Oxalate 20 Mg Tablet) 20 mg PO DAILY [facility] Last Admin: 10/15/23 07:59 Dose: 20 mg Documented By: NICHOLE Fluticasone Propionate (Fluticasone Propionate Nasal 16 Gm [place]) 2 spray NOSTRIL-B DAILY PRN PRN Reason: Allergy Symptoms Gabapentin (Gabapentin 100 Mg Capsule) 100 mg PO TID [facility] Last Admin: 10/15/23 16:04 Dose: 100 mg Documented By: NICHOLE Guaifenesin (Guaifenesin 100 Mg/5 Ml Liquid) 5 ml PO Q6H PRN PRN Reason: Cough Last Admin: 10/13/23 22:53 Dose: 5 ml Documented By: ISAAC Meropenem 1 gm/ Sodium (Chloride) 100 mls @ 200 mls/hr IV Q8H [facility] Last Admin: 10/15/23 16:05 Dose: 200 mls/hr Documented By: NICHOLE Magnesium Oxide (Magnesium Oxide 400 Mg Tablet) 400 mg PO BIDPC [facility] Last Admin: 10/15/23 16:04 Dose: 400 mg Documented By: NICHOLE Melatonin (Melatonin 3 Mg Tablet) 9 mg PO BEDTIME PRN PRN Reason: Sleep Last Admin: 10/14/23 21:26 Dose: 9 mg Documented By: JAYDONLAMJoanna Metoprolol Tartrate (Metoprolol Tartrate 12.5 Mg Halftab) 12.5 mg PO BID [facility]; Protocol Last Admin: 10/15/23 07:59 Dose: 12.5 mg Documented By: NICHOLE Nystatin (Nystatin Powder 15 Gm Bottle) 1 appl TOPICAL TID [facility]; Protocol Last Admin: 10/15/23 16:05 Dose: 1 appl Documented By: NICHOLE Ondansetron HCl (Ondansetron Hcl 4 Mg/2 Ml Vial) 4 mg IVPUSH Q8H PRN PRN Reason: Nausea and Vomiting Last Admin: 10/10/23 09:34 Dose: 4 mg Documented By: CRISTINO Tamsulosin HCl (Tamsulosin Hcl 0.4 Mg Capsule) 0.4 mg PO BID [facility] Last Admin: 10/15/23 07:59 Dose: 0.4 mg Documented By: NICHOLE Labs 10/12/23 09:46 10/13/23 10:18 Labs: Laboratory Results - last 24 hr 10/14/23 15:00 Stl C. cayetanensis PCR Not Detected Stool Rotavirus A PCR Not Detected Stl Adenov F 40/41 PCR Not Detected Stool Astrovirus (PCR) Not Detected Stool Campylobacter PCR Not Detected Stool Cryptosporidium PCR Not Detected Stl Sh Tox Pr E STEC PCR Not Detected Stool E coli O157 PCR Not applicable Stl Enterotoxigenic E PCR Not Detected Stool EPEC (PCR) Not Detected Stool EAEC (PCR) Not Detected Stl E. histolytica PCR Not Detected Stool Giardia Lamblia PCR Not Detected Stl P. shigelloides PCR Not Detected Stool Salmonella PCR Not Detected Stool Sapovirus (PCR) Not Detected Stl Shigella/EIEC PCR Not Detected St Y.enterocolitica PCR Not Detected Stool Vibrio (PCR) Not Detected Stl Vibrio cholerae PCR Not Detected Stl Norovirus GI/GII PCR Not Detected Assessment and Plan (1) Pyelonephritis of left kidney: Status: Acute (2) Severe sepsis: Status: Acute Plan 72-year-old male with history of hypertension, nephrolithiasis, BPH with obstructive uropathy with Storm catheter placement 2 weeks ago, unspecified mood disorder, hyperlipidemia, ventral hernia, cervical myelopathy, and lumbar radiculopathy admitted for obstructive uropathy with pyelonephritis and sepsis. acute Storm catheter associated pyelonephritis with sepsis -leukocytosis 15.8, febrile to 103.3, acute lactic acidosis -UA with 3+ leukocytes, positive nitrates, positive urinary sediment, 4+ bacteria urine culture blood culture-Klebsiella -esbl Antibiotic changed to meropenem ,midline placed. urology consult-status post cystoscopy and stent placement. obstructive uropathy has veronica -0.9 cm obstructive calculus in the left UVJ with hydronephrosis -renal function normal -Storm catheter replaced,continue Flomax. fecal impaction with stercoral colitis -senna, MiraLax, docusate Passing bowels. BPH with LUTS -replace Storm catheter, placed [address] Blackman -continue Flomax cough: added robitussin/cxr noted seems fine. hypertension uncontrolled: added lisinopril .moniter bp cervical myelopathy/lumbar radiculopathy -continue gabapentin, hold naproxen nsvt episode: bmp reviewed -electrolytes seems fine Discussed with Cardiology added metoprolol. mood disorder -continue home meds DVT prophylaxis-lovenox Full code Ongoing hospitalization need: awaiting placement,also need bp control . Quality Stroke Does the patient have a stroke diagnosis?: No VTE Prior VTE?: No VTE Risk Level:: Medical - moderate - high VTE Device Contraindication: Treatment Not Indicated VTE Drug Contraindication: N/A - Med Ordered
[2023-10-15 20:00] VITALS: BP 142/81; PULSE 87; RESP 19; TEMP 39.3; O2SAT 92
[2023-10-16 00:16] VITALS: BP 136/66; PULSE 63; RESP 17; TEMP 37.1; O2SAT 92
[2023-10-16 04:00] VITALS: BP 140/79; PULSE 78; RESP 18; TEMP 36.7; O2SAT 94
[2023-10-16 07:16] VITALS: BP 144/73; PULSE 74; RESP 16; TEMP 36.8; O2SAT 92
[2023-10-16 08:47] VITALS: BP 144/73; PULSE 74; O2SAT 92
[2023-10-16] MEDS: Metoprolol Tartrate 12.5 MG HALFTAB PO ×2 (08:53→22:43)
[2023-10-16] MEDS: Nystatin Powder 15 GM BOTTLE 1 APPL TOPICAL ×3 (08:54→22:38)
[2023-10-16] MEDS: Gabapentin 100 MG CAPSULE PO ×3 (08:54→22:38)
[2023-10-16] MEDS: Heparin Sodium,Porcine Flush 50 UNITS, 0.9 % Sodium Chloride Flush 5 ML IVFLUSH ×3 (08:54→22:43)
[2023-10-16] MEDS: Escitalopram Oxalate 20 MG TABLET PO (08:54)
[2023-10-16] MEDS: Magnesium Oxide 400 MG TABLET PO ×2 (08:54→15:44)
[2023-10-16] MEDS: Tamsulosin HCL 0.4 MG CAPSULE PO ×2 (08:54→22:38)
--- NOTE | 2023-10-16 09:42 | MHC.CM.PN ---
[facility] PT WILL DC LATER TODAY TO STR AT [facility] PENDING INSURANCE [place] [place] FOR BLS TRANSPORT
--- NOTE | 2023-10-16 13:39 | P.PNIM_ITS ---
Subjective Subjective Date of Service: 10/16/23 Interval History: uti Review of Systems no new c/o ,one episode of fever last night Physical Exam 2 Vital Signs: Vital Signs: Last Vital Signs Temp 98.2 F 10/16/23 07:16 Pulse 74 10/16/23 08:47 Resp 16 10/16/23 07:16 BP 144/73 H 10/16/23 08:47 Pulse Ox 92 10/16/23 08:47 O2 Del Method Room Air 10/16/23 07:16 O2 Flow Rate 1 10/12/23 08:00 BMI result Body Mass Index 27.8 Appearance: Alert.? Oriented X3.? . cvs: rrr, [id number] , no murmur res: clear to auscultation ,no rhonchii or wheezing abd: no rebound or guarding ,left flank soarness , bs present. ext pulses present , no cyanosis ,. neuro: axo3 , nonfocal Objective Data Active Medications Acetaminophen (Acetaminophen 325 Mg Tablet) 650 mg PO Q6H PRN PRN Reason: Pain, Mild (Pain Scale 1-3) Last Admin: 10/13/23 22:53 Dose: 650 mg Documented By: ISAAC Heparin Sodium (Porcine) 50 (units/ Sodium Chloride 5 ml) 0 units IVFLUSH TID [facility] Last Admin: 10/16/23 08:54 Dose: 50 unit Documented By: NICHOLE Enoxaparin Sodium (Enoxaparin Sodium 40 Mg/0.4 Ml Syringe) 40 mg SUBCUT Q24H [facility] Last Admin: 10/15/23 16:04 Dose: 40 mg Documented By: NICHOLE Escitalopram Oxalate (Escitalopram Oxalate 20 Mg Tablet) 20 mg PO DAILY [facility] Last Admin: 10/16/23 08:54 Dose: 20 mg Documented By: NICHOLE Fluticasone Propionate (Fluticasone Propionate Nasal 16 Gm [place]) 2 spray NOSTRIL-B DAILY PRN PRN Reason: Allergy Symptoms Gabapentin (Gabapentin 100 Mg Capsule) 100 mg PO TID [facility] Last Admin: 10/16/23 08:54 Dose: 100 mg Documented By: NICHOLE Guaifenesin (Guaifenesin 100 Mg/5 Ml Liquid) 5 ml PO Q6H PRN PRN Reason: Cough Last Admin: 10/13/23 22:53 Dose: 5 ml Documented By: ISAAC Meropenem 1 gm/ Sodium (Chloride) 100 mls @ 200 mls/hr IV Q8H [facility] Last Infusion: 10/16/23 09:25 Dose: Infused Documented By: NICHOLE Magnesium Oxide (Magnesium Oxide 400 Mg Tablet) 400 mg PO BIDPC [facility] Last Admin: 10/16/23 08:54 Dose: 400 mg Documented By: NICHOLE Melatonin (Melatonin 3 Mg Tablet) 9 mg PO BEDTIME PRN PRN Reason: Sleep Last Admin: 10/14/23 21:26 Dose: 9 mg Documented By: LAFLAMJoanna Metoprolol Tartrate (Metoprolol Tartrate 12.5 Mg Halftab) 12.5 mg PO BID [facility]; Protocol Last Admin: 10/16/23 08:53 Dose: 12.5 mg Documented By: NICHOLE Nystatin (Nystatin Powder 15 Gm Bottle) 1 appl TOPICAL TID [facility]; Protocol Last Admin: 10/16/23 08:54 Dose: 1 appl Documented By: NICHOLE Ondansetron HCl (Ondansetron Hcl 4 Mg/2 Ml Vial) 4 mg IVPUSH Q8H PRN PRN Reason: Nausea and Vomiting Last Admin: 10/10/23 09:34 Dose: 4 mg Documented By: CRISTINO Tamsulosin HCl (Tamsulosin Hcl 0.4 Mg Capsule) 0.4 mg PO BID [facility] Last Admin: 10/16/23 08:54 Dose: 0.4 mg Documented By: NICHOLE Labs 10/12/23 09:46 10/13/23 10:18 Labs: Laboratory Results - last 24 hr 10/14/23 15:00 Stl C. cayetanensis PCR Not Detected Stool Rotavirus A PCR Not Detected Stl Adenov F 40/41 PCR Not Detected Stool Astrovirus (PCR) Not Detected Stool Campylobacter PCR Not Detected Stool Cryptosporidium PCR Not Detected Stl Sh Tox Pr E STEC PCR Not Detected Stool E coli O157 PCR Not applicable Stl Enterotoxigenic E PCR Not Detected Stool EPEC (PCR) Not Detected Stool EAEC (PCR) Not Detected Stl E. histolytica PCR Not Detected Stool Giardia Lamblia PCR Not Detected Stl P. shigelloides PCR Not Detected Stool Salmonella PCR Not Detected Stool Sapovirus (PCR) Not Detected Stl Shigella/EIEC PCR Not Detected St Y.enterocolitica PCR Not Detected Stool Vibrio (PCR) Not Detected Stl Vibrio cholerae PCR Not Detected Stl Norovirus GI/GII PCR Not Detected Assessment and Plan (1) Pyelonephritis of left kidney: Status: Acute (2) Severe sepsis: Status: Acute Plan 72-year-old male with history of hypertension, nephrolithiasis, BPH with obstructive uropathy with Storm catheter placement 2 weeks ago, unspecified mood disorder, hyperlipidemia, ventral hernia, cervical myelopathy, and lumbar radiculopathy admitted for obstructive uropathy with pyelonephritis and sepsis. acute Storm catheter associated pyelonephritis with sepsis -leukocytosis 15.8, febrile to 103.3, acute lactic acidosis -UA with 3+ leukocytes, positive nitrates, positive urinary sediment, 4+ bacteria urine culture blood culture-Klebsiella -esbl Antibiotic changed to meropenem ,midline placed. urology consult-status post cystoscopy and stent placement. obstructive uropathy has veronica -0.9 cm obstructive calculus in the left UVJ with hydronephrosis -renal function normal -Storm catheter replaced,continue Flomax. fecal impaction with stercoral colitis -senna, MiraLax, docusate Passing bowels. BPH with LUTS -replace Storm catheter, placed [address] Blackman -continue Flomax cough: added robitussin/cxr noted seems fine. hypertension uncontrolled: added lisinopril .moniter bp cervical myelopathy/lumbar radiculopathy -continue gabapentin, hold naproxen nsvt episode: bmp reviewed -electrolytes seems fine Discussed with Cardiology added metoprolol. mood disorder -continue home meds DVT prophylaxis-lovenox Full code Ongoing hospitalization need: awaiting placement,also need bp control . Quality Stroke Does the patient have a stroke diagnosis?: No VTE Prior VTE?: No VTE Risk Level:: Medical - moderate - high VTE Device Contraindication: Treatment Not Indicated VTE Drug Contraindication: N/A - Med Ordered
[2023-10-16 15:01] VITALS: BP 149/74; PULSE 97; RESP 16; TEMP 37.1; O2SAT 95
[2023-10-16] MEDS: Enoxaparin Sodium 40 MG/0.4 ML SYRINGE SUBCUT (15:46)
[2023-10-16 19:28] VITALS: BP 137/72; PULSE 80; RESP 20; TEMP 36.7; O2SAT 94
[2023-10-16] MEDS: Acetaminophen 325 MG TABLET 650 MG PO (22:37)
[2023-10-16] MEDS: Melatonin 3 MG TABLET 9 MG PO (22:38)
[2023-10-17 03:32] VITALS: BP 140/77; PULSE 59; TEMP 36.6; O2SAT 95
[2023-10-17 07:31] VITALS: BP 128/60; PULSE 60; RESP 17; TEMP 36.4; O2SAT 93
[2023-10-17] MEDS: Acetaminophen 325 MG TABLET 650 MG PO ×2 (09:52→22:02)
[2023-10-17] MEDS: Escitalopram Oxalate 20 MG TABLET PO (09:53)
[2023-10-17] MEDS: Magnesium Oxide 400 MG TABLET PO ×2 (09:53→16:08)
[2023-10-17] MEDS: Tamsulosin HCL 0.4 MG CAPSULE PO ×2 (09:53→21:48)
[2023-10-17] MEDS: Gabapentin 100 MG CAPSULE PO ×3 (09:53→21:48)
[2023-10-17] MEDS: Metoprolol Tartrate 12.5 MG HALFTAB PO ×2 (09:54→21:48)
[2023-10-17] MEDS: Nystatin Powder 15 GM BOTTLE 1 APPL TOPICAL ×3 (09:55→21:48)
--- NOTE | 2023-10-17 10:39 | MHC.CM.PN ---
EMR REVIEWED, PER [facility] AUTH STILL PENDING, CM MET W/PT AND PT'S DTR AT BEDSIDE TO UPDATE AND DISCUSS FMLA PAPERWORK, DTR IS AWARE [facility] UNABLE TO COMPLETE FMLA PAPERWORK PER POLICY, DTR REPORTS SHE UNDERSTANDS, CM WILL CONT TO FOLLOW.
[2023-10-17] MEDS: Heparin Sodium,Porcine Flush 50 UNITS, 0.9 % Sodium Chloride Flush 5 ML IVFLUSH ×3 (10:55→21:49)
[2023-10-17 11:09] VITALS: BP 128/60; PULSE 60; O2SAT 93
[2023-10-17 15:15] VITALS: BP 128/69; PULSE 67; RESP 18; TEMP 36.7; O2SAT 95
[2023-10-17] MEDS: Enoxaparin Sodium 40 MG/0.4 ML SYRINGE SUBCUT (16:04)
--- NOTE | 2023-10-17 18:49 | P.PNIM_ITS ---
Subjective Subjective Date of Service: 10/17/23 Interval History: No new issues, waiting on insurance authorization for discharge Physical Exam 2 Vital Signs: Vital Signs: Last Vital Signs Temp 98.0 F 10/17/23 15:15 Pulse 67 10/17/23 15:15 Resp 18 10/17/23 15:15 BP 128/69 10/17/23 15:15 Pulse Ox 95 10/17/23 15:15 O2 Del Method Room Air 10/17/23 15:15 O2 Flow Rate 1 10/12/23 08:00 BMI result Body Mass Index 27.8 Const: Other: General: AO X 3, no acute distress Resp: CTA bilateral CVS: S1,S2,RRR GI: +BS, NT, no distention Skin: No rash Neuro: motor grossly intact Psych: appropriate affect Objective Data Active Medications Acetaminophen (Acetaminophen 325 Mg Tablet) 650 mg PO Q6H PRN PRN Reason: Pain, Mild (Pain Scale 1-3) Last Admin: 10/17/23 09:52 Dose: 650 mg Documented By: DARYL Heparin Sodium (Porcine) 50 (units/ Sodium Chloride 5 ml) 0 units IVFLUSH TID [facility] Last Admin: 10/17/23 16:03 Dose: 50 unit Documented By: RADHA Enoxaparin Sodium (Enoxaparin Sodium 40 Mg/0.4 Ml Syringe) 40 mg SUBCUT Q24H [facility] Last Admin: 10/17/23 16:04 Dose: 40 mg Documented By: RADHA Escitalopram Oxalate (Escitalopram Oxalate 20 Mg Tablet) 20 mg PO DAILY [facility] Last Admin: 10/17/23 09:53 Dose: 20 mg Documented By: DARYL Fluticasone Propionate (Fluticasone Propionate Nasal 16 Gm [place]) 2 spray NOSTRIL-B DAILY PRN PRN Reason: Allergy Symptoms Gabapentin (Gabapentin 100 Mg Capsule) 100 mg PO TID [facility] Last Admin: 10/17/23 16:04 Dose: 100 mg Documented By: RADHA Guaifenesin (Guaifenesin 100 Mg/5 Ml Liquid) 5 ml PO Q6H PRN PRN Reason: Cough Last Admin: 10/13/23 22:53 Dose: 5 ml Documented By: ISAAC Meropenem 1 gm/ Sodium (Chloride) 100 mls @ 200 mls/hr IV Q8H [facility] Last Infusion: 10/17/23 16:41 Dose: Infused Documented By: RADHA Magnesium Oxide (Magnesium Oxide 400 Mg Tablet) 400 mg PO BIDPC [facility] Last Admin: 10/17/23 16:08 Dose: 400 mg Documented By: RADHA Melatonin (Melatonin 3 Mg Tablet) 9 mg PO BEDTIME PRN PRN Reason: Sleep Last Admin: 10/16/23 22:38 Dose: 9 mg Documented By: ORHINI Metoprolol Tartrate (Metoprolol Tartrate 12.5 Mg Halftab) 12.5 mg PO BID [facility]; Protocol Last Admin: 10/17/23 09:54 Dose: 12.5 mg Documented By: DARYL Nystatin (Nystatin Powder 15 Gm Bottle) 1 appl TOPICAL TID [facility]; Protocol Last Admin: 10/17/23 16:05 Dose: 1 appl Documented By: RADHA Ondansetron HCl (Ondansetron Hcl 4 Mg/2 Ml Vial) 4 mg IVPUSH Q8H PRN PRN Reason: Nausea and Vomiting Last Admin: 10/10/23 09:34 Dose: 4 mg Documented By: CRISTINO Tamsulosin HCl (Tamsulosin Hcl 0.4 Mg Capsule) 0.4 mg PO BID [facility] Last Admin: 10/17/23 09:53 Dose: 0.4 mg Documented By: DARYL Labs 10/12/23 09:46 10/13/23 10:18 Assessment and Plan (1) Pyelonephritis of left kidney: Status: Acute Plan 72-year-old male with history of hypertension, nephrolithiasis, BPH with obstructive uropathy with Padilla catheter placement 2 weeks ago, unspecified mood disorder, hyperlipidemia, ventral hernia, cervical myelopathy, and lumbar radiculopathy admitted for obstructive uropathy with pyelonephritis and sepsis. acute Padilla catheter associated pyelonephritis with sepsis--present on admission. culturre = ESBL Klebsiela. -continue Meropenem, Invanz at [facility] obstructive uropathy has veronica -0.9 cm obstructive calculus in the left UVJ with hydronephrosis -s/p stent -continue padilla, fecal impaction with stercoral colitis -senna, MiraLax, docusate Passing bowels. BPH with LUTS -replace Padilla catheter, placed [address] Blackman -continue Flomax hypertension uncontrolled: continue lisinopril cervical myelopathy/lumbar radiculopathy -continue gabapentin, hold naproxen nsvt episode:, continue metoprolol mood disorder -continue home meds DVT prophylaxis-lovenox Full code Ongoing hospitalization need: awaiting placement,also need bp control . Quality Stroke Does the patient have a stroke diagnosis?: No VTE Prior VTE?: No VTE Risk Level:: Medical - moderate - high VTE Device Contraindication: Treatment Not Indicated VTE Drug Contraindication: N/A - Med Ordered
[2023-10-17 20:00] VITALS: BP 148/71; PULSE 71; RESP 18; TEMP 37.2; O2SAT 96
[2023-10-17] MEDS: Melatonin 3 MG TABLET 9 MG PO (22:02)
[2023-10-18 00:24] VITALS: BP 118/59; PULSE 59; RESP 18; TEMP 36.3; O2SAT 95
[2023-10-18 04:00] VITALS: BP 138/72; PULSE 67; RESP 18; TEMP 37; O2SAT 93
[2023-10-18 07:59] VITALS: BP 136/76; PULSE 64; RESP 16; TEMP 37; O2SAT 95
--- NOTE | 2023-10-18 08:50 | MHC.CM.PN ---
[facility] STILL AWAITING INSURANCE AUTH, CM WILL CONT TO FOLLOW
[2023-10-18] MEDS: Escitalopram Oxalate 20 MG TABLET PO (10:35)
[2023-10-18] MEDS: Magnesium Oxide 400 MG TABLET PO ×2 (10:35→18:17)
[2023-10-18] MEDS: Tamsulosin HCL 0.4 MG CAPSULE PO (10:35)
[2023-10-18] MEDS: Metoprolol Tartrate 12.5 MG HALFTAB PO (10:35)
[2023-10-18] MEDS: Gabapentin 100 MG CAPSULE PO ×2 (10:35→14:39)
[2023-10-18] MEDS: Heparin Sodium,Porcine Flush 50 UNITS, 0.9 % Sodium Chloride Flush 5 ML IVFLUSH ×2 (10:38→14:39)
[2023-10-18] MEDS: Nystatin Powder 15 GM BOTTLE 1 APPL TOPICAL ×2 (10:39→14:39)
[2023-10-18 11:27] VITALS: BP 120/65; PULSE 59; RESP 17; TEMP 36.3; O2SAT 96
--- NOTE | 2023-10-18 12:31 | HO.PM.IMPN ---
Subjective Subjective Date of Service: 10/18/23 Interval History: No new issues, waiting on insurance authorization for discharge Physical Exam Vital Signs: Vital Signs: Last Vital Signs Temp 97.4 F 10/18/23 11:27 Pulse 59 10/18/23 11:27 Resp 17 10/18/23 11:27 BP 120/65 10/18/23 11:27 Pulse Ox 96 10/18/23 11:27 O2 Del Method Room Air 10/18/23 11:27 O2 Flow Rate 1 10/12/23 08:00 BMI result Body Mass Index 27.8 Const: Other: General: AO X 3, no acute distress Resp: CTA bilateral CVS: S1,S2,RRR GI: +BS, NT, no distention Skin: No rash Neuro: motor grossly intact Psych: appropriate affect Objective Data Active Medications Acetaminophen (Acetaminophen 325 Mg Tablet) 650 mg PO Q6H PRN PRN Reason: Pain, Mild (Pain Scale 1-3) Last Admin: 10/17/23 22:02 Dose: 650 mg Documented By: MARCELL Heparin Sodium (Porcine) 50 (units/ Sodium Chloride 5 ml) 0 units IVFLUSH TID [facility] Last Admin: 10/18/23 10:38 Dose: 5 unit Documented By: ISIDRA Enoxaparin Sodium (Enoxaparin Sodium 40 Mg/0.4 Ml Syringe) 40 mg SUBCUT Q24H [facility] Last Admin: 10/17/23 16:04 Dose: 40 mg Documented By: RADHA Escitalopram Oxalate (Escitalopram Oxalate 20 Mg Tablet) 20 mg PO DAILY [facility] Last Admin: 10/18/23 10:35 Dose: 20 mg Documented By: ISIDRA Fluticasone Propionate (Fluticasone Propionate Nasal 16 Gm [place]) 2 spray NOSTRIL-B DAILY PRN PRN Reason: Allergy Symptoms Gabapentin (Gabapentin 100 Mg Capsule) 100 mg PO TID [facility] Last Admin: 10/18/23 10:35 Dose: 100 mg Documented By: ISIDRA Guaifenesin (Guaifenesin 100 Mg/5 Ml Liquid) 5 ml PO Q6H PRN PRN Reason: Cough Last Admin: 10/13/23 22:53 Dose: 5 ml Documented By: ISAAC Meropenem 1 gm/ Sodium (Chloride) 100 mls @ 200 mls/hr IV Q8H [facility] Last Infusion: 10/18/23 11:17 Dose: Infused Documented By: ISIDRA Magnesium Oxide (Magnesium Oxide 400 Mg Tablet) 400 mg PO BIDPC [facility] Last Admin: 10/18/23 10:35 Dose: 400 mg Documented By: ISIDRA Melatonin (Melatonin 3 Mg Tablet) 9 mg PO BEDTIME PRN PRN Reason: Sleep Last Admin: 10/17/23 22:02 Dose: 9 mg Documented By: MARCELL Metoprolol Tartrate (Metoprolol Tartrate 12.5 Mg Halftab) 12.5 mg PO BID [facility]; Protocol Last Admin: 10/18/23 10:35 Dose: 12.5 mg Documented By: ISIDRA Nystatin (Nystatin Powder 15 Gm Bottle) 1 appl TOPICAL TID [facility]; Protocol Last Admin: 10/18/23 10:39 Dose: 1 appl Documented By: ISIDRA Ondansetron HCl (Ondansetron Hcl 4 Mg/2 Ml Vial) 4 mg IVPUSH Q8H PRN PRN Reason: Nausea and Vomiting Last Admin: 10/10/23 09:34 Dose: 4 mg Documented By: CRISTINO Tamsulosin HCl (Tamsulosin Hcl 0.4 Mg Capsule) 0.4 mg PO BID [facility] Last Admin: 10/18/23 10:35 Dose: 0.4 mg Documented By: ISIDRA Labs 10/12/23 09:46 10/13/23 10:18 Assessment and Plan (1) Pyelonephritis of left kidney: Status: Acute Plan 72-year-old male with history of hypertension, nephrolithiasis, BPH with obstructive uropathy with Padilla catheter placement 2 weeks ago, unspecified mood disorder, hyperlipidemia, ventral hernia, cervical myelopathy, and lumbar radiculopathy admitted for obstructive uropathy with pyelonephritis and sepsis. Acute Padilla catheter associated pyelonephritis with sepsis--present on admission. culturre = ESBL Klebsiela. -[facility] Meropenem[facility] Obstructive uropathy with RELL -0.9 cm obstructive calculus in the left UVJ with hydronephrosis -s/p stent, renal function has returned to normal -continue padilla, fecal impaction with stercoral colitis -senna, MiraLax, docusate Passing bowels. BPH with LUTS -replaced Padilla catheter, -continue Flomax hypertension now controlled, continue lisinopril cervical myelopathy/lumbar radiculopathy -continue gabapentin, hold naproxen nsvt episode:, continue metoprolol mood disorder -continue home meds DVT prophylaxis-lovenox Full code Ongoing hospitalization need: awaiting placement,also need bp control. Quality Stroke Does the patient have a stroke diagnosis?: No VTE Prior VTE?: No VTE Risk Level:: Medical - moderate - high VTE Device Contraindication: Treatment Not Indicated VTE Drug Contraindication: N/A - Med Ordered
[2023-10-18 15:36] VITALS: BP 150/72; PULSE 60; RESP 18; TEMP 36.8; O2SAT 96
--- NOTE | 2023-10-18 15:42 | PM.DS ---
DS: Providers Provider Date of Service: 10/18/23 Date of admission: 10/09/23 18:58 Primary care physician: Gonzalez Gaitan MD Consults: 10/09/23 19:09 Consult to Urology Routine Consulting Provider: Matt Del Rosario Reason for consultation: obstructive uropathy, pyelonephritis 10/11/23 08:34 Consult to Cardiology Routine Consulting Provider: [facility] Reason for consultation: junctional rythem 10/11/23 10:38 Consult to Infectious Diseases Routine Consulting Provider: [facility] [place] Infectious Disease Reason for consultation: Bacteremia 10/14/23 11:49 Consult to Wound Care Routine Reason for consultation: Redness to buttocks/ groin/ scrotum r/t stool incontinence Has provider been notified: Yes DS: Diagnosis Discharge Diagnosis (1) Pyelonephritis of left kidney: Status: Acute DS: Summary Hospital Course Hospital Course: Admission HPI Chief Complaint: abd pain 72-year-old male with history of hypertension, nephrolithiasis, BPH with obstructive uropathy with Padilla catheter placement 2 weeks ago, unspecified mood disorder, hyperlipidemia, ventral hernia, cervical myelopathy, and lumbar radiculopathy earlier today for evaluation of left lower quadrant pain. He states that he has not had a bowel movement in over a week and has had a nausea and vomiting. He states he has been able to tolerate small amounts of clear liquids. He denies any fevers or chills. No diarrhea, melena, hematochezia, lightheadedness, headaches, shortness of breath, cough, chest pain. He denies any dysuria, hematuria, increased urinary frequency urgency. Follows in Neurology with Dr. Blackman. On arrival, vitals stable. However did develop fever of 103.3. He has leukocytosis of 15.3 with slight left shift. Renal function and electrolyte levels normal. Lactic acid 2.1. Hepatic function baseline. Urinalysis significant for 3+ leukocytes, positive nitrites, negative blood, positive urinary sediment, 4+ bacteria. CT abdomen/pelvis shows left-sided hydronephrosis with perinephric stranding as well as an obstructing 0.9 cm stone at the left ureteropelvic junction with tiny bubble of air adjacent to the calcification as well as additional nonobstructing intrarenal calculi. There is also noted to be a large amount of stool throughout the colon and rectum and rectum is noted to be distended with dense stool and rectal wall thickening with mild perirectal inflammatory change. In the ED, has been given 650 mg acetaminophen, 750 mg IV Levaquin, 1 L IV NS, 1 g ceftriaxone, and in D insert Dereck. Also given Fleet enema without any bowel movement. ED provider did recommend manual disimpaction but patient refused. Hospitalist: The patient was admitted due to sepsis caused by pyelonephritis linked to an obstructive kidney stone, resulting in acute renal failure and hydronephrosis. Immediate IV antibiotic treatment was initiated following cultures. A urologist performed a Cystoscopy and placed a left Ureteral Stent on 10/10/23, which effectively resolved the acute kidney injury, restoring renal function to normal. Both urine and blood cultures showed growth of ESBL Klebsiella, prompting Infectious Disease consultation recommending a two-week treatment plan. Given the ESBL Klebsiella's resistant nature, a Midline was inserted, and Meropenem was administered for six days during hospitalization. The plan includes transitioning to Invanz 1 gram daily for an additional eight days, totaling 14 days of treatment. The patient is afebrile, and WBC levels have shown a decreasing trend. A previous Padilla catheter has been replaced, and follow-up with Urology is necessary for stent reassessment. Fecal impaction with stercoral colitis--resolved, having bowel movement, continue Senna, Miralax and Docusate BPH --continue Flomax hypertension--controlled, continue present meds cervical myelopathy/lumbar radiculopathy -continue gabapentin, Stop Naproxen nsvt episode:continue metoprolol mood disorder--continue meds Patient will be going to short term rehab for less than 30 days Time Attestation Discharge coordination time: Greater than 30 minutes Quality: Safe Use of Opioids Does Pt have an Active Cancer Diagnosis on the Problem List?: No Quality: Stroke Does the patient have a stroke diagnosis?: No Physical Exam Vital Signs: Vital Signs: Last Vital Signs Temp 98.2 F 10/18/23 15:36 Pulse 60 10/18/23 15:36 Resp 18 10/18/23 15:36 BP 150/72 H 10/18/23 15:36 Pulse Ox 96 10/18/23 15:36 O2 Del Method Room Air 10/18/23 15:36 O2 Flow Rate 1 10/12/23 08:00 BMI result Body Mass Index 27.8 DS: Data Data Completed and Pending Completed studies during hospitalization [Text1]: Procedures Excision of Lumbar Vertebral Disc, Open Approach (08/27/23) Fusion of Lumbar Vertebral Joint with Interbody Fusion Device, Anterior Approach, Anterior Column, Open Approach (08/27/23) Insertion of Interspinous Process Spinal Stabilization Device into Lumbar Vertebral Joint, Open Approach (08/27/23) Discharge Plan Discharge Anticipated Discharge Date/Time: 10/18/23 15:31 Patient Disposition: Xfer SNF Discharge Diagnosis: Acute pyelonephritis, obstructive uropathy, Hydronephrosis, sepsis Referrals: [facility] [Outside] - 1 Day ([facility], SHORT TERM REHAB) Matt Del Rosario MD [Physician] - 2 Weeks Gonzalez Gaitan MD [Primary Care Provider] - 1 Week Discharge Medications: New ertapenem 1 gram recon soln 1 g IV DAILY Qty: 8 0RF Rx Instructions: starting tomorrow Continued citalopram 40 mg tablet 40 mg PO DAILY tamsulosin 0.4 mg capsule 0.4 mg PO BID gabapentin 100 mg capsule 100 mg PO TID sennosides [senna] 8.6 mg Tablet 17.2 mg PO BEDTIME acetaminophen 325 mg Tablet 650 mg PO Q4H PRN (Reason: pain.fever) docusate sodium [Colace] 100 mg Capsule 100 mg PO DAILY fluticasone propionate 50 mcg/actuation [place],Suspension 2 spray INTRANASAL DAILY PRN (Reason: Allergy Symptoms) Rx Instructions: administer into each nostril melatonin 10 mg Tablet 10 mg PO BEDTIME PRN (Reason: Sleep) lisinopril 10 mg tablet 10 mg PO DAILY Discontinued naproxen 500 mg tablet 500 mg PO BID PRN (Reason: Pain (Scale Score 4-6)) Discharge Orders: Discharge Order (Routine); Ordered 10/18/23 Ordered By: Sumanth Castro Diet: Advance to usual diet Activity on Discharge: As tolerated Stand Alone Forms: Patient Portal Discharge page Care Plan Goals: Full recovery from Pyelonephritis , sepsis from obstructive uropathy, and renal failure Health Concerns: same as above Plan of Treatment: Take Invanz (Ertapenem) as recommended and follow up with your PCP and Urologist, continue use of padilla cath To short term rehab for less than 30 days Assessment: See above Discharge Date/Time: 10/18/23 18:30
--- NOTE | 2023-10-18 15:56 | MHC.CM.PN ---
CM RECEIVED CALL FROM [facility] REPORTING DON/ADMIN SAID TO GO AHEAD AND SEND PT EVEN THOUGH THEY HAD NOT RECEIVED AUTH, YET, CM MET W/PT TO DISCUSS AND PT WAS WORRIED ABOUT GOING W/OUT AUTH AND REQUESTED CM CONTACT [facility]. CM CONTACTED [facility] [phone], CM WAS TRANSFERRED AND SPOKE TO 3 DIFFERENT PEOPLE WHO SAID PT'S AUTH WAS PENDING HOWEVER D/T IT BEING 4 DAYS SINCE AUTH SUBMITTED AND FINALLY WAS TRANSFERRED TO [facility] [phone] WHO DOES AUTHS [facility] REPORTED PT WAS GIVEN AUTH ON 10/15 PLAN AUTH [id number] AND [facility] #[id number], INFO SENT TO FACILITY AND PT WILL BE SET UP FOR DC TO SNF. PT MEDICALLY CLEARED FOR DC TO [facility]IA [facility] AT 1730 PER REQUEST OF HOSPITALIST.
[2023-10-18 16:42] LABS: Hematocrit 33.5 % (42.0-52.0); Hemoglobin 10.8 g/dl (14.0-18.0); Mean Corpuscular HGB Conc 32.2 g/dl (31.0-36.0); Mean Corpuscular Hemoglobin 29.3 pg (27.0-33.0); Mean Corpuscular Volume 90.8 fL (80.0-98.0); Mean Platelet Volume 10.2 fL (9.4-12.4); Platelet Count 402 X10*3/uL (160-400); Red Blood Count 3.69 X10*6/uL (4.60-5.80); White Blood Count 12.4 X10*3/uL (4.8-10.8)
[2023-10-18 17:05] LABS: Anion Gap 10 (12-20); Blood Urea Nitrogen 14 mg/dL (9-16); Calcium 8.3 mg/dL (8.4-10.2); Carbon Dioxide 27 mmol/L (22-29); Chloride 104 mmol/L (96-108); Creatinine Clr Calc Pharmacy 97.8; Estimated Glomerular Filt Rate > 60; Glucose Random 106 mg/dL (60-115); Potassium 4.2 mmol/L (3.3-5.1); Sodium 137 mmol/L (135-145)
[2023-10-18] MEDS: Ertapenem Sodium 1 GM in 0.9 % Sodium Chloride 50 ML IV (18:15)
[2023-10-18] MEDS: Enoxaparin Sodium 40 MG/0.4 ML SYRINGE SUBCUT (18:17)
== END 2023-10-18 18:30 | disposition skilled nursing facility (03) | DRG 660 ==
LOC: HO.ED 18:06 → HO.EDOVER 20:34 → HO.IMC 20:51
PROVIDERS: Internal Medicine; Student in an Organized Health Care Education/Training Program; Urology; Admitting Provider Physician Assistant; Emergency Provider Emergency Medicine; PCP Internal Medicine; Visit Provider Internal Medicine
PROC: 0T778DZ Dilation of Left Ureter with Intraluminal Device, Via Natural or Artificial Opening Endoscopic (ICD-10-PCS; principal; 2023-10-10 16:30)
DX: T83.511A Infection and inflammatory reaction due to indwelling urethral catheter, initial encounter (principal); I47.19 Other supraventricular tachycardia; N13.6 Pyonephrosis; M47.12 Other spondylosis with myelopathy, cervical region; N17.9 Acute kidney failure, unspecified; Z16.12 Extended spectrum beta lactamase (ESBL) resistance; M54.16 Radiculopathy, lumbar region; E87.6 Hypokalemia; I10 Essential (primary) hypertension; R05.9 Cough, unspecified; B96.1 Klebsiella pneumoniae [K. pneumoniae] as the cause of diseases classified elsewhere; F39 Unspecified mood [affective] disorder; Q54.0 Hypospadias, balanic; Y73.8 Miscellaneous gastroenterology and urology devices associated with adverse incidents, not elsewhere classified; N40.1 Benign prostatic hyperplasia with lower urinary tract symptoms; R33.8 Other retention of urine; K56.41 Fecal impaction; K52.89 Other specified noninfective gastroenteritis and colitis; Z79.899 Other long term (current) drug therapy
CPT/HCPCS: 36410; 36415; 71045; 74177; 80048; 80053; 81001; 81003; 82248; 82947; 83605; 83735; 85025; 85027; 87040; 87077; 87086; 87088; 87186; 87205; 87507; 93005; 97116; 97162; 97535; 99285; C1751; C1758; C1769; C2617; J0131; J0690; J0696; J1100; J1335; J1642; J1650; J1885; J1956; J2185; J2371; J2405; J2543; J2704; J3010; J3475; Q9967

== ENCOUNTER 2023-10-09 18:58 | Outpatient (BNV) | payer OTHER, SELFPAY | END 2023-10-11 08:38 | PROVIDERS: Admitting Provider Physician Assistant; Emergency Provider Emergency Medicine; PCP Internal Medicine; Visit Provider Internal Medicine Cardiovascular Disease | DX: I49.1 Atrial premature depolarization (principal) | CPT/HCPCS: 93010 ==

== ENCOUNTER 2023-10-09 18:58 | Outpatient (BNV) | payer OTHER, SELFPAY | END 2023-10-10 18:12 | PROVIDERS: Admitting Provider Physician Assistant; Emergency Provider Emergency Medicine; PCP Internal Medicine; Visit Provider Internal Medicine Cardiovascular Disease | DX: R00.0 Tachycardia, unspecified (principal); R94.31 Abnormal electrocardiogram [ECG] [EKG] | CPT/HCPCS: 93010 ==

== ENCOUNTER → 2023-10-09 18:58 | Outpatient (BNV) | payer OTHER, SELFPAY | PROVIDERS: Admitting Provider Physician Assistant; Emergency Provider Emergency Medicine; PCP Internal Medicine; Visit Provider Internal Medicine Cardiovascular Disease | DX: I47.19 Other supraventricular tachycardia (principal); N12 Tubulo-interstitial nephritis, not specified as acute or chronic | CPT/HCPCS: 99222 ==

== ENCOUNTER → 2023-10-09 18:58 | Outpatient (BNV) | payer OTHER, SELFPAY | PROVIDERS: Admitting Provider Physician Assistant; Emergency Provider Emergency Medicine; PCP Internal Medicine; Visit Provider Physician Assistant | DX: N12 Tubulo-interstitial nephritis, not specified as acute or chronic (principal) | CPT/HCPCS: 99223; 99231; 99232; 99239; 99499 ==

== ENCOUNTER → 2023-10-09 18:58 | Outpatient (BNV) | payer OTHER, SELFPAY | PROVIDERS: Admitting Provider Physician Assistant; Emergency Provider Emergency Medicine; PCP Internal Medicine; Visit Provider Urology | DX: N12 Tubulo-interstitial nephritis, not specified as acute or chronic (principal); N20.1 Calculus of ureter; A41.9 Sepsis, unspecified organism; R65.20 Severe sepsis without septic shock | CPT/HCPCS: 52332; 99222 ==

== ENCOUNTER → 2023-10-09 18:58 | Outpatient (BNV) | payer OTHER, SELFPAY | PROVIDERS: Admitting Provider Physician Assistant; Emergency Provider Emergency Medicine; PCP Internal Medicine; Visit Provider Internal Medicine | DX: N12 Tubulo-interstitial nephritis, not specified as acute or chronic (principal); A41.9 Sepsis, unspecified organism; R65.20 Severe sepsis without septic shock | CPT/HCPCS: 99222 ==

== ENCOUNTER 2023-11-12 19:48 | Emergency (ER) | payer MEDICARE, SELFPAY ==
[2023-11-12 19:51] VITALS: BP 143/90; PULSE 70; O2SAT 99
[2023-11-12 19:55] VITALS: BMI 26.5
[2023-11-12 20:00] VITALS: BP 127/75; PULSE 66; RESP 16; TEMP 36.8; O2SAT 97
--- NOTE | 2023-11-12 20:07 | ED_ITS ---
HPI - Male Genitourinary General Chief complaint: Urogenital-Male Stated complaint: Pt from snf needs midline Time Seen by Provider: 11/12/23 20:07 History of Present Illness HPI Narrative: The patient is a 72-year-old male who is currently staying at a local nursing facility. The patient had been hospitalized here last month in September 2023 for a urinary tract infection associated with the left ureteral stone. The patient says that he was septic during that hospitalization. He had a stent placed in his left ureter and was discharged to the nursing facility with an indwelling urinary catheter as well. Additionally he had been given a midline to receive ongoing IV antibiotics. His urinary culture had grown Klebsiella pneumoniae ESBL species. He was discharged on meropenem. Last week at the nursing facility the patient had his urinary catheter changed. A urine sample was sent from the new catheter for urinalysis and culture. Two days ago the patient was started on ciprofloxacin 250 mg b.i.d.. The patient has taken 3 doses of this. Today the urine cultures came back growing 2 organisms. The patient is again growing Klebsiella pneumoniae ESBL species. The patient is also growing a Pseudomonas aeruginosa species resistant to quinolones. The patient was sent to the emergency room I believe because of these positive urine cultures. The patient says he was sent here to have a midline placed so that he could receive additional IV antibiotics at his nursing facility. The patient says that he has not felt ill in any way. He has had no fever, sweats, chills. No nausea or vomiting. No flank pain. The patient acknowledges that he still has a left ureteral stent in place. He has urology follow-up in a few weeks. Related Data Home Medications Medication Instructions Recorded Confirmed citalopram 40 mg tablet 40 mg PO DAILY 05/30/23 10/09/23 gabapentin 100 mg capsule 100 mg PO TID 05/30/23 10/09/23 tamsulosin 0.4 mg capsule 0.4 mg PO BID 05/30/23 10/09/23 acetaminophen 325 mg tablet 650 mg PO Q4H PRN pain.fever 08/27/23 10/09/23 docusate sodium 100 mg capsule 100 mg PO DAILY 08/27/23 10/09/23 (Colace) fluticasone propionate 50 2 spray intranasal DAILY PRN 08/27/23 10/09/23 mcg/actuation nasal Allergy Symptoms spray,suspension melatonin 10 mg tablet 10 mg PO BEDTIME PRN Sleep 08/27/23 10/09/23 sennosides 8.6 mg tablet (senna) 17.2 mg PO BEDTIME 08/27/23 10/09/23 lisinopril 10 mg tablet 10 mg PO DAILY 10/09/23 10/09/23 Previous Rx's Medication Instructions Recorded ertapenem 1 gram solution for 1 g IV DAILY #8 ea 10/18/23 injection Allergies Allergy/AdvReac Type Severity Reaction Status Date / Time Seasonal Allergies Allergy Unknown Verified 11/12/23 19:57 Review of Systems 2 Review of Systems: Yes all other systems are reviewed and are negative PMFSH Past Medical History Onset Date is defined in the Problem List Problems that require an onset date and time if occurred within 24 hrs of arrival to the ED Aortic Dissection and Rupture; Neurologic impairment; Cardiopulmonary Arrest; Endotracheal Intubation; Insertion or Replacement of Mechanical Circulatory Assist Device Medical History Elevated cholesterol Fracture of humeral head Urinary incontinence Calculus of kidney Insomnia HTN (hypertension) Anxiety Depression Obesity Internal hemorrhoid Erectile dysfunction BPH associated with nocturia Lumbar radiculopathy Umbilical hernia without obstruction or gangrene Rectus diastasis Ventral hernia without obstruction or gangrene Cervical myelopathy Surgical History Hx of cervical spine surgery Hx of lithotripsy H/O colonoscopy Social History Social History Household Members: Family Household Members Other:: daughter Housing: House Are you a primary transitions rn care coordinator to a significant other at home: No Alcohol intake: former Patient Tobacco Use Status: Never used Tobacco Smoked in Last 30 Days: No Use of substances other than those prescribed or required for medical reasons: No Advance Directives: Yes Advance Directives on File: Yes Advance Directives Date on File: 08/10/23 service: Yes Physical Exam 2 Vital Signs: Vital Signs: Last Vital Signs Temp 98.6 F 11/13/23 00:19 Pulse 68 11/13/23 00:19 Resp 18 11/13/23 00:19 BP 113/60 11/13/23 00:19 Pulse Ox 96 11/13/23 00:19 O2 Del Method Room Air 11/13/23 00:19 BMI result Body Mass Index 26.5 Const: Other: The patient is awake and alert. He does not appear in distress. He does not appear ill. HEENT: Other: The face is symmetrical. ?Mucous membranes moist. Eyes: Other: Pupils are round equal, conjunctivae are clear, extraocular movements intact Neck: Other: No neck swelling. No JVD. Resp: Effort & Inspection: normal respiratory effort Auscultation: clear to auscultation bilaterally Cardio: Other: No murmur Rate: regular rate Rhythm: regular rhythm Heart sounds: S1 normal heart sound present and S2 normal heart sound present GI: Other: Abdomen is flat, soft, nontender. : General: Yes no CVA tenderness Back/Spine/Pelvis: Back: no CVA tenderness Skin: Other: Skin is dry and unremarkable. Neuro: Other: The patient is awake and alert. GCS is 15. Face is symmetrical. Speech is clear. Moves his extremities symmetrically. Seems grossly neurologically intact. Extrem: Other: No peripheral edema Medical Decision Making Medical Decision Making MDM Narrative: The patient arrived by ambulance from his nursing facility requesting placement of a midline for IV access. He said that he wanted to get a midline placed and then returned to his nursing facility. Paperwork from the nursing facility included a recent urinalysis and urine cultures from a urine sample obtained 3 days ago. The cultures indicated a Klebsiella pneumoniae ESBL and a Pseudomonas aeruginosa species resistant to ofloxacin. The patient does not look or seem ill in any way. His vital signs are normal with a heart rate in the 60s. He does not have any history of fevers, pain, or nausea. A urinalysis today obtained from his urinary catheter shows 3+ leukocyte esterase and more than 50 white cells but no blood. Patient's white blood count is normal at 10.3. The differential of his white count shows 67% neutrophils, 18 % monocytes. I discussed the case with Dr. Delarosa of Infectious Disease. We agreed that given the absence of any symptoms of illness, the absence of fever or other vital sign abnormalities in the absence of leukocytosis or left shift that the patient does not seem to be obviously infected. It seems much more likely that given the presence of an indwelling urinary catheter that his urine culture represents a colonization of his bladder rather than an acute infection. We agreed that appropriate management of this case would not use antibiotics. This was especially true as there was no present on urinalysis today. I explained this to the patient I also spoke on the phone with the patient's daughter. I also contacted a nurse at the patient's facility to see if I might be able to talk to a provider at the facility but I was not able to do so. Ultimately the patient was returned to his facility by ambulance. I anticipate that sample obtained today here at the hospital will probably also grew the same Klebsiella pneumoniae ESBL species and the same Pseudomonas species. Again, in the absence of any symptoms of illness I believe the patient should not be started on antibiotics. Lab Data 11/12/23 20:55 11/12/23 20:55 Labs: Lab Results 11/12/23 11/12/23 Range/Units 20:55 21:35 WBC 10.3 (4.8-10.8) X10*3/uL RBC 3.78 L (4.60-5.80) X10*6/uL Hgb 10.5 L (14.0-18.0) g/dl Hct 33.0 L (42.0-52.0) % MCV 87.3 (80.0-98.0) fL MCH 27.8 (27.0-33.0) pg MCHC 31.8 (31.0-36.0) g/dl RDW 14.2 (11.0-16.0) % Plt Count 386 (160-400) X10*3/uL MPV 9.5 (9.4-12.4) fL Immature Gran % (Auto) 0.8 H (0.0-0.4) % Neut % (Auto) 67.0 (45-73) % Lymph % (Auto) 17.6 L (20-40) % [place] % (Auto) 12.0 H (2-11) % Eos % (Auto) 2.3 (0-4) % Baso % (Auto) 0.3 (0-2) % Lymph # (Auto) 1.8 (1.2-4.9) X10*3/uL [place] # (Auto) 1.2 (0.1-1.2) X10*3/uL Eos # (Auto) 0.2 (0.0-0.4) X10*3/uL Baso # (Auto) 0.0 (0.0-0.2) X10*3/uL Abs Immat Gran (auto) 0.08 H (0.00-0.03) X10*3/uL Absolute Neuts (auto) 6.9 (2.0-8.3) x10*3/uL Absolute Nucleated RBC 0.000 (0.0-0.012) X10*3/uL Nucleated RBC % (auto) 0.0 (0.0-0.2) /100WBC Sodium 138 (135-145) mmol/L Potassium 4.0 (3.3-5.1) mmol/L Chloride 103 (96-108) mmol/L Carbon Dioxide 27 (22-29) mmol/L Anion Gap 12 (12-20) BUN 16 (9-16) mg/dL Creatinine 1.04 (0.5-1.4) mg/dL Estim Creat Clear Calc 71.5 Estimated GFR > 60 Random Glucose 98 (60-115) mg/dL Calcium 9.0 D (8.4-10.2) mg/dL Magnesium 2.0 (1.6-2.6) mg/dL Total Bilirubin 0.6 (0.0-1.0) mg/dL Direct Bilirubin 0.3 (0.0-0.5) mg/dL AST 31 (5-37) U/L ALT 38 (0-40) U/L Alkaline Phosphatase 164 H (39-117) U/L C-Reactive Protein 4.26 H (< or = 0.50) mg/dL Total Protein 7.1 (6.5-8.0) g/dL Albumin 3.3 L (3.5-5.0) g/dL Urine Color Yellow Urine Appearance Turbid Urine pH 8.0 (5.0-9.0) Ur Specific [place] 1.015 (1.005-1.025) Urine Protein 30 (1+) H (Neg-Trace) mg/dL Urine Glucose (UA) Negative (Negative) mg/dL Urine Ketones Negative (Negative) mg/dL Urine Blood Negative (Negative) Urine Nitrite Negative (Negative) Ur Leukocyte Esterase Large (3+) H (Negative) Urine RBC 0-2 (0-2) /HPF Urine WBC >50 H (0-5) /HPF Ur Squamous Epith Cells 0-2 (0-2) /HPF Urine Bacteria 1+ (None Seen) Hyaline Casts 3-5 (0-2) /LPF Discharge Plan Discharge Clinical Impression: Positive urine culture, Indwelling urethral catheter present Patient Disposition: Xfer [facility] Additional Instructions: At this point it seems much more likely that you are colonized with Klebsiella pneumoniae and Pseudomonas than acutely infected with these organisms. The recommendation from our infectious disease service is to not treat with antibiotics in the absence of signs of acute illness. Please follow-up soon with urology regarding your stent and your indwelling urinary catheter. Return to the emergency room if fevers or vomiting or significantly worse otherwise Prescriptions: No Action citalopram 40 mg tablet 40 mg PO DAILY tamsulosin 0.4 mg capsule 0.4 mg PO BID gabapentin 100 mg capsule 100 mg PO TID sennosides [senna] 8.6 mg Tablet 17.2 mg PO BEDTIME acetaminophen 325 mg Tablet 650 mg PO Q4H PRN (Reason: pain.fever) docusate sodium [Colace] 100 mg Capsule 100 mg PO DAILY fluticasone propionate 50 mcg/actuation [place],Suspension 2 spray INTRANASAL DAILY PRN (Reason: Allergy Symptoms) Rx Instructions: administer into each nostril melatonin 10 mg Tablet 10 mg PO BEDTIME PRN (Reason: Sleep) lisinopril 10 mg tablet 10 mg PO DAILY ertapenem 1 gram recon soln 1 g IV DAILY Qty: 8 0RF Rx Instructions: starting tomorrow
[2023-11-12 21:01] LABS: MANUAL DIFF FLAG NO
[2023-11-12 21:02] LABS: Basophils Percent Auto 0.3 % (0-2); Eosinophils Absolute Auto 0.2 X10*3/uL (0.0-0.4); Eosinophils Percent Auto 2.3 % (0-4); Hemoglobin 10.5 g/dl (14.0-18.0); Imm Gran Abs Auto 0.08 X10*3/uL (0.00-0.03); Imm Gran Pct Auto 0.8 % (0.0-0.4); Lymphocytes Absolute Auto 1.8 X10*3/uL (1.2-4.9); Lymphocytes Percent Auto 17.6 % (20-40); Mean Corpuscular HGB Conc 31.8 g/dl (31.0-36.0); Mean Corpuscular Hemoglobin 27.8 pg (27.0-33.0); Mean Corpuscular Volume 87.3 fL (80.0-98.0); Mean Platelet Volume 9.5 fL (9.4-12.4); Monocytes Absolute Auto 1.2 X10*3/uL (0.1-1.2); Neutrophils Absolute Auto 6.9 x10*3/uL (2.0-8.3); Platelet Count 386 X10*3/uL (160-400); Red Blood Count 3.78 X10*6/uL (4.60-5.80); Red Cell Distribution Width 14.2 % (11.0-16.0); White Blood Count 10.3 X10*3/uL (4.8-10.8)
[2023-11-12 21:16] LABS: Alanine Aminotransferase 38 U/L (0-40); Albumin Level 3.3 g/dL (3.5-5.0); Alkaline Phosphatase 164 U/L (39-117); Anion Gap 12 (12-20); Aspartate Amino Transferase 31 U/L (5-37); Bilirubin Direct 0.3 mg/dL (0.0-0.5); Bilirubin Total 0.6 mg/dL (0.0-1.0); Blood Urea Nitrogen 16 mg/dL (9-16); C Reactive Protein 4.26 mg/dL (< or = 0.50); Carbon Dioxide 27 mmol/L (22-29); Chloride 103 mmol/L (96-108); Creatinine Clr Calc Pharmacy 71.5; Estimated Glomerular Filt Rate > 60; Glucose Random 98 mg/dL (60-115); Sodium 138 mmol/L (135-145); Total Protein 7.1 g/dL (6.5-8.0)
[2023-11-12 21:42] LABS: Appearance Urine Turbid; Color Urine Yellow; Glucose Urine UA Negative (Negative); Leukocyte Esterase Urine Large (3+) (Negative); Nitrite Urine Negative (Negative); Specific Gravity - Urine 1.015 (1.005-1.025); UMIC TRIGGER UACC YES; Urine Blood Negative (Negative); Urine Ketones Negative (Negative); Urine Protein 30 (1+) mg/dL (Neg-Trace)
[2023-11-12 21:51] LABS: Bacteria Urine 1+ (None Seen); RBC Urine 0-2 /HPF (0-2); Squamous Epithelial Cell Urine 0-2 /HPF (0-2); UACC Culture Trigger YES; WBC Urine >50 /HPF (0-5)
[2023-11-12 23:06] VITALS: BP 125/64; PULSE 67; RESP 16; TEMP 36.7; O2SAT 96
[2023-11-13 00:19] VITALS: BP 113/60; PULSE 68; RESP 18; TEMP 37; O2SAT 96
== END 2023-11-13 00:34 | disposition skilled nursing facility (03) ==
PROVIDERS: Emergency Provider Emergency Medicine
DX: N39.0 Urinary tract infection, site not specified (principal); Z79.899 Other long term (current) drug therapy
CPT/HCPCS: 36415; 80048; 80076; 81001; 83735; 85025; 86140; 87040; 87086; 87088; 87186; 99283; 99284

== ENCOUNTER 2023-12-10 11:50 | Outpatient (REF) | payer MEDICARE, SELFPAY ==
--- NOTE | ~2023-12-10 | XR_ITS ---
EXAMINATION: XR ABDOMEN KUB CLINICAL INDICATION: Calculus of kidney COMPARISON: None available. TECHNIQUE: AP view of the abdomen. FINDINGS: The bowel gas pattern is normal with no evidence of ileus or obstruction. There are multiple stones projected over the upper pole, mid and lower pole of the left kidney. There are several stones projected over the lower pole of the right kidney. A left double-J ureteral catheter projects over the upper pole of the left kidney and terminates in the region of the bladder. Fusion hardware is seen at L4-L5. XR/XR KUB IMPRESSION: 1. Multiple right and left renal stones. 2. Left double-J ureteral catheter in place.
== END 2023-12-10 11:51 | disposition home or self-care (01) ==
LOC: HO.XRAY 11:50
PROVIDERS: PCP Internal Medicine; Visit Provider Urology
DX: N20.0 Calculus of kidney (principal); Q54.9 Hypospadias, unspecified; N31.9 Neuromuscular dysfunction of bladder, unspecified; R33.9 Retention of urine, unspecified
CPT/HCPCS: 51701; 74018

== ENCOUNTER 2023-12-10 12:42 | Outpatient (AMB) | payer MEDICARE, OTHER, SELFPAY ==
--- NOTE | 2023-12-10 12:53 | A.OFFVIS_ITS ---
Intake Intake Visit Reasons: hospital d/c f/u. Kidney stone, stent in place Intake Note: NEW Patient presents today to established treatment for Kidney Stone & Stent in Place: Meds- Tamsulosin Allergies to Antibiotic- No Known Allergies Blood Thinner- None Transformer Maker Required: No Accompanied by: Self / Same As Patient Allergies Seasonal Allergies Allergy (Verified 12/10/23 12:56) Unknown HPI HPI Comments History of Present Illness Details Micky is a 72 year old male who has a chonic padilla in place was initially evaluated as an inpatient, he was admitted due to fever and obstructing stone. He is s/p left ureteral stent, 10/10/23. He was followed by [facility] for BPH, h/o kidney stones. He requested follow up with [facility]. I have reviewed recent KUB, noting left ureteral stent in position, multiple stones in the left kidney also right nephrolithiasis. His daughter Carolyn was present and stated the patient had back surgery and since than required a padilla and has failed several voiding trials. Today I have changed the padilla with a 16 fr coude catheter. Exam is noteable for an iatrogenic hypospadias to the scrotum. The padilla passed easily. Review of chart: 10/09/23--CTAP-KIDNEYS AND URETERS: Ther e is left-sided hydronephrosis with significant asymmetric perinephric stranding. The left renal pelvis is dilated up to a 0.9 cm calcification at the ureteropelvic junction. There is a tiny bubble of air adjacent to this calcification. Additional nonobstructing intrarenal calculi are seen bilaterally. Plan: Discussed SP tube insertion in the future Left ESWL,, Will continue stent until follow up post ESWL to facilitate passage of stone fragments VNA to change padilla with 16 fr catheter q 4 weeks and prn if not draining adequately, irrigate prn with normal saline for blockage, PFSH Medical History Atrial tachycardia Constipation Elevated cholesterol Fracture of humeral head Urinary incontinence Calculus of kidney Insomnia HTN (hypertension) Anxiety Depression Obesity Internal hemorrhoid Erectile dysfunction BPH associated with nocturia Lumbar radiculopathy Umbilical hernia without obstruction or gangrene Rectus diastasis Ventral hernia without obstruction or gangrene Cervical myelopathy Surgical History Hx of cervical spine surgery Hx of lithotripsy H/O colonoscopy Social History Household Members: Family Household Members Other:: daughter Housing: House Are you a primary health care marketing manager to a significant other at home: No Alcohol intake: former Patient Tobacco Use Status: Never used Tobacco Advance Directives Date on File: 08/10/23 service: Yes Review of Systems Const All systems reviewed & are unremarkable except as noted in HPI and below Reports no additional complaints Eyes Reports no additional complaints ENT Reports no additional complaints Card Denies dyspnea Resp Denies cough and Denies dyspnea GI Reports no additional complaints Musc Reports no additional complaints Skin/Breast Denies rash and Denies unusual bruising Neuro Reports no additional complaints Psych Reports no additional complaints Endo Reports no additional complaints Lefty/Lymph Reports no additional complaints Aller/Immun Reports no additional complaints Physical Exam Const General: no acute distress and well developed Orientation/consciousness: patient oriented x3 HEENT Head: Yes normocephalic and Yes atraumatic Eyes Conjunctivae: conjunctivae normal Neck Neck: Yes normal visual inspection Chest Chest palpation & inspection: normal inspection of the chest Resp Effort & Inspection: normal respiratory effort Cardio Rate: regular rate GI Inspection: Yes normal to inspection Palpation (GI): Soft to palpation Other: penile hypospadias, padilla in place Neuro General: patient oriented x3 Psych Appearance: grossly normal Affect: normal affect Results Reviewed Results Reviewed: Date of Service: 12/10/23 EXAMINATION: XR ABDOMEN KUB CLINICAL INDICATION: Calculus of kidney COMPARISON: None available. TECHNIQUE: AP view of the abdomen. FINDINGS: The bowel gas pattern is normal with no evidence of ileus or obstruction. There are multiple stones projected over the upper pole, mid and lower pole of the left kidney. There are several stones projected over the lower pole of the right kidney. A left double-J ureteral catheter projects over the upper pole of the left kidney and terminates in the region of the bladder. Fusion hardware is seen at L4-L5. IMPRESSION: 1. Multiple right and left renal stones. 2. Left double-J ureteral catheter in place. Assessment & Plan Assessment & Plan (1) Hypospadias: Code(s): Q54.9 - Hypospadias, unspecified (2) Neurogenic bladder: Code(s): N31.9 - Neuromuscular dysfunction of bladder, unspecified (3) Urinary retention: Code(s): R33.9 - Retention of urine, unspecified (4) Bilateral kidney stones: Code(s): N20.0 - Calculus of kidney (5) Chronic indwelling Padilla catheter: Code(s): Z97.8 - Presence of other specified devices (6) Lumbar stenosis with neurogenic claudication: Code(s): M48.062 - Spinal stenosis, lumbar region with neurogenic claudication Plan Plan: Discussed SP tube insertion in the future Left ESWL,, Will continue stent until follow up post ESWL to facilitate passage of stone fragments VNA to change padilla with 16 fr catheter q 4 weeks and prn if not draining adequately, irrigate prn with normal saline for blockage, Orders: Orders AMB Urinalysis Automated 12/10/23 Z13.9 - Encounter for screening, unspecified Medications: New nitrofurantoin monohyd/m-cryst 100 mg (Macrobid) 1 tab on days of cath changes orally; must administer with a meal/food 30 caps 0RF UTI suppression Z96.0 - Presence of urogenital implants Patient Instructions: The patient had an opportunity to ask questions regarding treatment plan. All questions were answered. Imaging, Laboratory studies and physical exam results were discussed and reviewed in detail. No major barriers to understanding were identified. The patient expressed understanding and agreement with the above treatment plan. The patient is aware they should contact our office by phone for worsening of their current condition or the appearance of new symptoms. Compliance is encouraged with any medications and followup testing that is ordered. It is a privilege to be allowed the opportunity to participate in the urologic care of your patient. If you have any questions or concerns regarding treatment for the above conditions please do not hesitate to contact me. The office telephone contact is [phone]. This note is constructed in part using voice recognition software. While every effort has been made to ensure accuracy clean rice grader and reel tender errors may have been included. Yours sincerely, Matt Del Rosario MD Coding Level of Care Code Est Pt Level 4 (62108) Diagnoses Hypospadias Q54.9 Neurogenic bladder N31.9 Urinary retention R33.9 Bilateral kidney stones N20.0 Chronic indwelling Padilla catheter Z97.8 Lumbar stenosis with neurogenic claudication M48.062 CPT Codes Bladder/Catheter Procedure - CPT: 01764-Kkbwuq Bladder Catheter ([id number]) Bladder/Catheter Procedure Details: Under sterile technique a 16 Armenian coude catheter was passed transurethrally, attached to gravity bag dispensed from the office [id number] Bladder Catheter Procedure code (CPT) selection complete
== END 2023-12-10 14:37 | disposition home or self-care (01) ==
PROVIDERS: PCP Internal Medicine; Visit Provider Urology
DX: Q54.9 Hypospadias, unspecified (principal); N31.9 Neuromuscular dysfunction of bladder, unspecified; R33.9 Retention of urine, unspecified; N20.0 Calculus of kidney; Z97.8 Presence of other specified devices; M48.062 Spinal stenosis, lumbar region with neurogenic claudication
CPT/HCPCS: 51701; 99214

== ENCOUNTER 2024-01-30 09:56 | Day surgery (SDC) | payer MEDICARE, OTHER, SELFPAY ==
--- NOTE | 2024-01-29 09:41 | P.CONAN_ITS ---
Documented by User: Carolyn Laguerre NP 01/29/24 09:44 HPI - Anesthesia Eval Consult details Narrative: 73yo M for Left Lithotripsy ESW C admit 09/2023 with urosepsis, obstructive uropathy. s/p cysto, stent 09/2023 with GA-LMA 5 PMFSH Active Problems Active Problems: All Active Problems (Updated 12/11/23 @ 15:54 by Matt Del Rosario MD) Chronic indwelling Storm catheter (Acute) Bilateral kidney stones (Acute) Urinary retention (Acute) Neurogenic bladder (Acute) Hypospadias (Acute) Calculus of kidney (Acute) Pyelonephritis of left kidney (Acute) Catheter-associated urinary tract infection (Acute) Cervical spondylosis with myelopathy (Acute) Lumbar stenosis with neurogenic claudication (Acute) Spondylolisthesis, lumbar region (Acute) Past Medical History Medical History Atrial tachycardia Constipation Elevated cholesterol Fracture of humeral head Urinary incontinence Calculus of kidney Insomnia HTN (hypertension) Anxiety Depression Obesity Internal hemorrhoid Erectile dysfunction BPH associated with nocturia Lumbar radiculopathy Umbilical hernia without obstruction or gangrene Rectus diastasis Ventral hernia without obstruction or gangrene Cervical myelopathy Family History Family history of problems with anesthesia: No Surgical History Surgical History Hx of cystoscopy Hx of cervical spine surgery Hx of lithotripsy H/O colonoscopy History of Problems with Anesthesia: No Social History Social History Household Members: Family Household Members Other:: daughter Housing: House Are you a primary human services care specialist to a significant other at home: No Alcohol intake: former Patient Tobacco Use Status: Never used Tobacco Are you DNR?: No Advance Directives: No Advance Directives Information Provided: Yes Advance Directives Date on File: 08/10/23 Recently lost weight without trying: No Nutrition Risks: No Nutritional Risk service: Yes Meds Allergies Allergy/AdvReac Type Severity Reaction Status Date / Time Seasonal Allergies Allergy Unknown Verified 12/10/23 12:56 Home Medications Medication Instructions Recorded Confirmed Last Taken Type citalopram 40 mg tablet 40 mg PO DAILY 05/30/23 10/09/23 10/09/23 History gabapentin 100 mg capsule 100 mg PO TID 05/30/23 10/09/23 01/30/24 History tamsulosin 0.4 mg capsule 0.4 mg PO BID 05/30/23 10/09/23 10/09/23 History docusate sodium 100 mg capsule 100 mg PO DAILY 08/27/23 10/09/23 10/09/23 History (Colace) fluticasone propionate 50 2 spray intranasal DAILY PRN 08/27/23 10/09/23 Unknown History mcg/actuation nasal Allergy Symptoms spray,suspension melatonin 10 mg tablet 10 mg PO BEDTIME PRN Sleep 08/27/23 10/09/23 Unknown History sennosides 8.6 mg tablet (senna) 17.2 mg PO BEDTIME 08/27/23 10/09/23 10/08/23 History Exam Pertinent Lab Results Pertinent Lab Results: Laboratory Tests 11/12/23 20:55 WBC 10.3 Hgb 10.5 L Hct 33.0 L Plt Count 386 Sodium 138 Potassium 4.0 Chloride 103 Carbon Dioxide 27 BUN 16 Creatinine 1.04 Narrative Narrative: EKG 09/2023 Vent. Rate : 069 BPM Atrial Rate : 069 BPM P-R Int : 194 ms QRS Dur : 094 ms QT Int : 416 ms P-R-T Axes : 048 -03 047 degrees QTc Int : 445 ms Sinus rhythm with Premature atrial complexes Otherwise normal ECG When compared with ECG of 10-OCT-2023 18:10, Sinus rhythm has replaced atrial tachycardia Vent. rate has decreased BY [address] no longer depressed in Inferior leads ST no longer depressed in Anterolateral leads Assessment and Plan Assessment Anesthesia Assessment: Chart Reviewed Final Anesthetic Review Family History of Problems with Anesthesia: No History of Problems with Anesthesia: No Documented by User: Marjorie Nunes MD 01/30/24 11:12 [facility] Past Medical History Medical History Atrial tachycardia Constipation Elevated cholesterol Fracture of humeral head Urinary incontinence Calculus of kidney Insomnia HTN (hypertension) Anxiety Depression Obesity Internal hemorrhoid Erectile dysfunction BPH associated with nocturia Lumbar radiculopathy Umbilical hernia without obstruction or gangrene Rectus diastasis Ventral hernia without obstruction or gangrene Cervical myelopathy Surgical History Surgical History Hx of cystoscopy Hx of cervical spine surgery Hx of lithotripsy H/O colonoscopy Social History Social History Household Members: Family Household Members Other:: daughter Housing: House Are you a primary human services care specialist to a significant other at home: No Alcohol intake: former Patient Tobacco Use Status: Never used Tobacco Are you DNR?: No Advance Directives: No Advance Directives Information Provided: Yes Advance Directives Date on File: 08/10/23 Recently lost weight without trying: No Nutrition Risks: No Nutritional Risk service: Yes Meds Allergies Allergy/AdvReac Type Severity Reaction Status Date / Time Seasonal Allergies Allergy Unknown Verified 12/10/23 12:56 Home Medications Medication Instructions Recorded Confirmed Last Taken Type citalopram 40 mg tablet 40 mg PO DAILY 05/30/23 10/09/23 10/09/23 History gabapentin 100 mg capsule 100 mg PO TID 05/30/23 10/09/23 01/30/24 History tamsulosin 0.4 mg capsule 0.4 mg PO BID 05/30/23 10/09/23 10/09/23 History docusate sodium 100 mg capsule 100 mg PO DAILY 08/27/23 10/09/23 10/09/23 History (Colace) fluticasone propionate 50 2 spray intranasal DAILY PRN 08/27/23 10/09/23 Unknown History mcg/actuation nasal Allergy Symptoms spray,suspension melatonin 10 mg tablet 10 mg PO BEDTIME PRN Sleep 08/27/23 10/09/23 Unknown History sennosides 8.6 mg tablet (senna) 17.2 mg PO BEDTIME 08/27/23 10/09/23 10/08/23 History Exam Airway Mallampati Class: III TM Dist: >3cm Neck ROM: Limited Loose/Missing/Broken Teeth: Yes, Upper and Lower Heart: RRR Lungs: CTA Assessment and Plan Assessment Anesthesia Assessment: Anesthesia Plan Discussed Final Anesthetic Review NPO: Yes ASA Class: II Final Preanesthetic Review: Meds/Allgs Chart Reviewed, Consent Obtained/Reviewed and Anes Risks/Benef Reviewed Patient Risk: Low Procedure Risk: Low Anesthetic Plan Anesthetic Plan: MAC: Disposition: Standard PACU
[2024-01-30] VITALS (9 sets, daily range): BP systolic 96–130; BP diastolic 59–77; PULSE 50–73; RESP 16–20; TEMP 36.1–36.8; O2SAT 95–98; BMI 28.6
--- NOTE | ~2024-01-30 | XR_ITS ---
EXAMINATION: XR ABDOMEN KUB CLINICAL INDICATION: Left kidney stone COMPARISON: Abdominal KUB December 10, [address] abdomen pelvis October 09, 2023 TECHNIQUE: Single view, two film KUB of the abdomen was obtained. Overlying stool limits sensitivity for small renal calculi. FINDINGS: Stable orientation of left ureteral stent. Numerous calcifications again noted projecting over the left renal shadow, relatively similar in size and prominence. No definitive calcifications project over the expected course of the left ureter. Several right-sided renal calculi are again noted. No definitive calcifications project over the expected course of the right ureter. Prominent right pelvic calcification is similar and was previously noted to be prostatic in origin. Nonobstructive bowel gas pattern. Moderate stool burden throughout the majority the colon. No acute osseous abnormality. Postsurgical changes of the lower lumbar spine. XR/XR KUB IMPRESSION: 1. Stable orientation of left ureteral stent. 2. Numerous bilateral renal calculi again noted. No definitive calcifications project over the expected course of the left ureter.
[2024-01-30] MEDS: Lactated Ringers 1,000 ML 100 ML IVCONT (10:39)
[2024-01-30] MEDS: Acetaminophen 1,000 MG/100 ML PIGGYBACK 400 MG IV (10:40)
--- NOTE | 2024-01-30 11:27 | MHC.SHP ---
Pre-Procedural Eval Section A - 24 Hr Update-Section A only Date of Service: 01/30/24 The patient is an INPATIENT: No The patient has been examined within 24 hours of the surgical procedure. The History & Physical has been completed within 30 days and I have reviewed it.: Yes Section B - Complete if H&P > 30 days Chief Complaint: Calculus of kidney, left ureteral stent present Allergies: Allergies Allergy/AdvReac Type Severity Reaction Status Date / Time Seasonal Allergies Allergy Unknown Verified 12/10/23 12:56 Exam Surgical H&P Exam: Normal: HEENT, Normal: Heart, Normal: Lungs and Normal: Neurological Plan Diagnosis/Plan: Unchanged I have reviewed the history and physical and performed a pertinent physical examination on my patient. No changes have occurred unless specified. Left ESWL. Discussed risks to include but not limited to, blood in the urine, bruising to the skin, kidney hematoma, possible need for another procedure if a stone fragment obstructs the ureter while passing, possible need to repeat procedure if stone is not completely fragmented. Time Spent With Patient Time: Total time managing care of this patient today ____ minutes.
--- NOTE | 2024-01-30 12:32 | P.OP_ITS ---
Operative Note Operative Note Date of Service: 01/30/24 Narrative: PreOperative Diagnosis:? ? Left Renal stone s/p left ureteral stent Post Operative Diagnosis:?Left Renal stone s/p left ureteral stent Procedure:?Left? ESWL Surgeon:?Dr Matt Del Rosario Anesthesia:? MAC Indications for procedure: The patient understands there is a risk of bruising or hematoma to the kidney, infection, and stone migration following the procedure and subsequent intervention may be required.? - Imaging Cluster stones in region of upper curl of ureteral stent 1.7 x 7 mm stone Procedure: After informed consent was verified the patient was brought to the operating room and placed in a supine position.? Monitored sedation was performed per protocol. Safety pause time-out was performed. Imaging was displayed in the room and laterality confirmed. ESWL was performed.?The stone was visualized on both fluoroscopy and ultrasound .? Shockwave lithotripsy was performed, with a maximum rate of 120 hertz. After the first 300 shocks a pause for 3 minutes was completed.? A total of 2500 shocks to a maximum of power of 18 with a maximum rate of 120 hertz.? Fragmentation of the stone was appreciated. The patient tolerated the procedure well and was transferred to the recovery area upon completion. Complications: None
== END 2024-01-30 15:25 | disposition home or self-care (01) ==
PROVIDERS: Visit Provider Urology
PROC: (CPT 50590; principal; 2024-01-30 11:45)
DX: N20.1 Calculus of ureter (principal); I10 Essential (primary) hypertension; Z96.0 Presence of urogenital implants
CPT/HCPCS: 50590; 74018; J0131; J0690; J1940; J2250; J2704; J3010; J3371

== ENCOUNTER → 2024-01-30 09:56 | Outpatient (BNV) | payer MEDICARE, SELFPAY | PROVIDERS: Visit Provider Urology | DX: N20.0 Calculus of kidney (principal) | CPT/HCPCS: 50590 ==

== ENCOUNTER 2024-02-19 06:04 | Day surgery (SDC) | payer MEDICARE, OTHER, SELFPAY ==
[2024-02-15 09:22] VITALS: BMI 28.6
--- NOTE | 2024-02-18 10:35 | P.CONAN_ITS ---
Documented by User: Carolyn Laguerre NP 02/18/24 10:36 HPI - Anesthesia Eval Consult details Narrative: 73yo M for Insertion Suprapubic Tube,with Left urethral stent removal s/p ESWL 01/2024 with [facility] admit 09/2023 with urosepsis, obstructive uropathy. s/p cysto, stent 09/2023 with GA-LMA 5 PMFSH Active Problems Active Problems: All Active Problems Chronic indwelling Storm catheter (Acute) Bilateral kidney stones (Acute) Urinary retention (Acute) Neurogenic bladder (Acute) Hypospadias (Acute) Pyelonephritis of left kidney (Acute) Catheter-associated urinary tract infection (Acute) Cervical spondylosis with myelopathy (Acute) Lumbar stenosis with neurogenic claudication (Acute) Spondylolisthesis, lumbar region (Acute) Calculus of kidney (Acute) Past Medical History Medical History Atrial tachycardia Constipation Elevated cholesterol Fracture of humeral head Urinary incontinence Calculus of kidney Insomnia HTN (hypertension) Anxiety Depression Obesity Internal hemorrhoid Erectile dysfunction BPH associated with nocturia Lumbar radiculopathy Umbilical hernia without obstruction or gangrene Rectus diastasis Ventral hernia without obstruction or gangrene Cervical myelopathy Family History Family history of problems with anesthesia: No Surgical History Surgical History (Updated 02/15/24 @ 09:17 by Didi Marcus RN) History of lumbar fusion Hx of cystoscopy Hx of cervical spine surgery Hx of lithotripsy H/O colonoscopy History of Problems with Anesthesia: No Social History Social History Household Members: Family Household Members Other:: daughter Housing: House Are you a primary health care technician to a significant other at home: No Alcohol intake: former Patient Tobacco Use Status: Never used Tobacco Are you DNR?: No Advance Directives: No Advance Directives Information Provided: Yes Advance Directives Date on File: 08/10/23 service: Yes Meds Allergies Allergy/AdvReac Type Severity Reaction Status Date / Time Seasonal Allergies Allergy Unknown Verified 12/10/23 12:56 Home Medications ?Medication ?Instructions ?Recorded ?Confirmed ?Last Taken ?Type citalopram 40 mg tablet 40 mg PO DAILY 05/30/23 02/15/24 02/19/24 History gabapentin 100 mg capsule 100 mg PO TID 05/30/23 02/15/24 02/19/24 History tamsulosin 0.4 mg capsule 0.4 mg PO BID 05/30/23 02/15/24 10/09/23 History docusate sodium 100 mg capsule 100 mg PO DAILY 08/27/23 02/15/24 10/09/23 History (Colace) fluticasone propionate 50 2 spray intranasal DAILY PRN 08/27/23 02/15/24 Unknown History mcg/actuation nasal Allergy Symptoms spray,suspension melatonin 10 mg tablet 10 mg PO BEDTIME PRN Sleep 08/27/23 02/15/24 Unknown History sennosides 8.6 mg tablet (senna) 17.2 mg PO BEDTIME 08/27/23 02/15/24 10/08/23 History midodrine 2.5 mg tablet 2.5 mg PO BID 02/19/24 02/19/24 Unknown History midodrine 2.5 mg tablet 2.5 mg PO TID 02/19/24 02/19/24 Unknown History midodrine 2.5 mg tablet 2.5 mg PO TID 02/19/24 02/19/24 Unknown History midodrine 2.5 mg tablet 2.5 mg PO TID 02/19/24 02/19/24 Unknown History Exam Height,Weight and Vital Signs: Height 6 ft Weight 95.799 kg Pertinent Lab Results Pertinent Lab Results: Laboratory Tests 11/12/23 20:55 WBC 10.3 Hgb 10.5 L Hct 33.0 L Plt Count 386 Sodium 138 Potassium 4.0 Chloride 103 Carbon Dioxide 27 BUN 16 Creatinine 1.04 Narrative Narrative: EKG 09/2023 Vent. Rate : 069 BPM Atrial Rate : 069 BPM P-R Int : 194 ms QRS Dur : 094 ms QT Int : 416 ms P-R-T Axes : 048 -03 047 degrees QTc Int : 445 ms Sinus rhythm with Premature atrial complexes Otherwise normal ECG When compared with ECG of 10-OCT-2023 18:10, Sinus rhythm has replaced atrial tachycardia Vent. rate has decreased BY [address] no longer depressed in Inferior leads ST no longer depressed in Anterolateral leads Assessment and Plan Assessment Anesthesia Assessment: Chart Reviewed Final Anesthetic Review Family History of Problems with Anesthesia: No History of Problems with Anesthesia: No Documented by User: Jg Guaman MD 02/19/24 07:18 [facility] Past Medical History Medical History Atrial tachycardia Constipation Elevated cholesterol Fracture of humeral head Urinary incontinence Calculus of kidney Insomnia HTN (hypertension) Anxiety Depression Obesity Internal hemorrhoid Erectile dysfunction BPH associated with nocturia Lumbar radiculopathy Umbilical hernia without obstruction or gangrene Rectus diastasis Ventral hernia without obstruction or gangrene Cervical myelopathy Surgical History Surgical History (Updated 02/15/24 @ 09:17 by Didi Marcus RN) History of lumbar fusion Hx of cystoscopy Hx of cervical spine surgery Hx of lithotripsy H/O colonoscopy Social History Social History Household Members: Family Household Members Other:: daughter Housing: House Are you a primary health care technician to a significant other at home: No Alcohol intake: former Patient Tobacco Use Status: Never used Tobacco Are you DNR?: No Advance Directives: No Advance Directives Information Provided: Yes Advance Directives Date on File: 08/10/23 service: Yes Meds Allergies Allergy/AdvReac Type Severity Reaction Status Date / Time Seasonal Allergies Allergy Unknown Verified 12/10/23 12:56 Home Medications ?Medication ?Instructions ?Recorded ?Confirmed ?Last Taken ?Type citalopram 40 mg tablet 40 mg PO DAILY 05/30/23 02/15/24 02/19/24 History gabapentin 100 mg capsule 100 mg PO TID 05/30/23 02/15/24 02/19/24 History tamsulosin 0.4 mg capsule 0.4 mg PO BID 05/30/23 02/15/24 10/09/23 History docusate sodium 100 mg capsule 100 mg PO DAILY 08/27/23 02/15/24 10/09/23 History (Colace) fluticasone propionate 50 2 spray intranasal DAILY PRN 08/27/23 02/15/24 Unknown History mcg/actuation nasal Allergy Symptoms spray,suspension melatonin 10 mg tablet 10 mg PO BEDTIME PRN Sleep 08/27/23 02/15/24 Unknown History sennosides 8.6 mg tablet (senna) 17.2 mg PO BEDTIME 08/27/23 02/15/24 10/08/23 History midodrine 2.5 mg tablet 2.5 mg PO BID 02/19/24 02/19/24 Unknown History midodrine 2.5 mg tablet 2.5 mg PO TID 02/19/24 02/19/24 Unknown History midodrine 2.5 mg tablet 2.5 mg PO TID 02/19/24 02/19/24 Unknown History midodrine 2.5 mg tablet 2.5 mg PO TID 02/19/24 02/19/24 Unknown History Exam Airway Mallampati Class: IV TM Dist: >3cm Neck ROM: Limited Loose/Missing/Broken Teeth: No (protuberant 8,9) Heart: rrr Lungs: cta b/l Assessment and Plan Assessment Anesthesia Assessment: Anesthesia Plan Discussed Final Anesthetic Review NPO: Yes ASA Class: II Final Preanesthetic Review: No Changes in Pt Med Stat, Meds/Allgs Chart Reviewed, Consent Obtained/Reviewed and Anes Risks/Benef Reviewed Patient Risk: Intermediate Procedure Risk: Intermediate Anesthetic Plan Anesthetic Plan: GA Disposition: Standard PACU
[2024-02-19] VITALS (7 sets, daily range): BP systolic 110–128; BP diastolic 63–72; PULSE 63–83; RESP 16–18; TEMP 36.6–36.8; O2SAT 90–98; BMI 26.9
--- NOTE | ~2024-02-19 | XR_ITS ---
EXAMINATION: XR ABDOMEN KUB CLINICAL INDICATION: Left renal stone. COMPARISON: None available. TECHNIQUE: AP view of the abdomen. FINDINGS: Left ureteral stent is in place. Multiple left renal calculi are identified in the upper/mid and lower pole, largest in the lower pole measures 1.3 cm. Multiple right renal calculi are identified, largest measuring 1.1 cm appears to have migrated medially and may be at the UPJ level. Potential large calculi also identified superior to the right sacrum, largest in the range of 2.2 cm stone of this size has not been appreciated on previous studies. Likely inferior urinary bladder calculus. Nonspecific bowel pattern. Lumbar spine surgical hardware. XR/XR KUB IMPRESSION: Left ureteral stent. Bilateral renal calculi with possible migration of 1.1 cm to the right UPJ. Possible large right mid/distal ureteral calculi. Bladder calculus. Depending on the clinical scenario, consider follow-up ultrasound and/or CT.
--- NOTE | ~2024-02-19 | FL_ITS ---
EXAMINATION: XR FLUOROSCOPY WITH IMAGES CLINICAL INFORMATION: Stent removal COMPARISON: KUB 02/19/2024 TECHNIQUE: Fluoroscopy Supervised By: Dr. Del Rosario. Fluoroscopy Time: 10.9 seconds. Cumulative Dose: 4.05 mGy. DAP: n/a Gycm2. Images: 2. FINDINGS: 2 fluoroscopic images over the region of the left kidney are demonstrated. A pigtail stent projected over the left kidney is seen on one image and no stent and a guidewire is seen on the other image. Please see Dr. Oswaldo Magallanes's procedure note for full details. FL/FL guidance in OR IMPRESSION: Fluoroscopic guidance provided for stent removal.
[2024-02-19] MEDS: Lactated Ringers 1,000 ML 100 ML IVCONT (06:47)
--- NOTE | 2024-02-19 07:13 | MHC.SHP ---
Pre-Procedural Eval Section A - 24 Hr Update-Section A only Date of Service: 02/19/24 The patient is an INPATIENT: No The patient has been examined within 24 hours of the surgical procedure. The History & Physical has been completed within 30 days and I have reviewed it.: Yes Section B - Complete if H&P > 30 days Chief Complaint: Neurogenic bladder, kidney stones, s/p L. stent Allergies: Allergies Allergy/AdvReac Type Severity Reaction Status Date / Time Seasonal Allergies Allergy Unknown Verified 12/10/23 12:56 Plan Diagnosis/Plan: Unchanged I have reviewed the history and physical and performed a pertinent physical examination on my patient. No changes have occurred unless specified. Cystoscopy, Suprapubic tube insertion, possible Left ureteral stent removal Time Spent With Patient Time: Total time managing care of this patient today ____ minutes.
--- NOTE | 2024-02-19 09:28 | P.OP_ITS ---
Operative Note Operative Note Date of Service: 02/19/24 Narrative: PreOperative Diagnosis:??Neurogenic bladder, left kidney stones, s/p left ureteral stent Post Operative Diagnosis:?? Neurogenic bladder, left kidney stones, s/p left ureteral stent Procedure: Cystoscopy, left stent exchange, size 6 fr by multilength 22-32 Cystotomy, suprapubic tube insertion Surgeon:?Dr Matt Del Rosario Anesthesia:? General Indications for procedure: Neurogenic bladder, left kidney stones Procedure: After informed consent was verified the patient was brought to the operating placed on the OR table in supine position.? General Anesthesia was administered per protocol.? The patient was placed in lithotomy position, prepped and draped in the usual sterile fashion.? Safety pause time-out and side of surgery confirmed.? Antibiotics confirmed. A 22 Russian cystoscope was inserted transurethrally, the bulbous urethra was within normal limits. The prostatic urethra was nonobstructive. The bladder was visualized.? The distal end of the left ureteral stent was visualized. A guidewire was passed along side the stent into the kidney. On fluoroscopy there was noted to be a density along the proximal portion of the stent suggestive of a stone fragment. With the guidewire in place the stent was removed. A stent was then placed over the guidewire 6 Russian by multi length cm. Attention was taken to the abdomen. Palpation 1 finger breath in the midline above the pubic bone. An incision was made. Electrocautery was used to incise the subcu tissue. Finger palpation of the fascia was done. A Lowsley retractor was placed transurethrally into the bladder. The tip of the Lowsley was palpated through the incision in the midline. An incision was made over the Lowsley which allowed the Lowsley to be seen throught the suprapubic incision and a 20 Russian Storm was placed into the Lowsley retractor and brought into the bladder and out of the urethra. The Lowsley was removed. The catheter was brought into position into the bladder 15 cc was placed into the balloon. The subcu tissue was closed with 3-0 chromic. The Storm was secured to the skin with 2-0 nylon. The Storm catheter was irrigated for a few clots that were removed. The catheter was placed to drainage bag. The bladder was emptied.? The rigid cystoscope was removed. ? The patient tolerated the procedure well and was brought to the recovery room in stable condition. Complications: None Drains: Ureteral stent, and 20 Russian Storm as dictated above
[2024-03-04 23:02] LABS: Stone Source LEFT KIDNEY STONE
== END 2024-02-19 10:46 | disposition home or self-care (01) ==
PROVIDERS: Visit Provider Urology
PROC: (CPT 51102; principal; 2024-02-19 07:30)
DX: N31.9 Neuromuscular dysfunction of bladder, unspecified (principal); N39.498 Other specified urinary incontinence; Z97.8 Presence of other specified devices; Z96.0 Presence of urogenital implants; N20.0 Calculus of kidney; Q54.9 Hypospadias, unspecified; N40.1 Benign prostatic hyperplasia with lower urinary tract symptoms; R35.1 Nocturia; N52.9 Male erectile dysfunction, unspecified; I10 Essential (primary) hypertension; E78.00 Pure hypercholesterolemia, unspecified; Z79.899 Other long term (current) drug therapy; J30.2 Other seasonal allergic rhinitis; Z98.890 Other specified postprocedural states
CPT/HCPCS: 51040; 52332; 74018; 82365; 88300; C1758; C1769; J0690; J1580; J2250; J2704; J2795; J3010; Q9967

== ENCOUNTER → 2024-02-19 06:04 | Outpatient (BNV) | payer MEDICARE, SELFPAY | PROVIDERS: Visit Provider Urology | DX: N20.0 Calculus of kidney (principal); N31.9 Neuromuscular dysfunction of bladder, unspecified | CPT/HCPCS: 51102; 52332 ==

== ENCOUNTER 2024-03-07 11:02 | Outpatient (REF) | payer MEDICARE, SELFPAY ==
--- NOTE | ~2024-03-07 | US_ITS ---
EXAMINATION: US RETROPERITONEAL LIMITED (RENAL ONLY) CLINICAL INFORMATION: Calculus of kidney. COMPARISON: X-ray KUB 02/19/2024 and 01/30/2024. CT abdomen and pelvis 10/09/2023. TECHNIQUE: Real-time imaging of the kidneys. FINDINGS: RIGHT KIDNEY: 11.1 x 6.8 x 5.4 cm (SAG x AP x TRV). The kidney is normal in size, contour, and echogenicity. Renal cortical thickness is normal. A few nonobstructing calculi are noted within the right kidney, largest measuring 6 mm. No hydronephrosis. LEFT KIDNEY: 11.0 x 6.4 x 6.4 cm (SAG x AP x TRV). The kidney is normal in size, contour, and echogenicity. Renal cortical thickness is normal. A few nonobstructing calculi are noted within the left kidney, largest measuring 7 mm. No hydronephrosis. Also appreciated is a 2.5 cm simple appearing upper pole cyst for which no follow-up imaging is usually warranted. US/US renal BI IMPRESSION: Bilateral nonobstructing renal calculi. No hydronephrosis of either kidney.
== END 2024-03-07 11:03 | disposition home or self-care (01) ==
LOC: HO.US 11:02
PROVIDERS: Visit Provider Urology
DX: N20.0 Calculus of kidney (principal)
CPT/HCPCS: 76775

== ENCOUNTER 2024-04-21 15:07 | Outpatient (AMB) | payer MEDICARE, SELFPAY ==
--- NOTE | 2024-04-21 15:48 | A.OFFVIS_ITS ---
Intake Visit Reasons: SPT change (first) / ESWL follow up/US Intake Note: Patient is Present for SPT First Change/ESWL Follow Up Urology Medication:Tamsulosin Antibiotic Allergies: None Blood Thinners:None Allergies Seasonal Allergies Allergy (Verified 04/30/24 19:03) Unknown Medication List - Last Reconciled 04/21/24 by Matt Del Rosario MD citalopram 40 mg PO DAILY docusate sodium (Colace) 100 mg PO DAILY fluticasone propionate 50 mcg/actuation 2 sprays intranasal DAILY PRN gabapentin 100 mg PO TID melatonin 10 mg PO BEDTIME PRN midodrine 2.5 mg PO TID midodrine 2.5 mg PO TID midodrine 2.5 mg PO TID midodrine 2.5 mg PO BID nitrofurantoin monohyd/m-cryst 100 mg (Macrobid) 1 tab on days of cath changes orally; must administer with a meal/food nitrofurantoin monohyd/m-cryst 100 mg (Macrobid) 100 mg PO BID 10 days oxycodone-acetaminophen 5-325 mg (Percocet) 1 tab PO Q6H PRN sennosides (senna) 17.2 mg PO BEDTIME tamsulosin 0.4 mg PO BID HPI Comments Details: 04/21/2024--SP tube change 20 Upper Sorbian placed erythematous changes around the SP tube OR 02/19/24--cystoscopy left ureteral stent Exchange SP tube insertion 01/30/2024 status post left ESWL Reviewed KUB left renal stones in place possible stone fragments along the stent mid to distal ureter Renal ultrasound no hydronephrosis bilateral renal calculi Schedule cystoscopy left ureteroscopy possible laser stent exchange versus stent removal Macrobid b.i.d. times 10 days Review of chart: 12/10/2023-- Micky is a 72 year old male who has a chonic padilla in place was initially evaluated as an inpatient, he was admitted due to fever and obstruc ting stone. He is s/p left ureteral stent, 10/10/23. He was followed by [facility] for BPH, h/o kidney stones. He requested follow up with [facility]. I have reviewed recent KUB, noting left ureteral stent in position, multiple stones in the left kidney also right nephrolithiasis. His daughter Carolyn was present and stated the patient had back surgery and since than required a padilla and has failed several voiding trials. Today I have changed the padilla with a 16 fr coude catheter. Exam is noteable for an iatrogenic hypospadias to the scrotum. The padilla passed easily. 10/09/23--CTAP-KIDNEYS AND URETERS: There is left-sided hydronephrosis with significant asymmetric perinephric stranding. The left renal pelvis is dilated up to a 0.9 cm calcification at the ureteropelvic junction. There is a tiny bubble of air adjacent to this calcification. Additional nonobstructing intrarenal calculi are seen bilaterally. Plan: Discussed SP tube insertion in the future Left ESWL,, Will continue stent until follow up post ESWL to facilitate passage of stone fragments VNA to change padilla with 16 fr catheter q 4 weeks and prn if not draining adequately, irrigate prn with normal saline for blockage, PFSH Medical History (Updated 05/07/24 @ 17:26 by Shell Espitia APRN) Recurrent major depression Atrial tachycardia Constipation Elevated cholesterol Fracture of humeral head Urinary incontinence Calculus of kidney Insomnia HTN (hypertension) Anxiety Depression Obesity Internal hemorrhoid Erectile dysfunction BPH associated with nocturia Lumbar radiculopathy Umbilical hernia without obstruction or gangrene Rectus diastasis Ventral hernia without obstruction or gangrene Cervical myelopathy Surgical History History of lumbar fusion Hx of cystoscopy Hx of cervical spine surgery Hx of lithotripsy H/O colonoscopy Social History Household Members: None Household Members Other:: daughter Housing: House Are you a primary customer care specialist to a significant other at home: No Do you presently have visiting nurse or other home services: No Alcohol intake: former Patient Tobacco Use Status: Never used Tobacco Advance Directives Date on File: 08/10/23 service: No Results Reviewed Results Reviewed: Date of Service: 03/07/24 EXAMINATION: US RETROPERITONEAL LIMITED (RENAL ONLY) CLINICAL INFORMATION: Calculus of kidney. COMPARISON: X-ray KUB 02/19/2024 and 01/30/2024. CT abdomen and pelvis 10/09/2023. TECHNIQUE: Real-time imaging of the kidneys. FINDINGS: RIGHT KIDNEY: 11.1 x 6.8 x 5.4 cm (SAG x AP x TRV). The kidney is normal in size, contour, and echogenicity. Renal cortical thickness is normal. A few nonobstructing calculi are noted within the right kidney, largest measuring 6 mm. No hydronephrosis. LEFT KIDNEY: 11.0 x 6.4 x 6.4 cm (SAG x AP x TRV). The kidney is normal in size, contour, and echogenicity. Renal cortical thickness is normal. A few nonobstructing calculi are noted within the left kidney, largest measuring 7 mm. No hydronephrosis. Also appreciated is a 2.5 cm simple appearing upper pole cyst for which no follow-up imaging is usually warranted. US/US renal BI IMPRESSION: Bilateral nonobstructing renal calculi. No hydronephrosis of either kidney. Date of Service: 02/19/24 Procedure(s): XR KUB Accession Number(s): [id number] cc: Matt Del Rosario MD; Physician,Unknown ~ EXAMINATION: XR ABDOMEN KUB CLINICAL INDICATION: Left renal stone. COMPARISON: None available. TECHNIQUE: AP view of the abdomen. FINDINGS: Left ureteral stent is in place. Multiple left renal calculi are identified in the upper/mid and lower pole, largest in the lower pole measures 1.3 cm. Multiple right renal calculi are identified, largest measuring 1.1 cm appears to have migrated medially and may be at the UPJ level. Potential large calculi also identified superior to the right sacrum, largest in the range of 2.2 cm stone of this size has not been appreciated on previous studies. Likely inferior urinary bladder calculus. Nonspecific bowel pattern. Lumbar spine surgical hardware. XR/XR KUB IMPRESSION: Left ureteral stent. Bilateral renal calculi with possible migration of 1.1 cm to the right UPJ. Possible large right mid/distal ureteral calculi. Bladder calculus. Depending on the clinical scenario, consider follow-up ultrasound and/or CT. Date of Service: 12/10/23 EXAMINATION: XR ABDOMEN KUB CLINICAL INDICATION: Calculus of kidney COMPARISON: None available. TECHNIQUE: AP view of the abdomen. FINDINGS: The bowel gas pattern is normal with no evidence of ileus or obstruction. There are multiple stones projected over the upper pole, mid and lower pole of the left kidney. There are several stones projected over the lower pole of the right kidney. A left double-J ureteral catheter projects over the upper pole of the left kidney and terminates in the region of the bladder. Fusion hardware is seen at L4-L5. IMPRESSION: 1. Multiple right and left renal stones. 2. Left double-J ureteral catheter in place. Assessment & Plan Assessment & Plan (1) Hypospadias: Code(s): Q54.9 - Hypospadias, unspecified Category: Medical (2) Neurogenic bladder: Code(s): N31.9 - Neuromuscular dysfunction of bladder, unspecified Category: Medical (3) Urinary retention: Code(s): R33.9 - Retention of urine, unspecified Category: Medical (4) Bilateral kidney stones: Code(s): N20.0 - Calculus of kidney Category: Medical (5) Chronic indwelling Padilla catheter: Code(s): Z97.8 - Presence of other specified devices Category: Medical (6) Lumbar stenosis with neurogenic claudication: Code(s): M48.062 - Spinal stenosis, lumbar region with neurogenic claudication Category: Medical Plan Schedule cystoscopy left ureteroscopy possible laser stent exchange versus stent removal Macrobid b.i.d. times 10 days Medications: Changed From nitrofurantoin monohyd/m-cryst 100 mg must administer with a meal/food 100 mg PO BID 7 days 14 caps 0RF To nitrofurantoin monohyd/m-cryst 100 mg (Macrobid) must administer with a meal/food 100 mg PO BID 20 caps 0RF 10 days Discontinued nitrofurantoin monohyd/m-cryst 100 mg must administer with a meal/food Discontinued Reason: Patient Completed Course 100 mg PO Q12H 7 days 14 caps 0RF Coding Level of Care Code Est Pt Level 3 (67799) Diagnoses Hypospadias Q54.9 Neurogenic bladder N31.9 Urinary retention R33.9 Bilateral kidney stones N20.0 Chronic indwelling Padilla catheter Z97.8 Lumbar stenosis with neurogenic claudication M48.062
== END 2024-04-21 16:34 | disposition home or self-care (01) ==
PROVIDERS: Visit Provider Urology
DX: Q54.9 Hypospadias, unspecified (principal); N31.9 Neuromuscular dysfunction of bladder, unspecified; R33.9 Retention of urine, unspecified; N20.0 Calculus of kidney; Z96.0 Presence of urogenital implants; M48.062 Spinal stenosis, lumbar region with neurogenic claudication
CPT/HCPCS: 99024

== ENCOUNTER → 2024-04-21 15:07 | Outpatient (BNVA) | payer MEDICARE, SELFPAY | PROVIDERS: Visit Provider Urology | DX: N20.0 Calculus of kidney (principal); N31.9 Neuromuscular dysfunction of bladder, unspecified; Q54.9 Hypospadias, unspecified; R33.9 Retention of urine, unspecified; Z97.8 Presence of other specified devices; Z46.6 Encounter for fitting and adjustment of urinary device | CPT/HCPCS: 99212 ==

== ENCOUNTER 2024-04-30 18:52 | Inpatient (IN) | payer MEDICARE, SELFPAY ==
--- NOTE | ~2024-04-30 | CT_ITS ---
EXAMINATION: CT ABDOMEN AND PELVIS WITHOUT CONTRAST CLINICAL INFORMATION: veronica, rule out obstructing stone COMPARISON: CT abdomen/pelvis 10/09/2023, renal ultrasound 03/07/2024 TECHNIQUE: Multidetector volumetric imaging was performed from the superior aspect of the liver through the pubic symphysis. Sagittal and coronal reformatted images were obtained on the technologist's workstation. This CT examination was performed using dose optimization techniques as appropriate, variously including the following: *Automated exposure control *Adjustment of mA and/or kV according to patient size (this includes techniques or standardized protocols for targeted exams where dose is matched to indication/reason for exam; i.e. extremities or head) *Use of iterative reconstruction technique DLP: 782 mGy-cm FINDINGS: LUNG BASES: Trace bilateral pleural effusions associated bibasilar atelectasis. Normal-sized heart without pericardial effusion. LIVER, GALLBLADDER, AND BILIARY TREE: The liver is normal in size, shape, and attenuation. No focal hepatic lesion or biliary ductal dilatation is present. The gallbladder is unremarkable with no evidence of radiopaque gallstones, gallbladder wall thickening, or obvious pericholecystic inflammatory changes. PANCREAS: Unremarkable. SPLEEN: Unremarkable. ADRENAL GLANDS: Unremarkable. KIDNEYS AND URETERS: There is a 0.9 x 0.6 x 1.1 cm calculus in the right ureteropelvic junction measuring 1440 Hounsfield units. There is associated moderate hydronephrosis. There are numerous additional bilateral calculi. There is a right renal lower pole nonobstructing 1.1 x 0.6 cm calculus which measures 925 Hounsfield units. There is a posterior right mid renal 0.8 cm nonobstructing calculus that measures 630 Hounsfield units. There is a right renal upper pole 0.9 cm nonobstructing calculus measures 1000 Hounsfield units. There are additional punctate right renal calculi. Left ureteral stent properly positioned. There is a left renal lower pole 1.4 x 0.5 cm nonobstructing calculus that measures 1265 Hounsfield units. There are numerous additional left renal mid and lower pole calculus. There are calculi along the ureteral catheter in the renal pelvis measuring up to 1330 Hounsfield units. No left-sided hydronephrosis. Stable exophytic mid pole 3 cm simple cyst for which no follow-up imaging recommended. BLADDER: The bladder is decompressed and not well assessed. Suprapubic bladder catheter in place. No bladder calculi. GASTROINTESTINAL TRACT: The small and large bowel are nondilated. Mild scattered colonic diverticulosis without evidence of acute diverticulitis. Normal appendix. ABDOMINAL WALL: There is a moderate-sized wide neck fat-containing ventral supraumbilical hernia. There is a moderate-sized wide necked periumbilical fat-containing hernia. Small bilateral fat-containing inguinal hernias. These findings are unchanged. LYMPH NODES: Normal. VASCULAR: The abdominal aorta is nonaneurysmal. Mild scattered atheromatous calcifications. PELVIC VISCERA: Large courses predominantly right-sided prostatic calcifications, as before. Normal CT appearance of the seminal vesicles. OSSEOUS STRUCTURES: No acute or suspicious osseous abnormality. Intact bilateral pedicular posterior L4-L5 spinal fusion hardware with intervertebral disc spacer. Stable grade 1 anterolisthesis of L4 on L5. Moderate multilevel thoracolumbar spondylosis. CT/CT abdomen pelvis wo IV con IMPRESSION: 1. There is a 0.9 x 0.6 x 1.1 cm calculus in the right ureteropelvic junction with associated moderate hydronephrosis. There are numerous additional bilateral nonobstructing renal calculi as described above. 2. Left ureteral stent properly positioned. There are calculi along the ureteral catheter in the left renal pelvis. No left-sided hydronephrosis. Fleischner guidelines were followed.
--- NOTE | ~2024-04-30 | FL_ITS ---
EXAMINATION: XR FLUOROSCOPY WITH IMAGES CLINICAL INFORMATION: Right ureteral stone, fluoroscopic guidance in OR. COMPARISON: None available. TECHNIQUE: Fluoroscopy Supervised By: Dr. Franky Blackman. Fluoroscopy Time: 44.9 seconds. Cumulative Dose: 11.653 mGy. DAP: 5.0689 Gy-cm2. Images: 2. FINDINGS: Fluoroscopic guidance was provided for a procedure. Images provided demonstrate a ureteral stent. Please refer to operative report for detailed evaluation. FL/FL guidance in OR IMPRESSION: Fluoroscopic guidance provided for a procedure. Please refer to operative report for detailed evaluation.
[2024-04-30 18:58] VITALS: BP 120/80; BP 125/71; PULSE 72; PULSE 89; RESP 18; TEMP 37.2; O2SAT 95; O2SAT 99; BMI 25.6
[2024-04-30 20:30] VITALS: BP 127/67; PULSE 73; RESP 18; TEMP 39.1; O2SAT 98
--- NOTE | 2024-04-30 20:32 | MHC.EDTECH ---
PATIENT WAS BIBA FROM HOME ,PATIENT HAD DRY FECES ALL OVER LOWER PART OF BODY ,SPONGE BATH GIVEN ,RECTAL TEMP TAKEN ,RN AALIYAH AWARE THAT PATIENT TEMP IS 102.3 ,VITALS TAKEN AND PATIENT WAS HOOKED UP TO FACILITY ADMINISTRATOR .
--- NOTE | 2024-04-30 20:55 | MHC.EDTECH ---
BLOOD DRAWN ,INCLUDING BOTH SETS OF BLOOD CULTURE AND LACTIC ACID ALL SENT TO LAB ,PATIENT BELONINGS LIST DONE .
[2024-04-30 20:56] LABS: Basophils Percent Auto 0.2 % (0-2); Hematocrit 39.6 % (42.0-52.0); Hemoglobin 13.5 g/dl (14.0-18.0); Imm Gran Abs Auto 0.15 X10*3/uL (0.00-0.03); Imm Gran Pct Auto 0.7 % (0.0-0.4); Lymphocytes Absolute Auto 0.8 X10*3/uL (1.2-4.9); Lymphocytes Percent Auto 3.7 % (20-40); MANUAL DIFF FLAG SCAN; Mean Corpuscular HGB Conc 34.1 g/dl (31.0-36.0); Mean Corpuscular Hemoglobin 29.5 pg (27.0-33.0); Mean Corpuscular Volume 86.5 fL (80.0-98.0); Mean Platelet Volume 9.4 fL (9.4-12.4); Monocytes Absolute Auto 1.7 X10*3/uL (0.1-1.2); Monocytes Percent Auto 7.7 % (2-11); Neutrophils Absolute Auto 19.2 x10*3/uL (2.0-8.3); Neutrophils Percent Auto 87.7 % (45-73); Platelet Count 283 X10*3/uL (160-400); Red Blood Count 4.58 X10*6/uL (4.60-5.80); Red Cell Distribution Width 14.2 % (11.0-16.0); SCAN SMEAR FLAG 1; White Blood Count 21.9 X10*3/uL (4.8-10.8)
[2024-04-30 21:03] LABS: Appearance Urine Turbid; Color Urine Dark Yellow; Glucose Urine UA Negative (Negative); Leukocyte Esterase Urine Large (3+) (Negative); Nitrite Urine Positive (Negative); UMIC TRIGGER UACC YES; Urine Blood Large (3+) (Negative); Urine Ketones Trace mg/dL (Negative); Urine Protein 100 (2+) mg/dL (Neg-Trace)
[2024-04-30 21:22] LABS: Lactic Acid 0.9 mmol/L (0.5-2.0)
[2024-04-30 21:27] LABS: Alanine Aminotransferase 15 U/L (0-40); Albumin Level 3.5 g/dL (3.5-5.0); Alkaline Phosphatase 129 U/L (39-117); Anion Gap 14 (12-20); Aspartate Amino Transferase 24 U/L (5-37); Bilirubin Total 2.8 mg/dL (0.0-1.0); Blood Urea Nitrogen 36 mg/dL (9-16); Calcium 9.4 mg/dL (8.4-10.2); Carbon Dioxide 23 mmol/L (22-29); Chloride 97 mmol/L (96-108); Creatinine Clr Calc Pharmacy 35.9; Estimated Glomerular Filt Rate 32; Glucose Random 90 mg/dL (60-115); Potassium 3.5 mmol/L (3.3-5.1); Sodium 130 mmol/L (135-145); Total Protein 7.2 g/dL (6.5-8.0)
[2024-04-30 21:39] LABS: Bacteria Urine 4+ (None Seen); Hyaline Casts Urine 0-2 /LPF (0-2); RBC Urine >20 /HPF (0-2); Squamous Epithelial Cell Urine 0-2 /HPF (0-2); UACC Culture Trigger YES; WBC Urine >50 /HPF (0-5)
[2024-04-30 21:41] LABS: SLIDE REVIEW VERIFIED
[2024-04-30 21:50] VITALS: PULSE 82; RESP 22; TEMP 38.7; O2SAT 97
[2024-04-30] MEDS: cefTRIAXone sodium 1 GM in 0.9 % Sodium Chloride 50 ML IV (21:51)
--- NOTE | 2024-04-30 21:51 | MHC.EDTECH ---
.PROVIDER SAID PATIENT COULD EAT ,PATIENT HAD 2 SUN BUTTER AND JELLY SANDWICH AND DRANK 240 ML BHAKTI BATSHEVA FOR SNACK .
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
[2024-04-30] MEDS: Ertapenem Sodium 1 GM in 0.9 % Sodium Chloride 50 ML IV (22:17)
--- NOTE | 2024-04-30 22:21 | P.HPHOSP_ITS ---
History of Present Illness Date of Service: 04/30/24 Chief Complaint: Weakness This is a 73-year-old male with pertinent history of mood disorder, BPH with obstructive uropathy status post suprapubic catheter, lumbar radiculopathy who presents to the emergency department for evaluation of generalized weakness and fevers. Patient states he has been having intermittent fevers and chills. He has had a suprapubic catheter since January. Patient has gotten progressively weaker over the last 2-3 weeks as his daughter is no longer taking care of him. He has been weak and unable to get up and walk. Also with poor p.o. intake as he has no one to take care of him. He denies nausea, vomiting, chest discomfort, palpitations, shortness of breath, abdominal pain, changes in bowel habits. In the emergency department, patient was found to be septic and urine concerning for UTI. Review of Systems 2 Constitutional: Constitutional: Reports chills, Reports fatigue, Reports fever(s), Reports malaise, Reports poor appetite and Reports weakness Cardiovascular: Cardiovascular: Reports no additional cardiovascular complaints Respiratory: Respiratory: Reports no additional respiratory complaints Gastrointestinal: Gastrointestinal: Reports no additional gastrointestinal complaints Neurologic: Reports weakness Endocrine: Endocrine: Reports fatigue PMFSH Medical History Atrial tachycardia Constipation Elevated cholesterol Fracture of humeral head Urinary incontinence Calculus of kidney Insomnia HTN (hypertension) Anxiety Depression Obesity Internal hemorrhoid Erectile dysfunction BPH associated with nocturia Lumbar radiculopathy Umbilical hernia without obstruction or gangrene Rectus diastasis Ventral hernia without obstruction or gangrene Cervical myelopathy Surgical History History of lumbar fusion Hx of cystoscopy Hx of cervical spine surgery Hx of lithotripsy H/O colonoscopy Social History Household Members: Family Household Members Other:: daughter Housing: House Are you a primary manager care management to a significant other at home: No Alcohol intake: former Patient Tobacco Use Status: Never used Tobacco Smoked in Last 30 Days: No Use of substances other than those prescribed or required for medical reasons: No Advance Directives: Yes Advance Directives on File: Yes Advance Directives Date on File: 08/10/23 Nutrition Risks: No Nutritional Risk service: Yes Meds Allergies Allergy/AdvReac Type Severity Reaction Status Date / Time Seasonal Allergies Allergy Unknown Verified 04/30/24 19:03 Active Medications: Current Medications Sodium Chloride (Ns) 2,571 mls @ 2,571 mls/hr 30 ml/kg infuse over 1 hr (2571 ml) IV .Q1H STA Stop: 04/30/24 22:34 Last Admin: 04/30/24 21:51 Dose: 2,571 mls/hr Ertapenem 1 gm/ Sodium (Chloride) 50 mls @ 100 mls/hr IV ONCE ONE Stop: 04/30/24 22:25 Last Admin: 04/30/24 22:17 Dose: 100 mls/hr Home Medications ?Medication ?Instructions ?Recorded ?Confirmed ?Last Taken ?Type citalopram 40 mg tablet 40 mg PO DAILY 05/30/23 04/21/24 02/19/24 History gabapentin 100 mg capsule 100 mg PO TID 05/30/23 04/21/24 02/19/24 History tamsulosin 0.4 mg capsule 0.4 mg PO BID 05/30/23 04/21/24 10/09/23 History docusate sodium 100 mg capsule 100 mg PO DAILY 08/27/23 04/21/24 10/09/23 History (Colace) fluticasone propionate 50 2 spray intranasal DAILY PRN 08/27/23 04/21/24 Unknown History mcg/actuation nasal Allergy Symptoms spray,suspension melatonin 10 mg tablet 10 mg PO BEDTIME PRN Sleep 08/27/23 04/21/24 Unknown History sennosides 8.6 mg tablet (senna) 17.2 mg PO BEDTIME 08/27/23 04/21/24 10/08/23 History midodrine 2.5 mg tablet 2.5 mg PO BID 02/19/24 04/21/24 Unknown History midodrine 2.5 mg tablet 2.5 mg PO TID 02/19/24 04/21/24 Unknown History midodrine 2.5 mg tablet 2.5 mg PO TID 02/19/24 04/21/24 Unknown History midodrine 2.5 mg tablet 2.5 mg PO TID 02/19/24 04/21/24 Unknown History Physical Exam 2 Vital Signs and Narrative: Vital Signs: Last Vital Signs Temp 101.7 F H 04/30/24 21:50 Pulse 82 04/30/24 21:50 Resp 22 H 04/30/24 21:50 BP 127/67 04/30/24 20:30 Pulse Ox 97 04/30/24 21:50 O2 Del Method Room Air 04/30/24 21:50 BMI result Body Mass Index 25.6 Middle-aged male lying in bed in no distress Neck supple, no JVD Regular rate and rhythm, S1-S2 heard Regular breath sounds bilaterally, no wheezing or crackles appreciated Abdomen soft nontender, no guarding, no rigidity, no CVA tenderness Patient is awake, alert and oriented to self, place, time and person ; no focal motor deficit Psych: Normal mood No pedal edema Results Labs 04/30/24 20:45 04/30/24 20:45 Labs: Laboratory Results - last 24 hr 04/30/24 04/30/24 20:45 20:48 MCV 86.5 MCH 29.5 MCHC 34.1 RDW 14.2 Plt Count 283 D MPV 9.4 Immature Gran % (Auto) 0.7 H Neut % (Auto) 87.7 H Lymph % (Auto) 3.7 L [place] % (Auto) 7.7 Eos % (Auto) 0.0 Baso % (Auto) 0.2 Lymph # (Auto) 0.8 L [place] # (Auto) 1.7 H Eos # (Auto) 0.0 Baso # (Auto) 0.0 Abs Immat Gran (auto) 0.15 H Absolute Neuts (auto) 19.2 H Absolute Nucleated RBC 0.000 Nucleated RBC % (auto) 0.0 Smear Tech's Comments VERIFIED Anion Gap 14 Estim Creat Clear Calc 35.9 Estimated GFR 32 Random Glucose 90 Lactic Acid 0.9 Calcium 9.4 Total Bilirubin 2.8 H AST 24 ALT 15 Alkaline Phosphatase 129 H Total Protein 7.2 Albumin 3.5 Urine Color Dark Yellow Urine Appearance Turbid Urine pH 6.0 Ur Specific [place] 1.010 Urine Protein 100 (2+) H Urine Glucose (UA) Negative Urine Ketones Trace Urine Blood Large (3+) H Urine Nitrite Positive H Ur Leukocyte Esterase Large (3+) H Urine RBC >20 H Urine WBC >50 H Ur Squamous Epith Cells 0-2 Urine Bacteria 4+ Hyaline Casts 0-2 Assessment and Plan (1) Sepsis secondary to UTI: Status: Acute Plan This is a 73-year-old male with pertinent history of mood disorder, BPH with obstructive uropathy status post suprapubic catheter, lumbar radiculopathy who presents to the emergency department for evaluation of generalized weakness and fevers. #. Sepsis due to acute complicated UTI: Reviewed previous urine culture. Initiating IV meropenem. Resuscitated with IV crystalloids. Lactic acid and blood culture obtained. Follow urine culture. Consulting Urology as may need suprapubic catheter replacement #. Generalized weakness in the setting of above + debility: Consulting Physical therapy to evaluate and treat #. BPH: On Flomax. #. Mild hyponatremia, likely hypovolemic: Monitor with crystalloid resuscitation #. Acute kidney injury: Monitor creatinine and urine output with crystalloid resuscitation. Avoid nephrotoxins #. Mood disorder: Continue home mood stabilizers #. Lumbar radiculopathy: On gabapentin Med rec pending DVT prophylaxis: Lovenox Full code Admit as inpatient and will require two night minimum hospital stay for IV antibiotics (as above), which is not possible in a lesser acute setting. Quality Stroke Does the patient have a stroke diagnosis?: No VTE Prior VTE?: No VTE Risk Level:: Medical - moderate - high VTE Device Contraindication: Treatment Not Indicated VTE Drug Contraindication: N/A - Med Ordered
[2024-04-30 22:44] VITALS: BP 106/53; PULSE 83; RESP 20; TEMP 38.8; O2SAT 97
[2024-04-30] MEDS: Enoxaparin Sodium 40 MG/0.4 ML SYRINGE SUBCUT (22:49)
[2024-04-30] MEDS: Acetaminophen 325 MG TABLET 650 MG PO (22:49)
[2024-04-30 22:54] LABS: Lactic Acid 0.8 mmol/L (0.5-2.0)
--- NOTE | 2024-04-30 23:45 | PC.NURSE ---
tylenol given for fever, rectal temp remains at 101.9
[2024-04-30 23:49] VITALS: BP 134/71; PULSE 72; RESP 16; TEMP 38.8; O2SAT 96
[2024-04-30 23:59] VITALS: BP 136/76; PULSE 72; RESP 20; TEMP 38.8; O2SAT 97
[2024-05-01] VITALS (8 sets, daily range): BP systolic 96–135; BP diastolic 50–77; PULSE 64–84; RESP 16–20; TEMP 36.3–37.6; O2SAT 93–98
[2024-05-01] MEDS: Acetaminophen 1,000 MG/100 ML PIGGYBACK 400 MG IV (00:12)
--- NOTE | 2024-05-01 00:50 | HO.SKINPHOTO ---
Addendum entered by Adalgisa Heller RN 05/01/24 02:56: L buttock with stage II PI Original Note: Location: BL Buttocks Category: DTI
[2024-05-01] MEDS: Melatonin 3 MG TABLET 6 MG PO ×2 (01:24→22:32)
[2024-05-01 06:51] LABS: MANUAL DIFF FLAG NO
[2024-05-01 06:59] LABS: Basophils Percent Auto 0.1 % (0-2); Eosinophils Percent Auto 0.1 % (0-4); Hematocrit 34.4 % (42.0-52.0); Hemoglobin 11.4 g/dl (14.0-18.0); Imm Gran Abs Auto 0.17 X10*3/uL (0.00-0.03); Lymphocytes Absolute Auto 0.8 X10*3/uL (1.2-4.9); Lymphocytes Percent Auto 4.4 % (20-40); Mean Corpuscular HGB Conc 33.1 g/dl (31.0-36.0); Mean Corpuscular Hemoglobin 28.9 pg (27.0-33.0); Mean Corpuscular Volume 87.3 fL (80.0-98.0); Mean Platelet Volume 10.2 fL (9.4-12.4); Monocytes Absolute Auto 1.4 X10*3/uL (0.1-1.2); Monocytes Percent Auto 7.8 % (2-11); Neutrophils Absolute Auto 15.2 x10*3/uL (2.0-8.3); Neutrophils Percent Auto 86.6 % (45-73); Platelet Count 252 X10*3/uL (160-400); Red Blood Count 3.94 X10*6/uL (4.60-5.80); Red Cell Distribution Width 14.2 % (11.0-16.0); White Blood Count 17.6 X10*3/uL (4.8-10.8)
[2024-05-01 08:00] LABS: Anion Gap 11 (12-20); Blood Urea Nitrogen 35 mg/dL (9-16); Carbon Dioxide 19 mmol/L (22-29); Chloride 105 mmol/L (96-108); Creatinine Clr Calc Pharmacy 34.8; Estimated Glomerular Filt Rate 31; Glucose Random 116 mg/dL (60-115); Sodium 132 mmol/L (135-145)
[2024-05-01 08:42] LABS: Calcium 8.1 mg/dL (8.4-10.2)
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
--- NOTE | 2024-05-01 09:33 | PHA.MEDREC ---
Pharmacy Consult ? Medication Reconciliation Pharmacy has completed the medication reconciliation, spoke to patient at bedside, patient confirmed meds and most doses/frequencies.
[2024-05-01] MEDS: 0.9 % Sodium Chloride Flush 3 ML SYRINGE IVFLUSH ×2 (09:38→16:08)
--- NOTE | 2024-05-01 09:53 | HO.PM.IMPN ---
Subjective Subjective Date of Service: 05/01/24 Interval History: feeling better Physical Exam Vital Signs: Vital Signs: Last Vital Signs Temp 97.9 F 05/01/24 08:00 Pulse 70 05/01/24 08:00 Resp 20 05/01/24 08:00 BP 113/67 05/01/24 08:00 Pulse Ox 97 05/01/24 08:00 O2 Del Method Room Air 05/01/24 08:00 BMI result Body Mass Index 25.6 Const: Other: Appearance: Alert. Oriented X3. No acute distress. Seems weak Eyes: Pupils equal, round and reactive to light. ENT: Pharynx normal. Neck: Normal inspection. Neck supple. No lymph nodes noted. No crepitus CVS: Normal heart rate and rhythm. Pulses normal. Normal S1 and S2 Respiratory: No respiratory distress. Breath sounds normal. No Wheezing. No rales : Patient has a Storm catheter in place, foul-smelling urine Abdomen: Soft and nontender. No rigidity. No distention. Skin: Skin warm and dry. Normal skin color. Normal skin turgor. Extremities: No lower extremity edema. No Lacerations. No Rash Neuro: Oriented X 3. No motor deficit. No sensory deficit. Moving all extremities. No slurred speech. CN 2 through 12 grossly intact Psych: calm, cooperative, normal affect Objective Data Active Medications Acetaminophen (Acetaminophen 325 Mg Tablet) 650 mg PO Q6H PRN PRN Reason: Pain, Mild (Pain Scale 1-3), fever or headache Last Admin: 04/30/24 22:49 Dose: 650 mg Documented By: THO Calcium Carbonate (Calcium Carbonate 750 Mg Tab.Chew) 750 mg PO Q4H PRN PRN Reason: Heartburn Enoxaparin Sodium (Enoxaparin Sodium 40 Mg/0.4 Ml Syringe) 40 mg SUBCUT Q24H [facility] Last Admin: 04/30/24 22:49 Dose: 40 mg Documented By: THO Meropenem 1 gm/ Sodium (Chloride) 100 mls @ 200 mls/hr IV Q12H [facility] Last Admin: 05/01/24 09:38 Dose: 200 mls/hr Documented By: МАРИНАIMAAkhil Magnesium Hydroxide (Milk Of Magnesia 30 Ml Oral.Susp) 30 ml PO DAILY PRN PRN Reason: Constipation Melatonin (Melatonin 3 Mg Tablet) 6 mg PO BEDTIME PRN PRN Reason: Insomnia Last Admin: 05/01/24 01:24 Dose: 6 mg Documented By: MARCELL Sodium Chloride (0.9 % Sodium Chloride Flush 3 Ml Syringe) 3 ml IVFLUSH QSHIFT [facility] Last Admin: 05/01/24 09:38 Dose: 3 ml Documented By: МАРИНАIMAAkhil Labs 05/01/24 06:07 05/01/24 06:07 Labs: Laboratory Results - last 24 hr 04/30/24 04/30/24 04/30/24 20:45 20:48 22:38 MCV 86.5 MCH 29.5 MCHC 34.1 RDW 14.2 Plt Count 283 D MPV 9.4 Immature Gran % (Auto) 0.7 H Neut % (Auto) 87.7 H Lymph % (Auto) 3.7 L [place] % (Auto) 7.7 Eos % (Auto) 0.0 Baso % (Auto) 0.2 Lymph # (Auto) 0.8 L [place] # (Auto) 1.7 H Eos # (Auto) 0.0 Baso # (Auto) 0.0 Abs Immat Gran (auto) 0.15 H Absolute Neuts (auto) 19.2 H Absolute Nucleated RBC 0.000 Nucleated RBC % (auto) 0.0 Smear Tech's Comments VERIFIED Anion Gap 14 Estim Creat Clear Calc 35.9 Estimated GFR 32 Random Glucose 90 Lactic Acid 0.9 0.8 Calcium 9.4 Total Bilirubin 2.8 H AST 24 ALT 15 Alkaline Phosphatase 129 H Total Protein 7.2 Albumin 3.5 Urine Color Dark Yellow Urine Appearance Turbid Urine pH 6.0 Ur Specific [place] 1.010 Urine Protein 100 (2+) H Urine Glucose (UA) Negative Urine Ketones Trace Urine Blood Large (3+) H Urine Nitrite Positive H Ur Leukocyte Esterase Large (3+) H Urine RBC >20 H Urine WBC >50 H Ur Squamous Epith Cells 0-2 Urine Bacteria 4+ Hyaline Casts 0-2 05/01/24 06:07 MCV 87.3 MCH 28.9 MCHC 33.1 RDW 14.2 Plt Count 252 MPV 10.2 Immature Gran % (Auto) 1.0 H Neut % (Auto) 86.6 H Lymph % (Auto) 4.4 L [place] % (Auto) 7.8 Eos % (Auto) 0.1 Baso % (Auto) 0.1 Lymph # (Auto) 0.8 L [place] # (Auto) 1.4 H Eos # (Auto) 0.0 Baso # (Auto) 0.0 Abs Immat Gran (auto) 0.17 H Absolute Neuts (auto) 15.2 H Absolute Nucleated RBC 0.000 Nucleated RBC % (auto) 0.0 Smear Tech's Comments Anion Gap 11 L Estim Creat Clear Calc 34.8 Estimated GFR 31 Random Glucose 116 H Lactic Acid Calcium 8.1 L D Total Bilirubin AST ALT Alkaline Phosphatase Total Protein Albumin Urine Color Urine Appearance Urine pH Ur Specific [place] Urine Protein Urine Glucose (UA) Urine Ketones Urine Blood Urine Nitrite Ur Leukocyte Esterase Urine RBC Urine WBC Ur Squamous Epith Cells Urine Bacteria Hyaline Casts Microbiology Microbiology Results: Microbiology 04/30/24 21:45 Urine Culture - Preliminary Urine clean catch - Clean Catch Midstream Culture too young to evaluate. Assessment and Plan (1) RELL (acute kidney injury): Status: Acute Plan 73M PMH mood disorder, BPH with obstructive uropathy and suprapubic catheter, presented with weakness and fevers Sepsis due to acute UTI due to suprapubic catheter and history of MDR organisms Continue IV meropenem, follow-up cultures, gu Debility PT eval Acute kidney injury IV fluids, monitor BPH Continue Flomax Mood disorder Continue citalopram DVT prophylaxis with Lovenox Full Code reason for continued hospitalization: Awaiting cultures Quality Stroke Does the patient have a stroke diagnosis?: No VTE Prior VTE?: No VTE Risk Level:: Medical - moderate - high VTE Device Contraindication: Treatment Not Indicated VTE Drug Contraindication: N/A - Med Ordered
[2024-05-01] MEDS: Lactated Ringers 1,000 ML 100 ML IVCONT ×2 (10:49→21:05)
[2024-05-01] MEDS: Potassium Chloride ER 20 MEQ TAB.ER.PRT 40 MEQ PO (10:49)
[2024-05-01] MEDS: Gabapentin 100 MG CAPSULE PO ×2 (16:08→21:05)
[2024-05-01] MEDS: Midodrine HCl 2.5 MG TABLET PO ×2 (16:08→21:05)
[2024-05-01] MEDS: Tamsulosin HCL 0.4 MG CAPSULE PO (21:05)
[2024-05-01] MEDS: Enoxaparin Sodium 40 MG/0.4 ML SYRINGE SUBCUT (22:41)
[2024-05-02] VITALS: BP 120/57; PULSE 78; RESP 20; TEMP 36.1; O2SAT 92
[2024-05-02] MEDS: Lactated Ringers 1,000 ML 100 ML IVCONT ×2 (05:50→16:30)
[2024-05-02 06:04] LABS: Hematocrit 32.7 % (42.0-52.0); Hemoglobin 10.8 g/dl (14.0-18.0); Mean Corpuscular Hemoglobin 29.1 pg (27.0-33.0); Mean Corpuscular Volume 88.1 fL (80.0-98.0); Mean Platelet Volume 10.4 fL (9.4-12.4); Platelet Count 207 X10*3/uL (160-400); Red Blood Count 3.71 X10*6/uL (4.60-5.80); Red Cell Distribution Width 14.5 % (11.0-16.0); White Blood Count 16.3 X10*3/uL (4.8-10.8)
[2024-05-02 06:24] LABS: Anion Gap 12 (12-20); Blood Urea Nitrogen 35 mg/dL (9-16); Calcium 8.4 mg/dL (8.4-10.2); Carbon Dioxide 21 mmol/L (22-29); Chloride 104 mmol/L (96-108); Creatinine Clr Calc Pharmacy 27.7; Estimated Glomerular Filt Rate 24; Glucose Fasting 100 mg/dL (60-99); Potassium 3.7 mmol/L (3.3-5.1); Sodium 133 mmol/L (135-145)
[2024-05-02 08:00] VITALS: BP 118/72; PULSE 61; RESP 18; TEMP 37; O2SAT 95
[2024-05-02 10:00] VITALS: BP 118/72; PULSE 61; O2SAT 95
--- NOTE | 2024-05-02 10:17 | HO.PM.IMPN ---
Subjective Subjective Date of Service: 05/02/24 Interval History: feeling better Physical Exam Vital Signs: Vital Signs: Last Vital Signs Temp 98.6 F 05/02/24 08:00 Pulse 61 05/02/24 10:00 Resp 18 05/02/24 08:00 BP 118/72 05/02/24 10:00 Pulse Ox 95 05/02/24 10:00 O2 Del Method Room Air 05/02/24 08:00 BMI result Body Mass Index 25.6 General: AO X 3, frail appearing Resp: CTA bilateral, no accessory muscles used CVS: S1,S2,RRR GI: soft, non tender, non distended Neuro: motor grossly intact, alert Psych: appropriate affect, appropriate insight Objective Data Active Medications Acetaminophen (Acetaminophen 325 Mg Tablet) 650 mg PO Q6H PRN PRN Reason: Pain, Mild (Pain Scale 1-3), fever or headache Last Admin: 04/30/24 22:49 Dose: 650 mg Documented By: THO Calcium Carbonate (Calcium Carbonate 750 Mg Tab.Chew) 750 mg PO Q4H PRN PRN Reason: Heartburn Enoxaparin Sodium (Enoxaparin Sodium 40 Mg/0.4 Ml Syringe) 40 mg SUBCUT Q24H [facility] Last Admin: 05/01/24 22:41 Dose: 40 mg Documented By: GUCCI Escitalopram Oxalate (Escitalopram Oxalate 20 Mg Tablet) 20 mg PO DAILY JAVED Gabapentin (Gabapentin 100 Mg Capsule) 100 mg PO TID [facility] Last Admin: 05/01/24 21:05 Dose: 100 mg Documented By: GUCCI Meropenem 1 gm/ Sodium (Chloride) 100 mls @ 200 mls/hr IV Q12H [facility] Last Infusion: 05/02/24 00:18 Dose: Infused Documented By: GUCCI Lactated Ringer's (Lr) 1,000 mls @ 100 mls/hr IVCONT .Q10H [facility] Last Admin: 05/02/24 05:50 Dose: 100 mls/hr Documented By: GUCCI Magnesium Hydroxide (Milk Of Magnesia 30 Ml Oral.Susp) 30 ml PO DAILY PRN PRN Reason: Constipation Melatonin (Melatonin 3 Mg Tablet) 6 mg PO BEDTIME PRN PRN Reason: Insomnia Last Admin: 05/01/24 22:32 Dose: 6 mg Documented By: GUCCI Midodrine (Midodrine Hcl 2.5 Mg Tablet) 2.5 mg PO TID [facility] Last Admin: 05/01/24 21:05 Dose: 2.5 mg Documented By: GUCCI Sodium Chloride (0.9 % Sodium Chloride Flush 3 Ml Syringe) 3 ml IVFLUSH QSHIFT [facility] Last Admin: 05/02/24 01:33 Dose: Not Given Documented By: GUCCI Non-Admin Reason: IV Running Tamsulosin HCl (Tamsulosin Hcl 0.4 Mg Capsule) 0.4 mg PO BEDTIME [facility] Last Admin: 05/01/24 21:05 Dose: 0.4 mg Documented By: GUCCI Labs 05/02/24 05:31 05/02/24 05:31 Labs: Laboratory Results - last 24 hr 05/02/24 05:31 MCV 88.1 MCH 29.1 MCHC 33.0 RDW 14.5 Plt Count 207 MPV 10.4 Absolute Nucleated RBC 0.000 Nucleated RBC % (auto) 0.0 Anion Gap 12 Estim Creat Clear Calc 27.7 Estimated GFR 24 Fasting Glucose 100 H Calcium 8.4 Microbiology Microbiology Results: Microbiology 04/30/24 20:48 Blood Culture - Preliminary Blood - Venous Gram negative marshal 04/30/24 20:45 Blood Culture - Preliminary Blood - Venous Gram negative marshal 04/30/24 21:45 Urine Culture - Preliminary Urine clean catch - Clean Catch Midstream Culture too young to evaluate. Assessment and Plan (1) RELL (acute kidney injury): Status: Acute Plan 73M PMH mood disorder, BPH with obstructive uropathy and suprapubic catheter, presented with weakness and fevers Sepsis due to acute UTI due to suprapubic catheter and history of MDR organisms complicated by bacteremia, RELL, obstructing right stone Continue IV meropenem, follow-up cultures, , bmp Debility PT eval appreciated, will need str at discharge BPH Continue Flomax Mood disorder Continue citalopram DVT prophylaxis with Lovenox Full Code reason for continued hospitalization: Awaiting cultures Quality Stroke Does the patient have a stroke diagnosis?: No VTE Prior VTE?: No VTE Risk Level:: Medical - moderate - high VTE Device Contraindication: Treatment Not Indicated VTE Drug Contraindication: N/A - Med Ordered
[2024-05-02] MEDS: Gabapentin 100 MG CAPSULE PO ×3 (10:39→20:49)
[2024-05-02] MEDS: Escitalopram Oxalate 20 MG TABLET PO (10:39)
[2024-05-02] MEDS: Midodrine HCl 2.5 MG TABLET PO ×3 (10:39→20:49)
[2024-05-02 12:00] VITALS: BP 102/59; PULSE 79; RESP 20; TEMP 36.9; O2SAT 98
[2024-05-02 13:08] VITALS: BMI 25.6
--- NOTE | 2024-05-02 13:17 | MHC.CLN ---
NUTRITION DIET=REGULAR. ADDING ENSURE BID TO PROMOTE WOUND HEALING. PROVIDES 700 KCALS, 40 G PROTEIN. SKIN WITH STAGE II PRESSURE INJURY TO LEFT BUTTOCK. CURRENT INTAKE 75-100%. POOR PO PRIOR TO ADMISSION X 2-3 WEEKS. WEIGHT LOSS TREND, NOT SIGNIFICANT. FOLLOW FOR PO INTAKE AND WOUND HEALING. SEE CLINICAL NUTRITION ASSESSMENT 05/02/24.
--- NOTE | 2024-05-02 14:48 | MHC.CM.PN ---
EMR reviewed and per MD rounds, pt is not medically cleared for discharge due to management of sepsis/UTI with pending blood cultures. PT rec STR, this CM met with pt to discuss discharge plan. Pt in agreement with going to STR, [facility] is the first choice, pending medical clearance, bed offer, and insurance auth (BS closed until Sunday).
[2024-05-02 15:46] VITALS: BP 104/62; PULSE 63; RESP 16; TEMP 36.8; O2SAT 96
--- NOTE | 2024-05-02 17:56 | P.CNUR_ITS ---
History of Present Illness Consult details Consult date: 05/02/24 Narrative: CC: Infected Storm catheter Micky is a 73-year-old male Presents through the emergency department with generalized weakness and fevers Suprapubic tube since January Has gotten progressively weaker over the last few weeks has started no longer taking care from Poor p.o. intake. Sepsis due to acute complicated UTI Suprapubic tube assessed Effective drainage Has been changed Recommend continued antibiotics Imaging was completed just prior to completing the note. Found to have right proximal ureteric stone with creatinine not resolving. Recommend intervention with cystoscopy, right retrograde, right stent placement Review of Systems 2 Constitutional: Constitutional: Reports as per HPI and Reports no additional constitutional complaints Cardiovascular: Cardiovascular: Reports as per HPI and Reports no additional cardiovascular complaints Respiratory: Respiratory: Reports as per HPI and Reports no additional respiratory complaints Gastrointestinal: Gastrointestinal: Reports as per HPI and Reports no additional gastrointestinal complaints Genitourinary: Genitourinary: Reports as per HPI Musculoskeletal: Musculoskeletal: Reports no additional musculoskeletal complaints and Reports as per HPI Neurologic: Reports system reviewed and no additional complaints, except as documented and Reports as per HPI [facility] Past Medical History Medical History Atrial tachycardia Constipation Elevated cholesterol Fracture of humeral head Urinary incontinence Calculus of kidney Insomnia HTN (hypertension) Anxiety Depression Obesity Internal hemorrhoid Erectile dysfunction BPH associated with nocturia Lumbar radiculopathy Umbilical hernia without obstruction or gangrene Rectus diastasis Ventral hernia without obstruction or gangrene Cervical myelopathy Surgical History Surgical History History of lumbar fusion Hx of cystoscopy Hx of cervical spine surgery Hx of lithotripsy H/O colonoscopy Social History Social History Household Members: None Household Members Other:: daughter Housing: House Are you a primary care center manager to a significant other at home: No Do you presently have visiting nurse or other home services: No Alcohol intake: former Patient Tobacco Use Status: Never used Tobacco Advance Directives Date on File: 08/10/23 service: No Meds Allergies Allergy/AdvReac Type Severity Reaction Status Date / Time Seasonal Allergies Allergy Unknown Verified 04/30/24 19:03 Active Medications: Current Medications Acetaminophen (Acetaminophen 325 Mg Tablet) 650 mg PO Q6H PRN PRN Reason: Pain, Mild (Pain Scale 1-3), fever or headache Last Admin: 04/30/24 22:49 Dose: 650 mg Calcium Carbonate (Calcium Carbonate 750 Mg Tab.Chew) 750 mg PO Q4H PRN PRN Reason: Heartburn Enoxaparin Sodium (Enoxaparin Sodium 40 Mg/0.4 Ml Syringe) 40 mg SUBCUT Q24H [facility] Last Admin: 05/01/24 22:41 Dose: 40 mg Escitalopram Oxalate (Escitalopram Oxalate 20 Mg Tablet) 20 mg PO DAILY [facility] Last Admin: 05/02/24 10:39 Dose: 20 mg Gabapentin (Gabapentin 100 Mg Capsule) 100 mg PO TID [facility] Last Admin: 05/02/24 16:28 Dose: 100 mg Meropenem 1 gm/ Sodium (Chloride) 100 mls @ 200 mls/hr IV Q12H [facility] Last Infusion: 05/02/24 11:23 Dose: Infused Lactated Ringer's (Lr) 1,000 mls @ 100 mls/hr IVCONT .Q10H [facility] Last Admin: 05/02/24 16:30 Dose: 100 mls/hr Magnesium Hydroxide (Milk Of Magnesia 30 Ml Oral.Susp) 30 ml PO DAILY PRN PRN Reason: Constipation Melatonin (Melatonin 3 Mg Tablet) 6 mg PO BEDTIME PRN PRN Reason: Insomnia Last Admin: 05/01/24 22:32 Dose: 6 mg Midodrine (Midodrine Hcl 2.5 Mg Tablet) 2.5 mg PO TID [facility] Last Admin: 05/02/24 16:28 Dose: 2.5 mg Sodium Chloride (0.9 % Sodium Chloride Flush 3 Ml Syringe) 3 ml IVFLUSH QSHIFT [facility] Last Admin: 05/02/24 16:31 Dose: Not Given Tamsulosin HCl (Tamsulosin Hcl 0.4 Mg Capsule) 0.4 mg PO BEDTIME [facility] Last Admin: 05/01/24 21:05 Dose: 0.4 mg Home Medications ?Medication ?Instructions ?Recorded ?Confirmed ?Last Taken ?Type citalopram 40 mg tablet 40 mg PO DAILY 05/30/23 05/01/24 04/29/24 09:00 History gabapentin 100 mg capsule 100 mg PO TID 05/30/23 05/01/24 02/19/24 History docusate sodium 100 mg capsule 100 mg PO DAILY PRN Constipation 08/27/23 05/01/24 10/09/23 History (Colace) fluticasone propionate 50 2 spray intranasal DAILY PRN 08/27/23 05/01/24 Unknown History mcg/actuation nasal Allergy Symptoms spray,suspension melatonin 10 mg tablet 10 mg PO BEDTIME PRN Sleep 08/27/23 05/01/24 Unknown History sennosides 8.6 mg tablet (senna) 17.2 mg PO BEDTIME PRN Constipation 08/27/23 05/01/24 10/08/23 History midodrine 2.5 mg tablet 2.5 mg PO TID 02/19/24 05/01/24 Unknown History tamsulosin 0.4 mg capsule 0.4 mg PO BEDTIME 05/01/24 05/01/24 Unknown History Physical Exam 2 Vital Signs: Vital Signs: Last Vital Signs Temp 98.2 F 05/02/24 15:46 Pulse 63 05/02/24 15:46 Resp 16 05/02/24 15:46 BP 104/62 05/02/24 15:46 Pulse Ox 96 05/02/24 15:46 O2 Del Method Room Air 05/02/24 15:46 BMI result Body Mass Index 25.6 Const: General: cooperative, healthy appearing, comfortable and no acute distress Orientation/consciousness: patient oriented x3 HEENT: Face and sinus: Yes normal facial exam Mouth: moist mucous membranes Neck: Neck: Yes normal visual inspection, Yes full ROM and Yes trachea midline Chest: Chest palpation & inspection: normal inspection of the chest Resp: Effort & Inspection: normal respiratory effort, able to speak in complete sentences and no respiratory distress GI: Inspection: Yes normal to inspection Back/Spine/Pelvis: Cervical Spine: normal cervical lordosis Thoracic/Lumbar Spine: thoracic and lumbar spine normal to inspection Skin: General skin exam: no rashes or lesions noted Neuro: General: patient oriented x3, tone normal and moves all extremities Extrem: General: Yes normal to inspection and Yes capillary refill normal Results Labs 05/02/24 05:31 05/02/24 05:31 Labs: Abnormal lab results 05/02/24 Range/Units 05:31 WBC 16.3 H (4.8-10.8) X10*3/uL RBC 3.71 L (4.60-5.80) X10*6/uL Hgb 10.8 L (14.0-18.0) g/dl Hct 32.7 L (42.0-52.0) % Sodium 133 L (135-145) mmol/L Carbon Dioxide 21 L (22-29) mmol/L BUN 35 H (9-16) mg/dL Creatinine 2.64 H (0.5-1.4) mg/dL Fasting Glucose 100 H (60-99) mg/dL Short CBC 05/02/24 Range/Units 05:31 WBC 16.3 H (4.8-10.8) X10*3/uL Hgb 10.8 L (14.0-18.0) g/dl Hct 32.7 L (42.0-52.0) % Plt Count 207 (160-400) X10*3/uL BMP 05/02/24 05:31 Sodium 133 L Potassium 3.7 D Chloride 104 Carbon Dioxide 21 L BUN 35 H Creatinine 2.64 H Calcium 8.4 Urine 04/30/24 Range/Units 20:48 Urine Color Dark Yellow Urine Appearance Turbid Urine pH 6.0 (5.0-9.0) Ur Specific [place] 1.010 (1.005-1.025) Urine Protein 100 (2+) H (Neg-Trace) mg/dL Urine Glucose (UA) Negative (Negative) mg/dL All other labs normal. Assessment and Plan (1) RELL (acute kidney injury): Status: Acute (2) Hydronephrosis with obstructing calculus: Status: Acute (3) Sepsis secondary to UTI: Status: Acute Plan Risks, benefits and alternatives to therapy were discussed. These include but are not limited to infection, bleeding, damage to local organs and tissues, need for further interventions. Anesthetic risks regarding cardiac arrhythmia, blood clots, and potential mortality were discussed. The patient understands the typical recovery time and the outpatient nature of the procedure. After consideration of these risks the patient gives full informed consent and they wish to move ahead with the procedure. Cystoscopy, right retrograde, right stent placement. Possible removal left stent exist Procedures Date of Service Date of Service: 05/02/24
[2024-05-02 20:00] VITALS: BP 136/71; PULSE 79; RESP 20; TEMP 37.6; O2SAT 96
[2024-05-02] MEDS: Tamsulosin HCL 0.4 MG CAPSULE PO (20:49)
[2024-05-02] MEDS: Melatonin 3 MG TABLET 6 MG PO (20:53)
[2024-05-02] MEDS: Enoxaparin Sodium 40 MG/0.4 ML SYRINGE SUBCUT (23:21)
[2024-05-02] MEDS: 0.9 % Sodium Chloride Flush 3 ML SYRINGE IVFLUSH (23:22)
[2024-05-03] VITALS (11 sets, daily range): BP systolic 101–151; BP diastolic 57–83; PULSE 52–73; RESP 13–20; TEMP 36.3–37.7; O2SAT 93–100
[2024-05-03] MEDS: Lactated Ringers 1,000 ML 100 ML IVCONT (04:23)
[2024-05-03 07:56] LABS: Hematocrit 30.7 % (42.0-52.0); Hemoglobin 10.4 g/dl (14.0-18.0); Mean Corpuscular HGB Conc 33.9 g/dl (31.0-36.0); Mean Corpuscular Hemoglobin 29.2 pg (27.0-33.0); Mean Corpuscular Volume 86.2 fL (80.0-98.0); Mean Platelet Volume 10.6 fL (9.4-12.4); Platelet Count 237 X10*3/uL (160-400); Red Blood Count 3.56 X10*6/uL (4.60-5.80); Red Cell Distribution Width 14.4 % (11.0-16.0); White Blood Count 12.6 X10*3/uL (4.8-10.8)
[2024-05-03 08:01] LABS: Anion Gap 11 (12-20); Blood Urea Nitrogen 36 mg/dL (9-16); Calcium 7.9 mg/dL (8.4-10.2); Carbon Dioxide 20 mmol/L (22-29); Chloride 104 mmol/L (96-108); Creatinine Clr Calc Pharmacy 30.2; Estimated Glomerular Filt Rate 26; Glucose Fasting 95 mg/dL (60-99); Potassium 3.6 mmol/L (3.3-5.1); Sodium 131 mmol/L (135-145)
[2024-05-03] MEDS: 0.9 % Sodium Chloride Flush 3 ML SYRINGE IVFLUSH ×3 (08:27→23:22)
--- NOTE | 2024-05-03 08:30 | HO.ANESPROP2 ---
HPI - Anesthesia Eval Consult details Narrative: ureter obstruction PMFSH Active Problems Active Problems: All Active Problems Hydronephrosis with obstructing calculus (Acute) RELL (acute kidney injury) (Acute) Acute hyponatremia (Acute) Sepsis secondary to UTI (Acute) Chronic indwelling Storm catheter (Acute) Bilateral kidney stones (Acute) Urinary retention (Acute) Neurogenic bladder (Acute) Hypospadias (Acute) Pyelonephritis of left kidney (Acute) Catheter-associated urinary tract infection (Acute) Cervical spondylosis with myelopathy (Acute) Lumbar stenosis with neurogenic claudication (Acute) Spondylolisthesis, lumbar region (Acute) Calculus of kidney (Acute) Past Medical History Medical History Atrial tachycardia Constipation Elevated cholesterol Fracture of humeral head Urinary incontinence Calculus of kidney Insomnia HTN (hypertension) Anxiety Depression Obesity Internal hemorrhoid Erectile dysfunction BPH associated with nocturia Lumbar radiculopathy Umbilical hernia without obstruction or gangrene Rectus diastasis Ventral hernia without obstruction or gangrene Cervical myelopathy Family History Family history of problems with anesthesia: No Surgical History Surgical History History of lumbar fusion Hx of cystoscopy Hx of cervical spine surgery Hx of lithotripsy H/O colonoscopy History of Problems with Anesthesia: No Social History Social History Household Members: None Household Members Other:: daughter Housing: House Are you a primary progressive care unit registered nurse to a significant other at home: No Do you presently have visiting nurse or other home services: No Alcohol intake: former Patient Tobacco Use Status: Never used Tobacco Advance Directives Date on File: 08/10/23 service: No Meds Allergies Allergy/AdvReac Type Severity Reaction Status Date / Time Seasonal Allergies Allergy Unknown Verified 04/30/24 19:03 Active Medications: Current Medications Acetaminophen (Acetaminophen 325 Mg Tablet) 650 mg PO Q6H PRN PRN Reason: Pain, Mild (Pain Scale 1-3), fever or headache Last Admin: 04/30/24 22:49 Dose: 650 mg Calcium Carbonate (Calcium Carbonate 750 Mg Tab.Chew) 750 mg PO Q4H PRN PRN Reason: Heartburn Enoxaparin Sodium (Enoxaparin Sodium 40 Mg/0.4 Ml Syringe) 40 mg SUBCUT Q24H [facility] Last Admin: 05/02/24 23:21 Dose: 40 mg Escitalopram Oxalate (Escitalopram Oxalate 20 Mg Tablet) 20 mg PO DAILY [facility] Last Admin: 05/02/24 10:39 Dose: 20 mg Gabapentin (Gabapentin 100 Mg Capsule) 100 mg PO TID [facility] Last Admin: 05/02/24 20:49 Dose: 100 mg Meropenem 1 gm/ Sodium (Chloride) 100 mls @ 200 mls/hr IV Q12H [facility] Last Infusion: 05/03/24 01:00 Dose: Infused Lactated Ringer's (Lr) 1,000 mls @ 100 mls/hr IVCONT .Q10H [facility] Last Admin: 05/03/24 04:23 Dose: 100 mls/hr Levofloxacin (Levaquin) 500 mg in 100 mls @ 100 mls/hr IV PREOP ONE Stop: 05/03/24 09:26 Magnesium Hydroxide (Milk Of Magnesia 30 Ml Oral.Susp) 30 ml PO DAILY PRN PRN Reason: Constipation Melatonin (Melatonin 3 Mg Tablet) 6 mg PO BEDTIME PRN PRN Reason: Insomnia Last Admin: 05/02/24 20:53 Dose: 6 mg Midodrine (Midodrine Hcl 2.5 Mg Tablet) 2.5 mg PO TID [facility] Last Admin: 05/02/24 20:49 Dose: 2.5 mg Sodium Chloride (0.9 % Sodium Chloride Flush 3 Ml Syringe) 3 ml IVFLUSH QSHIFT [facility] Last Admin: 05/03/24 08:27 Dose: 3 ml Tamsulosin HCl (Tamsulosin Hcl 0.4 Mg Capsule) 0.4 mg PO BEDTIME [facility] Last Admin: 05/02/24 20:49 Dose: 0.4 mg Home Medications ?Medication ?Instructions ?Recorded ?Confirmed ?Last Taken ?Type citalopram 40 mg tablet 40 mg PO DAILY 05/30/23 05/01/24 04/29/24 09:00 History gabapentin 100 mg capsule 100 mg PO TID 05/30/23 05/01/24 02/19/24 History docusate sodium 100 mg capsule 100 mg PO DAILY PRN Constipation 08/27/23 05/01/24 10/09/23 History (Colace) fluticasone propionate 50 2 spray intranasal DAILY PRN 08/27/23 05/01/24 Unknown History mcg/actuation nasal Allergy Symptoms spray,suspension melatonin 10 mg tablet 10 mg PO BEDTIME PRN Sleep 08/27/23 05/01/24 Unknown History sennosides 8.6 mg tablet (senna) 17.2 mg PO BEDTIME PRN Constipation 08/27/23 05/01/24 10/08/23 History midodrine 2.5 mg tablet 2.5 mg PO TID 02/19/24 05/01/24 Unknown History tamsulosin 0.4 mg capsule 0.4 mg PO BEDTIME 05/01/24 05/01/24 Unknown History Exam Height,Weight and Vital Signs: Height 6 ft Weight 85.7 kg Last Vital Signs Temp 97.5 F 05/03/24 08:00 Pulse 63 05/03/24 08:00 Resp 18 05/03/24 08:00 BP 145/82 H 05/03/24 08:00 Pulse Ox 94 05/03/24 08:00 O2 Del Method Room Air 05/03/24 08:00 Pertinent Lab Results Pertinent Lab Results: Laboratory Tests 04/30/24 04/30/24 04/30/24 20:45 20:48 22:38 WBC 21.9 H RBC 4.58 L D Hgb 13.5 L D Hct 39.6 L MCV 86.5 MCH 29.5 MCHC 34.1 RDW 14.2 Plt Count 283 D MPV 9.4 Immature Gran % (Auto) 0.7 H Neut % (Auto) 87.7 H Lymph % (Auto) 3.7 L Sampson % (Auto) 7.7 Eos % (Auto) 0.0 Baso % (Auto) 0.2 Lymph # (Auto) 0.8 L Sampson # (Auto) 1.7 H Eos # (Auto) 0.0 Baso # (Auto) 0.0 Abs Immat Gran (auto) 0.15 H Absolute Neuts (auto) 19.2 H Absolute Nucleated RBC 0.000 Nucleated RBC % (auto) 0.0 Smear Tech's Comments VERIFIED Sodium 130 L Potassium 3.5 Chloride 97 Carbon Dioxide 23 Anion Gap 14 BUN 36 H Creatinine 2.04 H Estim Creat Clear Calc 35.9 Estimated GFR 32 Random Glucose 90 Fasting Glucose Lactic Acid 0.9 0.8 Calcium 9.4 Total Bilirubin 2.8 H AST 24 ALT 15 Alkaline Phosphatase 129 H Total Protein 7.2 Albumin 3.5 Urine Color Dark Yellow Urine Appearance Turbid Urine pH 6.0 Ur Specific Pandora 1.010 Urine Protein 100 (2+) H Urine Glucose (UA) Negative Urine Ketones Trace Urine Blood Large (3+) H Urine Nitrite Positive H Ur Leukocyte Esterase Large (3+) H Urine RBC >20 H Urine WBC >50 H Ur Squamous Epith Cells 0-2 Urine Bacteria 4+ Hyaline Casts 0-2 05/01/24 05/02/24 05/03/24 06:07 05:31 07:14 WBC 17.6 H 16.3 H 12.6 H RBC 3.94 L 3.71 L 3.56 L Hgb 11.4 L 10.8 L 10.4 L Hct 34.4 L 32.7 L 30.7 L MCV 87.3 88.1 86.2 MCH 28.9 29.1 29.2 MCHC 33.1 33.0 33.9 RDW 14.2 14.5 14.4 Plt Count 252 207 237 MPV 10.2 10.4 10.6 Immature Gran % (Auto) 1.0 H Neut % (Auto) 86.6 H Lymph % (Auto) 4.4 L Sampson % (Auto) 7.8 Eos % (Auto) 0.1 Baso % (Auto) 0.1 Lymph # (Auto) 0.8 L Sampson # (Auto) 1.4 H Eos # (Auto) 0.0 Baso # (Auto) 0.0 Abs Immat Gran (auto) 0.17 H Absolute Neuts (auto) 15.2 H Absolute Nucleated RBC 0.000 0.000 0.000 Nucleated RBC % (auto) 0.0 0.0 0.0 Smear Tech's Comments Sodium 132 L 133 L 131 L Potassium 3.0 L 3.7 D 3.6 Chloride 105 104 104 Carbon Dioxide 19 L 21 L 20 L Anion Gap 11 L 12 11 L BUN 35 H 35 H 36 H Creatinine 2.10 H 2.64 H 2.42 H Estim Creat Clear Calc 34.8 27.7 30.2 Estimated GFR 31 24 26 Random Glucose 116 H Fasting Glucose 100 H 95 Lactic Acid Calcium 8.1 L D 8.4 7.9 L Total Bilirubin AST ALT Alkaline Phosphatase Total Protein Albumin Urine Color Urine Appearance Urine pH Ur Specific Pandora Urine Protein Urine Glucose (UA) Urine Ketones Urine Blood Urine Nitrite Ur Leukocyte Esterase Urine RBC Urine WBC Ur Squamous Epith Cells Urine Bacteria Hyaline Casts Airway Mallampati Class: II TM Dist: >3cm Neck ROM: Full Loose/Missing/Broken Teeth: No Heart: RRR Lungs: CTA Assessment and Plan Assessment Anesthesia Assessment: Anesthesia Plan Discussed and Chart Reviewed Final Anesthetic Review Family History of Problems with Anesthesia: No History of Problems with Anesthesia: No NPO: Yes ASA Class: III Final Preanesthetic Review: No Changes in Pt Med Stat, Meds/Allgs Chart Reviewed, Consent Obtained/Reviewed and Anes Risks/Benef Reviewed Patient Risk: Intermediate Procedure Risk: Low Anesthetic Plan Anesthetic Plan: GA Disposition: Standard PACU
--- NOTE | 2024-05-03 08:40 | MHC.SHP ---
Pre-Procedural Eval Section A - 24 Hr Update-Section A only Date of Service: 05/03/24 The patient is an INPATIENT: Yes Changes since office visit: No Cold of Flu in the past 2 weeks, No New Medical Problems, No Changes in Medication and No Patient answered all questions The patient has been examined within 24 hours of the surgical procedure. The History & Physical has been completed within 30 days and I have reviewed it.: Yes Section B - Complete if H&P > 30 days Chief Complaint: weakness Details of Present Illness: obstructing right proximal stone Relevant Family History (Specify if Yes): No Relevant Social History: None Present Medications: see Short Stay Collaborative assessment Medical History: Significant History History of Previous Operations: Relevant previous surgery/procedure and date(s) Allergies: Allergies Allergy/AdvReac Type Severity Reaction Status Date / Time Seasonal Allergies Allergy Unknown Verified 04/30/24 19:03 Review of Systems Sugical H&P ROS: Negative: Constitution, Cardiovascular, Respiratory, Neurological, Psychiatric, Hem-Onc, Allergic/Immunologic, Gastrointestinal, Genitourinary, Musculoskeletal, Integumentary, Endocrine and Eyes/Ears/Nose/Throat Exam Surgical H&P Exam: Normal: HEENT, Normal: Heart, Normal: Lungs, Normal: Extremities, Normal: Abdomen, Normal: Skin and Normal: Neurological Plan Diagnosis/Plan: Unchanged (cysto right retrograde right stent placement) I have reviewed the history and physical and performed a pertinent physical examination on my patient. No changes have occurred unless specified. Time Spent With Patient Time: Total time managing care of this patient today ____ minutes.
--- NOTE | 2024-05-03 09:28 | W.PM.OPN ---
Operative Note Operative Note Date of Service: 05/03/24 Narrative: PreOperative Diagnosis: right proxiaml stone with elevated creatinine Post Operative Diagnosis: same Procedure: cysto, retrograde, stent placement Surgeon: Dr Franky Blackman Anesthesia: sedation Indications for procedure: obsturcting stone Procedure: After informed consent was verified the patient was brought to the operating room and placed in a supine position. Anesthesia was administered per protocol. The patient was placed in modified dorsal lithotomy position and prepped and draped in a sterile fashion. A safety pause time-out was performed. Laterality of procedure and antibiotics were confirmed, appropriate imaging was available A 22 [place] cystoscope was introduced per urethra. No abnormality was noted of urethra or bladder. Both ureteric orifices were seen in a normal position. The right ureter was cannulated with an open ended catheter and a retrograde examination was performed. obstruction at proximal ureter noted . A Sensor guidewire was placed under fluoroscopy and a good coil was seen within the renal pelvis. A 6x 28 cm double J stent was advanced over the wire and up to the level of the renal pelvis under fluoroscopic and direct visualization. The stent was seen with appropriate coil within the renal pelvis and in the bladder after deployment. The patient tolerated the procedure well and was transferred in a stable condition to the recovery area. Pathology: Drains: as above
--- NOTE | 2024-05-03 10:31 | HO.PM.IMPN ---
Subjective Subjective Date of Service: 05/03/24 Interval History: feeling better Physical Exam Vital Signs: Vital Signs: Last Vital Signs Temp 99 F 05/03/24 09:50 Pulse 52 05/03/24 09:50 Resp 16 05/03/24 09:50 BP 105/57 L 05/03/24 09:50 Pulse Ox 96 05/03/24 09:50 O2 Del Method Nasal Cannula 05/03/24 09:50 O2 Flow Rate 2 05/03/24 09:50 BMI result Body Mass Index 25.6 Const: General: cooperative, healthy appearing, comfortable and no acute distress Orientation/consciousness: patient oriented x3 HEENT: Face and sinus: Yes normal facial exam Mouth: moist mucous membranes Neck: Neck: Yes normal visual inspection, Yes full ROM and Yes trachea midline Chest: Chest palpation & inspection: normal inspection of the chest Resp: Effort & Inspection: normal respiratory effort, able to speak in complete sentences and no respiratory distress GI: Inspection: Yes normal to inspection Back/Spine/Pelvis: Cervical Spine: normal cervical lordosis Thoracic/Lumbar Spine: thoracic and lumbar spine normal to inspection Skin: General skin exam: no rashes or lesions noted Neuro: General: patient oriented x3, tone normal and moves all extremities Extrem: General: Yes normal to inspection and Yes capillary refill normal Objective Data Active Medications Acetaminophen (Acetaminophen 325 Mg Tablet) 650 mg PO Q6H PRN PRN Reason: Pain, Mild (Pain Scale 1-3), fever or headache Last Admin: 04/30/24 22:49 Dose: 650 mg Documented By: THO Calcium Carbonate (Calcium Carbonate 750 Mg Tab.Chew) 750 mg PO Q4H PRN PRN Reason: Heartburn Enoxaparin Sodium (Enoxaparin Sodium 40 Mg/0.4 Ml Syringe) 40 mg SUBCUT Q24H [facility] [place] Last Admin: 05/02/24 23:21 Dose: 40 mg Documented By: GUCCI Escitalopram Oxalate (Escitalopram Oxalate 20 Mg Tablet) 20 mg PO DAILY [facility] [place] Last Admin: 05/02/24 10:39 Dose: 20 mg Documented By: MADISON Fentanyl (Fentanyl Citrate/Pf 100 Mcg/2 Ml Vial) 25 mcg IVPUSH Q5M PRN PRN Reason: Pain, Moderate(Pain Scale 4-6) Stop: 05/03/24 14:32 Gabapentin (Gabapentin 100 Mg Capsule) 100 mg PO TID [facility] [place] Last Admin: 05/02/24 20:49 Dose: 100 mg Documented By: GUCCI Magnesium Hydroxide (Milk Of Magnesia 30 Ml Oral.Susp) 30 ml PO DAILY PRN PRN Reason: Constipation Melatonin (Melatonin 3 Mg Tablet) 6 mg PO BEDTIME PRN PRN Reason: Insomnia Last Admin: 05/02/24 20:53 Dose: 6 mg Documented By: GUCCI Midodrine (Midodrine Hcl 2.5 Mg Tablet) 2.5 mg PO TID [facility] [place] Last Admin: 05/02/24 20:49 Dose: 2.5 mg Documented By: GUCCI Sodium Chloride (0.9 % Sodium Chloride Flush 3 Ml Syringe) 3 ml IVFLUSH QSHIFT [facility] [place] Last Admin: 05/03/24 08:27 Dose: 3 ml Documented By: RADHA Tamsulosin HCl (Tamsulosin Hcl 0.4 Mg Capsule) 0.4 mg PO BEDTIME [facility] [place] Last Admin: 05/02/24 20:49 Dose: 0.4 mg Documented By: GUCCI Labs 05/03/24 07:14 05/03/24 07:14 Labs: Laboratory Results - last 24 hr 05/03/24 07:14 MCV 86.2 MCH 29.2 MCHC 33.9 RDW 14.4 Plt Count 237 MPV 10.6 Absolute Nucleated RBC 0.000 Nucleated RBC % (auto) 0.0 Anion Gap 11 L Estim Creat Clear Calc 30.2 Estimated GFR 26 Fasting Glucose 95 Calcium 7.9 L Microbiology Microbiology Results: Microbiology 04/30/24 20:48 Blood Culture - Final Blood - Venous Klebsiella pneumoniae 04/30/24 20:45 Blood Culture - Final Blood - Venous Klebsiella pneumoniae 04/30/24 21:45 Urine Culture - Preliminary Urine clean catch - Clean Catch Midstream Culture in progress. Assessment and Plan (1) RELL (acute kidney injury): Status: Acute Plan 73M PMH mood disorder, BPH with obstructive uropathy and suprapubic catheter, presented with weakness and fevers Sepsis due to acute UTI due to suprapubic catheter complicated by klebsiella bacteremia, RELL, obstructing right prox ureteral stone changed to rocephin s/p stent placement 05/03/24 follow-up cultures monitor bmp Debility PT eval appreciated, will need str at discharge BPH Continue Flomax Mood disorder Continue citalopram DVT prophylaxis with Lovenox Full Code reason for continued hospitalization: Awaiting culture clearance, rell Quality Stroke Does the patient have a stroke diagnosis?: No VTE Prior VTE?: No VTE Risk Level:: Medical - moderate - high VTE Device Contraindication: Treatment Not Indicated VTE Drug Contraindication: N/A - Med Ordered
[2024-05-03] MEDS: cefTRIAXone sodium 2 GM in 0.9 % Sodium Chloride 50 ML IV (10:45)
[2024-05-03] MEDS: Midodrine HCl 2.5 MG TABLET PO ×3 (10:45→22:00)
[2024-05-03] MEDS: Gabapentin 100 MG CAPSULE PO ×3 (10:46→22:00)
[2024-05-03] MEDS: Escitalopram Oxalate 20 MG TABLET PO (10:46)
[2024-05-03] MEDS: Tamsulosin HCL 0.4 MG CAPSULE PO (22:00)
[2024-05-03] MEDS: Melatonin 3 MG TABLET 6 MG PO (22:01)
[2024-05-03] MEDS: Enoxaparin Sodium 40 MG/0.4 ML SYRINGE SUBCUT (23:22)
[2024-05-04] VITALS: BP 116/64; PULSE 52; RESP 20; TEMP 37.4; O2SAT 95
[2024-05-04 06:54] LABS: Hematocrit 33.7 % (42.0-52.0); Hemoglobin 11.3 g/dl (14.0-18.0); Mean Corpuscular HGB Conc 33.5 g/dl (31.0-36.0); Mean Corpuscular Hemoglobin 29.4 pg (27.0-33.0); Mean Corpuscular Volume 87.8 fL (80.0-98.0); Mean Platelet Volume 10.2 fL (9.4-12.4); Platelet Count 263 X10*3/uL (160-400); Red Blood Count 3.84 X10*6/uL (4.60-5.80); Red Cell Distribution Width 14.7 % (11.0-16.0)
[2024-05-04 07:05] LABS: Anion Gap 12 (12-20); Blood Urea Nitrogen 32 mg/dL (9-16); Calcium 8.3 mg/dL (8.4-10.2); Carbon Dioxide 23 mmol/L (22-29); Chloride 104 mmol/L (96-108); Creatinine Clr Calc Pharmacy 31.4; Estimated Glomerular Filt Rate 28; Glucose Fasting 93 mg/dL (60-99); Potassium 3.7 mmol/L (3.3-5.1); Sodium 135 mmol/L (135-145)
[2024-05-04 08:00] VITALS: BP 114/60; PULSE 69; RESP 17; TEMP 36.3; O2SAT 92
[2024-05-04] MEDS: 0.9 % Sodium Chloride Flush 3 ML SYRINGE IVFLUSH (08:21)
[2024-05-04] MEDS: Gabapentin 100 MG CAPSULE PO ×3 (08:22→20:48)
[2024-05-04] MEDS: Midodrine HCl 2.5 MG TABLET PO ×3 (08:22→20:48)
[2024-05-04] MEDS: Escitalopram Oxalate 20 MG TABLET PO (08:22)
[2024-05-04] MEDS: Lactated Ringers 1,000 ML 100 ML IVCONT ×2 (08:43→18:11)
--- NOTE | 2024-05-04 09:21 | HO.PM.IMPN ---
Subjective Subjective Date of Service: 05/04/24 Interval History: no new complaints Physical Exam Vital Signs: Vital Signs: Last Vital Signs Temp 99.4 F 05/04/24 00:00 Pulse 52 05/04/24 00:00 Resp 20 05/04/24 00:00 BP 116/64 05/04/24 00:00 Pulse Ox 95 05/04/24 00:00 O2 Del Method Room Air 05/04/24 00:00 O2 Flow Rate 2 05/03/24 11:05 BMI result Body Mass Index 25.6 Const: General: cooperative, healthy appearing, comfortable and no acute distress Orientation/consciousness: patient oriented x3 HEENT: Face and sinus: Yes normal facial exam Mouth: moist mucous membranes Neck: Neck: Yes normal visual inspection, Yes full ROM and Yes trachea midline Chest: Chest palpation & inspection: normal inspection of the chest Resp: Effort & Inspection: normal respiratory effort, able to speak in complete sentences and no respiratory distress GI: Inspection: Yes normal to inspection Back/Spine/Pelvis: Cervical Spine: normal cervical lordosis Thoracic/Lumbar Spine: thoracic and lumbar spine normal to inspection Skin: General skin exam: no rashes or lesions noted Neuro: General: patient oriented x3, tone normal and moves all extremities Extrem: General: Yes normal to inspection and Yes capillary refill normal Objective Data Active Medications Acetaminophen (Acetaminophen 325 Mg Tablet) 650 mg PO Q6H PRN PRN Reason: Pain, Mild (Pain Scale 1-3), fever or headache Last Admin: 04/30/24 22:49 Dose: 650 mg Documented By: THO Calcium Carbonate (Calcium Carbonate 750 Mg Tab.Chew) 750 mg PO Q4H PRN PRN Reason: Heartburn Enoxaparin Sodium (Enoxaparin Sodium 40 Mg/0.4 Ml Syringe) 40 mg SUBCUT Q24H [facility] [place] Last Admin: 05/03/24 23:22 Dose: 40 mg Documented By: GUCCI Escitalopram Oxalate (Escitalopram Oxalate 20 Mg Tablet) 20 mg PO DAILY [facility] [place] Last Admin: 05/04/24 08:22 Dose: 20 mg Documented By: CHRIS Gabapentin (Gabapentin 100 Mg Capsule) 100 mg PO TID [facility] Last Admin: 05/04/24 08:22 Dose: 100 mg Documented By: CHRIS Ceftriaxone Sodium 2 gm/ (Sodium Chloride) 50 mls @ 100 mls/hr IV Q24H [facility] [place] Last Infusion: 05/03/24 11:15 Dose: Infused Documented By: RADHA Lactated Ringer's (Lr) 1,000 mls @ 100 mls/hr IVCONT .Q10H [facility] [place] Last Admin: 05/04/24 08:43 Dose: 100 mls/hr Documented By: CHRIS Magnesium Hydroxide (Milk Of Magnesia 30 Ml Oral.Susp) 30 ml PO DAILY PRN PRN Reason: Constipation Melatonin (Melatonin 3 Mg Tablet) 6 mg PO BEDTIME PRN PRN Reason: Insomnia Last Admin: 05/03/24 22:01 Dose: 6 mg Documented By: GUCCI Midodrine (Midodrine Hcl 2.5 Mg Tablet) 2.5 mg PO TID [facility] [place] Last Admin: 05/04/24 08:22 Dose: 2.5 mg Documented By: CHRIS Sodium Chloride (0.9 % Sodium Chloride Flush 3 Ml Syringe) 3 ml IVFLUSH QSHIFT [facility] [place] Last Admin: 05/04/24 08:21 Dose: 3 ml Documented By: CHRIS Tamsulosin HCl (Tamsulosin Hcl 0.4 Mg Capsule) 0.4 mg PO BEDTIME [facility] [place] Last Admin: 05/03/24 22:00 Dose: 0.4 mg Documented By: GUCCI Labs 05/04/24 06:17 05/04/24 06:17 Labs: Laboratory Results - last 24 hr 05/04/24 06:17 MCV 87.8 MCH 29.4 MCHC 33.5 RDW 14.7 Plt Count 263 MPV 10.2 Absolute Nucleated RBC 0.000 Nucleated RBC % (auto) 0.0 Anion Gap 12 Estim Creat Clear Calc 31.4 Estimated GFR 28 Fasting Glucose 93 Calcium 8.3 L Microbiology Microbiology Results: Microbiology 04/30/24 21:45 Urine Culture - Preliminary Urine clean catch - Clean Catch Midstream Gram negative marshal 04/30/24 20:48 Blood Culture - Final Blood - Venous Klebsiella pneumoniae 04/30/24 20:45 Blood Culture - Final Blood - Venous Klebsiella pneumoniae Assessment and Plan (1) RELL (acute kidney injury): Status: Acute Plan 73M PMH mood disorder, BPH with obstructive uropathy and suprapubic catheter, presented with weakness and fevers Sepsis due to acute UTI due to suprapubic catheter complicated by klebsiella bacteremia, RELL, obstructing right prox ureteral stone rocephin s/p stent placement 05/03/24 monitor bmp, restart ivf Debility PT eval appreciated, will need str at discharge BPH Continue Flomax Mood disorder Continue citalopram DVT prophylaxis with Lovenox Full Code reason for continued hospitalization: rell Quality Stroke Does the patient have a stroke diagnosis?: No VTE Prior VTE?: No VTE Risk Level:: Medical - moderate - high VTE Device Contraindication: Treatment Not Indicated VTE Drug Contraindication: N/A - Med Ordered
--- NOTE | 2024-05-04 09:32 | HO.POSTANES ---
Post Anesthesia Evaluation Post Anesthesia Evaluation Date of Service: 05/04/24 Vital Signs: Vital Signs Temp Pulse Resp BP Pulse Ox O2 Del Method 05/04/24 00:00 99.4 F 52 20 116/64 95 Room Air Anesthesia: General LMA Mental Status: Awake Pain Control: Satisfactory Nausea/Vomiting: None Hydration: Adequate Anesthesia-Related Issues: No Anes. Related Issues
[2024-05-04] MEDS: cefTRIAXone sodium 2 GM in 0.9 % Sodium Chloride 50 ML IV (10:07)
[2024-05-04 11:20] VITALS: BP 111/62; PULSE 60; RESP 17; TEMP 36.3; O2SAT 95
[2024-05-04 15:54] VITALS: BP 120/62; PULSE 59; RESP 17; TEMP 36.6; O2SAT 96
[2024-05-04] MEDS: Acetaminophen 325 MG TABLET 650 MG PO (15:56)
[2024-05-04] MEDS: Tamsulosin HCL 0.4 MG CAPSULE PO (20:48)
[2024-05-04] MEDS: Enoxaparin Sodium 40 MG/0.4 ML SYRINGE SUBCUT (22:23)
[2024-05-05] VITALS: BP 118/60; PULSE 78; RESP 20; TEMP 37; O2SAT 98
[2024-05-05] MEDS: Lactated Ringers 1,000 ML 100 ML IVCONT ×2 (02:20→14:53)
[2024-05-05 05:53] LABS: Hematocrit 30.3 % (42.0-52.0); Hemoglobin 10.3 g/dl (14.0-18.0); Mean Corpuscular Hemoglobin 29.5 pg (27.0-33.0); Mean Corpuscular Volume 86.8 fL (80.0-98.0); Mean Platelet Volume 10.1 fL (9.4-12.4); Platelet Count 288 X10*3/uL (160-400); Red Blood Count 3.49 X10*6/uL (4.60-5.80); Red Cell Distribution Width 14.6 % (11.0-16.0); White Blood Count 11.3 X10*3/uL (4.8-10.8)
[2024-05-05 06:07] LABS: Anion Gap 11 (12-20); Blood Urea Nitrogen 30 mg/dL (9-16); Calcium 7.8 mg/dL (8.4-10.2); Carbon Dioxide 22 mmol/L (22-29); Chloride 105 mmol/L (96-108); Creatinine Clr Calc Pharmacy 34.8; Estimated Glomerular Filt Rate 31; Glucose Fasting 107 mg/dL (60-99); Potassium 3.5 mmol/L (3.3-5.1); Sodium 134 mmol/L (135-145)
[2024-05-05 07:39] VITALS: BP 110/63; PULSE 65; RESP 20; TEMP 36.7; O2SAT 95
[2024-05-05] MEDS: Gabapentin 100 MG CAPSULE PO ×3 (08:58→21:22)
[2024-05-05] MEDS: Escitalopram Oxalate 20 MG TABLET PO (08:58)
[2024-05-05] MEDS: Midodrine HCl 2.5 MG TABLET PO ×3 (08:58→21:22)
[2024-05-05] MEDS: 0.9 % Sodium Chloride Flush 3 ML SYRINGE IVFLUSH (08:58)
--- NOTE | 2024-05-05 09:30 | P.PNIM_ITS ---
Subjective Subjective Date of Service: 05/05/24 Interval History: weak, but imrpoved Physical Exam 2 Vital Signs: Vital Signs: Last Vital Signs Temp 98.1 F 05/05/24 07:39 Pulse 65 05/05/24 07:39 Resp 20 05/05/24 07:39 BP 110/63 05/05/24 07:39 Pulse Ox 95 05/05/24 07:39 O2 Del Method Room Air 05/05/24 07:39 O2 Flow Rate 2 05/03/24 11:05 BMI result Body Mass Index 25.6 Const: General: cooperative, healthy appearing, comfortable and no acute distress Orientation/consciousness: patient oriented x3 HEENT: Face and sinus: Yes normal facial exam Mouth: moist mucous membranes Neck: Neck: Yes normal visual inspection, Yes full ROM and Yes trachea midline Chest: Chest palpation & inspection: normal inspection of the chest Resp: Effort & Inspection: normal respiratory effort, able to speak in complete sentences and no respiratory distress GI: Inspection: Yes normal to inspection Back/Spine/Pelvis: Cervical Spine: normal cervical lordosis Thoracic/Lumbar Spine: thoracic and lumbar spine normal to inspection Skin: General skin exam: no rashes or lesions noted Neuro: General: patient oriented x3, tone normal and moves all extremities Extrem: General: Yes normal to inspection and Yes capillary refill normal Objective Data Active Medications Acetaminophen (Acetaminophen 325 Mg Tablet) 650 mg PO Q6H PRN PRN Reason: Pain, Mild (Pain Scale 1-3), fever or headache Last Admin: 05/04/24 15:56 Dose: 650 mg Documented By: CHRIS Calcium Carbonate (Calcium Carbonate 750 Mg Tab.Chew) 750 mg PO Q4H PRN PRN Reason: Heartburn Enoxaparin Sodium (Enoxaparin Sodium 40 Mg/0.4 Ml Syringe) 40 mg SUBCUT Q24H COUNT INCLUDES THE [facility] Last Admin: 05/04/24 22:23 Dose: 40 mg Documented By: GUCCI Escitalopram Oxalate (Escitalopram Oxalate 20 Mg Tablet) 20 mg PO DAILY COUNT INCLUDES [facility] Last Admin: 05/05/24 08:58 Dose: 20 mg Documented By: PERNELL Gabapentin (Gabapentin 100 Mg Capsule) 100 mg PO TID COUNT INCLUDES [facility] Last Admin: 05/05/24 08:58 Dose: 100 mg Documented By: PERNELL Ceftriaxone Sodium 2 gm/ (Sodium Chloride) 50 mls @ 100 mls/hr IV Q24H COUNT INCLUDES THE [facility] Last Infusion: 05/04/24 10:47 Dose: Infused Documented By: CHRIS Lactated Ringer's (Lr) 1,000 mls @ 100 mls/hr IVCONT .Q10H COUNT INCLUDES THE [facility] Last Admin: 05/05/24 02:20 Dose: 100 mls/hr Documented By: GUCCI Magnesium Hydroxide (Milk Of Magnesia 30 Ml Oral.Susp) 30 ml PO DAILY PRN PRN Reason: Constipation Melatonin (Melatonin 3 Mg Tablet) 6 mg PO BEDTIME PRN PRN Reason: Insomnia Last Admin: 05/03/24 22:01 Dose: 6 mg Documented By: GUCCI Midodrine (Midodrine Hcl 2.5 Mg Tablet) 2.5 mg PO TID COUNT INCLUDES [facility] Last Admin: 05/05/24 08:58 Dose: 2.5 mg Documented By: PERNELL Sodium Chloride (0.9 % Sodium Chloride Flush 3 Ml Syringe) 3 ml IVFLUSH QSHIFT COUNT INCLUDES THE [facility] Last Admin: 05/05/24 08:58 Dose: 3 ml Documented By: PERNELL Tamsulosin HCl (Tamsulosin Hcl 0.4 Mg Capsule) 0.4 mg PO BEDTIME COUNT INCLUDES THE [facility] Last Admin: 05/04/24 20:48 Dose: 0.4 mg Documented By: GUCCI Labs 05/05/24 05:34 05/05/24 05:34 Labs: Laboratory Results - last 24 hr 05/05/24 05:34 MCV 86.8 MCH 29.5 MCHC 34.0 RDW 14.6 Plt Count 288 MPV 10.1 Absolute Nucleated RBC 0.000 Nucleated RBC % (auto) 0.0 Anion Gap 11 L Estim Creat Clear Calc 34.8 Estimated GFR 31 Fasting Glucose 107 H Calcium 7.8 L D Microbiology Microbiology Results: Microbiology 04/30/24 21:45 Urine Culture - Final Urine clean catch - Clean Catch Midstream Klebsiella pneumoniae Pseudomonas aeruginosa Assessment and Plan (1) RELL (acute kidney injury): Status: Acute Plan 73M PMH mood disorder, BPH with obstructive uropathy and suprapubic catheter, presented with weakness and fevers Sepsis due to acute UTI due to suprapubic catheter complicated by klebsiella bacteremia, RELL, obstructing right prox ureteral stone on rocephin, but urine now growing pseudomonas in urine, ID eval s/p stent placement 05/03/24 monitor bmp Debility PT eval appreciated, will need str at discharge BPH Continue Flomax Mood disorder Continue citalopram DVT prophylaxis with Lovenox Full Code reason for continued hospitalization: rell, ID eval Quality Stroke Does the patient have a stroke diagnosis?: No VTE Prior VTE?: No VTE Risk Level:: Medical - moderate - high VTE Device Contraindication: Treatment Not Indicated VTE Drug Contraindication: N/A - Med Ordered
--- NOTE | 2024-05-05 10:07 | MHC.CLN ---
F/U PO INTAKE 75-100% DIET RX: REGULAR-APPROPRIATE WILL RE-START ENSURE BID TO PROMOTE WOUND HEALING SUPP TO PROVIDE 700KCALS, 40G PROTEIN MONITOR PO INTAKE AND ENCOURAGE SUPPLEMENT
--- NOTE | 2024-05-05 11:16 | MHC.CM.PN ---
Per ROUNDS discussion, Patient is not yet medically cleared for dc (ID Consult needed/? LT IVABT); PT is recommending STR and CM will continue to follow.
[2024-05-05] MEDS: cefTRIAXone sodium 2 GM in 0.9 % Sodium Chloride 50 ML IV (11:19)
--- NOTE | 2024-05-05 12:45 | HO.WOUND ---
Wound Consult: Initial 73yr old?male admitted to [facility] on 04/30/24 - See progress notes and H&P for detailed history.? Wound consult placed for sacral wound POA.? Patient agreeable to assessment and photo documentation.? Left Buttocks Etiology: Stage 2 Pressure Injury POA Measurements: 0.5cm x 0.5cm x 0.1cm Wound Bed: dry pink wound bed Drainage / Odor: no odor drainage noted Edges: ? well defined Zita wound: MASD - hyperpigmentation, No Induration, Fluctuance noted Pain: pain reported Goals of Treatment: Foam dressing for moist wound healing Recommendations: 1. Turn and Reposition every 2 hours and as needed for patient comfort.? Use pillows or wedges to support off loading positions. 2. Off Load all bony prominences with use of pillows and heel boots if needed.? Apply Preventative foams where needed. ? 3. Monitor for incontinence and moisture control, use barrier creams when needed for prevention and treatment. 4. Provide adequate and supplemental nutrition.? 5. When applicable maintain blood glucose levels per Providers order. 6. Sacrum - Cleanse with PH balanced bath wipes, pat dry. Apply sacral foam dressing, peel back and assess Q shift and change every 3 days and PRN.
--- NOTE | 2024-05-05 14:39 | MHC.CM.PN ---
CM met with Patient at his request and updated him on the dc plan (STR). Patient admits to feeling very depressed since his Daughter/Caregiver moved out. CM offered reassurance that CM will continue to assist him with getting to the next LOC. Patient expressed relief of some stress after being reassured. CM will follow.
[2024-05-05 16:00] VITALS: BP 135/64; PULSE 51; RESP 12; TEMP 36.9; O2SAT 98
--- NOTE | 2024-05-05 16:57 | W.PM.IDCN ---
History of Present Illness Data of Consult Service Date: 05/05/24 Primary Care Provider: Gonzalez Gaitan MD [facility] Reason for consult: weakness,bacteremia He presents with weakness. He has bacteremia and renal stones. He has had clear urine now after Sunday am stent; Review of Systems Review of Systems: Yes all other systems are reviewed and are negative [facility] Past Medical History Medical History Atrial tachycardia Constipation Elevated cholesterol Fracture of humeral head Urinary incontinence Calculus of kidney Insomnia HTN (hypertension) Anxiety Depression Obesity Internal hemorrhoid Erectile dysfunction BPH associated with nocturia Lumbar radiculopathy Umbilical hernia without obstruction or gangrene Rectus diastasis Ventral hernia without obstruction or gangrene Cervical myelopathy Family History Family history: reviewed and not pertinent Surgical History Surgical History History of lumbar fusion Hx of cystoscopy Hx of cervical spine surgery Hx of lithotripsy H/O colonoscopy Social History Social History Household Members: None Household Members Other:: daughter Housing: House Are you a primary medical care evaluation specialist to a significant other at home: No Do you presently have visiting nurse or other home services: No Alcohol intake: former Patient Tobacco Use Status: Never used Tobacco Advance Directives Date on File: 08/10/23 service: No Meds Allergies Allergy/AdvReac Type Severity Reaction Status Date / Time Seasonal Allergies Allergy Unknown Verified 04/30/24 19:03 Active Medications: Current Medications Acetaminophen (Acetaminophen 325 Mg Tablet) 650 mg PO Q6H PRN PRN Reason: Pain, Mild (Pain Scale 1-3), fever or headache Last Admin: 05/04/24 15:56 Dose: 650 mg Calcium Carbonate (Calcium Carbonate 750 Mg Tab.Chew) 750 mg PO Q4H PRN PRN Reason: Heartburn Enoxaparin Sodium (Enoxaparin Sodium 40 Mg/0.4 Ml Syringe) 40 mg SUBCUT Q24H [facility] Last Admin: 05/04/24 22:23 Dose: 40 mg Escitalopram Oxalate (Escitalopram Oxalate 20 Mg Tablet) 20 mg PO DAILY [facility] Last Admin: 05/05/24 08:58 Dose: 20 mg Gabapentin (Gabapentin 100 Mg Capsule) 100 mg PO TID [facility] Last Admin: 05/05/24 14:52 Dose: 100 mg Ceftriaxone Sodium 2 gm/ (Sodium Chloride) 50 mls @ 100 mls/hr IV Q24H [facility] Last Infusion: 05/05/24 12:01 Dose: Infused Lactated Ringer's (Lr) 1,000 mls @ 100 mls/hr IVCONT .Q10H [facility] Last Admin: 05/05/24 14:53 Dose: 100 mls/hr Magnesium Hydroxide (Milk Of Magnesia 30 Ml Oral.Susp) 30 ml PO DAILY PRN PRN Reason: Constipation Melatonin (Melatonin 3 Mg Tablet) 6 mg PO BEDTIME PRN PRN Reason: Insomnia Last Admin: 05/03/24 22:01 Dose: 6 mg Midodrine (Midodrine Hcl 2.5 Mg Tablet) 2.5 mg PO TID [facility] Last Admin: 05/05/24 14:52 Dose: 2.5 mg Sodium Chloride (0.9 % Sodium Chloride Flush 3 Ml Syringe) 3 ml IVFLUSH QSHIFT [facility] Last Admin: 05/05/24 14:53 Dose: Not Given Tamsulosin HCl (Tamsulosin Hcl 0.4 Mg Capsule) 0.4 mg PO BEDTIME [facility] Last Admin: 05/04/24 20:48 Dose: 0.4 mg Home Medications ?Medication ?Instructions ?Recorded ?Confirmed ?Last Taken ?Type citalopram 40 mg tablet 40 mg PO DAILY 05/30/23 05/01/24 04/29/24 09:00 History gabapentin 100 mg capsule 100 mg PO TID 05/30/23 05/01/24 02/19/24 History docusate sodium 100 mg capsule 100 mg PO DAILY PRN Constipation 08/27/23 05/01/24 10/09/23 History (Colace) fluticasone propionate 50 2 spray intranasal DAILY PRN 08/27/23 05/01/24 Unknown History mcg/actuation nasal Allergy Symptoms spray,suspension melatonin 10 mg tablet 10 mg PO BEDTIME PRN Sleep 08/27/23 05/01/24 Unknown History sennosides 8.6 mg tablet (senna) 17.2 mg PO BEDTIME PRN Constipation 08/27/23 05/01/24 10/08/23 History midodrine 2.5 mg tablet 2.5 mg PO TID 02/19/24 05/01/24 Unknown History tamsulosin 0.4 mg capsule 0.4 mg PO BEDTIME 05/01/24 05/01/24 Unknown History Physical Exam Vital Signs: Vital Signs: Last Vital Signs Temp 98.5 F 05/05/24 16:00 Pulse 51 05/05/24 16:00 Resp 12 05/05/24 16:00 BP 135/64 05/05/24 16:00 Pulse Ox 98 05/05/24 16:00 O2 Del Method Room Air 05/05/24 16:00 O2 Flow Rate 2 05/03/24 11:05 BMI result Body Mass Index 25.6 Const: General: cooperative HEENT: Head: Yes normal to inspection Face and sinus: Yes normal facial exam Mouth: Normal oral and palatal mucosa present Teeth and gingiva: dentition normal Eyes: General: appearance normal, both eyes and all related structures Pupils: Equal, round and reactive pupils present Resp: Effort & Inspection: normal respiratory effort Cardio: Rate: regular rate Rhythm: regular rhythm GI: Palpation (GI): Soft to palpation and nontender : General: Yes no CVA tenderness Back/Spine/Pelvis: Back: no CVA tenderness Skin: General skin exam: no rashes or lesions noted Neuro: General: moves all extremities Cranial nerves: Yes Equal, round and reactive pupils present Extrem: General: Yes normal to inspection Psych: Appearance: grossly normal Results Labs 05/05/24 05:34 05/05/24 05:34 Labs: Short CBC 05/05/24 Range/Units 05:34 WBC 11.3 H (4.8-10.8) X10*3/uL Hgb 10.3 L (14.0-18.0) g/dl Hct 30.3 L (42.0-52.0) % Plt Count 288 (160-400) X10*3/uL BMP 05/05/24 05:34 Sodium 134 L Potassium 3.5 Chloride 105 Carbon Dioxide 22 BUN 30 H Creatinine 2.10 H Calcium 7.8 L D Microbiology Microbiology Results: Microbiology 04/30/24 21:45 Urine clean catch - Clean Catch Midstream Urine Culture - Final Klebsiella pneumoniae Pseudomonas aeruginosa 04/30/24 20:48 Blood - Venous Blood Culture - Final Klebsiella pneumoniae 04/30/24 20:45 Blood - Venous Blood Culture - Final Klebsiella pneumoniae Assessment and Plan (1) Hydronephrosis with obstructing calculus: Status: Acute (2) RELL (acute kidney injury): Status: Acute (3) Sepsis secondary to UTI: Status: Acute Plan He has Klebsiella pneumonia bacteremia. Pseudomonas not in blood,urine. Change to total 14 d Ceftin from first negative blood cultures.
[2024-05-05 19:40] VITALS: BP 132/72; PULSE 68; RESP 18; TEMP 37.2; O2SAT 99
[2024-05-05] MEDS: Tamsulosin HCL 0.4 MG CAPSULE PO (21:22)
[2024-05-05] MEDS: Enoxaparin Sodium 40 MG/0.4 ML SYRINGE SUBCUT (21:24)
[2024-05-05] MEDS: Melatonin 3 MG TABLET 6 MG PO (21:27)
[2024-05-05 23:54] VITALS: BP 133/66; PULSE 59; RESP 19; TEMP 36.2; O2SAT 97
[2024-05-06] MEDS: Lactated Ringers 1,000 ML 100 ML IVCONT (00:27)
[2024-05-06] MEDS: 0.9 % Sodium Chloride Flush 3 ML SYRINGE IVFLUSH ×4 (00:29→23:50)
[2024-05-06 07:00] LABS: Hematocrit 29.7 % (42.0-52.0); Mean Corpuscular HGB Conc 33.7 g/dl (31.0-36.0); Mean Corpuscular Hemoglobin 29.3 pg (27.0-33.0); Mean Corpuscular Volume 87.1 fL (80.0-98.0); Mean Platelet Volume 9.9 fL (9.4-12.4); Platelet Count 289 X10*3/uL (160-400); Red Blood Count 3.41 X10*6/uL (4.60-5.80); Red Cell Distribution Width 14.7 % (11.0-16.0); White Blood Count 9.9 X10*3/uL (4.8-10.8)
[2024-05-06 07:07] LABS: Anion Gap 10 (12-20); Blood Urea Nitrogen 25 mg/dL (9-16); Calcium 7.9 mg/dL (8.4-10.2); Carbon Dioxide 22 mmol/L (22-29); Chloride 106 mmol/L (96-108); Creatinine Clr Calc Pharmacy 37.3; Estimated Glomerular Filt Rate 34; Glucose Fasting 93 mg/dL (60-99); Potassium 3.4 mmol/L (3.3-5.1); Sodium 135 mmol/L (135-145)
[2024-05-06 07:24] VITALS: BP 128/71; PULSE 59; RESP 18; TEMP 37.3; O2SAT 95
[2024-05-06] MEDS: Midodrine HCl 2.5 MG TABLET PO ×3 (10:55→20:29)
[2024-05-06] MEDS: Gabapentin 100 MG CAPSULE PO ×3 (10:55→20:29)
[2024-05-06] MEDS: Escitalopram Oxalate 20 MG TABLET PO (10:55)
[2024-05-06] MEDS: cefTRIAXone sodium 2 GM in 0.9 % Sodium Chloride 50 ML IV (10:56)
--- NOTE | 2024-05-06 11:53 | P.PNIM_ITS ---
Subjective Subjective Date of Service: 05/06/24 Interval History: weak, but imrpoved Physical Exam 2 Vital Signs: Vital Signs: Last Vital Signs Temp 99.2 F 05/06/24 07:24 Pulse 59 05/06/24 07:24 Resp 18 05/06/24 07:24 BP 128/71 05/06/24 07:24 Pulse Ox 95 05/06/24 07:24 O2 Del Method Room Air 05/06/24 07:24 O2 Flow Rate 2 05/03/24 11:05 BMI result Body Mass Index 25.6 Const: General: cooperative HEENT: Head: Yes normal to inspection Face and sinus: Yes normal facial exam Mouth: Normal oral and palatal mucosa present Teeth and gingiva: d entition normal Eyes: General: appearance normal, both eyes and all related structures P upils: Equal, round and reactive pupils present Resp: Effort & Inspection: normal respiratory effort Cardio: Rate: regular rate Rhythm: regular rhythm GI: Palpation (GI): Soft to palpation and nontender : General: Yes no CVA tenderness Back/Spine/Pelvis: Back: no CVA tenderness Skin: General skin exam: no rashes or lesions noted Neuro: General: moves all extremities Cranial nerves: Yes Equal, round and reactive pupils present Extrem: General: Yes normal to inspection Psych: Appearance: grossly normal Objective Data Active Medications Acetaminophen (Acetaminophen 325 Mg Tablet) 650 mg PO Q6H PRN PRN Reason: Pain, Mild (Pain Scale 1-3), fever or headache Last Admin: 05/04/24 15:56 Dose: 650 mg Documented By: CHRIS Calcium Carbonate (Calcium Carbonate 750 Mg Tab.Chew) 750 mg PO Q4H PRN PRN Reason: Heartburn Enoxaparin Sodium (Enoxaparin Sodium 40 Mg/0.4 Ml Syringe) 40 mg SUBCUT Q24H [facility] Last Admin: 05/05/24 21:24 Dose: 40 mg Documented By: CHRISS Escitalopram Oxalate (Escitalopram Oxalate 20 Mg Tablet) 20 mg PO DAILY [facility] Last Admin: 05/06/24 10:55 Dose: 20 mg Documented By: MADISON Gabapentin (Gabapentin 100 Mg Capsule) 100 mg PO TID [facility] Last Admin: 05/06/24 10:55 Dose: 100 mg Documented By: MADISON Ceftriaxone Sodium 2 gm/ (Sodium Chloride) 50 mls @ 100 mls/hr IV Q24H [facility] Last Infusion: 05/06/24 11:39 Dose: Infused Documented By: MADISON Magnesium Hydroxide (Milk Of Magnesia 30 Ml Oral.Susp) 30 ml PO DAILY PRN PRN Reason: Constipation Melatonin (Melatonin 3 Mg Tablet) 6 mg PO BEDTIME PRN PRN Reason: Insomnia Last Admin: 05/05/24 21:27 Dose: 6 mg Documented By: CHRISS Midodrine (Midodrine Hcl 2.5 Mg Tablet) 2.5 mg PO TID [facility] Last Admin: 05/06/24 10:55 Dose: 2.5 mg Documented By: MADISON Sodium Chloride (0.9 % Sodium Chloride Flush 3 Ml Syringe) 3 ml IVFLUSH QSHIFT [facility] Last Admin: 05/06/24 10:56 Dose: 3 ml Documented By: MADISON Tamsulosin HCl (Tamsulosin Hcl 0.4 Mg Capsule) 0.4 mg PO BEDTIME [facility] Last Admin: 05/05/24 21:22 Dose: 0.4 mg Documented By: CHRISS Labs 05/06/24 06:47 05/06/24 06:47 Labs: Laboratory Results - last 24 hr 05/06/24 06:47 MCV 87.1 MCH 29.3 MCHC 33.7 RDW 14.7 Plt Count 289 MPV 9.9 Absolute Nucleated RBC 0.000 Nucleated RBC % (auto) 0.0 Anion Gap 10 L Estim Creat Clear Calc 37.3 Estimated GFR 34 Fasting Glucose 93 Calcium 7.9 L Assessment and Plan (1) RELL (acute kidney injury): Status: Acute Plan 73M PMH mood disorder, BPH with obstructive uropathy and suprapubic catheter, presented with weakness and fevers Sepsis due to acute UTI due to suprapubic catheter complicated by klebsiella bacteremia, RELL, obstructing right prox ureteral stone blood cultures with sensitive klkebsiella urine culture with esbl klebsiella and pseudomonas d/w ID, treatment to be directed to bacteremia only, continue rocephin for now, if repeat cultures negative tomorrow, can dc on 14 days ceftin (end may 17) s/p right ureteral stent placement 05/03/24 - outpatient follow up monitor bmp - slowly improving Debility PT eval appreciated, will need str at discharge BPH Continue Flomax Mood disorder Continue citalopram DVT prophylaxis with Lovenox Full Code reason for continued hospitalization: awaiting cultures Quality Stroke Does the patient have a stroke diagnosis?: No VTE Prior VTE?: No VTE Risk Level:: Medical - moderate - high VTE Device Contraindication: Treatment Not Indicated VTE Drug Contraindication: N/A - Med Ordered
[2024-05-06 15:14] VITALS: BP 120/58; PULSE 55; RESP 20; TEMP 36.3; O2SAT 96
[2024-05-06 19:41] VITALS: BP 157/77; PULSE 65; RESP 22; TEMP 36.8; O2SAT 93
[2024-05-06] MEDS: Tamsulosin HCL 0.4 MG CAPSULE PO (20:29)
[2024-05-06] MEDS: Enoxaparin Sodium 40 MG/0.4 ML SYRINGE SUBCUT (23:50)
[2024-05-07] VITALS: BP 131/71; PULSE 62; RESP 20; TEMP 36.6; O2SAT 90
[2024-05-07 06:35] LABS: Hematocrit 29.4 % (42.0-52.0); Hemoglobin 9.9 g/dl (14.0-18.0); Mean Corpuscular HGB Conc 33.7 g/dl (31.0-36.0); Mean Corpuscular Hemoglobin 29.3 pg (27.0-33.0); Mean Platelet Volume 10.1 fL (9.4-12.4); Platelet Count 354 X10*3/uL (160-400); Red Blood Count 3.38 X10*6/uL (4.60-5.80); Red Cell Distribution Width 14.7 % (11.0-16.0); White Blood Count 9.5 X10*3/uL (4.8-10.8)
[2024-05-07 06:55] LABS: Anion Gap 9 (12-20); Blood Urea Nitrogen 24 mg/dL (9-16); Calcium 8.1 mg/dL (8.4-10.2); Carbon Dioxide 25 mmol/L (22-29); Chloride 106 mmol/L (96-108); Creatinine Clr Calc Pharmacy 36.2; Estimated Glomerular Filt Rate 33; Glucose Fasting 89 mg/dL (60-99); Potassium 3.3 mmol/L (3.3-5.1); Sodium 137 mmol/L (135-145)
[2024-05-07 08:00] VITALS: BP 123/63; PULSE 65; RESP 16; TEMP 36.6; O2SAT 96
[2024-05-07] MEDS: Escitalopram Oxalate 20 MG TABLET PO (09:37)
[2024-05-07] MEDS: cefTRIAXone sodium 2 GM in 0.9 % Sodium Chloride 50 ML IV (09:37)
[2024-05-07] MEDS: 0.9 % Sodium Chloride Flush 3 ML SYRINGE IVFLUSH ×3 (09:37→20:32)
[2024-05-07] MEDS: Midodrine HCl 2.5 MG TABLET PO ×3 (09:37→20:32)
[2024-05-07] MEDS: Gabapentin 100 MG CAPSULE PO ×3 (09:37→20:32)
[2024-05-07 10:49] VITALS: BP 123/63; PULSE 65; O2SAT 96
--- NOTE | 2024-05-07 10:54 | MHC.CLN ---
F/U PO INTAKE 100% CONSISTENTLY DIET RX: REGULAR-APPROPRIATE PT RECEIVING ENSURE BID TO PROMOTE WOUND HEALING SUPP TO PROVIDE 700KCALS, 40G PROTEIN MONITOR PO INTAKE AND ENCOURAGE SUPPLEMENT
--- NOTE | 2024-05-07 11:13 | MHC.CM.PN ---
Per MD ROUNDS, Patient likely ready tomorrow for dc to SNF/STR. CM met with Patient to discuss his 5 SNF bed offers and Patient has chosen [facility]. CM has asked [facility] to initiate [employer] Auth today.CM will follow.
--- NOTE | 2024-05-07 11:16 | HO.PM.IMPN ---
Subjective Subjective Date of Service: 05/07/24 Interval History: seen and evaluated this morning physically feels weaker than baseline but overall better feels down with no intrest in life and nothing to look for pending final blood cultures Review of Systems Review of Systems: Yes all other systems are reviewed and are negative Physical Exam Vital Signs: Vital Signs: Last Vital Signs Temp 97.8 F 05/07/24 08:00 Pulse 65 05/07/24 10:49 Resp 16 05/07/24 08:00 BP 123/63 05/07/24 10:49 Pulse Ox 96 05/07/24 10:49 O2 Del Method Room Air 05/07/24 08:00 O2 Flow Rate 2 05/03/24 11:05 BMI result Body Mass Index 25.6 Const: Other: Appearance: Alert. Oriented X3. No acute distress. Seems weak CVS: Normal heart rate and rhythm. Pulses normal. Respiratory: No respiratory distress. Breath sounds normal. : Patient has a Storm catheter in place, yellow with no blood Abdomen: Soft and nontender. No rigidity. No distention. Skin: Skin warm and dry. Normal skin color. Extremities: No lower extremity edema. No Lacerations. No Rash Neuro: Oriented X 3. No motor deficit. No sensory deficit. Moving all extremities. Objective Data Active Medications Acetaminophen (Acetaminophen 325 Mg Tablet) 650 mg PO Q6H PRN PRN Reason: Pain, Mild (Pain Scale 1-3), fever or headache Last Admin: 05/04/24 15:56 Dose: 650 mg Documented By: CHRIS Calcium Carbonate (Calcium Carbonate 750 Mg Tab.Chew) 750 mg PO Q4H PRN PRN Reason: Heartburn Enoxaparin Sodium (Enoxaparin Sodium 40 Mg/0.4 Ml Syringe) 40 mg SUBCUT Q24H [facility] Last Admin: 05/06/24 23:50 Dose: 40 mg Documented By: ANTOIC Escitalopram Oxalate (Escitalopram Oxalate 20 Mg Tablet) 20 mg PO DAILY [facility] Last Admin: 05/07/24 09:37 Dose: 20 mg Documented By: MADISON Gabapentin (Gabapentin 100 Mg Capsule) 100 mg PO TID [facility] Last Admin: 05/07/24 09:37 Dose: 100 mg Documented By: MADISON Ceftriaxone Sodium 2 gm/ (Sodium Chloride) 50 mls @ 100 mls/hr IV Q24H [facility] Last Admin: 05/07/24 09:37 Dose: 100 mls/hr Documented By: MADISON Magnesium Hydroxide (Milk Of Magnesia 30 Ml Oral.Susp) 30 ml PO DAILY PRN PRN Reason: Constipation Melatonin (Melatonin 3 Mg Tablet) 6 mg PO BEDTIME PRN PRN Reason: Insomnia Last Admin: 05/05/24 21:27 Dose: 6 mg Documented By: CHRISS Midodrine (Midodrine Hcl 2.5 Mg Tablet) 2.5 mg PO TID [facility] Last Admin: 05/07/24 09:37 Dose: 2.5 mg Documented By: MADISON Sodium Chloride (0.9 % Sodium Chloride Flush 3 Ml Syringe) 3 ml IVFLUSH QSHIFT [facility] Last Admin: 05/07/24 09:37 Dose: 3 ml Documented By: MADISON Tamsulosin HCl (Tamsulosin Hcl 0.4 Mg Capsule) 0.4 mg PO BEDTIME [facility] Last Admin: 05/06/24 20:29 Dose: 0.4 mg Documented By: MARCELL Labs 05/07/24 06:01 05/07/24 06:01 Labs: Laboratory Results - last 24 hr 05/07/24 06:01 MCV 87.0 MCH 29.3 MCHC 33.7 RDW 14.7 Plt Count 354 MPV 10.1 Absolute Nucleated RBC 0.000 Nucleated RBC % (auto) 0.0 Anion Gap 9 L Estim Creat Clear Calc 36.2 Estimated GFR 33 Fasting Glucose 89 Calcium 8.1 L Microbiology Microbiology Results: Microbiology 05/05/24 18:45 Blood Culture - Preliminary Blood - Venous No growth after 24 hours. 05/05/24 18:45 Blood Culture - Preliminary Blood - Venous No growth after 24 hours. Assessment and Plan (1) Hydronephrosis with obstructing calculus: Status: Acute (2) RELL (acute kidney injury): Status: Acute (3) Acute hyponatremia: Status: Acute (4) Sepsis secondary to UTI: Status: Acute (5) Bacteremia due to Klebsiella pneumoniae: Status: Acute Plan 73M PMH mood disorder, BPH with obstructive uropathy and suprapubic catheter, presented with weakness and fevers Sepsis due to acute UTI due to suprapubic catheter complicated by klebsiella bacteremia, RELL, obstructing right prox ureteral stone blood cultures with sensitive klebsiella urine culture with esbl klebsiella and pseudomonas d/w ID, treatment to be directed to bacteremia only, continue rocephin for now, if repeat cultures negative tomorrow, can dc on 14 days ceftin (end may 17) s/p right ureteral stent placement 05/03/24 - outpatient follow up Pending repeat CXR monitor bmp - slowly improving Depression Get Psych eval for medication advice Continue citalopram PHysical deconditioning PT eval appreciated, will need str at discharge BPH Continue Flomax DVT prophylaxis with Lovenox Full Code reason for continued hospitalization: awaiting cultures Quality Stroke Does the patient have a stroke diagnosis?: No VTE Prior VTE?: No VTE Risk Level:: Medical - moderate - high VTE Device Contraindication: Treatment Not Indicated VTE Drug Contraindication: N/A - Med Ordered
[2024-05-07 12:20] VITALS: BP 120/69; PULSE 62; RESP 16; TEMP 36.8; O2SAT 97
--- NOTE | 2024-05-07 13:00 | MHC.CM.PN ---
CM met with Patient, his Daughter/Carolyn and Carolyn's Uncle at bedside. Patient completed a new HCP naming his Sister as his primary Agent and Carolyn as his Alternate Agent (Carolyn expressed her willingness and agreement to be the Alternate HCP). CM will follow.
[2024-05-07 16:00] VITALS: BP 137/42; PULSE 54; RESP 16; TEMP 36.6; O2SAT 97
--- NOTE | 2024-05-07 16:43 | PM.PSYCN ---
History of Present Illness Date of Service: 05/07/24 Chief Complaint: weakness Reason for Consult: Antidepressant medication review. Requesting physician: Tio Cherry Sources of Information: patient interviewed and chart reviewed HPI Narrative: 73 yo male, history of mood disorder, BPH, obstructive uropathy with padilla admitted with feelings of weakness for 2-3 weeks. Pt found to have hydronephrosis with obstructive calculus, RELL, acute hyponatremia, sepsis secondary to UTI, bacteremia due to klebsiella pneumoniae. Today, he reports feeling improved, however with feelings of weakness. States his plan is to attend rehab. He is motivated to do so. Reviewed reasoning for consultation. Well, it is situational really, and I really don't want to talk about it. I don't think that changing medicine will help. Tells his MD he is feeling down, without interest and has nothing to look forward to. 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 His daughter was his care provider, however, approximately 3.5 weeks ago left the home after an altercation, informing pt she was unable to provide his care any longer. Pt reports he understands this, reporting that he requires a significant amount of care and realizes this is a difficult burden for her. He reports she was in today for a care planning meeting and he is feeling more hopeful regarding their relationship but wants to respect the boundary she set. Regarding medication, reports a long history of Citalopram use, up to 70 mg daily, recently on 40 mg daily. Discussed change to Escitalopram on admission. At this time pt is agreeable to remaining on Escitalopram on discharge and remaining on 20 mg. He does not wish to augment or make an agent change at this time. I really think all of this started due to the situation at home and I reacted to it. I let myself go. I plan to work hard in rehab to get as much strength and independence back as I can. Medical Evaluation Reviewed: Yes Review of Systems Review of Systems Reports feeling improved with weakness, deconditioning sx. [facility] Medical History (Updated 05/07/24 @ 17:26 by Shell Espitia, [employer]STER [employer]) Recurrent major depression Atrial tachycardia Constipation Elevated cholesterol Fracture of humeral head Urinary incontinence Calculus of kidney Insomnia HTN (hypertension) Anxiety Depression Obesity Internal hemorrhoid Erectile dysfunction BPH associated with nocturia Lumbar radiculopathy Umbilical hernia without obstruction or gangrene Rectus diastasis Ventral hernia without obstruction or gangrene Cervical myelopathy Surgical History History of lumbar fusion Hx of cystoscopy Hx of cervical spine surgery Hx of lithotripsy H/O colonoscopy Diagnostics Vital Signs (24Hr): Vital Signs - 24 hr 05/06/24 19:41 05/07/24 00:00 05/07/24 08:00 Temperature 98.2 F 97.9 F 97.8 F Pulse Rate 65 62 65 Respiratory Rate 22 H 20 16 Blood Pressure 157/77 H 131/71 123/63 Pulse Oximetry 93 90 L 96 Oxygen Delivery Method Room Air Room Air Room Air 05/07/24 10:49 05/07/24 12:20 05/07/24 16:00 Temperature 98.2 F 98 F Pulse Rate 65 62 54 Respiratory Rate 16 16 Blood Pressure 123/63 120/69 137/42 L Pulse Oximetry 96 97 97 Oxygen Delivery Method Room Air Room Air BMI result Body Mass Index 25.6 Labs 05/07/24 06:01 05/07/24 06:01 Labs: Laboratory Results - last 48 hr 05/06/24 05/07/24 06:47 06:01 WBC 9.9 9.5 RBC 3.41 L 3.38 L Hgb 10.0 L 9.9 L Hct 29.7 L 29.4 L MCV 87.1 87.0 MCH 29.3 29.3 MCHC 33.7 33.7 RDW 14.7 14.7 Plt Count 289 354 MPV 9.9 10.1 Absolute Nucleated RBC 0.000 0.000 Nucleated RBC % (auto) 0.0 0.0 Sodium 135 137 Potassium 3.4 3.3 Chloride 106 106 Carbon Dioxide 22 25 Anion Gap 10 L 9 L BUN 25 H 24 H Creatinine 1.96 H 2.02 H Estim Creat Clear Calc 37.3 36.2 Estimated GFR 34 33 Fasting Glucose 93 89 Calcium 7.9 L 8.1 L Imaging Radiology Impressions: ITS Impressions Abdomen/Pelvis CT 05/02/24 09:36 IMPRESSION: 1. There is a 0.9 x 0.6 x 1.1 cm calculus in the right ureteropelvic junction with associated moderate hydronephrosis. There are numerous additional bilateral nonobstructing renal calculi as described above. 2. Left ureteral stent properly positioned. There are calculi along the ureteral catheter in the left renal pelvis. No left-sided hydronephrosis. Fleischner guidelines were followed. Guidance Fluoroscopy 05/03/24 09:10 IMPRESSION: Fluoroscopic guidance provided for a procedure. Please refer to operative report for detailed evaluation. Mental Status Exam Mental Status Exam Patient Appearance: Appropriate Patient Orientation: Person, Place, Time and Situation Level of Consciousness: Alert Patient Behavior: Appropriate, Talkative, Cooperative, Fatigued and Good Eye Contact Mood Description: Calm, Appropriate and Flat Affect Description: Calm and Flat Patient Cognition Impaired: No Ability to Follow Directions: Good Speech Pattern: Spontaneous Speech and Soft-Spoken Memory Description: Intact Hallucinations: None Delusions: Not Present Thought Process: Rumination Thought Content: positive for Circumstantial, positive for Goal Oriented and positive for Suicidal Ideation (denies SI, plan, intent) Depressive Symptoms: Increased Fatigue, Thoughts of /Suicide (denies SI, plan, intent) and Loss of Energy Judgement: Fair Medications Medications Current Medications Acetaminophen (Acetaminophen 325 Mg Tablet) 650 mg PO Q6H PRN PRN Reason: Pain, Mild (Pain Scale 1-3), fever or headache Last Admin: 05/04/24 15:56 Dose: 650 mg Calcium Carbonate (Calcium Carbonate 750 Mg Tab.Chew) 750 mg PO Q4H PRN PRN Reason: Heartburn Enoxaparin Sodium (Enoxaparin Sodium 40 Mg/0.4 Ml Syringe) 40 mg SUBCUT Q24H [facility] Last Admin: 05/06/24 23:50 Dose: 40 mg Escitalopram Oxalate (Escitalopram Oxalate 20 Mg Tablet) 20 mg PO DAILY [facility] Last Admin: 05/07/24 09:37 Dose: 20 mg Gabapentin (Gabapentin 100 Mg Capsule) 100 mg PO TID [facility] Last Admin: 05/07/24 15:34 Dose: 100 mg Ceftriaxone Sodium 2 gm/ (Sodium Chloride) 50 mls @ 100 mls/hr IV Q24H [facility] Last Infusion: 05/07/24 11:19 Dose: Infused Magnesium Hydroxide (Milk Of Magnesia 30 Ml Oral.Susp) 30 ml PO DAILY PRN PRN Reason: Constipation Melatonin (Melatonin 3 Mg Tablet) 6 mg PO BEDTIME PRN PRN Reason: Insomnia Last Admin: 05/05/24 21:27 Dose: 6 mg Midodrine (Midodrine Hcl 2.5 Mg Tablet) 2.5 mg PO TID [facility] Last Admin: 05/07/24 15:34 Dose: 2.5 mg Sodium Chloride (0.9 % Sodium Chloride Flush 3 Ml Syringe) 3 ml IVFLUSH QSHIFT [facility] Last Admin: 05/07/24 15:36 Dose: 3 ml Tamsulosin HCl (Tamsulosin Hcl 0.4 Mg Capsule) 0.4 mg PO BEDTIME [facility] Last Admin: 05/06/24 20:29 Dose: 0.4 mg Allergies Allergies Allergy/AdvReac Type Severity Reaction Status Date / Time Seasonal Allergies Allergy Unknown Verified 04/30/24 19:03 Assessment & Plan Assessment & Plan (1) Recurrent major depression: Status: Acute Code(s): F33.9 - Major depressive disorder, recurrent, unspecified Plan 73 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 Consult for medication for depression as pt tells team he is down, has no interest and nothing to look forward to. Lexapro 20 mg currently tolerated. Pt reports symptoms had increased prior to admission however he relates this to a conflict with his daughter, stating his care needs are more than she can manage, and as a result she left the home. Pt able to see daughter today and reports feeling hopeful about their relationship and motivated to go to rehab. At this time, he is willing to stay with Escitalopram 20 mg, stop Citalopram, however does not want to make an agent change or augment. Pt denies SI/HI and has no sx of psychosis. Suggest: 1. Continue Escitalopram. Monitor QTc,reconsider if > 500; Na, anorexia sx and for SIADH. 2. Should pt reconsider, or agent becomes ineffective, consider Mirtazapine 7.5 mg HS trial to replace Escitalopram 3. Psychotherapy/Psychopharmacology referrals for rehab once discharged. Pt is in agreement. Total time managing care of this patient today ____ minutes.
[2024-05-07 19:54] VITALS: BP 125/68; PULSE 60; RESP 17; TEMP 36.8; O2SAT 96
[2024-05-07] MEDS: Tamsulosin HCL 0.4 MG CAPSULE PO (20:31)
[2024-05-07] MEDS: Enoxaparin Sodium 40 MG/0.4 ML SYRINGE SUBCUT (23:23)
[2024-05-08] VITALS: BP 120/61; PULSE 74; RESP 20; TEMP 36.4; O2SAT 96
[2024-05-08 06:49] LABS: Anion Gap 11 (12-20); Blood Urea Nitrogen 23 mg/dL (9-16); Calcium 7.9 mg/dL (8.4-10.2); Carbon Dioxide 23 mmol/L (22-29); Chloride 105 mmol/L (96-108); Creatinine Clr Calc Pharmacy 40.2; Estimated Glomerular Filt Rate 37; Glucose Random 97 mg/dL (60-115); Potassium 3.3 mmol/L (3.3-5.1); Sodium 136 mmol/L (135-145)
[2024-05-08 07:03] LABS: Hematocrit 29.8 % (42.0-52.0); Hemoglobin 9.9 g/dl (14.0-18.0); Mean Corpuscular HGB Conc 33.2 g/dl (31.0-36.0); Mean Corpuscular Hemoglobin 28.9 pg (27.0-33.0); Mean Corpuscular Volume 86.9 fL (80.0-98.0); Mean Platelet Volume 10.2 fL (9.4-12.4); Platelet Count 409 X10*3/uL (160-400); Red Blood Count 3.43 X10*6/uL (4.60-5.80); Red Cell Distribution Width 14.8 % (11.0-16.0); White Blood Count 9.5 X10*3/uL (4.8-10.8)
[2024-05-08 08:00] VITALS: BP 112/71; PULSE 57; RESP 20; TEMP 36.9; O2SAT 94
[2024-05-08] MEDS: Midodrine HCl 2.5 MG TABLET PO ×2 (08:09→15:42)
[2024-05-08] MEDS: Gabapentin 100 MG CAPSULE PO ×2 (08:09→15:42)
[2024-05-08] MEDS: Escitalopram Oxalate 20 MG TABLET PO (08:09)
[2024-05-08] MEDS: 0.9 % Sodium Chloride Flush 3 ML SYRINGE IVFLUSH (08:10)
--- NOTE | 2024-05-08 11:16 | MHC.CM.PN ---
Second IMM, pt has been medically cleared for DC, he will go to [facility] for STR via BLS today.
[2024-05-08] MEDS: cefTRIAXone sodium 2 GM in 0.9 % Sodium Chloride 50 ML IV (11:23)
[2024-05-08 12:07] VITALS: BP 112/71; PULSE 57; O2SAT 94
--- NOTE | 2024-05-08 12:14 | PM.DS ---
DS: Providers Provider Date of Service: 05/08/24 Date of admission: 04/30/24 22:19 Primary care physician: Gonzalez Gaitan MD Consults: 04/30/24 23:53 Consult to Urology Routine Consulting Provider: [facility] Reason for consultation: uti ; chronic supra pubic catheter 05/03/24 11:25 Consult to Wound Care Routine Reason for consultation: St II coccyx Has provider been notified: Yes 05/05/24 07:24 Consult to Infectious Diseases Routine Consulting Provider: [facility] Reason for consultation: bactremia, and polymicrobial stone related uti 05/07/24 10:23 Consult to Psychiatry Routine Consulting Provider: Psych Cover[facility] Reason for consultation: Depressed, has nothing to live for, for eval and advice. no SI. DS: Diagnosis Discharge Diagnosis (1) Recurrent major depression: Status: Acute (2) Bacteremia due to Klebsiella pneumoniae: Status: Acute (3) Hydronephrosis with obstructing calculus: Status: Acute (4) RELL (acute kidney injury): Status: Acute (5) Acute hyponatremia: Status: Acute (6) Sepsis secondary to UTI: Status: Acute (7) Chronic indwelling Storm catheter: Status: Acute DS: Summary Hospital Course Hospital Course: Admission note HPI This is a 73-year-old male with pertinent history of mood disorder, BPH with obstructive uropathy status post suprapubic catheter, lumbar radiculopathy who presents to the emergency department for evaluation of generalized weakness and fevers. Patient states he has been having intermittent fevers and chills. He has had a suprapubic catheter since January. Patient has gotten progressively weaker over the last 2-3 weeks as his daughter is no longer taking care of him. He has been weak and unable to get up and walk. Also with poor p.o. intake as he has no one to take care of him. He denies nausea, vomiting, chest discomfort, palpitations, shortness of breath, abdominal pain, changes in bowel habits. In the emergency department, patient was found to be septic and urine concerning for UTI. Hospital course The patient was admitted for treatment of Sepsis due to acute UTI due to suprapubic catheter complicated by klebsiella bacteremia, acute kidney injury, obstructing right prox ureteral stone requiring evaluation by urologist who did right ureteral stent placement 05/03/24 and will require an outpatient follow up. Kidney function improved to baseline with blood cultures growing sensitive klebsiella in blood. urine culture grew esbl klebsiella and pseudomonas. She was evlauated by infectious disease specialist who recommended treatment to be directed to bacteremia only with IV rocephin.repeated blood cultures remained negative. the plan is to finish 14 days of Ceftin from the negative culture. He has hx of Depression that sounds less controlled with new events in his life. evaluated by Psychiatrist who recommended to continue current medicaitons as he is not open to change it and suggested a follow up as outpatient with PCP for further medication advice. Continue citalopram. For PHysical deconditioning he was evaluated by PT team who recommended STR at discharge Discharge plan 2 more weeks of Ceftin twice daily To follow with URology as outpatient Follow up with PCP as outpatient for depression follow up and possible changes in medications Start physical therapy as tolerated The patient will likely need less than 30 days of SNF stay. Time Attestation Discharge Coordination Time (in mins): 34 Quality: Safe Use of Opioids Does Pt have an Active Cancer Diagnosis on the Problem List?: No Quality: Stroke Does the patient have a stroke diagnosis?: No Physical Exam Vital Signs: Vital Signs: Last Vital Signs Temp 98.4 F 05/08/24 08:00 Pulse 57 05/08/24 12:07 Resp 20 05/08/24 08:00 BP 112/71 05/08/24 12:07 Pulse Ox 94 05/08/24 12:07 O2 Del Method Room Air 05/08/24 08:00 O2 Flow Rate 2 05/03/24 11:05 BMI result Body Mass Index 25.6 Const: Other: Appearance: Alert. Oriented X3. No acute distress. Seems weak CVS: Normal heart rate and rhythm. Pulses normal. Respiratory: No respiratory distress. Breath sounds normal. : Patient has a Storm catheter in place, yellow with no blood Abdomen: Soft and nontender. No rigidity. No distention. Skin: Skin warm and dry. Normal skin color. Extremities: No lower extremity edema. No Lacerations. No Rash Neuro: Oriented X 3. No motor deficit. No sensory deficit. Moving all extremities. DS: Data Data Completed and Pending Completed studies during hospitalization [Text1]: Procedures Dilation of Left Ureter with Intraluminal Device, Via Natural or Artificial Opening Endoscopic (10/09/23) Excision of Lumbar Vertebral Disc, Open Approach (08/27/23) Fusion of Lumbar Vertebral Joint with Interbody Fusion Device, Anterior Approach, Anterior Column, Open Approach (08/27/23) Insertion of Infusion Device into Left Basilic Vein, Percutaneous Approach (10/09/23) Insertion of Interspinous Process Spinal Stabilization Device into Lumbar Vertebral Joint, Open Approach (08/27/23) Labs on day of discharge: Laboratory Results - last 24 hr 05/08/24 05:54 WBC 9.5 RBC 3.43 L Hgb 9.9 L Hct 29.8 L MCV 86.9 MCH 28.9 MCHC 33.2 RDW 14.8 Plt Count 409 H MPV 10.2 Absolute Nucleated RBC 0.000 Nucleated RBC % (auto) 0.0 Sodium 136 Potassium 3.3 Chloride 105 Carbon Dioxide 23 Anion Gap 11 L BUN 23 H Creatinine 1.82 H Estim Creat Clear Calc 40.2 Estimated GFR 37 Random Glucose 97 Calcium 7.9 L Preliminary micro results at discharge 05/05/24 18:45 Blood Culture - Preliminary Blood - Venous No growth after 48 hours. 05/05/24 18:45 Blood Culture - Preliminary Blood - Venous No growth after 48 hours. Imaging Chest x-ray: Radiologist's impression: ITS Impressions Abdomen/Pelvis CT 05/02/24 09:36 IMPRESSION: 1. There is a 0.9 x 0.6 x 1.1 cm calculus in the right ureteropelvic junction with associated moderate hydronephrosis. There are numerous additional bilateral nonobstructing renal calculi as described above. 2. Left ureteral stent properly positioned. There are calculi along the ureteral catheter in the left renal pelvis. No left-sided hydronephrosis. Fleischner guidelines were followed. Guidance Fluoroscopy 05/03/24 09:10 IMPRESSION: Fluoroscopic guidance provided for a procedure. Please refer to operative report for detailed evaluation. Discharge Plan Discharge Anticipated Discharge Date/Time: 05/08/24 12:04 Patient Disposition: [facility] Discharge Diagnosis: Klebsiella Bacteremia Acute kidney injury obstructing stone Referrals: [facility] [Outside] - 1 Week Gonzalez Gaitan MD [Primary Care Provider] - 1 Week Discharge Medications: New cefuroxime axetil 500 mg tablet 500 mg PO BID Qty: 28 0RF Continued citalopram 40 mg tablet 40 mg PO DAILY gabapentin 100 mg capsule 100 mg PO TID sennosides [senna] 8.6 mg Tablet 17.2 mg PO BEDTIME PRN (Reason: Constipation) docusate sodium [Colace] 100 mg Capsule 100 mg PO DAILY PRN (Reason: Constipation) fluticasone propionate 50 mcg/actuation [place],Suspension 2 spray INTRANASAL DAILY PRN (Reason: Allergy Symptoms) Rx Instructions: administer into each nostril melatonin 10 mg Tablet 10 mg PO BEDTIME PRN (Reason: Sleep) midodrine 2.5 mg tablet 2.5 mg PO TID tamsulosin 0.4 mg capsule 0.4 mg PO BEDTIME Discharge Orders: Discharge Order (Routine); Ordered 05/08/24 Ordered By: Tio Cherry Diet: Advance to usual diet Activity on Discharge: As tolerated Stand Alone Forms: Patient Portal Discharge page Print Language: Setswana Care Plan Goals: 2 more weeks of Ceftin twice daily To follow with URology as outpatient Follow up with PCP as outpatient for depression follow up and possible changes in medications Start physical therapy as tolerated Health Concerns: Read below Plan of Treatment: Read below Assessment: Read below Discharge Date/Time: 05/08/24 18:16
[2024-05-08 16:00] VITALS: BP 120/74; PULSE 62; RESP 18; TEMP 36.6; O2SAT 94
== END 2024-05-08 18:16 | disposition skilled nursing facility (03) | DRG 659 ==
LOC: HO.ED 22:08 → HO.EDOVER 22:26 → HO.IMC 22:46
PROVIDERS: Internal Medicine; Urology; Admitting Provider Student in an Organized Health Care Education/Training Program; Emergency Provider Emergency Medicine; PCP Internal Medicine; Visit Provider Student in an Organized Health Care Education/Training Program
PROC: 0T768DZ Dilation of Right Ureter with Intraluminal Device, Via Natural or Artificial Opening Endoscopic (ICD-10-PCS; principal; 2024-05-03 08:30)
DX: T83.518A Infection and inflammatory reaction due to other urinary catheter, initial encounter (principal); A41.9 Sepsis, unspecified organism; E87.1 Hypo-osmolality and hyponatremia; N17.9 Acute kidney failure, unspecified; N13.8 Other obstructive and reflux uropathy; N13.6 Pyonephrosis; F33.9 Major depressive disorder, recurrent, unspecified; Y73.8 Miscellaneous gastroenterology and urology devices associated with adverse incidents, not elsewhere classified; B96.1 Klebsiella pneumoniae [K. pneumoniae] as the cause of diseases classified elsewhere; B96.5 Pseudomonas (aeruginosa) (mallei) (pseudomallei) as the cause of diseases classified elsewhere; E86.1 Hypovolemia; M54.16 Radiculopathy, lumbar region; E86.0 Dehydration; N40.1 Benign prostatic hyperplasia with lower urinary tract symptoms; Z79.899 Other long term (current) drug therapy
CPT/HCPCS: 36415; 74176; 80048; 80053; 81001; 81003; 83605; 85025; 85027; 87040; 87077; 87086; 87088; 87186; 87205; 97110; 97116; 97162; 97530; 99285; C1758; C1769; C2617; J0131; J0696; J1335; J1650; J1956; J2185; J2405; J2704; J3010; J7120; Q9967

== ENCOUNTER → 2024-04-30 22:19 | Outpatient (BNV) | payer MEDICARE, SELFPAY | PROVIDERS: Admitting Provider Student in an Organized Health Care Education/Training Program; Emergency Provider Emergency Medicine; PCP Internal Medicine; Visit Provider Student in an Organized Health Care Education/Training Program | DX: N17.9 Acute kidney failure, unspecified (principal) | CPT/HCPCS: 99223; 99232; 99233; 99239 ==

== ENCOUNTER → 2024-04-30 22:19 | Outpatient (BNV) | payer MEDICARE, SELFPAY | PROVIDERS: Admitting Provider Student in an Organized Health Care Education/Training Program; Emergency Provider Emergency Medicine; PCP Internal Medicine; Visit Provider Internal Medicine | DX: N13.2 Hydronephrosis with renal and ureteral calculous obstruction (principal); N17.9 Acute kidney failure, unspecified; A41.9 Sepsis, unspecified organism; N39.0 Urinary tract infection, site not specified | CPT/HCPCS: 99222 ==

== ENCOUNTER → 2024-04-30 22:19 | Outpatient (BNV) | payer MEDICARE, SELFPAY | PROVIDERS: Admitting Provider Student in an Organized Health Care Education/Training Program; Emergency Provider Emergency Medicine; PCP Internal Medicine; Visit Provider Urology | DX: N20.1 Calculus of ureter (principal) | CPT/HCPCS: 52332; 74420; 99222 ==

== ENCOUNTER → 2024-04-30 22:19 | Outpatient (BNV) | payer MEDICARE, SELFPAY | PROVIDERS: Admitting Provider Student in an Organized Health Care Education/Training Program; Emergency Provider Emergency Medicine; PCP Internal Medicine; Visit Provider Clinical Nurse Specialist Psychiatric/Mental Health, Adult | DX: F33.1 Major depressive disorder, recurrent, moderate (principal) | CPT/HCPCS: 99232; 99252 ==

== ENCOUNTER → 2024-11-18 17:05 | Outpatient (BNV) | payer MEDICARE, SELFPAY | PROVIDERS: Emergency Provider Emergency Medicine Emergency Medical Services; PCP Internal Medicine; Visit Provider Student in an Organized Health Care Education/Training Program | DX: R33.9 Retention of urine, unspecified (principal) | CPT/HCPCS: 99222; 99232; 99233 ==

== ENCOUNTER → 2024-11-18 17:19 | Outpatient (BNV) | payer MEDICARE, SELFPAY | PROVIDERS: Admitting Provider Student in an Organized Health Care Education/Training Program; Emergency Provider Emergency Medicine Emergency Medical Services; PCP Internal Medicine; Visit Provider Internal Medicine Cardiovascular Disease | DX: R00.1 Bradycardia, unspecified (principal); R53.1 Weakness | CPT/HCPCS: 93010 ==

== ENCOUNTER 2024-11-18 22:05 | Outpatient (BNV) | payer MEDICARE, SELFPAY | END 2024-11-20 14:55 | PROVIDERS: Admitting Provider Student in an Organized Health Care Education/Training Program; Emergency Provider Emergency Medicine Emergency Medical Services; PCP Internal Medicine; Visit Provider Radiology Diagnostic Radiology | DX: N20.0 Calculus of kidney (principal) | CPT/HCPCS: 74018 ==

== ENCOUNTER 2024-11-18 22:05 | Outpatient (BNV) | payer MEDICARE, SELFPAY | END 2024-11-22 13:22 | PROVIDERS: Admitting Provider Student in an Organized Health Care Education/Training Program; Emergency Provider Emergency Medicine Emergency Medical Services; PCP Internal Medicine; Visit Provider Radiology Diagnostic Radiology | DX: N13.30 Unspecified hydronephrosis (principal); N20.0 Calculus of kidney | CPT/HCPCS: 76775 ==

== ENCOUNTER → 2024-11-18 22:05 | Outpatient (BNV) | payer MEDICARE, SELFPAY | PROVIDERS: Admitting Provider Student in an Organized Health Care Education/Training Program; Emergency Provider Emergency Medicine Emergency Medical Services; PCP Internal Medicine; Visit Provider Urology | DX: N20.0 Calculus of kidney (principal); N31.9 Neuromuscular dysfunction of bladder, unspecified | CPT/HCPCS: 52353; 74420; 99223; 99232 ==

== ENCOUNTER → 2024-11-18 22:05 | Outpatient (BNV) | payer MEDICARE, SELFPAY | PROVIDERS: Admitting Provider Student in an Organized Health Care Education/Training Program; Emergency Provider Emergency Medicine Emergency Medical Services; PCP Internal Medicine; Visit Provider Internal Medicine | DX: Z86.19 Personal history of other infectious and parasitic diseases (principal); R53.1 Weakness | CPT/HCPCS: 99222; 99499 ==

== ENCOUNTER → 2024-11-18 22:05 | Outpatient (BNV) | payer MEDICARE, SELFPAY | PROVIDERS: Admitting Provider Student in an Organized Health Care Education/Training Program; Emergency Provider Emergency Medicine Emergency Medical Services; PCP Internal Medicine; Visit Provider Internal Medicine Hypertension Specialist | DX: N20.0 Calculus of kidney (principal) | CPT/HCPCS: 99232 ==

== ENCOUNTER 2025-04-27 13:30 | Outpatient (AMB) | payer MEDICARE, MEDICAID, SELFPAY ==
--- NOTE | 2025-04-27 13:42 | A.OFFVIS_ITS ---
Intake Visit Reasons: follow up Intake Note: Patient is present for a follow up Urology Medication:Tamsulosin Antibiotic Allergies: None Blood Thinners:None PVR:0ml Allergies Seasonal Allergies Allergy (Mild, Verified 04/27/25 13:42) Sneezing Medication List - Last Reconciled 04/27/25 by Matt Del Rosario MD amoxicillin-pot clavulanate 875-125 mg 1 tab PO Q12H ascorbic acid (vitamin C) 500 mg PO DAILY buspirone 5 mg TID citalopram 40 mg PO DAILY doxycycline hyclate 100 mg PO BID gabapentin 100 mg PO TID melatonin 10 mg PO BEDTIME PRN methenamine hippurate 1 g PO DAILY 90 days midodrine 10 mg PO TID HPI Comments Details: 04/27/25-- History of Present Illness - The patient is a 74-year-old male presenting with urinary retention and nephrolithiasis. - The patient has a history of nephrolithiasis, which required hospitalization in November for stone fragmentation by Dr. Blackman, - The patient reports significant improvement post-procedure with no recurrent infections. - The patient currently has a suprapubic catheter, managed by [facility], who changes it monthly. - The patient has been advised to increase fluid intake and add lemon to water to prevent stone recurrence. Plan - Plan to conduct a renal ultrasound to monitor for any remaining kidney stones. - Recommend increasing fluid intake and adding lemon to water to utilize citrate as a natural stone inhibitor. - Prescribe vitamin C 500 mg daily and Hyperx 1 g daily to support urinary health. - Continue with monthly suprapubic catheter changes by [facility] nurses and educate the patient on using a clamp with the valve for daytime management. - Schedule a telehealth follow-up to review the ultrasound results and adjust the management plan as necessary. 04/21/2024--SP tube change 20 Libyan placed erythematous changes around the SP tube OR 02/19/24--cystoscopy left ureteral stent Exchange SP tube insertion 01/30/2024 status post left ESWL Reviewed KUB left renal stones in place possible stone fragments along the stent mid to distal ureter Renal ultrasound no hydronephrosis bilateral renal calculi Schedule cystoscopy left ureteroscopy possible laser stent exchange versus stent removal Macrobid b.i.d. times 10 days 12/10/2023-- Micky is a 72 year old male who has a chonic padilla in place was initially evaluated as an inpatient, he was admitted due to fever and obstructing stone. He is s/p left ureteral stent, 10/10/23. He was followed by [facility] for BPH, h/o kidney stones. He requested follow up with [facility]. I have reviewed recent KUB, noting left ureteral stent in position, multiple stones in the left kidney also right nephrolithiasis. His daughter Carolyn was present and stated the patient had back surgery and since than required a padilla and has failed several voiding trials. Today I have changed the padilla with a 16 fr coude catheter. Exam is noteable for an iatrogenic hypospadias to the scrotum. The padilla passed easily. 10/09/23--CTAP-KIDNEYS AND URETERS: There is left-sided hydronephrosis with significant asymmetric perinephric stranding. The left renal pelvis is dilated up to a 0.9 cm calcification at the ureteropelvic junction. There is a tiny bubble of air adjacent to this calcification. Additional nonobstructing intrarenal calculi are seen bilaterally. Plan: Discussed SP tube insertion in the future Left ESWL,, Will continue stent until follow up post ESWL to facilitate passage of stone fragments [facility] to change padilla with 16 fr catheter q 4 weeks and prn if not draining adequately, irrigate prn with normal saline for blockage, PFSH Medical History History of ESBL Klebsiella pneumoniae infection Bilateral kidney stones Urinary retention Recurrent major depression Atrial tachycardia Constipation Elevated cholesterol Fracture of humeral head Urinary incontinence Calculus of kidney Insomnia HTN (hypertension) Anxiety Depression Obesity Internal hemorrhoid Erectile dysfunction BPH associated with nocturia Lumbar radiculopathy Umbilical hernia without obstruction or gangrene Rectus diastasis Ventral hernia without obstruction or gangrene Cervical myelopathy Surgical History Chronic suprapubic catheter History of lumbar fusion Hx of cystoscopy Hx of cervical spine surgery Hx of lithotripsy H/O colonoscopy Social History Household Members: None Household Members Other:: daughter Housing: House Are you a primary career services representative to a significant other at home: No Do you presently have visiting nurse or other home services: Yes Alcohol intake: former Patient Tobacco Use Status: Never used Tobacco Advance Directives Date on File: 05/07/24 service: Yes Review of Systems Const All systems reviewed & are unremarkable except as noted in HPI and below Reports no additional complaints Eyes Reports no additional complaints ENT Reports no additional complaints Card Reports no additional complaints Resp Reports no additional complaints GI Reports no additional complaints Reports as per HPI Musc Reports no additional complaints Skin/Breast Reports system reviewed and no additional complaints, except as documented Neuro Reports no additional complaints Psych Reports no additional complaints Endo Reports no additional complaints Lefty/Lymph Reports no additional complaints Aller/Immun Reports no additional complaints Assessment & Plan Assessment & Plan (1) Hypospadias: Code(s): Q54.9 - Hypospadias, unspecified Category: Medical (2) Neurogenic bladder: Code(s): N31.9 - Neuromuscular dysfunction of bladder, unspecified Category: Medical (3) Chronic indwelling Padilla catheter: Code(s): Z97.8 - Presence of other specified devices Category: Medical Plan Plan - Plan to conduct a renal ultrasound to monitor for any remaining kidney stones. - Recommend increasing fluid intake and adding lemon to water to utilize citrate as a natural stone inhibitor. - Prescribe vitamin C 500 mg daily and Hyperx 1 g daily to support urinary health. - Continue with monthly suprapubic catheter changes by [facility] nurses and educate the patient on using a clamp with the valve for daytime management. - Schedule a telehealth follow-up to review the ultrasound results and adjust the management plan as necessary. Medications: New ascorbic acid (vitamin C) 500 mg PO DAILY 90 caps 3RF methenamine hippurate 1 g PO DAILY 90 tabs 3RF 90 days tamsulosin 0.4 mg PO BEDTIME 90 caps 3RF Patient Instructions: The patient had an opportunity to ask questions regarding treatment plan. The patient expressed understanding and agreement with the above treatment plan. The patient is aware they should contact our office by phone for worsening of their current condition or the appearance of new symptoms. Compliance is encouraged with any medications and followup testing that is ordered. It is a privilege to be allowed the opportunity to participate in the urologic care of your patient. If you have any questions or concerns regarding treatment for the above conditions please do not hesitate to contact me. The office telephone contact is [phone]. This note is constructed in part using voice recognition software. While every effort has been made to ensure accuracy mail sorter and delivery errors may have been included. Yours sincerely, Matt Del Rosario MD Scribe Plan - Not visible on output: Patient was informed and verbally consented to the use of an ambient scribe for clinic note documentation during this visit. Coding Level of Care Code Est Pt Level 4 (68760) Diagnoses Hypospadias Q54.9 Neurogenic bladder N31.9 Chronic indwelling Padilla catheter Z97.8
--- OUTSIDE RECORDS SUMMARY | 2025-04-27 13:59 | XMS_ITS ---
Author Name [facility] Organization Unknown Encounters Encounter Type Encounter Reason Primary Diagnosis [facility] Date [facility] Care Team Organization Name Specialty Phone Email Start Date End Da te [employer] 01/07/2025 02/07/2025 [employer] 01/01/2025
--- OUTSIDE RECORDS SUMMARY | 2025-04-27 13:59 | XMS_ITS | Encounter Summary ---
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 Name Role Phone Gnozalez Gaitan MD Primary Care Provider [phone] Reason for Visit * Reason Onset Date Comments faxed [facility]na order 04/20/2025 [facility] [id number] Encounter Details Date Type Department Care Team ([facility] Contact Info) Description 04/20/2025 Telephone Adult Medicine [address] [phone] Gonzalez Gaitan MD [address] [place] [phone] faxed [facility]na order ([facility] [id number]) Social History Tobacco Use Types Packs/Day Years Used Date Smoking Tobacco: Never Smokeless Tobacco: Never Alcohol Use Standard Drinks/Week Comments Yes 0 (1 standard drink = 0.6 oz pur e alcohol) Housing Instability Answer Date Recorde d Are you worried that in the next 2 months you may not have stable housing? No 03/04/2025 Food Access & Nutrition Answer Date Rec orded Do you have access to a vari ety of food including fruits and vegetables? Yes 03/31/2025 Access to Healthcare Answer Date Record ed Within the last 3 months, mary doll many times did you visit the emergency department for your medical care? 0 03/04/2025 Health Literacy Answer Date Recorded How often do you need to hav e someone help you when you read instructions, pamphlets, or other written material from your doctor or pharmacy? Never 03/04/2025 Caregiver: How often do you need to have someone help you when you read instructions, pamphlets, or other written material from your doctor or pharmacy? Not on file 03/04/2025 Financial Risk Answer Date Recorded How hard is it for you to pa y for the very basics like food, housing, medical care, and air conditioning / heating? Somewhat hard 03/04/2025 Transportation Answer Date Recorded Has the lack of transportati on kept you from meetings, work, or from getting things needed for daily living? No Has the lack of transportati on kept you from medical appointments or from getting medications? No 03/04/2025 Social Isolation Answer Date Recorded How often do you feel lonely or isolated from th ose around you? Rarely 03/04/2025 Food Risk Answer Date Recorded Within the past 12 months we worried whether our food would run out before we got money to buy more. Never true 03/31/2025 Within the past 12 months th e food we bought just didn't last and we didn't have money to get more. Not on file 03/31/2025 Dependent Care Answer Date Recorded Do you need help finding or paying for care for your loved ones. For example, children's service supervisor or elderly care for an older adult? No 03/04/2025 Education Answer Date Recorded Do you think completing more education or training, like finishing a GED, going to college, or learning a trade, would be helpful for you? N/A 03/04/2025 Employment and Income Answer Date Recor ded During the last four weeks, have you been actively looking for work? No 03/04/2025 Living Situation Answer Date Recorded What is your living situation? 0 03/04/2025 Sex and Gender Information Value Date Recorded Sex Assigned at Not on file Legal Sex Male 1:59 PM EST Gender Identity Not on file Sexual Orientation Not on file documented as of this encounter Progress Notes * Charisse Armstrong - 04/20/2025 1:06 PM EDT Faxed order received from [facility] Cert [id number] please sign and fax to [phone]. documented in this encounter Plan of Treatment Upcoming Encounters Date Type Department Care Team (Late st Contact Info) Description 06/11/2025 11:15 AM EDT Office Visit [facility] [place] [address] [place] [address] Gonzalez Gaitan MD [address] [place] [address] 11/25/2025 1:30 PM EST Consult Nephrology - [address] [phone] Joe Chandler MD [address] [facility] [address] [place] [address] documented as of this encounter Visit Diagnoses Not on filedocumented in this encounter Care Teams [employer] Casting Machine Operator Relationship Specialty Start Date End Date Gonzalez Gaitan MD [address] [place] [address] PCP - General Internal Medicine 03/30/22 documented as of this encounter
== END 2025-04-27 14:32 | disposition home or self-care (01) ==
PROVIDERS: PCP Internal Medicine; Visit Provider Urology
DX: Q54.9 Hypospadias, unspecified (principal); N31.9 Neuromuscular dysfunction of bladder, unspecified; Z97.8 Presence of other specified devices
CPT/HCPCS: 99214

== ENCOUNTER → 2025-04-27 13:30 | Outpatient (BNVA) | payer MEDICARE, OTHER, SELFPAY | PROVIDERS: PCP Internal Medicine; Visit Provider Urology | DX: N31.9 Neuromuscular dysfunction of bladder, unspecified (principal); Q54.9 Hypospadias, unspecified; Z97.8 Presence of other specified devices; Z79.2 Long term (current) use of antibiotics; Z79.899 Other long term (current) drug therapy; Z87.442 Personal history of urinary calculi | CPT/HCPCS: 99212 ==

== ENCOUNTER 2025-07-06 12:38 | Outpatient (REF) | payer MEDICARE, MEDICAID, SELFPAY ==
--- OUTSIDE RECORDS SUMMARY | 2025-01-01 05:41 | XMS_ITS | Continuity of Care Document ---
Author Organization [facility] Address [address] [address] Phone Care Team Providers Care Power Operator Name Role Phone Sreedhar Jack NP Unavailable Unavailable Advance Directives Directive Yes / No Effective Date File Name No Information Encounters Encounter Description Practice Location Reason(s) For Visit Diagnoses Date Provider [facility], [address] [place] [address], [id number], [place] tel:[phone] [address] [place] [address] No Information [address] [place], [id number], [place]. tel:[phone] Family History Family Member Type Diagnosis Age At Onset No Information Payers Payer name Insurance type Covered democrat ID Authoriza tion(s) No Information Social History Type Description Quantity Date Captured Comments Sex Male Smoking Status No Information Chief Complaint And Reason For Visit No Information History Of Present Illness Encounter Date Complaint History Of Prese nt Illness No Information Instructions Date Instruction Additional Infor mation No Information Assessments Type Assessment Date No Information
--- NOTE | ~2025-07-06 | US_ITS ---
EXAMINATION: US KIDNEY BILATERAL HISTORY: N31.9 - Neuromuscular dysfunction of bladder, unspecified TECHNIQUE: Real-time grayscale ultrasound imaging of the kidneys was performed and images were reviewed. COMPARISON: Comparison is made with the prior examination dated 11/22/2024. FINDINGS: Right kidney: The right kidney measures 12.0 x 5.9 x 5.7 cm. Renal parenchymal echotexture and thickness are normal. There are no masses. There is no hydronephrosis or renal calculi. Left Kidney: The left kidney measures 10.7 x 5.5 x 4.3 cm. Renal parenchymal echotexture and thickness are normal. There is a 2.2 x 1.9 x 2.2 cm cyst in the interpolar region. Multiple nonobstructing calculi are noted, the largest of which is at the lower pole measuring 10 x 4 x 5 mm. There is no hydronephrosis. US/US renal BI IMPRESSION: Left nephrolithiasis as described. No hydronephrosis. Electronically signed by: Kleber Cartagena MD 07/06/2025 02:34 PM EDT
--- OUTSIDE RECORDS SUMMARY | 2025-07-06 14:50 | XMS_ITS | Clinical Summary ---
Author Organization [facility] [address] [place] [address] [place] [phone] Phone Care Team Providers Care Flakeboard Line Tender Name Role Phone Gonzalez Gaitan MD Primary Care Provider [phone] Allergies Active Allergy Reactions Criticality Noted Date Comments Other 01/02/2019 Seasonal Allergies Medications acetaminophen (TYLENOL 8 HOUR) 650 mg 8 hr tablet Take by mouth 2 times daily. 2 tablets twice daily Active cetirizine (ZyrTEC) 10 mg capsule Take 1 Tablet by mouth daily. 3 Active fluticasone propionate (FLONASE) 50 mcg/actuation nasal spray 2 Sprays by Nasal route daily. 3 Active polyethylene glycol (Miralax) 17 gram/dose oral powder Take 17 g by mouth 1 (one) time each day. 510 g 1 4 Active docusate sodium (COLACE) 100 mg capsule Take 1 capsule (100 mg total) by mouth 2 (two) times a day. 180 capsule 1 4 Active tamsulosin (FLOMAX) 0.4 mg 24 hr capsule Take 1 capsule (0.4 mg total) by mouth 1 (one) time each day. at bedtime 90 each 3 5 Active citalopram (CeleXA) 40 mg tablet Take 1 tablet (40 mg total) by mouth 1 (one) time each day. 90 tablet 1 5 Active gabapentin (NEURONTIN) 100 mg capsule Take 1 capsule (100 mg total) by mouth 3 (three) times a day. 90 capsule 4 5 Active methenamine hippurate (HIPREX) 1 gram tablet Take 1 tablet (1 g total) by mouth 1 (one) time each day. Active busPIRone (BUSPAR) 5 mg tablet Take 1 tablet (5 mg total) by mouth 3 (three) times a day if needed (anxiety). 90 tablet 4 5 Active midodrine (PROAMATINE) 10 mg tablet Take 1 tablet (10 mg total) by mouth 3 (three) times a day before meals. 90 tablet 3 5 Active cholecalciferol (VITAMIN D-3) 25 mcg (1,000 unit) tablet Take 1 tablet (1,000 Units total) by mouth 1 (one) time each day. 90 tablet 3 5 Active busPIRone (BUSPAR) 5 mg tablet Take 1 tablet (5 mg total) by mouth 3 (three) times a day if needed (anxiety). 90 tablet 4 4 06/11/20 25 Discontinu ed(Reorder ) midodrine (PROAMATINE) 10 mg tablet Take 1 tablet (10 mg total) by mouth 3 (three) times a day before meals. 90 tablet 3 5 06/11/20 25 Discontinu ed(Reorder ) Active Problems Problem Noted Date Diagnosed Date Chronic anemia 10/24/2024 Stage 3b chronic kidney disease ([facility] V24, CM S/[facility] V28) 10/24/2024 Ataxia 10/24/2024 Anxiety and depression 09/09/2024 Constipation 11/21/2023 Suprapubic catheter ([facility] V24, [facility] V28) 0 11/21/2023 Hypotension 11/21/2023 Spondylosis of lumbar region without myelopathy or radiculopathy 11/21/2023 Spondylosis of cervical bran on without myelopathy or radiculopathy 11/21/2023 Closed nondisplaced fracture of surgical neck of right humerus with routine healing 06/25/2023 Vitamin D deficiency 06/25/2023 Cervical myelopathy ([facility] V24, [facility] V28) 1 11/29/2021 Overview (09/09/2024): Last Assessment & Plan: Patient is just over 3 weeks s/p C3-4 ACDF, he states he is no longer getting tingling in the fingers, he has noticed some improvement in his balance and walking, depending on the day. He states now he can lift the arms which he could not do as well preop. He has not had any falls postop, no significant change noted in his incontinence. He is using a cane to ambulate, denies wound drainage, fevers, sweats chills. He still has the sensation of a lump in the throat, but states it is getting better, he is able to swallow and eat without difficulty. His postop posterior neck pain is mostly improved. He did have an ED visit 10/27/2022 for a possible syncopal event, he had been out with his friends had 1 beer, EKG without significant findings, head CT without acute findings, labs benign, tox + marijuana (from the previous day), and EtOH. He was discharged home, has not had any issues since. He has placed a call to his PCP for follow-up. Mr. Cross is doing well postop, minimal incisional pain, seeing some improvement in his balance and walking, arm strength, no longer gets tingling in the fingers. Patient has follow-up appointment with Dr. Will in 6 weeks with C-spine x- rays. Patient also had discussed L4-5 stenosis with SEMAJ Noonan on his preop office visit, patient is asking about possible surgery for the lumbar spine. I will discuss with Dr. Will. Rectus diastasis 05/17/2021 Ventral hernia without obstruction or gangrene 0 05/17/2021 Umbilical hernia without obstruction and without gangrene 05/05/2021 Benign prostatic hyperplasia with urinary retent ion 07/15/2020 Erectile dysfunction 07/15/2020 Lumbar radiculopathy 07/15/2020 Internal hemorrhoid 04/07/2019 Overview (09/09/2024): Last cnsp 02/2012 Obesity 01/02/2019 Calculus of kidney 08/17/2014 Overview (09/09/2024): Lithotripsy 2008 HTN (hypertension) 08/17/2014 Insomnia 08/17/2014 Encounters Date Type Department Care Team Description 06/15/2025 Telephone Adult Medicine [address] [phone] Gonzalez Gaitan MD 06/11/2025 11:15 AM EDT Office Visit Adult Medicine [address] [phone] Gonzalez Gaitan MD Orthostatic hypotension (Primary Dx); Suprapubic catheter ([facility] V24, [facility] V28); Benign prostatic hyperplasia with urinary retention; Stage 3b chronic kidney disease (CMS/HCC V24, CMS/HCC V28); Chronic anemia; Anxiety and depression; Lumbar radiculopathy; Ataxia 06/04/2025 Telephone Adult Medicine [address] [phone] Ilda Baugh [place] 05/11/2025 Telephone [facility] [address] [place] [phone] Rosalba Lozano 05/08/2025 Telephone Adult [address] [phone] Gonzalez Gaitan MD 04/20/2025 Telephone Adult [address] [phone] Gonzalez Gaitan MD from Last 3 Months Immunizations Name Administration Dates Next Due Influenza trivalent, 0.5mL (Fluad) 65yo and olde r 07/13/2020 Moderna SARS-CoV-2 COVID-19, mRNA, LNP-S, preservative free 02/25/2021,02/09/2021 Pneumococcal conjugate 13 va lent (Prevnar 13, PCV13) 2mo and older 07/13/2020 Pneumococcal conjugate 20 va lent (Prevnar 20, PCV 20) 2mo and older 06/07/2023 Pneumococcal conjugate 21 va lent (CAPVAXIVE, PCV 21) 19yo and older 12/04/2024 RSV, bivalent, protein subun it RSVpreF, 0.5mL, Preservative Free (ABRYSVO) 60yo and older or 32 through 36 wks of 12/04/2024 Td Tetanus diptheria, preser vative free (Tenivac) 7yo and older 06/11/2025 Surgical History Surgery Date Site/Laterality Comments OTHER SURGICAL HISTORY 03/26/2009 PROCEDURE: DC PYELOTOMY WITH REMOVAL CALCULUS; COMMENT: lithotripsy OTHER SURGICAL HISTORY PROCEDURE: COLONOSCOPY, SURGICAL Medical History Medical History Date Comments HTN (hypertension) DX:HTN (hyper tension) Depression DX:Depression Insomnia 08/17/2014 DX:Insomnia Hyperlipidemia 08/17/2014 DX:Hyperlipidemi a Calculus of kidney 08/17/2014 DX:Calculus o f kidney; COMMENT: Lithotripsy 2009 Overweight (BMI 25.0-29.9) 01/02/2019 DX:Ov erweight (BMI 25.0-29.9) Internal hemorrhoid 04/07/2019 DX:Internal hemorrhoid; COMMENT: Last cnsp 02/2012 Family History Medical History Relation Name Comments Other: heart problems Father prosta te cancer No Known Problems Mother No Known Problems Sister Relation Name Status Comments Daughter Alive Father Mother Sister Social History Tobacco Use Types Packs/Day Years Used Date Smoking Tobacco: Never Smokeless Tobacco: Never Tobacco Cessation:Counseling Given: Not Answered Alcohol Use Standard Drinks/Week Comments Yes 0 [...] care for your loved ones. For example, school childcare attendant or elderly care for an older adult? [...] on file Sexual Orientation Not on file Obstetrics History Last Filed Vital Signs Vital Sign Reading Time Taken Comments Blood Pressure 122/72 06/11/2025 10:41 AM EDT Pulse 70 06/11/2025 10:41 AM EDT Temperature 35.9 C (96.7 F) 06/11/2025 10:41 AM EDT Respiratory Rate 14 06/11/2025 10:41 AM EDT Oxygen Saturation - - Inhaled Oxygen Concentration - - Weight 86.6 kg (191 lb) 06/11/2025 10:41 AM EDT Height 182.9 cm (6') 06/11/2025 10:41 AM EDT Body Mass Index 25.9 06/11/2025 10:41 AM EDT Plan of Treatment Upcoming Encounters Date Type Department Care Team (Late st Contact Info) Description 09/15/2025 1:30 PM EST Office Visit [facility] [place] [address] [place], [place] [phone] Johanna George PA [address], [place] 11/25/2025 1:30 PM EST Consult Nephrology - [address] [phone] Joe Chandler MD [address] [place] [phone] Health Maintenance Due Date Last Done Comments Zoster Vaccines (1 of 2) 1969 Colorectal Cancer Screening: Colonoscopy 10/07/2022 Medicare Annual Wellness Visit 01/18/2024 01/17/2023 Depression Screening 10/29/2024 Influenza Vaccine (#1) 2025 , 08/27/2023, 07/13/2020 COVID-19 Vaccine (6 - Moderna risk season) 2025 01/05/2025, 11/03/2021, 03/25/2021, Additional history exists Falls Risk Assessment 01/07/2026 01/07/2025 Hypertension/CHF/CAD Annual BMP Blood Test 03/11/2026 03/11/2025, 12/12/2024, 12/05/2024, Additional history exists Social Influencers of Health Screening 03/31/2026 03/31/2025 Cholesterol Screening (Lipid Panel) 01/18/2028 01/17/2023 DTaP,Tdap,and Td Vaccines (2 - Td or Tdap) 06/11/2035 06/11/2025 Hepatitis C Screening Completed 01/02/2019 Pneumococcal Vaccine: 50+ Years Completed 12/04/2024, 06/07/2023, 07/13/2020 RSV Immunization Adult Patients Completed 12/04/2024 HIB Vaccines Aged Out No longer eligi ble based on patient's age to complete this topic HPV Vaccines Aged Out No longer eligi ble based on patient's age to complete this topic Hepatitis A Vaccines Aged Out No long er eligible based on patient's age to complete this topic Hepatitis B Vaccines Aged Out No long er eligible based on patient's age to complete this topic IPV Vaccines Aged Out No longer eligi ble based on patient's age to complete this topic MMR Vaccines Aged Out No longer eligi ble based on patient's age to complete this topic Meningococcal ACWY Vaccine Aged Out N o longer eligible based on patient's age to complete this topic Meningococcal B Vaccine Aged Out No l onger eligible based on patient's age to complete this topic RSV Immunization Patients Under 20 months Aged Out No longer eligible based on patient's age to complete this topic Varicella Vaccines Aged Out No longer eligible based on patient's age to complete this topic Procedures Procedure Name Priority Date/Time Associated Diagnosis Comments BASIC METABOLIC PANEL Routine 03/11/2025 1:07 PM EDT Orthostatic hypotension Benign prostatic hyperplasia with urinary retention Suprapubic catheter ([facility] V24, [facility] V28) Stage 3b chronic kidney disease (CMS/[facility] V24, CMS/HCC V28) Chronic anemia Anxiety and depression Ataxia Lumbar radiculopathy Vitamin D deficiency LIPID PANEL Routine 01/17/2023 HEPATITIS C SCREENING Routine 01/02/2019 from Last 3 Months or Most Recently Relevant to Health Maintenance Results * (ABNORMAL) Basic metabolic panel (03/11/2025 1:07 PM EDT) Sodium 137 133 - 145 mmol/L LAB CHEMISTRY METHOD 03/11/2025 5:10 PM EDT [facility] Potassium 4.7 3.5 - 5.5 mmol/L LAB CHEMISTRY METHOD 03/11/2025 5:10 PM EDT [facility] Chloride 104 96 - 110 mmol/L LAB CHEMISTRY METHOD 03/11/2025 5:10 PM EDT [facility] CO2 27 21 - 32 mmol/L LAB CHEMISTRY METHOD 03/11/2025 5:10 PM EDT [facility] Anion Gap 6 3 - 11 LAB CHEMISTRY METHOD 03/11/2025 5:10 PM EDT [facility] Glucose 75 70 - 100 mg/dL LAB CHEMISTRY METHOD 03/11/2025 5:10 PM EDT [facility] BUN 25 5 - 25 mg/dL LAB CHEMISTRY METHOD 03/11/2025 5:10 PM EDT [facility] Creatinine 1.68(H) 0.70 - 1.30 mg/dL LAB CHEMISTRY METHOD 03/11/2025 5:10 PM EDT [facility] eGFR 43(L) >=60 mL/min/1. 73m2 LAB CHEMISTRY METHOD 03/11/2025 5:10 PM EDT [facility] Comment:Calculation based on the Chronic Kidney Disease Epidemiology Collaboration (CKD-EPI) equation refit without adjustment for race. BUN/Creatinine Ratio 14.9 LAB CHEMISTRY METHOD 03/11/2025 5:10 PM EDT [facility] Calcium 9.4 8.5 - 10.5 mg/dL LAB CHEMISTRY METHOD 03/11/2025 5:10 PM EDT [facility] Blood Venous blood specimen / Unknown Venipuncture / Unknown 03/11/2025 1:07 PM EDT 03/11/2025 1:07 PM EDT Gonzalez Gaitan MD LAB BLOOD ORDERABLES Final Result [facility] [address] [place] [address], * (ABNORMAL) Lipid panel (01/17/2023) LDL/HDL Ratio 3 0 - 4 Triglycerides 106 0 - 150 mg/dL Cholesterol 207(A) 0 - 200 mg/dL HDL 67 >=40 mg/dL LDL Cholesterol 119(A) 0 - 100 mg/dL Blood Venous blood specimen / Unknown Historical Provider LAB BLOOD ORDERABLES Mariam l Result * Hepatitis C Screening (01/02/2019) Hepatitis C Screening Abstracted Historical Provider HEALTH MAINTENANCE Final Result from Last 3 Months or Most Recently Relevant to Health Maintenance Insurance BLUE CR[place] - [place] MEDICARE ADVANTAGE [place] Care Teams Flakeboard Line Tender Relationship Specialty Start Date End Date Gonzalez Gaitan MD [address] [place] [address] PCP - General Internal Medicine 03/30/22
--- OUTSIDE RECORDS SUMMARY | 2025-07-06 14:50 | XMS_ITS ---
Author Organization [facility] Care Team Providers Care Studio Model Name Role Phone Monse Obrien Unavailable Unavailable Judie Arias Unavailable Unavailable Sandra Bautista Unavailable Unavailable Yojana Lai Unavailable Unavailable Shahana Melvin Unavailable Unavailable Allergies and adverse reactions No Known Allergies Care Team Name Role Address Phone Organization Dates Yojana Lai PCP [address], [address], [facility] (Office): : [facility] 10/19/2023 - 11/16/2023 Monse Obrien [address] [place], [address], [place] (Office): : [facility] 10/19/2023 - 11/16/2023 Judie Arias [address] [place], [address], [place] (Office): : [facility] 10/19/2023 - 11/16/2023 Sandra Bautista [address] [facility] [address], [place], [address], [place] (Office): [facility] 10/19/2023 - 11/16/2023 Shahana Melvin [address] [facility] , [place], [address], [place] (Office): [facility] 10/19/2023 - 11/16/2023 Immunizations Immunization Status Vaccine Details Vaccine Code CodeSystem Date Notes TB 2 Step Mantoux Skin Test completed tuberculin skin test; unspecified formulation Given 0.1 ml Left Forearm intradermally Step 1 of Multi-step with next step required 98 CVX created date: 08/16/2023 consent date: 08/16/2023 administer ed date: 08/15/2023 PCV13 (Pneumococcal Conjugate Vaccine) completed pneumococcal conjugate vaccine, 13 valent 133 CVX created date: 06/04/2023 administer ed date: 07/13/2020 COVID-19 Vaccine Dose 1 completed unknown vaccine or immune globulin 999 CVX created date: 06/04/2023 administer ed date: 02/09/2021 Pulled from [facility]- Moderna COVID-19 Vaccine Dose 2 completed unknown vaccine or immune globulin 999 CVX created date: 06/04/2023 administer ed date: 02/25/2021 Pulled from [facility]- Moderna SARS-COV(COVID- 19) booster completed unknown vaccine or immune globulin 999 CVX created date: 06/04/2023 administer ed date: 11/03/2021 Pulled from [facility]- Moderna SARS-COV(COVID- 19) booster completed unknown vaccine or immune globulin 999 CVX created date: 06/04/2023 administer ed date: 03/18/2021 Pulled from [facility]- Moderna PCV20 completed Pneumococcal conjugate vaccine 20-valent (PCV20), polysaccharide [id number] conjugate, adjuvant, preservative free lotNumber: [id number] expiry: 07/29/2024 Given 0.5 ml Left Deltoid intramuscularly 216 CVX created date: 06/06/2023 consent date: 06/06/2023 administer ed date: 06/07/2023 Educated by Hanyn Brandt on 06/06/2023 Flu Vaccine Prior To Admission (historical only) completed unknown vaccine or immune globulin 999 CVX created date: 06/12/2023 consent date: 06/12/2023 administer ed date: 08/27/2023 Mental Status Section Date Assessment Total Score Description 11/16/2023 BIMS 15 cognitively int act CAM 0 No delirium ind icated PHQ-9 00 10/21/2023 BIMS 15 cognitively int act CAM 0 No delirium ind icated PHQ-9 00 Problems Problem # Description Date of onset Resolved Date Code CodeSystem Concern Status 1 BENIGN PROSTATIC HYPERPLASIA WITH LOWER URINARY TRACT SYMPTOMS 10/18/[address] active 2 BENIGN PROSTATIC HYPERPLASIA WITHOUT LOWER URINARY TRACT SYMPTOMS 10/18/20 23 10/18/[address] completed 3 DIFFICULTY IN WALKING, NOT ELSEWHERE CLASSIFIED 10/18/[address] active 4 DRUG INDUCED CONSTIPATION 10/18/[address] active 5 ELEVATED WHITE BLOOD CELL COUNT, UNSPECIFIED 10/18/[address] active 6 ESSENTIAL (PRIMARY) HYPERTENSION 10/18/[address] active 7 INFECTION AND INFLAMMATORY REACTION DUE TO INDWELLING URETHRAL CATHETER, SUBSEQUENT ENCOUNTER 10/18/[address] active 8 INSOMNIA, UNSPECIFIED 10/18/[address] active 9 MUSCLE WEAKNESS (GENERALIZED) 10/18/[address] active 10 OBSTRUCTIVE AND REFLUX UROPATHY, UNSPECIFIED 10/18/[address] active 11 SEPSIS, UNSPECIFIED ORGANISM 10/18/[address] active 12 TUBULO-INTERSTITI AL NEPHRITIS, 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 10/18/[address] active 13 UNSPECIFIED HYDRONEPHROSIS 10/18/[address] active 14 URINARY TRACT INFECTION, SITE NOT SPECIFIED 10/18/[address] active 15 SPINAL STENOSIS, LUMBAR REGION WITH NEUROGENIC CLAUDICATION 08/29/20 23 09/08/[address] completed 16 SPONDYLOLISTHESIS , LUMBAR REGION 08/29/20 23 09/08/[address] completed 17 OTHER CERVICAL DISC DISPLACEMENT, UNSPECIFIED CERVICAL REGION 08/15/2009/08/[address] completed 18 ARTHRODESIS STATUS 05/31/2009/08/[address] completed 19 CONSTIPATION, UNSPECIFIED 05/31/20 23 09/08/[address] completed 20 DIFFICULTY IN WALKING, NOT ELSEWHERE CLASSIFIED 05/31/2009/08/[address] completed 21 ESSENTIAL (PRIMARY) HYPERTENSION 05/31/2009/08/[address] completed 22 FULL INCONTINENCE OF FECES 05/31/2009/08/[address] completed 23 INSOMNIA, UNSPECIFIED 05/31/2009/08/[address] completed 24 MUSCLE WEAKNESS (GENERALIZED) 05/31/2009/08/[address] completed 25 NEURALGIA AND NEURITIS, UNSPECIFIED 05/31/20 23 09/08/[address] completed 26 OTHER CHRONIC PAIN 05/31/2009/08/[address] completed 27 UNSPECIFIED FRACTURE OF SHAFT OF HUMERUS, RIGHT ARM, SUBSEQUENT ENCOUNTER FOR FRACTURE WITH ROUTINE HEALING 05/31/2009/08/[address] completed 28 UNSPECIFIED URINARY INCONTINENCE 05/31/2009/08/[address] completed 29 WEAKNESS 05/31/2009/08/[address] completed Reason for Referral No Reasons for Referral Entered Social History Social History Observation Description Start Date End Date Code Code System Current Smoking Status Tobacco smoking consumption unknown 401624243 SNOMED CT Sex Assigned At Male 1950 76835-5 [facility] Gender Identity Vital Signs Code Code System Vitals Name Values and Units Timing Information 9279-1 [facility] Respiratory Rate Value=16.0 Units=/m in 11/16/2023 8462-4 [facility] Blood Pressure-Diastolic Value=56 Un its=mmHg 11/16/2023 8480-6 [facility] Blood Pressure-Systolic Value=96 Uni ts=mmHg 11/16/2023 8310-5 [facility] Body Temperature Value=96.9 Units= F 11/16/2023 8867-4 [facility] Heart rate Value=60.0 Units=/min 17008-4 [facility] O2 % BldC Oximetry Value=97.0 Units= % 11/16/2023 42871-0 [facility] Pain Level Value=0.0 11/16/2023 86059-1 [facility] Weight Dqawx=064.4 Units=Lbs 09/2024 8302-2 [facility] Height Value=72.0 Units=Inches 10/21/2023
--- OUTSIDE RECORDS SUMMARY | 2025-07-06 14:50 | XMS_ITS | Encounter Summary ---
Author Organization [facility] Address [address] [place] [address] Care Team Providers Care Junior Engineer Name Role Phone Gonzalez Gaitan MD Primary Care Provider Encounter Details Date Type Department Care Team (Late Contact Info) Description 11/28/2024 Lab Requisition [facility] - Main Lab 299 [facility] [place] [address] Jose Plata MD [address] [place] [address] Vitamin D deficiency, unspecified; Obstructive and reflux uropathy, unspecified; Benign prostatic hyperplasia without lower urinary tract symptoms; Sepsis, unspecified organism ([facility] V24, [facility] V28) Social History Tobacco Use Types Packs/Day Years Used Date Smoking Tobacco: Never Smokeless Tobacco: Never Alcohol Use Standard Drinks/Week Comments Yes 0 (1 standard drink = 0.6 oz pur e alcohol) Sex and Gender Information Value Date Recorded Sex Assigned at Not on file Legal Sex Male 1:59 PM EST Gender Identity Not on file Sexual Orientation Not on file documented as of this encounter Plan of Treatment Upcoming Encounters Date Type Department Care Team (Late Contact Info) Description 09/15/2025 1:30 PM EST Office Visit Adult Medicine [address] [phone] Johanna George PA [address] [place] [address] 11/25/2025 1:30 PM EST Consult Nephrology [address] [place] [address] Joe Chandler MD [address] [facility] [address] [place] [phone] documented as of this encounter Procedures Procedure Name Priority Date/Time Associated Diagnosis Comments VITAMIN D 25 HYDROXY Routine 11/28/2024 5:31 AM EST Vitamin D deficiency, unspecified Obstructive and reflux uropathy, unspecified Benign prostatic hyperplasia without lower urinary tract symptoms Sepsis, unspecified organism (CMS/HCC) COMPLETE BLOOD COUNT Routine 11/28/2024 5:31 AM EST Vitamin D deficiency, unspecified Obstructive and reflux uropathy, unspecified Benign prostatic hyperplasia without lower urinary tract symptoms Sepsis, unspecified organism (CMS/HCC) FOLATE Routine 11/28/2024 5:31 AM EST Vitamin D deficiency, unspecified Obstructive and reflux uropathy, unspecified Benign prostatic hyperplasia without lower urinary tract symptoms Sepsis, unspecified organism (CMS/HCC) VITAMIN B12 Routine 11/28/2024 5:31 AM EST Vitamin D deficiency, unspecified Obstructive and reflux uropathy, unspecified Benign prostatic hyperplasia without lower urinary tract symptoms Sepsis, unspecified organism (CMS/HCC) COMPREHENSIVE METABOLIC PANEL Routine 11/28/2024 5:31 AM EST Vitamin D deficiency, unspecified Obstructive and reflux uropathy, unspecified Benign prostatic hyperplasia without lower urinary tract symptoms Sepsis, unspecified organism (CMS/HCC) documented in this encounter Results * (ABNORMAL) Vitamin D 25 hydroxy (11/28/2024 5:31 AM EST) Vit D, 25-Hydroxy 15.8(L) 30.0 - 80.0 ng/mL LAB CHEMISTRY METHOD 11/28/2024 10:40 AM EST [facility] ([facility]) [facility] Blood Venous blood specimen / Unknown Venipuncture / Unknown 11/28/2024 5:31 AM EST 11/28/2024 8:41 AM EST us Jose Plata MD LAB BLOOD ORDERABLES Final Resul t Performing Organization Address [facility] Co de Phone Number [facility] [address] [place] [address], [place] [phone] * Folate (11/28/2024 5:31 AM EST) [facility] Folate 3.8 2.8 - 17.0 ng/ml LAB CHEMISTRY METHOD 11/28/2024 9:55 AM EST [facility] Blood Venous blood specimen / Unknown Venipuncture / Unknown 11/28/2024 5:31 AM EST 11/28/2024 8:41 AM EST us Jose Plata MD LAB BLOOD ORDERABLES Final Resul t Performing Organization Address [facility] de Phone Number [facility] [address] [place] [address], [place] [phone] * Vitamin B12 (11/28/2024 5:31 AM EST) [facility] Vitamin B-12 359 250 - 900 pcg/mL LAB CHEMISTRY METHOD 11/28/2024 9:55 AM EST [facility] Blood Venous blood specimen / Unknown Venipuncture / Unknown 11/28/2024 5:31 AM EST 11/28/2024 8:41 AM EST us Jose Plata MD LAB BLOOD ORDERABLES Final Resul t Performing Organization Address City/[facility]/ZIP Co de Phone Number [facility] [address] [place] [address], [place] [phone] * (ABNORMAL) Comprehensive metabolic panel (11/28/2024 5:31 AM EST) [facility] Sodium 140 133 - 145 mmol/L LAB CHEMISTRY METHOD 11/28/2024 9:33 AM [facility] Potassium 4.1 3.5 - 5.5 mmol/L LAB CHEMISTRY METHOD 11/28/2024 9:33 AM [facility] Chloride 111(H) 96 - 110 mmol/L LAB CHEMISTRY METHOD 11/28/2024 9:33 AM [facility] CO2 26 21 - 32 mmol/L LAB CHEMISTRY METHOD 11/28/2024 9:33 AM [facility] Anion Gap 3 3 - 11 LAB CHEMISTRY METHOD 11/28/2024 9:33 AM [facility] Glucose 82 70 - 100 mg/dL LAB CHEMISTRY METHOD 11/28/2024 9:33 AM [facility] BUN 27(H) 5 - 25 mg/dL LAB CHEMISTRY METHOD 11/28/2024 9:33 AM [facility] Creatinine 2.13(H) 0.70 - 1.30 mg/dL LAB CHEMISTRY METHOD 11/28/2024 9:33 AM [facility] eGFR 32(L) >=60 mL/min/1. 73m2 LAB CHEMISTRY METHOD 11/28/2024 9:33 AM [facility] Comment:Calculation based on the Chronic Kidney Disease Epidemiology Collaboration (CKD-EPI) equation refit without adjustment for race. BUN/Creatinine Ratio 12.7 LAB CHEMISTRY METHOD 11/28/2024 9:33 AM [facility] Calcium 7.8(L) 8.5 - 10.5 mg/dL LAB CHEMISTRY METHOD 11/28/2024 9:33 AM [facility] AST (SGOT) 23 10 - 42 unit/L LAB CHEMISTRY METHOD 11/28/2024 9:33 AM [facility] ALT (SGPT) 24 10 - 60 unit/L LAB CHEMISTRY METHOD 11/28/2024 9:33 AM [facility] Alkaline Phosphatase 70 42 - 121 unit/L LAB CHEMISTRY METHOD 11/28/2024 9:33 AM EST [facility] Total Protein 4.8(L) 6.0 - 8.0 g/dL LAB CHEMISTRY METHOD 11/28/2024 9:33 AM [facility] Albumin 1.6(L) 3.2 - 5.0 g/dL LAB CHEMISTRY METHOD 11/28/2024 9:33 AM [facility] Total Bilirubin 0.4 0.0 - 1.4 mg/dL LAB CHEMISTRY METHOD 11/28/2024 9:33 AM [facility] Blood Venous blood specimen / Unknown Venipuncture / Unknown 11/28/2024 5:31 AM EST 11/28/2024 8:41 AM EST Jose Plata MD LAB BLOOD ORDERABLES Final Resul t [facility] [address] [place] [address], [place] [phone] * (ABNORMAL) Complete blood count (11/28/2024 5:31 AM EST) WBC 9.8 4.8 - 10.8 K/mcL LAB HEMETOLOGY METHOD 11/28/2024 9:12 AM [facility] RBC 2.90(L) 4.50 - 5.50 M/mcL LAB HEMETOLOGY METHOD 11/28/2024 9:12 AM [facility] Hemoglobin 8.0(L) 13.5 - 17.5 g/dL LAB HEMETOLOGY METHOD 11/28/2024 9:12 AM [facility] Hematocrit 26.3(L) 42.0 - 54.0 % LAB HEMETOLOGY METHOD 11/28/2024 9:12 AM [facility] MCV 90.1 79.0 - 98.0 FL LAB HEMETOLOGY METHOD 11/28/2024 9:12 AM [facility] MCH 27.4 27.0 - 32.0 pcg LAB HEMETOLOGY METHOD 11/28/2024 9:12 AM EST [facility] MCHC 30.4(L) 32.0 - 37.0 g/dL LAB HEMETOLOGY METHOD 11/28/2024 9:12 AM [facility] RDW 16.3(H) 11.0 - 15.0 % LAB HEMETOLOGY METHOD 11/28/2024 9:12 AM EST [facility] Platelets 382 130 - 400 K/mcL LAB HEMETOLOGY METHOD 11/28/2024 9:12 AM [facility] MPV 10.1 7.0 - 11.0 FL LAB HEMETOLOGY METHOD 11/28/2024 9:12 AM [facility] NRBC 0.0 <1.0 % LAB HEMETOLOGY METHOD 11/28/2024 9:12 AM [facility] NRBC Absolute 0.00 <0.10 K/mcL LAB HEMETOLOGY METHOD 11/28/2024 9:12 AM [facility] Blood Venous blood specimen / Unknown Venipuncture / Unknown 11/28/2024 5:31 AM EST 11/28/2024 8:41 AM EST us Jose Plata MD LAB BLOOD ORDERABLES Final Resul t [facility] [address] [place] [address], documented in this encounter Visit Diagnoses Diagnosis Vitamin D deficiency, unspecified Obstructive and reflux uropathy, unspecified Benign prostatic hyperplasia without lower urinary tract symptoms Sepsis, unspecified organism (CMS/HCC V24, CMS/HCC V28) documented in this encounter Care Teams Junior Engineer Relationship Specialty Start Date End Date Gonzalez Gaitan MD [address] [place] [address] PCP - General Internal Medicine 03/30/22 documented as of this encounter
--- OUTSIDE RECORDS SUMMARY | 2025-07-06 14:50 | XMS_ITS | Encounter Summary ---
Author Organization [facility] Address [address] [place] [address] Care Team Providers Care Tin Stacker Name Role Phone Gonzalez Gaitan MD Primary Care Provider [phone] Encounter Details Date Type Department Care Team (Latest Contact Info) Description 12/04/2024 Lab Requisition [facility] - Main Lab 299 [facility] [place] [address] Jose Plata MD [address] [place] [address] Hyperosmolality and hypernatremia; Sepsis, unspecified organism (CMS/HCC V24, CMS/HCC V28) Social History Tobacco Use Types Packs/Day [...] EST Office Visit Adult Medicine West - [address] [phone] Johanna George PA [address] [place] [address] 11/25/2025 1:30 PM EST Consult Nephrology - [address] [phone] Joe Chandler MD [address] [facility] [address] [place] [phone] documented as of this encounter Procedures Procedure Name Priority Date/Time Associated Diagnosis Comments COMPLETE BLOOD COUNT Routine 12/05/2024 7:28 AM EST Hyperosmolality and hypernatremia Sepsis, unspecified organism (CMS/HCC) BASIC METABOLIC PANEL Routine 12/05/2024 7:28 AM EST Hyperosmolality and hypernatremia Sepsis, unspecified organism (CMS/HCC) documented in this encounter Results * (ABNORMAL) Basic metabolic panel (12/05/2024 7:28 AM EST) Sodium 143 133 - 145 mmol/L LAB CHEMISTRY METHOD 12/05/2024 11:[address] [facility] Potassium 4.1 3.5 - 5.5 mmol/L LAB CHEMISTRY METHOD 12/05/2024 11:[address] [facility] Chloride 113(H) 96 - 110 mmol/L LAB CHEMISTRY METHOD 12/05/2024 11:[address] [facility] CO2 26 21 - 32 mmol/L LAB CHEMISTRY METHOD 12/05/2024 11:[address] [facility] Anion Gap 4 3 - 11 LAB CHEMISTRY METHOD 12/05/2024 11:[address] [facility] Glucose 78 70 - 100 mg/dL LAB CHEMISTRY METHOD 12/05/2024 11:[address] [facility] BUN 21 5 - 25 mg/dL LAB CHEMISTRY METHOD 12/05/2024 11:[address] [facility] Creatinine 2.02(H) 0.70 - 1.30 mg/dL LAB CHEMISTRY METHOD 12/05/2024 11:[address] [facility] eGFR 34(L) >=60 mL/min/1. 73m2 LAB CHEMISTRY METHOD 12/05/2024 11:28 AM EST [facility] LAB Comment:Calculation based on the Chronic Kidney Disease Epidemiology Collaboration (CKD-EPI) equation refit without adjustment for race. BUN/Creatinine Ratio 10.4 LAB CHEMISTRY METHOD 12/05/2024 11:[address] [facility] Calcium 8.3(L) 8.5 - 10.5 mg/dL LAB CHEMISTRY METHOD 12/05/2024 11:[address] [facility] Blood Venous blood specimen / Unknown Venipuncture / Unknown 12/05/2024 7:28 AM EST 12/05/2024 11:28 AM EST Jose Plata MD LAB BLOOD ORDERABLES Final Resul t [facility] [address] [place] [address], * (ABNORMAL) Complete blood count (12/05/2024 7:28 AM EST) WBC 6.4 4.8 - 10.8 K/mcL LAB HEMETOLOGY METHOD 12/05/2024 11:[address] [facility] RBC 3.10(L) 4.50 - 5.50 M/mcL LAB HEMETOLOGY METHOD 12/05/2024 11:[address] [facility] Hemoglobin 8.4(L) 13.5 - 17.5 g/dL LAB HEMETOLOGY METHOD 12/05/2024 11:[address] [facility] Hematocrit 28.9(L) 42.0 - 54.0 % LAB HEMETOLOGY METHOD 12/05/2024 11:[address] [facility] MCV 94.1 79.0 - 98.0 FL LAB HEMETOLOGY METHOD 12/05/2024 11:[address] [facility] MCH 27.4 27.0 - 32.0 pcg LAB HEMETOLOGY METHOD 12/05/2024 11:16 AM EST [facility] MCHC 29.1(L) 32.0 - 37.0 g/dL LAB HEMETOLOGY METHOD 12/05/2024 11:[address] [facility] RDW 17.7(H) 11.0 - 15.0 % LAB HEMETOLOGY METHOD 12/05/2024 11:16 AM EST [facility] Platelets 345 130 - 400 K/mcL LAB HEMETOLOGY METHOD 12/05/2024 11:[address] [facility] MPV 10.7 7.0 - 11.0 FL LAB HEMETOLOGY METHOD 12/05/2024 11:[address] [facility] NRBC 0.0 <1.0 % LAB HEMETOLOGY METHOD 12/05/2024 11:[address] [facility] NRBC Absolute 0.00 <0.10 K/mcL LAB HEMETOLOGY METHOD 12/05/2024 11:[address] [facility] Blood Venous blood specimen / Unknown Venipuncture / Unknown 12/05/2024 7:28 AM EST 12/05/2024 11:13 AM EST us Jose Plata MD LAB BLOOD ORDERABLES Final Resul t [facility] [address] [place] [address], documented in this encounter Visit Diagnoses Diagnosis Hyperosmolality and hypernatremia Hyperosmolality and/or hypernatremia Sepsis, unspecified organism (CMS/HCC V24, CMS/HCC V28) documented in this encounter Care Teams Tin Stacker Relationship Specialty Start Date End Date Gonzalez Gaitan MD [address] [place] [address] PCP - General Internal Medicine 03/30/22 documented as of this encounter
--- OUTSIDE RECORDS SUMMARY | 2025-07-06 14:50 | XMS_ITS | Encounter Summary ---
Author Organization [facility] Address [address] [place] [address] Care Team Providers Care Oxygen Furnace Operator Name Role Phone Gonzalez Gaitan MD Primary Care Provider Encounter Details Date Type Department Care Team (Late Contact Info) Description 12/11/[address] [facility] - Main Lab 299 [facility] [place] [address] Jose Plata MD [address] [place] [address] Sepsis, unspecified organism (CMS/HCC V24, CMS/HCC V28); Hyperosmolality and hypernatremia Social History Tobacco Use Types Packs/Day Years [...] EST Office Visit Adult Medicine [place] - [address] [phone] Johanna George PA [address] [place] [address] 11/25/2025 1:30 PM EST Consult Nephrology - [address] [phone] Joe Chandler MD [address] [facility] [address] [place] [phone] documented as of this encounter Procedures Procedure Name Priority Date/Time Associated Diagnosis Comments COMPLETE BLOOD COUNT Routine 12/12/2024 5:24 AM EST Sepsis, unspecified organism (CMS/HCC) Hyperosmolality and hypernatremia BASIC METABOLIC PANEL Routine 12/12/2024 5:24 AM EST Sepsis, unspecified organism (CMS/HCC) Hyperosmolality and hypernatremia documented in this encounter Results * (ABNORMAL) Basic metabolic panel (12/12/2024 5:24 AM EST) Sodium 140 133 - 145 mmol/L LAB CHEMISTRY METHOD 12/12/2024 11:06 AM [facility] Potassium 4.3 3.5 - 5.5 mmol/L LAB CHEMISTRY METHOD 12/12/2024 11:06 AM [facility] Chloride 112(H) 96 - 110 mmol/L LAB CHEMISTRY METHOD 12/12/2024 11:06 AM [facility] CO2 24 21 - 32 mmol/L LAB CHEMISTRY METHOD 12/12/2024 11:06 AM [facility] Anion Gap 4 3 - 11 LAB CHEMISTRY METHOD 12/12/2024 11:06 AM [facility] Glucose 84 70 - 100 mg/dL LAB CHEMISTRY METHOD 12/12/2024 11:06 AM [facility] BUN 29(H) 5 - 25 mg/dL LAB CHEMISTRY METHOD 12/12/2024 11:06 AM [facility] Creatinine 2.18(H) 0.70 - 1.30 mg/dL LAB CHEMISTRY METHOD 12/12/2024 11:06 AM [facility] eGFR 31(L) >=60 mL/min/1. 73m2 LAB CHEMISTRY METHOD 12/12/2024 11:06 AM EST [facility] Comment:Calculation based on the Chronic Kidney Disease Epidemiology Collaboration (CKD-EPI) equation refit without adjustment for race. BUN/Creatinine Ratio 13.3 LAB CHEMISTRY METHOD 12/12/2024 11:06 AM [facility] Calcium 8.6 8.5 - 10.5 mg/dL LAB CHEMISTRY METHOD 12/12/2024 11:06 AM [facility] Blood Venous blood specimen / Unknown Venipuncture / Unknown 12/12/2024 5:24 AM EST 12/12/2024 10:33 AM EST Jose Plata MD LAB BLOOD ORDERABLES Final Resul t [facility] [address] [place] [address], * (ABNORMAL) Complete blood count (12/12/2024 5:24 AM EST) WBC 5.9 4.8 - 10.8 K/mcL LAB HEMETOLOGY METHOD 12/12/2024 10:45 AM [facility] RBC 3.30(L) 4.50 - 5.50 M/mcL LAB HEMETOLOGY METHOD 12/12/2024 10:45 AM [facility] Hemoglobin 9.3(L) 13.5 - 17.5 g/dL LAB HEMETOLOGY METHOD 12/12/2024 10:45 AM [facility] Hematocrit 31.7(L) 42.0 - 54.0 % LAB HEMETOLOGY METHOD 12/12/2024 10:45 AM [facility] MCV 97.2 79.0 - 98.0 FL LAB HEMETOLOGY METHOD 12/12/2024 10:45 AM [facility] MCH 28.5 27.0 - 32.0 pcg LAB HEMETOLOGY METHOD 12/12/2024 10:45 AM EST [facility] MCHC 29.3(L) 32.0 - 37.0 g/dL LAB HEMETOLOGY METHOD 12/12/2024 10:45 AM [facility] RDW 19.0(H) 11.0 - 15.0 % LAB HEMETOLOGY METHOD 12/12/2024 10:45 AM [facility] Platelets 303 130 - 400 K/mcL LAB HEMETOLOGY METHOD 12/12/2024 10:45 AM EST [facility] MPV 11.5(H) 7.0 - 11.0 FL LAB HEMETOLOGY METHOD 12/12/2024 10:45 AM [facility] NRBC 0.0 <1.0 % LAB HEMETOLOGY METHOD 12/12/2024 10:45 AM [facility] NRBC Absolute 0.00 <0.10 K/mcL LAB HEMETOLOGY METHOD 12/12/2024 10:45 AM [facility] Blood Venous blood specimen / Unknown Venipuncture / Unknown 12/12/2024 5:24 AM EST 12/12/2024 10:33 AM EST us Jose Plata MD LAB BLOOD ORDERABLES Final Resul t [facility] [address] [place] [address], documented in this encounter Visit Diagnoses Diagnosis Sepsis, unspecified organism (CMS/HCC V24, CMS/HCC V28) Hyperosmolality and hypernatremia Hyperosmolality and/or hypernatremia documented in this encounter Care Teams Oxygen Furnace Operator Relationship Specialty Start Date End Date Gonzalez Gaitan MD [address] [place] [address] PCP - General Internal Medicine 03/30/22 documented as of this encounter
--- OUTSIDE RECORDS SUMMARY | 2025-07-06 14:50 | XMS_ITS | Encounter Summary ---
Author Organization [facility] Address [address] [place] [address] Care Team Providers Care Pipe Fitter Maintenance Name Role Phone Gonzalez Gaitan MD Primary Care Provider [phone] Encounter Details Date Type Department Care Team (Late Contact Info) Description 12/18/2024 Lab Requisition [facility] - Main Lab 299 [facility] [place] [address] Jose Plata MD [address] [place] [address] Sepsis, unspecified organism (CMS/HCC V24, CMS/HCC V28) [...] 1:30 PM EST Office Visit Adult Medicine [address] [phone] Johanna George PA [address] [place] [address] 11/25/2025 1:30 PM EST Consult Nephrology - [address] [phone] Joe Chandler MD [address] [facility] [address] [place] [address] documented as of this encounter Visit Diagnoses Diagnosis Sepsis, unspecified organism (CMS/HCC V24, CMS/HCC V28) documented in this encounter Care Teams Pipe Fitter Maintenance Relationship Specialty Start Date End Date Gonzalez Gaitan MD [address] [place] [address] PCP - General Internal Medicine 03/30/22 documented as of this encounter
== END 2025-07-06 12:39 | disposition home or self-care (01) ==
LOC: HO.US 12:38
PROVIDERS: PCP Internal Medicine; Visit Provider Urology
DX: N12 Tubulo-interstitial nephritis, not specified as acute or chronic (principal); N31.9 Neuromuscular dysfunction of bladder, unspecified
CPT/HCPCS: 76775

== ENCOUNTER → 2025-07-06 12:40 | Outpatient (BNV) | payer MEDICARE, MEDICAID, SELFPAY | PROVIDERS: PCP Internal Medicine; Visit Provider Radiology Diagnostic Radiology | DX: N20.0 Calculus of kidney (principal) | CPT/HCPCS: 76775 ==